=== PATIENT | female | born 1940 | race Caucasian/White ===

== ENCOUNTER 2023-09-29 12:10 | Observation (INO) | payer MEDICARE, SELFPAY ==
--- NOTE | ~2023-09-29 | MR_ITS ---
EXAMINATION: MR BRAIN WITHOUT CONTRAST MR CERVICAL SPINE WITHOUT CONTRAST CLINICAL INFORMATION: Ataxia. Question of cervical cord compression on recent CT imaging. COMPARISON: CT from 09/29/2023. TECHNIQUE: Multiplanar, multisequence imaging of the brain and cervical spine was performed without contrast. FINDINGS: BRAIN: No diffusion abnormalities are identified to suggest an acute infarct. The ventricles are normal in size. No mass effect or midline shift is seen. Moderate chronic small vessel ischemic changes are present throughout the cerebral white matter of both hemispheres and to a lesser degree in the brainstem. No extra-axial fluid collections are seen. The cerebellum is normal. The gradient refocused acquisition demonstrates no pathologic magnetic susceptibility artifact to indicate underlying acute or chronic blood products. The craniovertebral junction, marrow signal, and midline structures are normal. The major intracranial flow voids at the level of the [place] are preserved. The dural venous sinus flow voids are maintained. The mastoid air cells and paranasal sinuses are well aerated. CERVICAL SPINE: Vertebral Bodies And Paraspinal Soft Tissues: The marrow signal is within normal limits. There is multilevel reduced intradiscal signal and rtgrwsup-iz-uofvcz disc space narrowing at the C5-C6 and C6-C7 levels. Mild rightward cervical spinal curvature noted. No compression fractures identified. No marrow or soft tissue edema is seen. The paraspinal soft tissues appear normal. The lung apices are grossly clear. Cervicomedullary Junction And Visualized Posterior Fossa: The craniovertebral junction appears normal. No cord signal abnormality or syrinx is seen. Spinal Levels: C2-C3: Minimal annular bulge without central canal stenosis. Mild left foraminal narrowing. C3-C4: Minimal posterior subluxation and disc bulge with uncovertebral joint spurring resulting in vslslfpo-jt-zoxshj right foraminal encroachment. No central canal stenosis. C4-C5: Retrosubluxation and disc-osteophyte complex with thickening of the ligamentum flavum and bulky right-sided uncovertebral joint spurring. Findings result in cvxv-cq-xfskejrb central canal stenosis with severe right foraminal encroachment. C5-C6: Broad-based disc-osteophyte complex and thickening of the ligamentum flavum resulting in severe central canal stenosis and cord compression without intramedullary signal change evident. Severe bilateral foraminal narrowing. C6-C7: Small central disc protrusion superimposed upon a disc-osteophyte complex resulting in severe central canal stenosis and cord distortion. No intramedullary signal change identified. Significant bilateral foraminal narrowing as well. C7-T1: Mild anterolisthesis and hypertrophic facet arthrosis. No central canal stenosis. Fltl-lj-qluzodby foraminal narrowing. MR/MR head/brain wo con IMPRESSION: BRAIN: No acute intracranial process. Moderate chronic white matter microangiopathy and generalized brain parenchymal volume loss. CERVICAL SPINE: 1. Multilevel cervical spondylosis, most significant at the C5-C6 and C6-C7 levels with severe central canal stenosis and cord compression. No intramedullary signal change. Severe bilateral foraminal narrowing as well at both levels. 2. Wuar-sn-zgdcczco central canal stenosis and severe right foraminal narrowing at the C4-C5 level. Mipuxyal-cx-gbxefs right foraminal narrowing at the C3-C4 level.
--- NOTE | ~2023-09-29 | MR_ITS ---
EXAMINATION: MR BRAIN WITHOUT CONTRAST MR CERVICAL SPINE WITHOUT CONTRAST CLINICAL INFORMATION: Ataxia. Question of cervical cord compression on recent CT imaging. COMPARISON: CT from 09/29/2023. TECHNIQUE: Multiplanar, multisequence imaging of the brain and cervical spine was performed without contrast. FINDINGS: BRAIN: No diffusion abnormalities are identified to suggest an acute infarct. The ventricles are normal in size. No mass effect or midline shift is seen. Moderate chronic small vessel ischemic changes are present throughout the cerebral white matter of both hemispheres and to a lesser degree in the brainstem. No extra-axial fluid collections are seen. The cerebellum is normal. The gradient refocused acquisition demonstrates no pathologic magnetic susceptibility artifact to indicate underlying acute or chronic blood products. The craniovertebral junction, marrow signal, and midline structures are normal. The major intracranial flow voids at the level of the [place] are preserved. The dural venous sinus flow voids are maintained. The mastoid air cells and paranasal sinuses are well aerated. CERVICAL SPINE: Vertebral Bodies And Paraspinal Soft Tissues: The marrow signal is within normal limits. There is multilevel reduced intradiscal signal and dfsgncty-wa-wllxnf disc space narrowing at the C5-C6 and C6-C7 levels. Mild rightward cervical spinal curvature noted. No compression fractures identified. No marrow or soft tissue edema is seen. The paraspinal soft tissues appear normal. The lung apices are grossly clear. Cervicomedullary Junction And Visualized Posterior Fossa: The craniovertebral junction appears normal. No cord signal abnormality or syrinx is seen. Spinal Levels: C2-C3: Minimal annular bulge without central canal stenosis. Mild left foraminal narrowing. C3-C4: Minimal posterior subluxation and disc bulge with uncovertebral joint spurring resulting in pbaivrzo-gk-wsjsav right foraminal encroachment. No central canal stenosis. C4-C5: Retrosubluxation and disc-osteophyte complex with thickening of the ligamentum flavum and bulky right-sided uncovertebral joint spurring. Findings result in poqz-jx-ptvxjvrt central canal stenosis with severe right foraminal encroachment. C5-C6: Broad-based disc-osteophyte complex and thickening of the ligamentum flavum resulting in severe central canal stenosis and cord compression without intramedullary signal change evident. Severe bilateral foraminal narrowing. C6-C7: Small central disc protrusion superimposed upon a disc-osteophyte complex resulting in severe central canal stenosis and cord distortion. No intramedullary signal change identified. Significant bilateral foraminal narrowing as well. C7-T1: Mild anterolisthesis and hypertrophic facet arthrosis. No central canal stenosis. Rtog-ik-rzoxfcpi foraminal narrowing. MR/MR cervical spine wo con IMPRESSION: BRAIN: No acute intracranial process. Moderate chronic white matter microangiopathy and generalized brain parenchymal volume loss. CERVICAL SPINE: 1. Multilevel cervical spondylosis, most significant at the C5-C6 and C6-C7 levels with severe central canal stenosis and cord compression. No intramedullary signal change. Severe bilateral foraminal narrowing as well at both levels. 2. Gefp-sp-zfgjhsvf central canal stenosis and severe right foraminal narrowing at the C4-C5 level. Dqexipbp-wm-tyrvqn right foraminal narrowing at the C3-C4 level.
--- NOTE | ~2023-09-29 | CT_ITS ---
CT ANGIOGRAM NECK WITH CONTRAST CT ANGIOGRAM BRAIN WITH CONTRAST CLINICAL INFORMATION: Acute difficulty walking/ataxia at 7:30 AM. COMPARISON: None available. TECHNIQUE: Test bolus sequences followed by intravenous administration 80 mL of Omnipaque 350. Helical imaging was performed in the axial plane from the thoracic inlet to the skull vertex. Delayed postcontrast imaging of the head was also performed. The data was processed at the manufacturing technologist workstation for generation of MIP sequences. Angled MIPs and volume rendered reformatted images were also generated at an offline 3D workstation under concurrent supervision. Stenoses are assessed in accordance with NASCET criteria unless otherwise indicated. This CT examination was performed using dose optimization techniques as appropriate, variously including the following: *Automated exposure control *Adjustment of mA and/or kV according to patient size (this includes techniques or standardized protocols for targeted exams where dose is matched to indication/reason for exam; i.e. extremities or head) *Use of iterative reconstruction technique FINDINGS: BRAIN: [Scattered hypoattenuation throughout the supratentorial white matter, possibly moderate chronic microangiopathy though nonspecific. There is no intracranial hemorrhage, hydrocephalus, extra-axial surface collection, midline shift, or other herniation pattern. Joseph to white matter differentiation is diffusely maintained without evidence of an evolved acute territorial infarct. The basilar cisterns are preserved. No significant soft tissue abnormality. No acute osseous abnormality. The paranasal sinuses and the mastoid air cells are well aerated.] CERVICAL SOFT TISSUES AND LUNG APICES: There is multilevel cervical spondylosis which is advanced at the C6-C7 level where a suspected large central disc herniation resulting in severe central canal stenosis and possible compression of the cervical spinal cord. There is also probable severe central canal stenosis and cord compression at C5-C6. These findings can can be more definitively assessed with a cervical spine MRI, particularly if there is cervical myelopathy clinically. NECK CTA: [There is a classic 3 vessel configuration of the aortic arch. Proximal arch vessels are non-stenotic. The right vertebral artery is dominant. No significant ostial stenosis is visualized on either side. Both vertebral arteries are widely patent throughout their extracranial cervical course. Extensive atherosclerotic calcification involving the carotid bifurcations bilaterally resulting in 65% stenoses of the proximal internal carotid arteries bilaterally and moderate to severe stenoses of the distal common carotid arteries bilaterally. BRAIN CTA: [There is normal opacification of major intracranial arteries. No focal flow-limiting stenosis nor discrete proximal large artery occlusion. No aneurysm. Timing of the contrast bolus allows assessment of the major dural venous sinuses, which all opacify normally] CT/CT angio head neck IMPRESSION: - There is multilevel cervical spondylosis which is advanced at the C6-C7 level where a suspected large central disc herniation resulting in severe central canal stenosis and possible compression of the cervical spinal cord. There is also probable severe central canal stenosis and cord compression at C5-C6. These findings can can be more definitively assessed with a cervical spine MRI, particularly if there is cervical myelopathy clinically. - No definite acute intracranial findings. Scattered hypoattenuation throughout the supratentorial white matter, possibly moderate chronic microangiopathy though nonspecific. If focal neurologic deficit persists, MRI would be more sensitive in evaluation. - Extensive atherosclerotic calcification involving the carotid bifurcations bilaterally resulting in 65% stenoses of the proximal internal carotid arteries bilaterally and moderate to severe stenoses of the distal common carotid arteries bilaterally. - There are no acute arterial occlusions intracranially. Findings discussed with Wil Wilhelm MD at 4:17 PM on 09/29/2023.
[2023-09-29 12:17] VITALS: BP 208/100; BP 221/103; PULSE 86; PULSE 95; RESP 16; TEMP 36.5; O2SAT 97; O2SAT 98; BMI 26.7
--- NOTE | 2023-09-29 13:32 | ED_ITS ---
HPI - General Adult General Chief complaint: General Medical Stated complaint: HIGH BP 208/100 PER EMS Time Seen by Provider: 09/29/23 13:32 History of Present Illness HPI narrative: The patient is an 83-year-old female who comes to the emergency room by ambulance because of difficulty walking that started at around 07:30 this morning. She had woken at 05:45. She had gotten up early to make a turkey. She was busy in her kitchen and got the turkey in the oven when she rather abruptly felt lightheaded and seemed to have difficulty walking. She sat down for a while hoping she would get better. She did get better. She called a friend who came over. Ultimately the patient stated home until her turkey was fully cooked before coming to the hospital by ambulance. She has never had an episode like this before. She had no associated headache, no associated chest pain. There has been no speech difficulty. No facial asymmetry. No unilateral weakness. She has been noted here to be quite hypertensive. She has no symptoms except when she stands up and tries to walk. Patient said she had alcohol last night. She said that she had 3 drinks. She says that usually she has 2 drinks per night but she had an extra drink last night. Related Data Home Medications Medication Instructions Recorded Confirmed levothyroxine 75 mcg tablet 75 mcg PO DAILY 04/21/21 09/29/23 lisinopril 20 mg tablet 20 mg PO DAILY 04/21/21 09/29/23 Allergies Allergy/AdvReac Type Severity Reaction Status Date / Time No Known Allergies Allergy Verified 04/21/21 09:10 Review of Systems 2 Review of Systems: Yes all other systems are reviewed and are negative [facility] Social History Advance Directives: No Advance Directives Information Provided: Yes Physical Exam ED Vital Signs: Vital Signs - 24 hr 09/29/23 12:17 09/29/23 13:35 09/29/23 17:50 Temperature 97.7 F 98.3 F 97.6 F Pulse Rate 86 86 86 Respiratory Rate 16 21 H 86 H Blood Pressure 221/103 H 216/99 H 197/99 H Pulse Oximetry 98 96 95 Oxygen Delivery Method Room Air Room Air Room Air 09/29/23 19:54 Temperature 98.3 F Pulse Rate 88 Respiratory Rate 18 Blood Pressure 187/91 H Pulse Oximetry 94 Oxygen Delivery Method Room Air BMI result Body Mass Index 26.7 Const Other: The patient is awake, alert, pleasant, cooperative. She does not appear in any obvious distress. HENMT Other: The face is symmetrical. Tongue is midline. Mucous membranes moist. Eyes Other: Pupils are round equal, conjunctivae are clear, extraocular movements intact. Visual [place] are intact to confrontation. Lateral gaze intact. Neck Other: No JVD, no neck swelling, no neck tenderness, moving her neck is sleeping Resp Other: Breath sounds are clear bilaterally Cardio Other: The patient has a regular rate and rhythm no murmur GI Other: Abdomen is soft nontender Skin Other: Skin is dry and unremarkable. Neuro Other: The patient is awake, alert, oriented, appropriate. Eye movements are intact. Visual [place] are intact. No facial asymmetry. Speech is normal without aphasia or dysarthria. She has 5/5 strength in all 4 extremities. She has no pronator drift. Finger-nose and heel-cotton are unremarkable. Sensation is intact throughout. When she is sitting up she does not seem to have obvious truncal ataxia but when she stands she has difficulty walking with an obviously broad-based gait. Extrem Other: No peripheral edema. NIH Stroke Scale Level of Consciousness: Alert Level of Consciousness Questions: Answers both questions correctly Level of Consciousness Commands: Performs both tasks correctly Best Gaze: Normal Visual: No visual loss Facial Palsy: Normal Motor Arm (Right): No drift Motor Arm (Left): No drift Motor Leg (Right): No drift Motor Leg (Left): No drift Limb Ataxia: Absent Sensory: Normal Best Language: No aphasia Dysarthia: Normal Extinction and Inattention: No abnormality Score: 0 Medications Administered Discontinued Medications Generic Name Dose Route Start Last Admin Trade Name Tramaineq PRN Reason Stop Dose Admin Iohexol 70 ml 09/29/23 15:33 09/29/23 15:34 Iohexol 350 Mg/Ml 100 Ml Infus..Btl IV 09/29/23 15:34 70 ml ONCE ONE Administration Medical Decision Making Medical Decision Making [facility] Narrative: Patient is an 83-year-old woman who developed abrupt onset of difficulty walking at around 07:30 this morning. She had been up for about an hour and 45 minutes preparing a Thanksgiving turkey before the onset of symptoms. She did not have any other symptoms aside from what she describes as ?lightheadedness? and a sense that she could not walk normally. She called a friend at around 09:00 but did not come to the emergency room until around noon because she wanted to finished cooking her turkey. She has never had an episode like this before. On exam she looks well when examined on the bed and has no obvious focal neurological deficit while lying down. Her NIH stroke scale is 0. However when she stands she has a broad-based abnormal gait. Her EKG shows normal sinus rhythm at 84 beats per minute. No definite acute ischemic changes. Labs are unremarkable. My initial concern was that she might have a small posterior circulation stroke affecting her gait. We obtained a CT angiogram of the head and neck which showed significant vascular disease but no definite stroke or large vessel occlusion. The radiologist was concerned that there was spinal cord compression at C5-C6 and recommended an MRI of the cervical spine. We were then able to obtain an MRI of the cervical spine and also an MRI of the brain. MRI of the brain showed no evidence of stroke. MRI of the cervical spine showed multilevel cervical spondylosis, most significant at C5-C6 and C6-C7 levels with severe central canal stenosis and cord compression but without intramedullary signal change. Clinically the patient was not showing signs of myelopathy. She has quite good function of the extremities. Initial bladder scan showed a bladder volume of 400. A 2nd bladder scan which was more of a postvoid residual showed a bladder volume of 250 mL per I was able to discuss the case with the neurosurgical physician occupational therapist's assistant at [facility] who was able to review the images. The neurosurgical PA felt that given the absence of intramedullary signal change in the absence of any significant myelopathic symptoms that there was no indication for acute neurosurgical intervention of any kind and be recommended physical therapy and follow-up with the Neurosurgery office as an outpatient. The patient was therefore in the emergency room for many hours. During this time she remained clinically stable. Her blood pressures were initially fairly high but these came down spontaneously. Her gait remained mildly unsteady but she otherwise seemed neurologically intact. Her urinalysis suggests the possibility of UTI but she has no urinary symptoms so I am not inclined to use antibiotics. The patient seems very comfortable with the idea being kept in the emergency room for evaluation by Physical therapy and Case Management. The patient seemed relieved that the idea of not having to prepare and host a Thanksgiving dinner for 14 people tomorrow. My impression is that patient is appropriate for being held in the emergency room overnight for physical therapy evaluation and case management. If she can follow-up as an outpatient regarding findings on her MRI and also regarding the vascular findings on her CT angiogram. In my opinion she is medically clear to go for rehab and then follow-up as an outpatient. Lab Data 09/29/23 14:28 09/29/23 14:28 Labs: Lab Results 09/29/23 09/29/23 09/29/23 Range/Units 14:28 14:29 17:52 WBC 8.2 (4.8-10.8) X10*3/uL RBC 3.97 L (4.20-5.50) X10*6/uL Hgb 12.9 (12.0-16.0) g/dl Hct 37.7 (37.0-47.0) % MCV 95.0 (80.0-98.0) fL MCH 32.5 (27.0-33.0) pg MCHC 34.2 (31.0-35.0) g/dl RDW 13.2 (11.0-16.0) % Plt Count 204 (160-400) X10*3/uL MPV 10.5 (9.4-12.3) fL Immature Gran % (Auto) 0.2 (0.0-0.4) % Neut % (Auto) 83.5 H (45-73) % Lymph % (Auto) 7.8 L (20-40) % [place] % (Auto) 8.4 (2-11) % Eos % (Auto) 0.0 (0-4) % Baso % (Auto) 0.1 (0-2) % Lymph # (Auto) 0.6 L (1.2-4.9) X10*3/uL [place] # (Auto) 0.7 (0.1-1.2) X10*3/uL Eos # (Auto) 0.0 (0.0-0.4) X10*3/uL Baso # (Auto) 0.0 (0.0-0.2) X10*3/uL Abs Immat Gran (auto) 0.02 (0.00-0.03) X10*3/uL Absolute Neuts (auto) 6.8 (2.0-8.3) x10*3/uL Absolute Nucleated RBC 0.000 (0.0-0.012) X10*3/uL Nucleated RBC % (auto) 0.0 (0.0-0.2) /100WBC PT 11.4 (11.1-13.3) SEC INR 0.9 (0.9-1.1) Sodium 130 L (135-145) mmol/L Potassium 4.6 (3.3-5.1) mmol/L Chloride 96 (96-108) mmol/L Carbon Dioxide 26 (22-29) mmol/L Anion Gap 13 (12-20) BUN 23 H (9-16) mg/dL Creatinine 0.87 (0.5-1.4) mg/dL Estim Creat Clear Calc 45.5 Estimated GFR > 60 Random Glucose 100 (60-115) mg/dL Calcium 9.1 (8.4-10.2) mg/dL Magnesium 1.7 (1.6-2.6) mg/dL Total Bilirubin 0.8 (0.0-1.0) mg/dL Direct Bilirubin 0.3 (0.0-0.5) mg/dL AST 28 (5-31) U/L ALT 20 (0-31) U/L Alkaline Phosphatase 53 (39-117) U/L Troponin I High Sens 23.8 H (<3.5-17.0) ng/L B-Natriuretic Peptide 55 (<100) pg/mL Total Protein 7.5 (6.5-8.0) g/dL Albumin 4.2 (3.5-5.0) g/dL Urine Color Yellow Urine Appearance Clear Urine pH 6.5 (5.0-9.0) Ur Specific [place] 1.020 (1.005-1.025) Urine Protein Negative (Neg-Trace) mg/dL Urine Glucose (UA) Negative (Negative) mg/dL Urine Ketones Trace (Negative) mg/dL Urine Blood Trace H (Negative) Urine Nitrite Positive H (Negative) Ur Leukocyte Esterase Small (1+) H (Negative) Urine RBC 0-2 (0-2) /HPF Urine WBC 6-10 H (0-5) /HPF Ur Squamous Epith Cells 0-2 (0-2) /HPF Urine Bacteria 4+ (None Seen) Hyaline Casts 0-2 (0-2) /LPF Ethyl Alcohol < 10 mg/dL Discharge Plan Discharge Clinical Impression: Difficulty walking Prescriptions: No Action levothyroxine 75 mcg tablet 75 mcg PO DAILY lisinopril 20 mg tablet 20 mg PO DAILY
[2023-09-29 13:35] VITALS: BP 216/99; PULSE 86; RESP 21; TEMP 36.8; O2SAT 96
--- NOTE | 2023-09-29 13:48 | ECG_ITS ---
Test Reason : DIZZINESS Blood Pressure : / mmHG Vent. Rate : 084 BPM Atrial Rate : 084 BPM P-R Int : 154 ms QRS Dur : 082 ms QT Int : 378 ms P-R-T Axes : 083 065 044 degrees QTc Int : 446 ms Normal sinus rhythm Possible Left atrial enlargement Borderline ECG When compared with ECG of 17-MAR-2013 08:57, T wave amplitude has increased in Anterior leads Referred By: Wil Wilhelm Electronically Signed By:CHUCKY AMARO MD
[2023-09-29 14:35] LABS: MANUAL DIFF FLAG NO
[2023-09-29 14:37] LABS: Basophils Percent Auto 0.1 % (0-2); Hematocrit 37.7 % (37.0-47.0); Hemoglobin 12.9 g/dl (12.0-16.0); Imm Gran Abs Auto 0.02 X10*3/uL (0.00-0.03); Imm Gran Pct Auto 0.2 % (0.0-0.4); Lymphocytes Absolute Auto 0.6 X10*3/uL (1.2-4.9); Lymphocytes Percent Auto 7.8 % (20-40); Mean Corpuscular HGB Conc 34.2 g/dl (31.0-35.0); Mean Corpuscular Hemoglobin 32.5 pg (27.0-33.0); Mean Platelet Volume 10.5 fL (9.4-12.3); Monocytes Absolute Auto 0.7 X10*3/uL (0.1-1.2); Monocytes Percent Auto 8.4 % (2-11); Neutrophils Absolute Auto 6.8 x10*3/uL (2.0-8.3); Neutrophils Percent Auto 83.5 % (45-73); Platelet Count 204 X10*3/uL (160-400); Red Blood Count 3.97 X10*6/uL (4.20-5.50); Red Cell Distribution Width 13.2 % (11.0-16.0); White Blood Count 8.2 X10*3/uL (4.8-10.8)
[2023-09-29 14:43] LABS: INTERNATIONAL NORM RATIO 0.9 (0.9-1.1); Prothrombin Time 11.4 SEC (11.1-13.3)
[2023-09-29 14:52] LABS: Ethanol < 10 mg/dL
[2023-09-29 14:53] LABS: Alanine Aminotransferase 20 U/L (0-31); Albumin Level 4.2 g/dL (3.5-5.0); Alkaline Phosphatase 53 U/L (39-117); Anion Gap 13 (12-20); Aspartate Amino Transferase 28 U/L (5-31); Bilirubin Direct 0.3 mg/dL (0.0-0.5); Bilirubin Total 0.8 mg/dL (0.0-1.0); Blood Urea Nitrogen 23 mg/dL (9-16); Calcium 9.1 mg/dL (8.4-10.2); Carbon Dioxide 26 mmol/L (22-29); Chloride 96 mmol/L (96-108); Creatinine Clr Calc Pharmacy 45.5; Estimated Glomerular Filt Rate > 60; Glucose Random 100 mg/dL (60-115); Magnesium 1.7 mg/dL (1.6-2.6); Potassium 4.6 mmol/L (3.3-5.1); Sodium 130 mmol/L (135-145); Total Protein 7.5 g/dL (6.5-8.0)
[2023-09-29 15:00] LABS: B Type Natriuretic Peptide 55 pg/mL (<100)
[2023-09-29 15:01] LABS: Troponin-I High Sensitivity 23.8 ng/L (<3.5-17.0)
[2023-09-29] MEDS: iohexoL 350 MG/ML 100 ML INFUS..BTL 70 ML IV (15:34)
--- NOTE | 2023-09-29 17:11 | PC.NURSE ---
Pt currently at MRI
[2023-09-29 17:50] VITALS: BP 197/99; PULSE 86; RESP 86; TEMP 36.4; O2SAT 95
[2023-09-29 17:59] LABS: Appearance Urine Clear; Color Urine Yellow; Glucose Urine UA Negative (Negative); Leukocyte Esterase Urine Small (1+) (Negative); Nitrite Urine Positive (Negative); PH 6.5 (5.0-9.0); UMIC TRIGGER UACC YES; Urine Blood Trace (Negative); Urine Ketones Trace mg/dL (Negative); Urine Protein Negative (Neg-Trace)
[2023-09-29 18:11] LABS: Bacteria Urine 4+ (None Seen); Hyaline Casts Urine 0-2 /LPF (0-2); RBC Urine 0-2 /HPF (0-2); Squamous Epithelial Cell Urine 0-2 /HPF (0-2); UACC Culture Trigger YES
--- NOTE | 2023-09-29 19:39 | PC.NURSE ---
Pt ca&ox4, no signs of distress. Pt assisted to the bedside commode and then back into bed. Plan of care ongoing.
[2023-09-29 19:54] VITALS: BP 187/91; PULSE 88; RESP 18; TEMP 36.8; O2SAT 94
--- NOTE | 2023-09-29 21:55 | PC.NURSE ---
Pt assisted to bedside commode. Purewick placed. Plan of care ongoing.
--- NOTE | 2023-09-29 22:32 | ED_ITS ---
HPI - General Adult General Chief complaint: General Medical Stated complaint: HIGH BP 208/100 PER EMS Time Seen by Provider: 09/29/23 13:32 Related Data Home Medications Medication Instructions Recorded Confirmed levothyroxine 75 mcg tablet 75 mcg PO DAILY 04/21/21 09/29/23 lisinopril 20 mg tablet 20 mg PO DAILY 04/21/21 09/29/23 Allergies Allergy/AdvReac Type Severity Reaction Status Date / Time No Known Allergies Allergy Verified 04/21/21 09:10 [facility] Social History Advance Directives: No Advance Directives Information Provided: Yes Physical Exam ED Vital Signs: Vital Signs - 24 hr 09/29/23 12:17 09/29/23 13:35 09/29/23 17:50 Temperature 97.7 F 98.3 F 97.6 F Pulse Rate 86 86 86 Respiratory Rate 16 21 H 86 H Blood Pressure 221/103 H 216/99 H 197/99 H Pulse Oximetry 98 96 95 Oxygen Delivery Method Room Air Room Air Room Air 09/29/23 19:54 Temperature 98.3 F Pulse Rate 88 Respiratory Rate 18 Blood Pressure 187/91 H Pulse Oximetry 94 Oxygen Delivery Method Room Air BMI result Body Mass Index 26.7 Medications Administered Discontinued Medications Generic Name Dose Route Start Last Admin Trade Name Freq PRN Reason Stop Dose Admin Iohexol 70 ml 09/29/23 15:33 09/29/23 15:34 Iohexol 350 Mg/Ml 100 Ml Infus..Btl IV 09/29/23 15:34 70 ml ONCE ONE Administration Medical Decision Making Lab Data 09/29/23 14:28 09/29/23 14:28 Labs: Lab Results 09/29/23 09/29/23 09/29/23 Range/Units 14:28 14:29 17:52 WBC 8.2 (4.8-10.8) X10*3/uL RBC 3.97 L (4.20-5.50) X10*6/uL Hgb 12.9 (12.0-16.0) g/dl Hct 37.7 (37.0-47.0) % MCV 95.0 (80.0-98.0) fL MCH 32.5 (27.0-33.0) pg MCHC 34.2 (31.0-35.0) g/dl RDW 13.2 (11.0-16.0) % Plt Count 204 (160-400) X10*3/uL MPV 10.5 (9.4-12.3) fL Immature Gran % (Auto) 0.2 (0.0-0.4) % Neut % (Auto) 83.5 H (45-73) % Lymph % (Auto) 7.8 L (20-40) % [place] % (Auto) 8.4 (2-11) % Eos % (Auto) 0.0 (0-4) % Baso % (Auto) 0.1 (0-2) % Lymph # (Auto) 0.6 L (1.2-4.9) X10*3/uL [place] # (Auto) 0.7 (0.1-1.2) X10*3/uL Eos # (Auto) 0.0 (0.0-0.4) X10*3/uL Baso # (Auto) 0.0 (0.0-0.2) X10*3/uL Abs Immat Gran (auto) 0.02 (0.00-0.03) X10*3/uL Absolute Neuts (auto) 6.8 (2.0-8.3) x10*3/uL Absolute Nucleated RBC 0.000 (0.0-0.012) X10*3/uL Nucleated RBC % (auto) 0.0 (0.0-0.2) /100WBC PT 11.4 (11.1-13.3) SEC INR 0.9 (0.9-1.1) Sodium 130 L (135-145) mmol/L Potassium 4.6 (3.3-5.1) mmol/L Chloride 96 (96-108) mmol/L Carbon Dioxide 26 (22-29) mmol/L Anion Gap 13 (12-20) BUN 23 H (9-16) mg/dL Creatinine 0.87 (0.5-1.4) mg/dL Estim Creat Clear Calc 45.5 Estimated GFR > 60 Random Glucose 100 (60-115) mg/dL Calcium 9.1 (8.4-10.2) mg/dL Magnesium 1.7 (1.6-2.6) mg/dL Total Bilirubin 0.8 (0.0-1.0) mg/dL Direct Bilirubin 0.3 (0.0-0.5) mg/dL AST 28 (5-31) U/L ALT 20 (0-31) U/L Alkaline Phosphatase 53 (39-117) U/L Troponin I High Sens 23.8 H (<3.5-17.0) ng/L B-Natriuretic Peptide 55 (<100) pg/mL Total Protein 7.5 (6.5-8.0) g/dL Albumin 4.2 (3.5-5.0) g/dL Urine Color Yellow Urine Appearance Clear Urine pH 6.5 (5.0-9.0) Ur Specific [place] 1.020 (1.005-1.025) Urine Protein Negative (Neg-Trace) mg/dL Urine Glucose (UA) Negative (Negative) mg/dL Urine Ketones Trace (Negative) mg/dL Urine Blood Trace H (Negative) Urine Nitrite Positive H (Negative) Ur Leukocyte Esterase Small (1+) H (Negative) Urine RBC 0-2 (0-2) /HPF Urine WBC 6-10 H (0-5) /HPF Ur Squamous Epith Cells 0-2 (0-2) /HPF Urine Bacteria 4+ (None Seen) Hyaline Casts 0-2 (0-2) /LPF Ethyl Alcohol < 10 mg/dL Discharge Plan Discharge Clinical Impression: Difficulty walking Patient Disposition: Still a Patient Prescriptions: No Action levothyroxine 75 mcg tablet 75 mcg PO DAILY lisinopril 20 mg tablet 20 mg PO DAILY
[2023-09-30] VITALS (8 sets, daily range): BP systolic 116–212; BP diastolic 53–98; PULSE 73–86; RESP 15–19; TEMP 36.7–36.8; O2SAT 93–98; BMI 25.4
--- NOTE | 2023-09-30 | ECG_ITS ---
Test Reason : ABNORMAL LABS Blood Pressure : / mmHG Vent. Rate : 088 BPM Atrial Rate : 088 BPM P-R Int : 138 ms QRS Dur : 076 ms QT Int : 390 ms P-R-T Axes : 074 059 049 degrees QTc Int : 471 ms Normal sinus rhythm with sinus arrhythmia Normal ECG When compared with ECG of 29-SEP-2023 14:21, T wave amplitude has increased in Anterior leads Referred By: Wil Wilhelm Electronically Signed By:CHUCKY AMARO MD
--- NOTE | 2023-09-30 00:33 | PC.NURSE ---
Report given to overflow SHAYNE Nieves.
[2023-09-30] MEDS: cefuroxime axetiL 250 MG TABLET PO (01:47)
[2023-09-30] MEDS: lisinopriL 10 MG TABLET PO (01:47)
--- NOTE | 2023-09-30 01:54 | PC.NURSE ---
I assumed care of patient at 01:45 am. Patient brought to ED overflow in a stretcher bed, patient transferred into a hospital bed, purewick in place. Patient is alert and oriented x5. Patient denies any pain. Vital signs checked. BP 212/93, P 82. Patient denies headache/chest pain/SOB. ED Provider notified.Patient medicated with Lisinopril 10 mg PO and Ceftin 250 mg per MD order. Patient oriented to overflow room, call irwin placed within patient's reach.
[2023-09-30 03:03] LABS: Troponin-I High Sensitivity 73.9 ng/L (<3.5-17.0)
--- NOTE | 2023-09-30 03:07 | PC.NURSE ---
Telephone call received from lab, spoke to Messi who reported critical trop level 73.9. Dr. Kaur informed. Patient to denies chest pain/headache/nausea/SOB. Plan for patient to be transferred to ED 22 for monitoring.
[2023-09-30] MEDS: Aspirin Enteric Coated 81 MG TABLET.DR PO (03:45)
[2023-09-30] MEDS: Nitroglycerin 2 % Oint 1 GM Packet 0.5 INCH TRANSDERMA (03:45)
[2023-09-30] MEDS: cefTRIAXone sodium 1 GM in 0.9 % Sodium Chloride 50 ML IV (03:45)
--- NOTE | 2023-09-30 04:02 | PC.NURSE ---
Pt medicated per jan. Plan of care ongoing.
[2023-09-30 04:18] LABS: Lactic Acid 0.7 mmol/L (0.5-2.0)
[2023-09-30 05:05] LABS: Troponin-I High Sensitivity 84.6 ng/L (<3.5-17.0)
--- NOTE | 2023-09-30 05:06 | PC.NURSE ---
This RN took critical lab update from Messi pts trop is 84.6. Dr Kaur notified regarding pts trop of 84.6 Dr Kaur called hospitalized Dr. Zaldivar and updated her on pts trop, pt to be admitted. This RN spoke with pt and pt agrees to be admitted. Plan of care ongoing.
--- NOTE | 2023-09-30 05:28 | P.HPHOSP_ITS ---
History of Present Illness Date of Service: 09/30/23 Chief Complaint: weakness 83-year-old female past medical history of hypothyroidism and hypertension comes into the hospital with complaints of generalized weakness. 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 This feeling result after sitting down. She did not have any loss of consciousness, no palpitations, no headache or change in vision. She had a friend convinced her to come to the hospital for further evaluation. Denies any similar previous episode. Denies any chest pain, no shortness of breath, no palpitations, no abdominal pain nausea or vomiting. patient has been feeling urinary urgency and mild retention for the past 2 days. But otherwise did not have any dysuria. No fever or chills. On arrival to the ED patient slightly hypertensive with blood pressure of 221/103, currently 193/98 denies any chest pain, no headache or change in vision. labs are significant for normal WBC of 8.2, sodium of 130, troponin of initially 23.8 increased to 73.9, and now 84.6, BNP of 55, UA positive for nitrites leukocyte Estrace and WBC Patient started on IV antibiotics and will be admitted for further management Review of Systems 2 Review of Systems: Yes all other systems are reviewed and are negative [facility] Medical History Hypothyroidism Spinal stenosis Hypertension Surgical History History of right hip replacement (Updated 09/30/23 @ 05:44 by Renée Zaldivar MD) Household Members: None Household Members Other:: lives alone Alcohol intake: current Patient Tobacco Use Status: Never used Tobacco Meds Allergies Allergy/AdvReac Type Severity Reaction Status Date / Time No Known Allergies Allergy Verified 04/21/21 09:10 Active Medications: Current Medications Levothyroxine Sodium (Levothyroxine Sodium 75 Mcg Tablet) 75 mcg PO DAILY@0600 [facility] Lisinopril (Lisinopril 20 Mg Tablet) 20 mg PO DAILY [facility]; Protocol Home Medications Medication Instructions Recorded Confirmed Last Taken Type levothyroxine 75 mcg tablet 75 mcg PO DAILY 04/21/21 09/29/23 Unknown History lisinopril 20 mg tablet 20 mg PO DAILY 04/21/21 09/29/23 Unknown History Physical Exam 2 Vital Signs and Narrative: Vital Signs: Last Vital Signs Temp 98.0 F 09/30/23 01:27 Pulse 81 09/30/23 02:40 Resp 19 09/30/23 02:40 BP 195/98 H 09/30/23 02:40 Pulse Ox 98 09/30/23 02:40 O2 Del Method Room Air 09/30/23 02:40 BMI result Body Mass Index 26.7 Const: General: cooperative and no acute distress O rientation/consciousness: patient oriented x3 Eyes: General: appearance normal, both eyes and all related structures P upils: Equal, round and reactive pupils present Resp: Effort & Inspection: normal respiratory effort Auscultation: clear to auscultation bilaterally Cardio: Rate: regular rate Rhythm: regular rhythm GI: Palpation (GI): Soft to palpation Auscultation: normal bowel sounds Skin: General skin exam: no rashes or lesions noted Neuro: General: patient oriented x3 Cranial nerves: Yes Equal, round and reactive pupils present Cognition (Neuro): normal cognition Extrem: General: Yes normal to inspection and Yes no pedal edema Results Labs 09/29/23 14:28 09/29/23 14:28 Labs: Laboratory Results - last 24 hr 09/29/23 09/29/23 09/29/23 14:28 14:29 17:52 MCV 95.0 MCH 32.5 MCHC 34.2 RDW 13.2 Plt Count 204 MPV 10.5 Immature Gran % (Auto) 0.2 Neut % (Auto) 83.5 H Lymph % (Auto) 7.8 L [place] % (Auto) 8.4 Eos % (Auto) 0.0 Baso % (Auto) 0.1 Lymph # (Auto) 0.6 L [place] # (Auto) 0.7 Eos # (Auto) 0.0 Baso # (Auto) 0.0 Abs Immat Gran (auto) 0.02 Absolute Neuts (auto) 6.8 Absolute Nucleated RBC 0.000 Nucleated RBC % (auto) 0.0 PT 11.4 INR 0.9 Anion Gap 13 Estim Creat Clear Calc 45.5 Estimated GFR > 60 Random Glucose 100 Lactic Acid Calcium 9.1 Magnesium 1.7 Total Bilirubin 0.8 Direct Bilirubin 0.3 AST 28 ALT 20 Alkaline Phosphatase 53 B-Natriuretic Peptide 55 Total Protein 7.5 Albumin 4.2 Urine Color Yellow Urine Appearance Clear Urine pH 6.5 Ur Specific [place] 1.020 Urine Protein Negative Urine Glucose (UA) Negative Urine Ketones Trace Urine Blood Trace H Urine Nitrite Positive H Ur Leukocyte Esterase Small (1+) H Urine RBC 0-2 Urine WBC 6-10 H Ur Squamous Epith Cells 0-2 Urine Bacteria 4+ Hyaline Casts 0-2 Ethyl Alcohol < 10 09/30/23 03:53 MCV MCH MCHC RDW Plt Count MPV Immature Gran % (Auto) Neut % (Auto) Lymph % (Auto) [place] % (Auto) Eos % (Auto) Baso % (Auto) Lymph # (Auto) [place] # (Auto) Eos # (Auto) Baso # (Auto) Abs Immat Gran (auto) Absolute Neuts (auto) Absolute Nucleated RBC Nucleated RBC % (auto) PT INR Anion Gap Estim Creat Clear Calc Estimated GFR Random Glucose Lactic Acid 0.7 Calcium Magnesium Total Bilirubin Direct Bilirubin AST ALT Alkaline Phosphatase B-Natriuretic Peptide Total Protein Albumin Urine Color Urine Appearance Urine pH Ur Specific [place] Urine Protein Urine Glucose (UA) Urine Ketones Urine Blood Urine Nitrite Ur Leukocyte Esterase Urine RBC Urine WBC Ur Squamous Epith Cells Urine Bacteria Hyaline Casts Ethyl Alcohol Imaging Radiologist's Impressions: Impressions Head/Neck CTA 09/29/23 15:34 IMPRESSION: - There is multilevel cervical spondylosis which is advanced at the C6-C7 level where a suspected large central disc herniation resulting in severe central canal stenosis and possible compression of the cervical spinal cord. There is also probable severe central canal stenosis and cord compression at C5-C6. These findings can can be more definitively assessed with a cervical spine MRI, particularly if there is cervical myelopathy clinically. - No definite acute intracranial findings. Scattered hypoattenuation throughout the supratentorial white matter, possibly moderate chronic microangiopathy though nonspecific. If focal neurologic deficit persists, MRI would be more sensitive in evaluation. - Extensive atherosclerotic calcification involving the carotid bifurcations bilaterally resulting in 65% stenoses of the proximal internal carotid arteries bilaterally and moderate to severe stenoses of the distal common carotid arteries bilaterally. - There are no acute arterial occlusions intracranially. Findings discussed with Wil Wilhelm MD at 4:17 PM on 09/29/2023. Brain MRI 09/29/23 17:15 IMPRESSION: BRAIN: No acute intracranial process. Moderate chronic white matter microangiopathy and generalized brain parenchymal volume loss. CERVICAL SPINE: 1. Multilevel cervical spondylosis, most significant at the C5-C6 and C6-C7 levels with severe central canal stenosis and cord compression. No intramedullary signal change. Severe bilateral foraminal narrowing as well at both levels. 2. [id number]-[id number] central canal stenosis and severe right foraminal narrowing at the C4-C5 level. [id number] right foraminal narrowing at the C3-C4 level. Cervical Spine MRI 09/29/23 17:38 IMPRESSION: BRAIN: No acute intracranial process. Moderate chronic white matter microangiopathy and generalized brain parenchymal volume loss. CERVICAL SPINE: 1. Multilevel cervical spondylosis, most significant at the C5-C6 and C6-C7 levels with severe central canal stenosis and cord compression. No intramedullary signal change. Severe bilateral foraminal narrowing as well at both levels. 2. Dxhp-rx-sjesmaly central canal stenosis and severe right foraminal narrowing at the C4-C5 level. Ksdtydvr-[id number] right foraminal narrowing at the C3-C4 level. Assessment and Plan (1) Acute UTI: Status: Acute (2) Weakness: Status: Acute (3) Acute non-ST elevation myocardial infarction (NSTEMI): Status: Acute (4) Hypertensive urgency: Status: Acute Plan 83-year-old female past medical history of hypertension and hypothyroidism as well as spinal stenosis comes into the hospital with complaints of weakness, urinary retention and urgency found to have UTI as well as elevated troponin # elevated troponin - likely type 2 in the setting of hypertension as well as UTI - denies any chest pain, no EKG changes suggestive of ACS - will consult Cardiology - hold off on echo at this time until Cardiology recommendation # hypertensive urgency - significantly elevated blood pressure on arrival secondary to urinary retention - improved - will resume her home medications and give her 1 dose of amlodipine - monitor BP # acute UTI - positive UA, no leukocytosis, no evidence of systemic infection - will treat with IV antibiotics - follow cultures # generalized weakness - secondary to acute infection - PT OT prior to discharge # hypothyroidism - continue levothyroxine DVT prophylaxis: Lovenox Quality Stroke Does the patient have a stroke diagnosis?: No VTE Prior VTE?: No VTE Risk Level:: Medical - moderate - high VTE Device Contraindication: Treatment Not Indicated VTE Drug Contraindication: N/A - Med Ordered
[2023-09-30 06:00] LABS: MANUAL DIFF FLAG NO
[2023-09-30 06:03] LABS: Basophils Percent Auto 0.5 % (0-2); Eosinophils Absolute Auto 0.1 X10*3/uL (0.0-0.4); Eosinophils Percent Auto 0.8 % (0-4); Hematocrit 36.4 % (37.0-47.0); Hemoglobin 12.6 g/dl (12.0-16.0); Imm Gran Abs Auto 0.03 X10*3/uL (0.00-0.03); Imm Gran Pct Auto 0.4 % (0.0-0.4); Lymphocytes Absolute Auto 0.9 X10*3/uL (1.2-4.9); Lymphocytes Percent Auto 11.4 % (20-40); Mean Corpuscular HGB Conc 34.6 g/dl (31.0-35.0); Mean Corpuscular Hemoglobin 32.4 pg (27.0-33.0); Mean Corpuscular Volume 93.6 fL (80.0-98.0); Mean Platelet Volume 10.4 fL (9.4-12.3); Monocytes Absolute Auto 0.9 X10*3/uL (0.1-1.2); Monocytes Percent Auto 11.3 % (2-11); Neutrophils Absolute Auto 5.8 x10*3/uL (2.0-8.3); Neutrophils Percent Auto 75.6 % (45-73); Platelet Count 213 X10*3/uL (160-400); Red Blood Count 3.89 X10*6/uL (4.20-5.50); Red Cell Distribution Width 13.2 % (11.0-16.0); White Blood Count 7.6 X10*3/uL (4.8-10.8)
[2023-09-30] MEDS: amLODIPine Besylate 5 MG TABLET PO (06:03)
[2023-09-30] MEDS: Levothyroxine Sodium 75 MCG TABLET PO (06:03)
[2023-09-30] MEDS: Enoxaparin Sodium 40 MG/0.4 ML SYRINGE SUBCUT (06:04)
--- NOTE | 2023-09-30 06:11 | PC.NURSE ---
Pt medicated per jan. Plan of care ongoing.
[2023-09-30 06:14] LABS: Anion Gap 14 (12-20); Blood Urea Nitrogen 15 mg/dL (9-16); Carbon Dioxide 27 mmol/L (22-29); Chloride 98 mmol/L (96-108); Creatinine Clr Calc Pharmacy 44.5; Estimated Glomerular Filt Rate > 60; Glucose Random 99 mg/dL (60-115); Potassium 5.1 mmol/L (3.3-5.1); Sodium 134 mmol/L (135-145)
--- NOTE | 2023-09-30 07:08 | PC.NURSE ---
assumed care of pt at 0645, pt resting quietly, remains slightly hypertensive - other vss. pt denies any pain at this time. pending bed assignment.
--- NOTE | 2023-09-30 07:34 | PC.NURSE ---
pt given comb and mouth care supplies.
[2023-09-30] MEDS: lisinopriL 20 MG TABLET PO (08:04)
[2023-09-30] MEDS: 0.9 % Sodium Chloride Flush 3 ML SYRINGE IVFLUSH ×2 (08:07→15:24)
--- NOTE | 2023-09-30 08:07 | PC.NURSE ---
pt medicated per MAR.
--- NOTE | 2023-09-30 08:11 | PHA.MEDREC ---
Pharmacy Consult ? Medication Reconciliation Pharmacy has completed the medication reconciliation. Spoke to patient at bedside, said she takes two tablets of her levothyroxine on Wednesday and Wednesday
--- NOTE | 2023-09-30 10:03 | MHC.EDTECH ---
Patient repositioned and bed pad and young changed
--- NOTE | 2023-09-30 11:13 | PM.EVENT ---
Event Note Date of Service: 09/30/23 Event Note: Pt seen and examined, med rec completed. Admitted this morning with weakness, elevated tropon and extremely high BP. No evidence of acute stroke. Overall is feeling better, BP is within normal, troponin I elevated but flat and doubt acute WA.. Cardiology to advise further, treating UTI. Will need PT prior to dc. Otherwise A/P per H and P from today, med rec completed. Time Spent With Patient Time: Total time managing care of this patient today ____ minutes.
--- NOTE | 2023-09-30 11:45 | MHC.CM.PN ---
CM met with Patient at bedside and addressed ENCARNACION with her, Providing Patient with the original and a copy has been placed on the chart. Patient lives in a 2 story house that has a stair lift, once used by Patient's late . Home/self care is the goal and CM has initiated and will follow for dc planning. PCP is Dr. Rey Hope.
--- NOTE | 2023-09-30 13:19 | PM.CNCAR ---
History of Present Illness History of Present Illness Date of Service: 09/30/23 Requesting physician: Chadwick Danielson Chief complaint: UTI, elevated trop Narrative: 83-year-old female who I have been asked to assess for elevated troponin. She presented yesterday after feeling weak and was noted to have significantly elevated blood pressure. She was also noticed to have urinary retention and a UTI. She has been started on antibiotics and since then has been doing better. Her blood pressures improved significantly. She is denying any abdominal pain with urinary retention which could have explain the elevated blood pressure. In any case her blood pressure is down and she is feeling fine. She never had any chest discomfort shortness of breath. She is saying her blood pressure usually is controlled. She follows with Dr. Hope regularly. [facility] Past Medical History Medical History Hypothyroidism Spinal stenosis Hypertension Surgical History Surgical History History of right hip replacement Social History (Updated 09/30/23 @ 05:44 by Renée Zaldivar MD) Household Members: None Household Members Other:: lives alone Alcohol intake: current Patient Tobacco Use Status: Never used Tobacco service: No Meds Allergies Allergy/AdvReac Type Severity Reaction Status Date / Time No Known Allergies Allergy Verified 04/21/21 09:10 Active Medications: Current Medications Acetaminophen (Acetaminophen 325 Mg Tablet) 650 mg PO Q6H PRN PRN Reason: Pain, Mild (Pain Scale 1-3) Calcium Carbonate (Calcium Carbonate 500 Mg Tablet) 500 mg PO DAILY [facility] Last Admin: 09/30/23 09:03 Dose: 500 mg Enoxaparin Sodium (Enoxaparin Sodium 40 Mg/0.4 Ml Syringe) 40 mg SUBCUT Q24H [facility] Last Admin: 09/30/23 06:04 Dose: 40 mg Ceftriaxone Sodium 1 gm/ (Sodium Chloride) 50 mls @ 100 mls/hr IV Q24H [facility] Levothyroxine Sodium (Levothyroxine Sodium 75 Mcg Tablet) 75 mcg PO DAILY@0600 [facility] Last Admin: 09/30/23 06:03 Dose: 75 mcg Levothyroxine Sodium (Levothyroxine Sodium 150 Mcg Tablet) 150 mcg PO SuWe@0600 [facility] Lisinopril (Lisinopril 20 Mg Tablet) 20 mg PO DAILY [facility]; Protocol Last Admin: 09/30/23 08:04 Dose: 20 mg Ondansetron HCl (Ondansetron Hcl 4 Mg/2 Ml Vial) 4 mg IVPUSH Q8H PRN PRN Reason: Nausea and Vomiting Sodium Chloride (0.9 % Sodium Chloride Flush 3 Ml Syringe) 3 ml IVFLUSH QSHIFT [facility] Last Admin: 09/30/23 08:07 Dose: 3 ml Home Medications Medication Instructions Recorded Confirmed Last Taken Type levothyroxine 75 mcg tablet 75 mcg PO MOTUTHFRSA 04/21/21 09/30/23 Unknown History lisinopril 20 mg tablet 20 mg PO DAILY 04/21/21 09/29/23 Unknown History alendronate 70 mg tablet 70 mg PO LLANOS 09/30/23 09/30/23 Unknown History calcium carbonate 500 mg calcium 500 mg PO DAILY 09/30/23 09/30/23 09/29/23 History (1,250 mg) chewable tablet celecoxib 100 mg capsule 100 mg PO DAILY 09/30/23 09/30/23 09/29/23 History levothyroxine 75 mcg tablet 150 mcg PO SUWE 09/30/23 09/30/23 09/29/23 History Physical Exam Vital Signs: Vital Signs: Last Vital Signs Temp 98.2 F 09/30/23 11:44 Pulse 86 09/30/23 11:44 Resp 18 09/30/23 11:44 BP 136/68 09/30/23 11:44 Pulse Ox 93 09/30/23 11:44 O2 Del Method Room Air 09/30/23 11:44 BMI result Body Mass Index 25.4 GENERAL APPEARANCE: in no acute distress, pleasant. NECK: no carotid bruit, no jugular venous distention. SKIN: no suspicious lesions, warm and dry. HEART: no murmurs, regular rate and rhythm. LUNGS: clear to auscultation bilaterally. ABDOMEN: soft, nontender. EXTREMITIES: no edema. PERIPHERAL PULSES: equal. NEUROLOGIC: No gross deficits, AAO X 3 Objective Labs and Meds 09/30/23 05:56 09/30/23 05:56 Lab results: Laboratory Results - last 24 hr 09/29/23 09/29/23 09/29/23 14:28 14:29 17:52 WBC 8.2 RBC 3.97 L Hgb 12.9 Hct 37.7 MCV 95.0 MCH 32.5 MCHC 34.2 RDW 13.2 Plt Count 204 MPV 10.5 Immature Gran % (Auto) 0.2 Neut % (Auto) 83.5 H Lymph % (Auto) 7.8 L Rock % (Auto) 8.4 Eos % (Auto) 0.0 Baso % (Auto) 0.1 Lymph # (Auto) 0.6 L Rock # (Auto) 0.7 Eos # (Auto) 0.0 Baso # (Auto) 0.0 Abs Immat Gran (auto) 0.02 Absolute Neuts (auto) 6.8 Absolute Nucleated RBC 0.000 Nucleated RBC % (auto) 0.0 PT 11.4 INR 0.9 Sodium 130 L Potassium 4.6 Chloride 96 Carbon Dioxide 26 Anion Gap 13 BUN 23 H Creatinine 0.87 Estim Creat Clear Calc 45.5 Estimated GFR > 60 Random Glucose 100 Lactic Acid Calcium 9.1 Magnesium 1.7 Total Bilirubin 0.8 Direct Bilirubin 0.3 AST 28 ALT 20 Alkaline Phosphatase 53 Troponin I High Sens 23.8 H B-Natriuretic Peptide 55 Total Protein 7.5 Albumin 4.2 Urine Color Yellow Urine Appearance Clear Urine pH 6.5 Ur Specific [place] 1.020 Urine Protein Negative Urine Glucose (UA) Negative Urine Ketones Trace Urine Blood Trace H Urine Nitrite Positive H Ur Leukocyte Esterase Small (1+) H Urine RBC 0-2 Urine WBC 6-10 H Ur Squamous Epith Cells 0-2 Urine Bacteria 4+ Hyaline Casts 0-2 Ethyl Alcohol < 10 09/30/23 09/30/23 09/30/23 02:34 03:53 04:36 WBC RBC Hgb Hct MCV MCH MCHC RDW Plt Count MPV Immature Gran % (Auto) Neut % (Auto) Lymph % (Auto) Rock % (Auto) Eos % (Auto) Baso % (Auto) Lymph # (Auto) Rock # (Auto) Eos # (Auto) Baso # (Auto) Abs Immat Gran (auto) Absolute Neuts (auto) Absolute Nucleated RBC Nucleated RBC % (auto) PT INR Sodium Potassium Chloride Carbon Dioxide Anion Gap BUN Creatinine Estim Creat Clear Calc Estimated GFR Random Glucose Lactic Acid 0.7 Calcium Magnesium Total Bilirubin Direct Bilirubin AST ALT Alkaline Phosphatase Troponin I High Sens 73.9 H* D 84.6 H* B-Natriuretic Peptide Total Protein Albumin Urine Color Urine Appearance Urine pH Ur Specific [place] Urine Protein Urine Glucose (UA) Urine Ketones Urine Blood Urine Nitrite Ur Leukocyte Esterase Urine RBC Urine WBC Ur Squamous Epith Cells Urine Bacteria Hyaline Casts Ethyl Alcohol 09/30/23 09/30/23 05:56 08:53 WBC 7.6 RBC 3.89 L Hgb 12.6 Hct 36.4 L MCV 93.6 MCH 32.4 MCHC 34.6 RDW 13.2 Plt Count 213 MPV 10.4 Immature Gran % (Auto) 0.4 Neut % (Auto) 75.6 H Lymph % (Auto) 11.4 L Rock % (Auto) 11.3 H Eos % (Auto) 0.8 Baso % (Auto) 0.5 Lymph # (Auto) 0.9 L Rock # (Auto) 0.9 Eos # (Auto) 0.1 Baso # (Auto) 0.0 Abs Immat Gran (auto) 0.03 Absolute Neuts (auto) 5.8 Absolute Nucleated RBC 0.000 Nucleated RBC % (auto) 0.0 PT INR Sodium 134 L Potassium 5.1 Chloride 98 Carbon Dioxide 27 Anion Gap 14 BUN 15 Creatinine 0.89 Estim Creat Clear Calc 44.5 Estimated GFR > 60 Random Glucose 99 Lactic Acid Calcium 9.0 Magnesium Total Bilirubin Direct Bilirubin AST ALT Alkaline Phosphatase Troponin I High Sens 73.0 H* B-Natriuretic Peptide Total Protein Albumin Urine Color Urine Appearance Urine pH Ur Specific [place] Urine Protein Urine Glucose (UA) Urine Ketones Urine Blood Urine Nitrite Ur Leukocyte Esterase Urine RBC Urine WBC Ur Squamous Epith Cells Urine Bacteria Hyaline Casts Ethyl Alcohol Imaging Radiologist's impression: Impressions Head/Neck CTA 09/29/23 15:34 IMPRESSION: - There is multilevel cervical spondylosis which is advanced at the C6-C7 level where a suspected large central disc herniation resulting in severe central canal stenosis and possible compression of the cervical spinal cord. There is also probable severe central canal stenosis and cord compression at C5-C6. These findings can can be more definitively assessed with a cervical spine MRI, particularly if there is cervical myelopathy clinically. - No definite acute intracranial findings. Scattered hypoattenuation throughout the supratentorial white matter, possibly moderate chronic microangiopathy though nonspecific. If focal neurologic deficit persists, MRI would be more sensitive in evaluation. - Extensive atherosclerotic calcification involving the carotid bifurcations bilaterally resulting in 65% stenoses of the proximal internal carotid arteries bilaterally and moderate to severe stenoses of the distal common carotid arteries bilaterally. - There are no acute arterial occlusions intracranially. Findings discussed with Wil Wilhelm MD at 4:17 PM on 09/29/2023. Brain MRI 09/29/23 17:15 IMPRESSION: BRAIN: No acute intracranial process. Moderate chronic white matter microangiopathy and generalized brain parenchymal volume loss. CERVICAL SPINE: 1. Multilevel cervical spondylosis, most significant at the C5-C6 and C6-C7 levels with severe central canal stenosis and cord compression. No intramedullary signal change. Severe bilateral foraminal narrowing as well at both levels. 2. [id number] central canal stenosis and severe right foraminal narrowing at the C4-C5 level. [id number] right foraminal narrowing at the C3-C4 level. Cervical Spine MRI 09/29/23 17:38 IMPRESSION: BRAIN: No acute intracranial process. Moderate chronic white matter microangiopathy and generalized brain parenchymal volume loss. CERVICAL SPINE: 1. Multilevel cervical spondylosis, most significant at the C5-C6 and C6-C7 levels with severe central canal stenosis and cord compression. No intramedullary signal change. Severe bilateral foraminal narrowing as well at both levels. 2. Tuid-ws-godhdhoe central canal stenosis and severe right foraminal narrowing at the C4-C5 level. Pzjdijbx-[id number] right foraminal narrowing at the C3-C4 level. Assessment and Plan (1) Hypertensive urgency: Status: Acute (2) Acute non-ST elevation myocardial infarction (NSTEMI): Status: Acute Plan 83-year-old female presenting for urinary retention and elevated blood pressure. Blood pressure is well controlled at this point. The urinary retention was due to urine tract infection and is being treated with antibiotics and she is improving. Mildly elevated troponin level due to significant hypertension. This is a type 2 event and does not need further testing currently. Blood pressure is better controlled currently. Overall she is improving and if continues to stay stable can be discharged home in the next 24 hours. She can see us as outpatient if she has any other symptoms. Thank you for allowing me to participate in the care of your patient. Please feel free to contact me if you have any questions. Procedures Date of Service Date of Service: 09/30/23
[2023-10-01] VITALS: BP 146/67; PULSE 75; RESP 18; TEMP 36.2; O2SAT 94
[2023-10-01 03:55] VITALS: BP 144/67; PULSE 65; RESP 18; TEMP 36.3; O2SAT 96
[2023-10-01] MEDS: cefTRIAXone sodium 1 GM in 0.9 % Sodium Chloride 50 ML IV (05:44)
[2023-10-01] MEDS: Enoxaparin Sodium 40 MG/0.4 ML SYRINGE SUBCUT (05:44)
[2023-10-01] MEDS: Levothyroxine Sodium 75 MCG TABLET PO (05:44)
[2023-10-01 06:00] VITALS: BMI 25.3
[2023-10-01 07:46] VITALS: BP 153/70; PULSE 74; RESP 20; TEMP 36.2; O2SAT 97
[2023-10-01] MEDS: lisinopriL 20 MG TABLET PO (08:16)
[2023-10-01] MEDS: levoFLOXacin 250 MG TABLET PO (08:16)
[2023-10-01] MEDS: 0.9 % Sodium Chloride Flush 3 ML SYRINGE IVFLUSH (08:17)
[2023-10-01 10:44] VITALS: BP 166/76; PULSE 89; O2SAT 92
[2023-10-01 11:20] VITALS: BP 109/60; PULSE 71; RESP 16; TEMP 36.6; O2SAT 97
--- NOTE | 2023-10-01 11:55 | PM.DS ---
DS: Providers Provider Date of Service: 10/01/23 Date of admission: 09/30/23 05:27 Primary care physician: Rey Hope MD Consults: 09/30/23 05:27 Consult to Cardiology Routine Consulting Provider: [facility] Cardiovascular Services Reason for consultation: elevated trop Has provider been notified: No DS: Diagnosis Discharge Diagnosis (1) Hypertensive urgency: Status: Acute (2) Acute non-ST elevation myocardial infarction (NSTEMI): Status: Acute DS: Summary Hospital Course Hospital Course: admission HPI: Chief Complaint: weakness 83-year-old female past medical history of hypothyroidism and hypertension comes into the hospital with complaints of generalized weakness. 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 This feeling result after sitting down. She did not have any loss of consciousness, no palpitations, no headache or change in vision. She had a friend convinced her to come to the hospital for further evaluation. Denies any similar previous episode. Denies any chest pain, no shortness of breath, no palpitations, no abdominal pain nausea or vomiting. patient has been feeling urinary urgency and mild retention for the past 2 days. But otherwise did not have any dysuria. No fever or chills. On arrival to the ED patient slightly hypertensive with blood pressure of 221/103, currently 193/98 denies any chest pain, no headache or change in vision. labs are significant for normal WBC of 8.2, sodium of 130, troponin of initially 23.8 increased to 73.9, and now 84.6, BNP of 55, UA positive for nitrites leukocyte Estrace and WBC Patient started on IV antibiotics and will be admitted for further management Hospital course:The patient presented with weakness, and the stroke workup was negative; her blood pressure was extremely high at that time, she had a mild increase in troponin, and UA showed UTI and urinary retention. Upon admission and treatment of UTI, her symptoms resolved,?and her blood pressure returned to normal on her usual medication. She was evaluated by cardiology for elevated troponin, which was deemed to be related to acute elevation in blood pressure. She needs no further testing at this time.?She's overall feeling better Urinary retention resolved. . She is up and ambulating without an assisted device, is steady on her feet, and desires to go home.??She will be discharged with Levaquin to complete treatment for UTI due to Enterobacter cloacae complex with the following sensitivity profile Enterobacter cloacae complex Q > 100,000 cfu/mL Ent joaquin cp M.I.C. RX --------- --- Ertapenem <=0.12 S Gentamicin <=1 S Levofloxacin <=0.12 S Nitrofurantoin 32 S Trimethoprim/Sulfamethoxazole <=20 S Patient feels comfortable going home today Final diagnoses: HTN urgency elvated troponin UTI weakness Time Attestation Discharge coordination time: Greater than 30 minutes Quality: Safe Use of Opioids Does Pt have an Active Cancer Diagnosis on the Problem List?: No Quality: Stroke Does the patient have a stroke diagnosis?: No Physical Exam Vital Signs: Vital Signs: Last Vital Signs Temp 97.8 F 10/01/23 11:20 Pulse 71 10/01/23 11:20 Resp 16 10/01/23 11:20 BP 109/60 10/01/23 11:20 Pulse Ox 97 10/01/23 11:20 O2 Del Method Room Air 10/01/23 11:20 BMI result Body Mass Index 25.3 DS: Data Data Completed and Pending Labs on day of discharge: Preliminary micro results at discharge 09/30/23 04:44 Blood Culture - Preliminary Blood - Venous No growth after 24 hours. 09/30/23 04:35 Blood Culture - Preliminary Blood - Venous No growth after 24 hours. Discharge Plan Discharge Anticipated Discharge Date/Time: 10/01/23 12:05 Patient Disposition: Home Health Service Discharge Diagnosis: UTI, elevated troponin, HTN urgency, urinary retention Referrals: Rey Hope MD [Primary Care Provider] - 1 Week Discharge Medications: New levofloxacin 250 mg Tablet 250 mg PO Q24H Qty: 4 0RF Continued levothyroxine 75 mcg tablet 150 mcg PO SUWE calcium carbonate 500 mg calcium (1,250 mg) Tablet,Chewable 500 mg PO DAILY celecoxib 100 mg capsule 100 mg PO DAILY alendronate 70 mg tablet 70 mg PO LLANOS levothyroxine 75 mcg tablet 75 mcg PO MOTUTHFRSA lisinopril 20 mg tablet 20 mg PO DAILY Discharge Orders: Discharge Order (Routine); Ordered 10/01/23 Ordered By: Chadwick Danielson Diet: Advance to usual diet Activity on Discharge: As tolerated Stand Alone Forms: Patient Portal Discharge page Care Plan Goals: full recovery from UTI, weakness Health Concerns: uti, weakness, Hypertension urgency Plan of Treatment: take Levaquin as recommended to treat UTI continue taking your medication as before follow up with your Doctor in a week, call for appointment Assessment: as above
--- NOTE | 2023-10-01 12:15 | W.MHC.F2F ---
Service Date Service Date: 10/01/23 Encounter Date of encounter: 10/01/23 Reasons for Services Signs and symptoms assessed: weakness, Reason for fpc: CV/CP assess and/or care, medication treatment and teach disease management Reason for physical therapy: home safety and mobility, therapeutic exercises and gait/transfer training Homebound: Leaving the home is medically contraindicated at this time without the asist of a device and/or another person due th the listed conditions above and below. Reason homebound: unsteady gait / fall risk and fall risk related to blood pressure changes Homebound supporting statement: Homebound due to weakness, variable blood pressure, post hospitalization weakness and therefore needs the assistance of another person Certification: Based on the above findings, I certify that this patient is confined to the home and needs intermittent fpc care, physical therapy and/or speech therapy, or continues to need occupational therapy. The patient is under my care, and I have initiated the establishment of the plan of care. The patient will be followed by a physician who will periodically review the plan of care. Time Spent With Patient Time: Total time managing care of this patient today ____ minutes.
--- NOTE | 2023-10-01 14:01 | MHC.CM.PN ---
Pt is medically cleared for D/C home with new [facility]. Pts [id number] will trasnport her home.
--- NOTE | 2023-10-01 14:02 | MHC.CM.PN ---
Pt is medically cleared for D/C home with new [facility]. Pts [id number] will transport her home.
--- NOTE | 2023-10-04 13:49 | ED.GENADULT ---
HPI - General Adult General Chief complaint: General Medical Stated complaint: HIGH BP 208/100 PER EMS Time Seen by Provider: 09/29/23 13:32 Related Data Home Medications Medication Instructions Recorded Confirmed levothyroxine 75 mcg tablet 75 mcg PO MOTUTHFRSA 04/21/21 09/30/23 lisinopril 20 mg tablet 20 mg PO DAILY 04/21/21 09/29/23 alendronate 70 mg tablet 70 mg PO LLANOS 09/30/23 09/30/23 calcium carbonate 500 mg calcium 500 mg PO DAILY 09/30/23 09/30/23 (1,250 mg) chewable tablet celecoxib 100 mg capsule 100 mg PO DAILY 09/30/23 09/30/23 levothyroxine 75 mcg tablet 150 mcg PO SUWE 09/30/23 09/30/23 Previous Rx's Medication Instructions Recorded levofloxacin 250 mg tablet 250 mg PO Q24H #4 tabs 10/01/23 Allergies Allergy/AdvReac Type Severity Reaction Status Date / Time No Known Allergies Allergy Verified 04/21/21 09:10 [facility] Past Medical History Medical History Hypothyroidism Spinal stenosis Hypertension Surgical History History of right hip replacement Social History (Updated 09/30/23 @ 05:44 by Renée Zaldivar MD) Household Members: None Household Members Other:: lives alone Alcohol intake: current Patient Tobacco Use Status: Never used Tobacco service: No Physical Exam ED Vital Signs: BMI result Body Mass Index 26.7 Medications Administered Discontinued Medications Generic Name Dose Route Start Last Admin Trade Name Luis Miguel PRN Reason Stop Dose Admin Amlodipine Besylate 5 mg 09/30/23 05:42 09/30/23 06:03 Amlodipine Besylate 5 Mg Tablet PO 09/30/23 05:43 5 mg ONCE ONE Administration Protocol Aspirin 81 mg 09/30/23 03:40 09/30/23 03:45 Aspirin Enteric Coated 81 Mg Tablet.Dr PO 09/30/23 03:41 81 mg ONCE ONE Administration Calcium Carbonate 500 mg 09/30/23 09:00 10/01/23 08:16 Calcium Carbonate 500 Mg Tablet PO 500 mg DAILY DARLINE Administration Cefuroxime Axetil 250 mg 09/30/23 01:38 09/30/23 01:47 Cefuroxime Axetil 250 Mg Tablet PO 09/30/23 01:39 250 mg ONCE ONE Administration Enoxaparin Sodium 40 mg 09/30/23 06:00 10/01/23 05:44 Enoxaparin Sodium 40 Mg/0.4 Ml Syringe SUBCUT 40 mg Q24H DARLINE Administration Ceftriaxone Sodium 1 gm/ 50 mls @ 100 mls/hr 09/30/23 03:39 09/30/23 04:25 Sodium Chloride IV 09/30/23 04:08 Infused ONCE ONE Infusion Ceftriaxone Sodium 1 gm/ 50 mls @ 100 mls/hr 10/01/23 06:00 10/01/23 06:32 Sodium Chloride IV Infused Q24H DARLINE Infusion Iohexol 70 ml 09/29/23 15:33 09/29/23 15:34 Iohexol 350 Mg/Ml 100 Ml Infus..Btl IV 09/29/23 15:34 70 ml ONCE ONE Administration Levofloxacin 250 mg 10/01/23 07:45 10/01/23 08:16 Levofloxacin 250 Mg Tablet PO 250 mg Q24H [facility] Administration Levothyroxine Sodium 75 mcg 09/30/23 06:00 10/01/23 05:44 Levothyroxine Sodium 75 Mcg Tablet PO 75 mcg DAILY@0600 [facility] Administration Lisinopril 20 mg 09/30/23 09:00 10/01/23 08:16 Lisinopril 20 Mg Tablet PO 20 mg DAILY [facility] Administration Protocol Lisinopril 10 mg 09/30/23 01:38 09/30/23 01:47 Lisinopril 10 Mg Tablet PO 09/30/23 01:39 10 mg ONCE ONE Administration Protocol Nitroglycerin 0.5 inch 09/30/23 03:39 09/30/23 03:45 Nitroglycerin 2 % Oint 1 Gm Packet TRANSDERMA 09/30/23 03:40 0.5 inch ONCE ONE Administration Sodium Chloride 3 ml 09/30/23 08:00 10/01/23 08:17 0.9 % Sodium Chloride Flush 3 Ml Syringe IVFLUSH 3 ml QSHIFT [facility] Administration Medical Decision Making Lab Data 09/30/23 05:56 09/30/23 05:56 Labs: Lab Results 09/29/23 09/29/23 09/29/23 Range/Units 14:28 14:29 17:52 WBC 8.2 (4.8-10.8) X10*3/uL RBC 3.97 L (4.20-5.50) X10*6/uL Hgb 12.9 (12.0-16.0) g/dl Hct 37.7 (37.0-47.0) % MCV 95.0 (80.0-98.0) fL MCH 32.5 (27.0-33.0) pg MCHC 34.2 (31.0-35.0) g/dl RDW 13.2 (11.0-16.0) % Plt Count 204 (160-400) X10*3/uL MPV 10.5 (9.4-12.3) fL Immature Gran % (Auto) 0.2 (0.0-0.4) % Neut % (Auto) 83.5 H (45-73) % Lymph % (Auto) 7.8 L (20-40) % [place] % (Auto) 8.4 (2-11) % Eos % (Auto) 0.0 (0-4) % Baso % (Auto) 0.1 (0-2) % Lymph # (Auto) 0.6 L (1.2-4.9) X10*3/uL [place] # (Auto) 0.7 (0.1-1.2) X10*3/uL Eos # (Auto) 0.0 (0.0-0.4) X10*3/uL Baso # (Auto) 0.0 (0.0-0.2) X10*3/uL Abs Immat Gran (auto) 0.02 (0.00-0.03) X10*3/uL Absolute Neuts (auto) 6.8 (2.0-8.3) x10*3/uL Absolute Nucleated RBC 0.000 (0.0-0.012) X10*3/uL Nucleated RBC % (auto) 0.0 (0.0-0.2) /100WBC PT 11.4 (11.1-13.3) SEC INR 0.9 (0.9-1.1) Sodium 130 L (135-145) mmol/L Potassium 4.6 (3.3-5.1) mmol/L Chloride 96 (96-108) mmol/L Carbon Dioxide 26 (22-29) mmol/L Anion Gap 13 (12-20) BUN 23 H (9-16) mg/dL Creatinine 0.87 (0.5-1.4) mg/dL Estim Creat Clear Calc 45.5 Estimated GFR > 60 Random Glucose 100 (60-115) mg/dL Lactic Acid (0.5-2.0) mmol/L Calcium 9.1 (8.4-10.2) mg/dL Magnesium 1.7 (1.6-2.6) mg/dL Total Bilirubin 0.8 (0.0-1.0) mg/dL Direct Bilirubin 0.3 (0.0-0.5) mg/dL AST 28 (5-31) U/L ALT 20 (0-31) U/L Alkaline Phosphatase 53 (39-117) U/L Troponin I High Sens 23.8 H (<3.5-17.0) ng/L B-Natriuretic Peptide 55 (<100) pg/mL Total Protein 7.5 (6.5-8.0) g/dL Albumin 4.2 (3.5-5.0) g/dL Urine Color Yellow Urine Appearance Clear Urine pH 6.5 (5.0-9.0) Ur Specific [place] 1.020 (1.005-1.025) Urine Protein Negative (Neg-Trace) mg/dL Urine Glucose (UA) Negative (Negative) mg/dL Urine Ketones Trace (Negative) mg/dL Urine Blood Trace H (Negative) Urine Nitrite Positive H (Negative) Ur Leukocyte Esterase Small (1+) H (Negative) Urine RBC 0-2 (0-2) /HPF Urine WBC 6-10 H (0-5) /HPF Ur Squamous Epith Cells 0-2 (0-2) /HPF Urine Bacteria 4+ (None Seen) Hyaline Casts 0-2 (0-2) /LPF Ethyl Alcohol < 10 mg/dL 09/30/23 09/30/23 09/30/23 Range/Units 02:34 03:53 04:36 WBC (4.8-10.8) X10*3/uL RBC (4.20-5.50) X10*6/uL Hgb (12.0-16.0) g/dl Hct (37.0-47.0) % MCV (80.0-98.0) fL MCH (27.0-33.0) pg MCHC (31.0-35.0) g/dl RDW (11.0-16.0) % Plt Count (160-400) X10*3/uL MPV (9.4-12.3) fL Immature Gran % (Auto) (0.0-0.4) % Neut % (Auto) (45-73) % Lymph % (Auto) (20-40) % [place] % (Auto) (2-11) % Eos % (Auto) (0-4) % Baso % (Auto) (0-2) % Lymph # (Auto) (1.2-4.9) X10*3/uL [place] # (Auto) (0.1-1.2) X10*3/uL Eos # (Auto) (0.0-0.4) X10*3/uL Baso # (Auto) (0.0-0.2) X10*3/uL Abs Immat Gran (auto) (0.00-0.03) X10*3/uL Absolute Neuts (auto) (2.0-8.3) x10*3/uL Absolute Nucleated RBC (0.0-0.012) X10*3/uL Nucleated RBC % (auto) (0.0-0.2) /100WBC PT (11.1-13.3) SEC INR (0.9-1.1) Sodium (135-145) mmol/L Potassium (3.3-5.1) mmol/L Chloride (96-108) mmol/L Carbon Dioxide (22-29) mmol/L Anion Gap (12-20) BUN (9-16) mg/dL Creatinine (0.5-1.4) mg/dL Estim Creat Clear Calc Estimated GFR Random Glucose (60-115) mg/dL Lactic Acid 0.7 (0.5-2.0) mmol/L Calcium (8.4-10.2) mg/dL Magnesium (1.6-2.6) mg/dL Total Bilirubin (0.0-1.0) mg/dL Direct Bilirubin (0.0-0.5) mg/dL AST (5-31) U/L ALT (0-31) U/L Alkaline Phosphatase (39-117) U/L Troponin I High Sens 73.9 H* D 84.6 H* (<3.5-17.0) ng/L B-Natriuretic Peptide (<100) pg/mL Total Protein (6.5-8.0) g/dL Albumin (3.5-5.0) g/dL Urine Color Urine Appearance Urine pH (5.0-9.0) Ur Specific [place] (1.005-1.025) Urine Protein (Neg-Trace) mg/dL Urine Glucose (UA) (Negative) mg/dL Urine Ketones (Negative) mg/dL Urine Blood (Negative) Urine Nitrite (Negative) Ur Leukocyte Esterase (Negative) Urine RBC (0-2) /HPF Urine WBC (0-5) /HPF Ur Squamous Epith Cells (0-2) /HPF Urine Bacteria (None Seen) Hyaline Casts (0-2) /LPF Ethyl Alcohol mg/dL Discharge Plan Discharge Clinical Impression: Acute UTI, Weakness, Acute non-ST elevation myocardial infarction (NSTEMI) Patient Disposition: Admitted As Inpatient Interventions: Admission Worksheet (ED) Last Done: 09/30/23 11:30 Discharge Date/Time: 09/30/23 11:31
== END 2023-10-01 13:40 | disposition home health service (06) ==
LOC: HO.ED 09-30 03:42 → HO.EDOVER 09-30 05:32 → HO.IMC 09-30 11:03
PROVIDERS: Internal Medicine; Admitting Provider Internal Medicine; Emergency Provider Emergency Medicine; PCP Internal Medicine; Visit Provider Internal Medicine
DX: N39.0 Urinary tract infection, site not specified (principal); I21.4 Non-ST elevation (NSTEMI) myocardial infarction; I16.0 Hypertensive urgency; R33.9 Retention of urine, unspecified; R26.2 Difficulty in walking, not elsewhere classified; R53.1 Weakness; R42 Dizziness and giddiness; M47.812 Spondylosis without myelopathy or radiculopathy, cervical region; E03.9 Hypothyroidism, unspecified; I10 Essential (primary) hypertension; R79.89 Other specified abnormal findings of blood chemistry; Z79.899 Other long term (current) drug therapy
CPT/HCPCS: 36415; 70496; 70498; 70551; 72141; 80048; 80076; 80307; 81001; 83605; 83735; 83880; 84484; 85025; 85610; 87040; 87086; 87088; 87186; 93005; 96365; 96366; 96372; 97162; 99222; 99285; J0696; J1650; Q9967

== ENCOUNTER → 2023-09-30 05:27 | Outpatient (BNV) | payer MEDICARE, SELFPAY | PROVIDERS: Admitting Provider Internal Medicine; Emergency Provider Emergency Medicine; PCP Internal Medicine; Visit Provider Internal Medicine | DX: I21.4 Non-ST elevation (NSTEMI) myocardial infarction (principal); N39.0 Urinary tract infection, site not specified; R53.1 Weakness; I16.0 Hypertensive urgency | CPT/HCPCS: 99223; 99239; 99499; G0180 ==

== ENCOUNTER → 2023-09-30 05:27 | Outpatient (BNV) | payer MEDICARE, SELFPAY | PROVIDERS: Admitting Provider Internal Medicine; Emergency Provider Emergency Medicine; PCP Internal Medicine; Visit Provider Internal Medicine Cardiovascular Disease | DX: I16.0 Hypertensive urgency (principal); I21.4 Non-ST elevation (NSTEMI) myocardial infarction | CPT/HCPCS: 99222 ==

== ENCOUNTER 2024-03-24 09:25 | Outpatient (AMB) | payer MEDICARE, SELFPAY ==
--- NOTE | 2024-03-24 09:38 | HO.SPINEOV ---
Intake Visit Reasons: spinal stenosis Intake Note: is here today c/o back pain Manager Fine Required: No Allergies No Known Allergies Allergy (Verified 03/24/24 09:43) Assessment & Plan Assessment & Plan (1) Cervical spondylosis with myelopathy: Code(s): M47.12 - Other spondylosis with myelopathy, cervical region Category: Medical Plan Dear colleague On 03/24/2024, I saw Giana Carlos, self-referred patient with a chief complaint of progressive balance problems. HPI: This patient states that over the course of 10 years she gradually declined, especially in the last few years. She was able to walk stairs without difficulties and gardening but this is no longer possible. She had put in a lift chair together up the stairs and gardening is no longer possible due to balance problems. She has numbness in her fingertips and feet and urge incontinence. She does not go out much due to balance problems. In the house she has all kinds of tricks to guide her through the house without falling. She was seen at [facility] who told him that she had severe spinal cord compression but they did offer surgery due to her age and told her to come back if the symptoms were much worse. PMH: Hypertension, hypothyroidism, hip replacement Medications: Voltaren, lisinopril, levothyroxine, Ciloxan sip, alendronate, latanoprost Allergies: NKDA Social history: Nonsmoker Physical Exam: Pleasant female. She walks with a cane. Romberg is positive. She has mild dexterity loss of her hands. No pathological reflexes. No weakness. There is numbness of the fingertips and feet. Radiological Studies: [place] [facility] [place] shows severe cervical spinal stenosis with spinal cord compression at C4-5, C5-6 and C6-7 without myelomalacia. In addition there is right C5 foraminal stenosis and bilateral C6-C7 foraminal stenosis. A cervical x-ray today showed no signs of instability but shows degenerative changes from C4-C7 Impression/Plan: This 83-year-old female suffering from progressive cervical myelopathy due to severe multilevel spinal cord compression. Review of imaging shows severe spinal cord compression C4-5 C5-6 and C6-7. The x-rays arthritic and therefore I think a cervical laminectomy C4-C6 would be beneficial to this patient. No instrumentation is required. I described the procedure, possible complications and she wants to proceed. She is scheduled for 05/24/2024. She lives alone and therefore will stay in hospital for 23 hours. She will get preoperative clearance from her primary care physician. Thank you for allowing me to participate in your patients care. total time spent was 50 minutes in counseling ,coordination of plan, personal review of imaging, surgical decision making and subsequent plan Carmine Oakes MD, PhD Spine Fellowship Trained Neurosurgeon Director, [facility] Orders: Orders XR cervical spine 4V Today M47.12 - Other spondylosis with myelopathy, cervical region Coding Level of Care Code New Pt Level 4 (46004) Diagnoses Cervical spondylosis with myelopathy M47.12
== END 2024-03-24 10:29 | disposition home or self-care (01) ==
PROVIDERS: PCP Internal Medicine; Visit Provider Neurological Surgery
DX: M47.12 Other spondylosis with myelopathy, cervical region (principal)
CPT/HCPCS: 99204

== ENCOUNTER 2024-03-24 09:25 | Outpatient (REF) | payer MEDICARE, SELFPAY ==
--- NOTE | ~2024-03-24 | XR_ITS ---
EXAMINATION: XR CERVICAL SPINE CLINICAL INFORMATION: Spondylosis with myelopathy. COMPARISON: 09/29/2023 MR cervical spine. TECHNIQUE: 4 views of the cervical spine. FINDINGS: Marker overlies C1-C2 on lateral neutral view and therefore image is technically inadequate. Repeat view at no charge to patient is recommended. If additional images are provided, an addendum will be dictated. Please note that C1-C2 region is adequately visualized on lateral flexion and extension views. The bones are diffusely demineralized. Degenerative changes on very limited images of the upper thoracic spine. Degenerative changes between the anterior arch of C1 and the odontoid. Multilevel cervical spondylosis with loss of disc space height at C4-C5, C5-C6, and C6-C7. Mild retrolisthesis of C5 on C6; extension reduces with flexion. XR/XR cervical spine 4V IMPRESSION: 1. Multilevel cervical spondylosis most subtle and C4-C7 levels. 2. Marker overlies C1-C2 on lateral neutral view and therefore image is technically inadequate. Repeat view at no charge to patient is recommended. If additional images are provided, an addendum will be dictated. Please note that C1-C2 region is adequately visualized on lateral flexion and extension views.
== END 2024-03-24 09:26 | disposition home or self-care (01) ==
LOC: HO.HOSX 09:25
PROVIDERS: PCP Internal Medicine; Visit Provider Neurological Surgery
DX: M47.12 Other spondylosis with myelopathy, cervical region (principal)
CPT/HCPCS: 72050; 99202

== ENCOUNTER 2024-05-17 12:32 | Inpatient (IN) | payer MEDICARE, SELFPAY ==
[2024-05-04 09:21] VITALS: BMI 25.3
--- NOTE | 2024-05-16 09:07 | P.CONAN_ITS ---
Documented by User: Jessica Christensen NP 05/16/24 09:21 HPI - Anesthesia Eval Consult details Narrative: 83yo F for C4-5,C5-6 Laminectomy Medically optimized (referral to Vascular for incidental finding of carotid stenosis, but ok to proceed with surgery per PCP and vascular) [facility] Active Problems Active Problems: All Active Problems Cervical spondylosis with myelopathy (Acute) Acute UTI (Acute) Cyst (Acute) Past Medical History Medical History (Updated 05/16/24 @ 09:08 by Jessica Christensen NP) Carotid stenosis COPD (chronic obstructive pulmonary disease) Hypothyroidism Spinal stenosis Hypertension Surgical History Surgical History (Updated 05/04/24 @ 09:20 by Terra Barrett RN) History of excision of pilonidal cyst Hx of bilateral cataract extraction H/O colonoscopy History of right hip replacement Social History Social History (Updated 09/30/23 @ 05:44 by Renée Zaldivar MD) Household Members: None Household Members Other:: lives alone Are you a primary healthcare consulting manager to a significant other at home: No Do you presently have visiting nurse or other home services: No Alcohol intake: current Comment: 2 to 3 times a week Patient Tobacco Use Status: Former Tobacco user Tobacco use type: Cigarette Cigarettes Per Day: 10 Years Smoked: 30 Use of substances other than those prescribed or required for medical reasons: No Have you been hit, kicked, punched, or otherwise hurt by someone within the past year? If so, by whom?: No Are you DNR?: No Advance Directives Information Provided: Yes (as above noted) Advance Directives on File: No Recently lost weight without trying: No Eating poorly because of decreased appetite: No Nutrition Risks: Surgical patient >75years Poor oral hygiene: No (upper & lower full denture) service: No Meds Allergies Allergy/AdvReac Type Severity Reaction Status Date / Time No Known Allergies Allergy Verified 05/17/24 07:20 Home Medications ?Medication ?Instructions ?Recorded ?Confirmed ?Last Taken ?Type levothyroxine 75 mcg tablet 75 mcg PO MOTUTHFRSA 04/21/21 05/17/24 05/17/24 History lisinopril 20 mg tablet 20 mg PO QAM 04/21/21 05/04/24 05/16/24 History alendronate 70 mg tablet 70 mg PO 09/30/23 09/30/23 05/15/24 History calcium carbonate 500 mg PO QAM 09/30/23 05/04/24 05/16/24 History levothyroxine 75 mcg tablet 150 mcg PO SUWE 09/30/23 05/04/24 09/29/23 History dorzolamide 2 % eye drops 1 drp ophthalmic (eye) QPM 05/04/24 05/04/24 05/17/24 History latanoprost 0.005 % eye drops 1 drp ophthalmic (eye) QAM 05/04/24 05/04/24 05/17/24 History Exam Height,Weight and Vital Signs: Height 5 ft 2 in Weight 62.8 kg Pertinent Lab Results Pertinent Lab Results: CBC and BMP 04/2024 from outside facility [place] Narrative Narrative: EKG 04/2024 NSR @ 68 CT/CT angio head neck 09/2023 IMPRESSION: - There is multilevel cervical spondylosis which is advanced at the C6-C7 level where a suspected large central disc herniation resulting in severe central canal stenosis and possible compression of the cervical spinal cord. There is also probable severe central canal stenosis and cord compression at C5-C6. These findings can can be more definitively assessed with a cervical spine MRI, particularly if there is cervical myelopathy clinically. - No definite acute intracranial findings. Scattered hypoattenuation throughout the supratentorial white matter, possibly moderate chronic microangiopathy though nonspecific. If focal neurologic deficit persists, MRI would be more sensitive in evaluation. - Extensive atherosclerotic calcification involving the carotid bifurcations bilaterally resulting in 65% stenoses of the proximal internal carotid arteries bilaterally and moderate to severe stenoses of the distal common carotid arteries bilaterally. - There are no acute arterial occlusions intracranially. Assessment and Plan Assessment Anesthesia Assessment: Chart Reviewed Documented by User: Nyasia Willis MD 05/17/24 10:50 [facility] Past Medical History Medical History (Updated 05/16/24 @ 09:08 by Jessica Christensen NP) Carotid stenosis COPD (chronic obstructive pulmonary disease) Hypothyroidism Spinal stenosis Hypertension Family History Family history of problems with anesthesia: No Surgical History Surgical History (Updated 05/04/24 @ 09:20 by Terra Barrett RN) History of excision of pilonidal cyst Hx of bilateral cataract extraction H/O colonoscopy History of right hip replacement History of Problems with Anesthesia: No Social History Social History (Updated 09/30/23 @ 05:44 by Renée Zaldivar MD) Household Members: None Household Members Other:: lives alone Are you a primary healthcare consulting manager to a significant other at home: No Do you presently have visiting nurse or other home services: No Alcohol intake: current Comment: 2 to 3 times a week Patient Tobacco Use Status: Former Tobacco user Tobacco use type: Cigarette Cigarettes Per Day: 10 Years Smoked: 30 Use of substances other than those prescribed or required for medical reasons: No Have you been hit, kicked, punched, or otherwise hurt by someone within the past year? If so, by whom?: No Are you DNR?: No Advance Directives Information Provided: Yes (as above noted) Advance Directives on File: No Recently lost weight without trying: No Eating poorly because of decreased appetite: No Nutrition Risks: Surgical patient >75years Poor oral hygiene: No (upper & lower full denture) service: No Meds Allergies Allergy/AdvReac Type Severity Reaction Status Date / Time No Known Allergies Allergy Verified 05/17/24 07:20 Home Medications ?Medication ?Instructions ?Recorded ?Confirmed ?Last Taken ?Type levothyroxine 75 mcg tablet 75 mcg PO MOTUTHFRSA 04/21/21 05/17/24 05/17/24 History lisinopril 20 mg tablet 20 mg PO QAM 04/21/21 05/04/24 05/16/24 History alendronate 70 mg tablet 70 mg PO 09/30/23 09/30/23 05/15/24 History calcium carbonate 500 mg PO QAM 09/30/23 05/04/24 05/16/24 History levothyroxine 75 mcg tablet 150 mcg PO SUWE 09/30/23 05/04/24 09/29/23 History dorzolamide 2 % eye drops 1 drp ophthalmic (eye) QPM 05/04/24 05/04/24 05/17/24 History latanoprost 0.005 % eye drops 1 drp ophthalmic (eye) QAM 05/04/24 05/04/24 05/17/24 History Exam Airway Mallampati Class: II TM Dist: >3cm Neck ROM: Full Denture: Upper and Lower Heart: rrr Lungs: cta Assessment and Plan Assessment Anesthesia Assessment: Anesthesia Plan Discussed Final Anesthetic Review Family History of Problems with Anesthesia: No History of Problems with Anesthesia: No NPO: Yes ASA Class: III Final Preanesthetic Review: No Changes in Pt Med Stat, Meds/Allgs Chart Reviewed and Consent Obtained/Reviewed Patient Risk: Intermediate Procedure Risk: Intermediate Anesthetic Plan Anesthetic Plan: GA Disposition: Standard PACU
[2024-05-17] VITALS (12 sets, daily range): BP systolic 105–184; BP diastolic 55–83; PULSE 75–85; RESP 14–18; TEMP 36.1–36.6; O2SAT 93–100; BMI 23.6
--- NOTE | ~2024-05-17 | FL_ITS ---
EXAMINATION: XR FLUOROSCOPY WITH IMAGES CLINICAL INFORMATION: C4-C5, C5-C6 laminectomy. COMPARISON: None available. TECHNIQUE: Fluoroscopy Supervised By: Dr. Carmine Oakes. Fluoroscopy Time: 2 seconds. Cumulative Dose: 0.2568 mGy. DAP: 0.1117 Gycm2. Images: 1. FINDINGS: Intraoperative fluoroscopy and spot films were performed during a procedure in the OR. Single image demonstrates surgical clamps posterior to the C5 vertebral body. Please correlate with Dr. Alvarado's report for complete details. FL/FL guidance in OR IMPRESSION: Intraoperative fluoroscopy and spot films were obtained. Please see Dr. Alvarado's report for complete details.
[2024-05-17] MEDS: methocarbamoL 750 MG TABLET PO (07:50)
[2024-05-17] MEDS: Gabapentin 300 MG CAPSULE PO ×3 (07:51→21:28)
[2024-05-17] MEDS: Lactated Ringers 1,000 ML 100 ML IVCONT (07:51)
--- NOTE | 2024-05-17 10:25 | MHC.SHP ---
Pre-Procedural Eval Section A - 24 Hr Update-Section A only Date of Service: 05/17/24 The patient is an INPATIENT: No Section B - Complete if H&P > 30 days Chief Complaint: Other spondylosis with myelopathy, cervical region Relevant Family History (Specify if Yes): No Relevant Social History: None Present Medications: see Short Stay Collaborative assessment Allergies: Allergies Allergy/AdvReac Type Severity Reaction Status Date / Time No Known Allergies Allergy Verified 05/17/24 07:20 Review of Systems Sugical H&P ROS: Negative: Constitution, Cardiovascular, Respiratory, Psychiatric, Hem-Onc, Allergic/Immunologic, Gastrointestinal, Genitourinary, Musculoskeletal, Integumentary, Endocrine and Eyes/Ears/Nose/Throat and Yes, Specify: Neurological (Dexterity loss) Exam Surgical H&P Exam: Normal: HEENT, Normal: Skin and Normal: Neurological (Dexterity loss) and Not Evaluated: Heart, Not Evaluated: Lungs, Not Evaluated: Extremities and Not Evaluated: Abdomen Plan Diagnosis/Plan: Unchanged I have reviewed the history and physical and performed a pertinent physical examination on my patient. No changes have occurred unless specified. C4-C6 cervical laminectomy Time Spent With Patient Time: Total time managing care of this patient today ___10_ minutes.
--- NOTE | 2024-05-17 12:36 | W.PM.OPN ---
Operative Note Operative Note Date of Service: 05/17/24 Narrative: Preoperative Diagnosis: cervical myelopathy Operation: C4-C6 laminectomy Consent Informed Consent was obtained for this operation. I have explained the nature, purpose and benefits of the operation. I have discussed the risks and benefit of the operation including possible complications or adverse events with patient/family. Alternative(s) were discussed with the patient with their relative benefits and risks as well as the consequences of not accepting the operation were included in obtaining consent. Surgeon: KARTHIK GARCIA MD, PHD Procedure Assisted By: ROSANGELA Granados Description of Procedure This patient is suffering from progressive cervical myelopathy due to severe spinal cord compression from C4-C6.. She was offered a C4-C6 cervical laminectomy to make sure that the spinal cord has the most space for recover. The procedure complications were explained. The patient was consented. The patient was brought to the operating room and endotracheally intubated. The patient was turned in prone position on the gel rolls with the head fixated in [place]. Prep and drape was done followed by timeout. a midcervical incision was made. Dissection was carried down the midline to avoid blood loss. The paravertebral muscles were released to expose the C4-C6 laminae in preparation for the laminectomy. a [place] was used to perform a partial of C4-C6 laminectomy. An x-ray confirmed the correct levels. A # 2. and 3 [place] were used to complete the C4-C6 laminectomy. The laminectomy was extended laterally near flush with the pedicles. This resulted in good decompression of the spinal cord. Extensive hemostasis was done after which the physician general office assistant closed the fascia and subcutaneous layer with 2-0 Vicryl. [place] were used to approximate the incision. All sponge and needle counts were correct. The [place] was removed. Patient was extubated and transported in a stable base to the recover room Anesthesia: General Estimated Blood Loss (ml): 10 mL Duration of Surgery: Under 60 Minutes Postoperative Plan: Admit for observation
[2024-05-17] MEDS: 0.9 % Sodium Chloride 1,000 ML 75 ML IVCONT (14:24)
[2024-05-17] MEDS: Ketorolac Tromethamine 15 MG/ML VIAL IVPUSH ×2 (14:25→21:28)
--- NOTE | 2024-05-17 14:25 | P.DS_ITS ---
DS: Providers Provider Date of Service: 05/18/24 Date of admission: 05/17/24 12:32 Primary care physician: Rey Hope MD DS: Summary Time Attestation Discharge Coordination Time (in mins): 30 Quality: Safe Use of Opioids Does Pt have an Active Cancer Diagnosis on the Problem List?: No Quality: Stroke Does the patient have a stroke diagnosis?: No Physical Exam Vital Signs: Vital Signs: Last Vital Signs Temp 97 F 05/17/24 13:37 Pulse 77 05/17/24 13:37 Resp 17 05/17/24 13:37 BP 166/72 H 05/17/24 13:37 Pulse Ox 100 05/17/24 13:37 O2 Del Method Nasal Cannula 05/17/24 13:37 O2 Flow Rate 2 05/17/24 13:37 BMI result Body Mass Index 23.6 Discharge Plan Discharge Anticipated Discharge Date/Time: 05/18/24 08:00 Patient Disposition: Home, Self-Care Discharge Diagnosis: s/p C4-6 cervical laminectomy Referrals: Rey Hope MD [Primary Care Provider] - 1 Week Discharge Medications: Continued levothyroxine 75 mcg tablet 150 mcg PO SUWE calcium carbonate 500 mg calcium (1,250 mg) Tablet,Chewable 500 mg PO QAM alendronate 70 mg tablet 70 mg PO MO latanoprost 0.005 % drops 1 drp ophthalmic (eye) DAILY dorzolamide 2 % Drops 1 drp OPHTHALMIC (EYE) BEDTIME amlodipine 2.5 mg tablet 2.5 mg PO DAILY lisinopril 30 mg tablet 30 mg PO DAILY diphenhydramine-acetaminophen [Tylenol PM Extra Strength] 25-500 mg Tablet 2 tab PO BEDTIME PRN (Reason: Pain) levothyroxine 75 mcg tablet 75 mcg PO MOTUTHFRSA Discharge Orders: Discharge Order (Routine); Ordered 05/18/24 Ordered By: Shawn Perdue Diet: Advance to usual diet Activity on Discharge: As tolerated Stand Alone Forms: Patient Portal Discharge page Print Language: Dj[place]ian Activity Restrictions/Additional Instructions: After your spinal surgery we ask you to observe the following restrictions/guidelines: Activity: It is normal to feel some discomfort as you increase your activity, but that will improve with time. We ask you avoid heavy lifting or acitivities that cause pain. As a general rule, 8lbs is a safe limit for lifting right after surgery. Walk as much as you feel comfortable but not to exhaustion. You will feel extra tired the first few days after surgery. Stay well hydrated. It is OK to walk up and down stairs You may return to driving when you are off narcotics (such as vicodin, oxycod one, dilaudid, etc), and you are back to normal functional capacity. If you have any concerns please check with office before driving. Return to work is specific to each patient and each surgery, so please speak with your doctor/PA at first follow up. Please bring paperwork such as FMLA at that time if you need it filled out. Medications: We will be sending in a short 2 day course of Bactrim DS for infection prophylaxis. Please pick this up today and begin taking it. We will give you a short supply of narcotics after surgery (usually one weeks worth). If you need more please call the office but do not use more than prescribed. You will need to give our office 48 hours notice if you need narcotics refilled and we do not fill narcotics on weekends or evenings. If you are on a narcotic, it is a good idea to take a stool softener such as colace or senna to avoid constipation If you take blood thinner such as aspirin, Plavix, Coumadin, Effient, Eliquis etc for conditions such as Afib, DVT, Pulmonary embolus, coronary disease, stents etc please speak with your surgeon about specific details as to when you can resume these medications. You can resume NSAIDs on post op day 1 (eg: Motrin, Naproxen, etc). Follow up: Please call the office, , after surgery to arrange a 3 week follow up for wound check. Wound Care: You may remove your dressing on the first day after surgery. ?You may ?leave open to air. Please do not remove the steri strips underneath. they will fall off on their own in one week. IT IS NORMAL FOR THE WOUND TO OOZE OR BE BLOODY FOR A FEW DAYS AFTER SURGERY. ?IF THIS HAPPENS JUST PLACE NEW DRESSING OVER IT TO AVOID STAINING CLOTHES. You may shower on post op day # 1 We ask that you do not let the water soak the wound. If it does get wet, just towel dry lightly. Please do not scrub your incision or place any type of chemical/ointment on the wound. No tub baths, pools or jacuzzis for one month. If you have any leaking or redness from your wound, or fevers, please call the office. Care Plan Goals: Returned to normal activity as tolerated Health Concerns: None Plan of Treatment: Follow-up in clinic in 2-3 weeks. Assessment: POD: 1 Procedure: C4-6 ACDF Giana was seen this morning sitting upright in her chair eating breakfast on . She reports she is up walking around is otherwise doing well. She feels her symptoms are much better than pre-operatively. She feels more stable when she is walking and feels her balance issues have been resolved. She reports zero pain at this point and denies want or need for pain medication. Afebrile, vital signs stable. No new neurological deficits. Posterior neck dressing is C/D/I. No active sanguineous drainage. Area is dry. Plan: Patient meets criteria to be medically discharged home. She specifically requested that we do not send in any narcotic pain medication for her as she feels she does not need it and will be fine with tylenol / ibuprofen. This was discussed with the attending neurosurgeon Dr. Oakes. Shawn Oakes MD,PhD [facility]
--- NOTE | 2024-05-17 15:40 | PHA.MEDREC ---
Pharmacy Consult ? Medication Reconciliation Pharmacy has completed the medication reconciliation. Confirmed medications with patient. She confirmed she takes a Lexothyroxine 75mg tab on and 150mg on LLANOS and WE.
[2024-05-17] MEDS: Acetaminophen 325 MG TABLET 975 MG PO ×2 (16:57→23:53)
[2024-05-17] MEDS: ceFAZolin Sodium/Dextrose,Iso 2 GM/50 ML PIGGYBACK IV (16:58)
[2024-05-17] MEDS: Docusate Sodium 100 MG CAPSULE PO (21:28)
[2024-05-17] MEDS: Dorzolamide HCl 2 % Ophth Sol 10 ML DRPBTL 1 DROP EYE-BOTH (21:30)
[2024-05-18 03:39] VITALS: BP 108/53; PULSE 81; RESP 18; TEMP 36.9; O2SAT 94
[2024-05-18] MEDS: Ketorolac Tromethamine 15 MG/ML VIAL IVPUSH (06:10)
[2024-05-18] MEDS: Acetaminophen 325 MG TABLET 975 MG PO (06:11)
[2024-05-18] MEDS: Levothyroxine Sodium 75 MCG TABLET PO (06:11)
[2024-05-18 07:44] VITALS: BP 108/53; PULSE 81; O2SAT 94
[2024-05-18 08:00] VITALS: BP 127/60; PULSE 71; RESP 15; TEMP 37.2; O2SAT 96
--- NOTE | 2024-05-18 09:04 | HO.POSTANES ---
Post Anesthesia Evaluation Post Anesthesia Evaluation Date of Service: 05/18/24 Vital Signs: Vital Signs Temp Pulse Resp BP Pulse Ox O2 Del Method 05/18/24 08:00 98.9 F 71 15 127/60 96 Room Air 05/18/24 07:44 81 108/53 L 94 05/18/24 03:39 98.4 F 81 18 108/53 L 94 Room Air Anesthesia: General Endotracheal-GETA Mental Status: Awake Pain Control: Satisfactory Nausea/Vomiting: None Hydration: Adequate Anesthesia-Related Issues: No Anes. Related Issues
[2024-05-18] MEDS: Calcium Oyster Shell Elemental 500 MG TABLET PO (09:07)
[2024-05-18] MEDS: Gabapentin 300 MG CAPSULE PO (09:07)
[2024-05-18] MEDS: Docusate Sodium 100 MG CAPSULE PO (09:07)
[2024-05-18] MEDS: lisinopriL 20 MG TABLET PO (09:07)
--- NOTE | 2024-05-18 09:24 | MHC.CM.PN ---
IMM DELIVERED. PATIENT LIVES IN A 2 STORY HOME, ALONE. HAS A CHAIR LIFT TO SECOND FLOOR. AMBULATES W/ A WALKER. NO SERVICES. PCP PRADEEP MARCH MD HCP ON FILE AND VERIFIED. DP: PATIENT MEDICALLY CLEARED FOR DC HOME SELF CARE. FAMILY TO TRANSPORT ~10AM. RN AWARE.
== END 2024-05-18 10:09 | disposition home or self-care (01) | DRG 520 ==
LOC: HO.SSSA 12:36 → HO.S3 12:49
PROVIDERS: Neurological Surgery; Admitting Provider Physician Assistant; PCP Internal Medicine; Visit Provider Physician Assistant
PROC: 00NW0ZZ Release Cervical Spinal Cord, Open Approach (ICD-10-PCS; principal; 2024-05-17 09:40)
DX: M47.12 Other spondylosis with myelopathy, cervical region (principal); J44.9 Chronic obstructive pulmonary disease, unspecified; E03.9 Hypothyroidism, unspecified; Z87.891 Personal history of nicotine dependence; Z79.890 Hormone replacement therapy; Z79.899 Other long term (current) drug therapy
CPT/HCPCS: 96361; 96365; 96375; 96376; 97116; 97161; J0131; J0690; J1100; J1885; J2250; J2371; J2405; J2704; J3010

== ENCOUNTER → 2024-05-17 12:32 | Outpatient (BNV) | payer MEDICARE, SELFPAY | PROVIDERS: Admitting Provider Physician Assistant; PCP Internal Medicine; Visit Provider Neurological Surgery | DX: Z48.89 Encounter for other specified surgical aftercare (principal) | CPT/HCPCS: 63045; 63048; 99024 ==

== ENCOUNTER 2024-05-25 05:04 | Emergency (ER) | payer MEDICARE, SELFPAY ==
--- NOTE | 2024-05-25 | ECG_ITS ---
Test Reason : HIGH BP Blood Pressure : / mmHG Vent. Rate : 079 BPM Atrial Rate : 079 BPM P-R Int : 140 ms QRS Dur : 080 ms QT Int : 358 ms P-R-T Axes : 078 061 064 degrees QTc Int : 410 ms Normal sinus rhythm with sinus arrhythmia Normal ECG When compared with ECG of 30-SEP-2023 03:19, Non-specific change in ST segment in Inferior leads QT has shortened Referred By: Generic ED Physician Electronically Signed By:KERLINE RODRIGUEZ MD
--- NOTE | ~2024-05-25 | XR_ITS ---
EXAMINATION: XR ABDOMEN KUB CLINICAL INDICATION: Constipation COMPARISON: None available. TECHNIQUE: AP view of the abdomen. FINDINGS: Lung bases are clear. No dilated bowel loops. No evidence of pneumoperitoneum. Xnqyvcgl-xx-ntjke amount of fecal material is present in the colon. No radiographic evidence of renal calculi. There is extensive atherosclerotic calcification of the abdominal aorta and common iliac arteries. 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 The visualized components of the right total hip arthroplasty are in normal position. XR/XR KUB IMPRESSION: Qfotajad-vi-whzzz amount fecal material is present in the colon in this patient with history of constipation. No evidence of bowel obstruction.
[2024-05-25 05:11] VITALS: BP 140/83; PULSE 88; O2SAT 94
[2024-05-25 05:13] VITALS: BP 175/68; PULSE 86; RESP 16; O2SAT 94; BMI 24.1
[2024-05-25 05:31] LABS: MANUAL DIFF FLAG NO
[2024-05-25 05:33] LABS: Basophils Absolute Auto 0.1 X10*3/uL (0.0-0.2); Basophils Percent Auto 0.5 % (0-2); Eosinophils Absolute Auto 0.5 X10*3/uL (0.0-0.4); Eosinophils Percent Auto 4.4 % (0-4); Hematocrit 37.4 % (37.0-47.0); Hemoglobin 12.6 g/dl (12.0-16.0); Imm Gran Abs Auto 0.05 X10*3/uL (0.00-0.03); Imm Gran Pct Auto 0.4 % (0.0-0.4); Lymphocytes Absolute Auto 1.2 X10*3/uL (1.2-4.9); Mean Corpuscular HGB Conc 33.7 g/dl (31.0-35.0); Mean Corpuscular Hemoglobin 32.1 pg (27.0-33.0); Mean Corpuscular Volume 95.2 fL (80.0-98.0); Mean Platelet Volume 9.8 fL (9.4-12.3); Monocytes Absolute Auto 1.1 X10*3/uL (0.1-1.2); Monocytes Percent Auto 8.8 % (2-11); Neutrophils Absolute Auto 9.3 x10*3/uL (2.0-8.3); Neutrophils Percent Auto 75.9 % (45-73); Platelet Count 329 X10*3/uL (160-400); Red Blood Count 3.93 X10*6/uL (4.20-5.50); Red Cell Distribution Width 13.4 % (11.0-16.0); White Blood Count 12.2 X10*3/uL (4.8-10.8)
[2024-05-25 05:49] LABS: Alanine Aminotransferase 16 U/L (0-31); Albumin Level 4.4 g/dL (3.5-5.0); Alkaline Phosphatase 51 U/L (39-117); Anion Gap 17 (12-20); Aspartate Amino Transferase 21 U/L (5-31); Bilirubin Direct 0.2 mg/dL (0.0-0.5); Bilirubin Total 0.6 mg/dL (0.0-1.0); Blood Urea Nitrogen 33 mg/dL (9-16); Calcium 9.9 mg/dL (8.4-10.2); Carbon Dioxide 22 mmol/L (22-29); Chloride 99 mmol/L (96-108); Creatinine Clr Calc Pharmacy 37.5; Estimated Glomerular Filt Rate 57; Glucose Random 101 mg/dL (60-115); Lipase 39 U/L (8-78); Potassium 4.6 mmol/L (3.3-5.1); Sodium 133 mmol/L (135-145); Total Protein 7.6 g/dL (6.5-8.0)
[2024-05-25 05:51] LABS: Troponin-I High Sensitivity 3.3 ng/L (<3.5-17.0)
--- NOTE | 2024-05-25 06:44 | PC.NURSE ---
pt bladder scanned and found to have >1020 ml urine in bladder. MD Pabon made aware - verbal order for dee catheter to be placed. 16fr dee catheter placed, 1200cc urine immediately put out. pt reports relief of abdominal distention. tolerated well.
[2024-05-25 06:45] VITALS: BP 109/54; PULSE 69; RESP 16; TEMP 36.5; O2SAT 99
--- NOTE | 2024-05-25 06:48 | ED_ITS ---
HPI - General Adult General Chief complaint: General Medical Stated complaint: CONSTIPATION D/T MEDS,RECENT SPINAL SURG PER EMS Time Seen by Provider: 05/25/24 06:45 Source: patient and EMS Mode of arrival: EMS Limitations: no limitations History of Present Illness ED Provider: Alina Song PA-C HPI narrative: Patient is an 83 year old assigned female at with a history of recent spinal surgery presenting to the emergency department today with abdominal pain, difficulty urinating, and difficulty stooling. Patient states that she has been home for 6 days on oxycodone 3 times a day for pain post surgery however, she has not had a bowel movement during that time and has not urinated in the last 12 hours. Patient denies any dizziness, lightheadedness, nausea, vomiting, fever, chills, blurry vision, double vision, loss of vision, chest pain, difficulty breathing, shortness of breath, back pain, night sweats, pain with urination, increased urinary frequency, increased urinary urgency, blood in her urine or stool, syncope or a near syncopal episode, recent trauma or falls, bowel incontinence, bladder incontinence, or any other complaints at this time. Relieving factors: none Exacerbating factors: none Associated symptoms: denies other symptoms Treatments prior to arrival: none Related Data Home Medications ?Medication ?Instructions ?Recorded ?Confirmed levothyroxine 75 mcg tablet 75 mcg PO MOTUTHFRSA 04/21/21 05/17/24 alendronate 70 mg tablet 70 mg PO MO 09/30/23 05/17/24 calcium carbonate 500 mg PO QAM 09/30/23 05/17/24 levothyroxine 75 mcg tablet 150 mcg PO SUWE 09/30/23 05/17/24 dorzolamide 2 % eye drops 1 drp ophthalmic (eye) BEDTIME 05/04/24 05/17/24 latanoprost 0.005 % eye drops 1 drp ophthalmic (eye) DAILY 05/04/24 05/17/24 amlodipine 2.5 mg tablet 2.5 mg PO DAILY 05/17/24 05/17/24 diphenhydramine 25 2 tab PO BEDTIME PRN Pain 05/17/24 05/17/24 mg-acetaminophen 500 mg tablet (Tylenol PM Extra Strength) lisinopril 30 mg tablet 30 mg PO DAILY 05/17/24 05/17/24 Previous Rx's ?Medication ?Instructions ?Recorded sulfamethoxazole 800 1 tab PO BID surgical prophylaxis 05/18/24 mg-trimethoprim 160 mg tablet 2 days #4 tabs (Bactrim DS) oxycodone 5 mg tablet 5 mg PO TID PRN pain (scale score 05/22/24 7-10) #30 tabs sennosides 8.6 mg capsule (senna) 8.6 mg PO DAILY PRN constipation 05/25/24 #7 caps Allergies Allergy/AdvReac Type Severity Reaction Status Date / Time No Known Allergies Allergy Verified 05/25/24 05:16 Review of Systems 2 Constitutional: Constitutional: Reports no additional constitutional complaints, Denies chills, Denies fever(s) and Denies night sweats Eyes: Eyes: Reports no additional eye complaints, Denies blurry vision, Denies change in vision, Denies diplopia, Denies eye discharge, Denies loss of vision and Denies eye pain ENT: Denies dizziness Cardiovascular: Cardiovascular: Reports no additional cardiovascular complaints, Denies chest pain, Denies lightheadedness, Denies Loss of Consciousness and Denies dyspnea Respiratory: Respiratory: Reports no additional respiratory complaints and Denies dyspnea Gastrointestinal: Gastrointestinal: Reports no additional gastrointestinal complaints, Reports abdominal pain, Denies melena, Denies hematochezia, Denies change in bowel habits, Reports change in stool character and Reports constipation Genitourinary: Genitourinary: Denies hematuria, Reports difficulty voiding, Denies dysuria, Denies urinary incontinence, Denies urinary hesitancy and Denies urinary urgency Musculoskeletal: Musculoskeletal: Reports no additional musculoskeletal complaints, Denies numbness and Denies tingling Neurologic: Denies dizziness, Denies loss of vision, Denies numbness and Denies tingling Psychiatric: Psychiatric: Reports no additional psychiatric complaints Endocrine: Endocrine: Reports no additional endocrine complaints Hematologic/Lymphatic: Hematologic/Lymphatic: Reports no additional hematologic/lymphatic complaints Allergic/Immunologic: Allergic/Immunologic: Reports no additional allergic/immunologic complaints PMFSH Past Medical History Attestation statement: The following information was validated with the patient. Source: old records reviewed and nursing notes reviewed Medical History Carotid stenosis COPD (chronic obstructive pulmonary disease) Hypothyroidism Spinal stenosis Hypertension Surgical History History of excision of pilonidal cyst Hx of bilateral cataract extraction H/O colonoscopy History of right hip replacement Social History Social History Household Members: None Household Members Other:: lives alone Housing: House Are you a primary rn medicare to a significant other at home: No Do you presently have visiting nurse or other home services: No Alcohol intake: current Comment: 2 to 3 times a week Patient Tobacco Use Status: Former Tobacco user Tobacco use type: Cigarette Cigarettes Per Day: 10 Years Smoked: 30 Smoked in Last 30 Days: No Use of substances other than those prescribed or required for medical reasons: No Advance Directives: Yes Advance Directives on File: Yes Advance Directives Date on File: 05/19/24 Do you have a plan to hurt others: No Plan service: No Physical Exam ED Vital Signs: Vital Signs - 24 hr 05/25/24 05:13 05/25/24 06:45 05/25/24 08:25 Temperature 97.7 F 97.5 F Pulse Rate 86 69 87 Respiratory Rate 16 16 20 Blood Pressure 175/68 H 109/54 L 143/75 H Pulse Oximetry 94 99 96 Oxygen Delivery Method Room Air Room Air Room Air 05/25/24 09:24 Temperature 97.5 F Pulse Rate 87 Respiratory Rate 18 Blood Pressure 143/75 H Pulse Oximetry 96 Oxygen Delivery Method Room Air BMI result Body Mass Index 24.1 Const General: cooperative, no acute distress, alert and awake Nutritional Appearance: well nourished Orientation/consciousness: patient oriented x3 Limitations: no limitations [facility] Head: Yes normal to inspection and Yes atraumatic Ears: hearing grossly normal bilaterally and external ears normal General nose exam: Normal external nose present, no nasal discharge noted and no epistaxis Face and sinus: Yes normal facial exam, No abrasion and No laceration Mouth: Normal oral and palatal mucosa present, no drooling and no muffled voice Eyes General: appearance normal, both eyes and all related structures Periorbital: periorbital findings normal Eyelids: Yes eyelids normal Conjunctivae: conjunctivae normal Pupils: Equal, round and reactive pupils present EOM: EOMs intact bilaterally Neck Neck: Yes normal visual inspection, Yes full ROM and Yes no lymphadenopathy Chest Chest palpation & inspection: normal inspection of the chest Resp Effort & Inspection: normal respiratory effort and able to speak in complete sentences GI Inspection: Yes distended Palpation (GI): not firm, nontender, no guarding and not rigid Neuro General: patient oriented x3 and moves all extremities Cranial nerves: Yes Equal, round and reactive pupils present Cognition (Neuro): normal cognition Extrem General: Yes normal to inspection, Yes full ROM and Yes capillary refill normal Psych Appearance: grossly normal Mental Status: mental status grossly normal Affect: normal affect Attitude: cooperative Thought process: Normal thought process present Thought content: Normal thought content present Insight: Good insight present (Psych) Medical Decision Making Medical Decision Making MDM Narrative: Patient is an 83 year old assigned female at with a history of a recent spinal surgery presenting to the emergency department today with abdominal pain, constipation, and urinary retention. Patient's physical exam was as noted in the physical exam portion of this note. Patient's blood work showed a mildly elevated WBC count of 12.2 but was otherwise unremarkable. Patient's KUB x-ray showed padwszuw-ar-rabij amount of fecal material in the colon. Patient's initial bladder scan showed >1L of urine in the bladder. Patient had a dee catheter placed which drained her bladder appropriately. Patient was given an enema which allowed her to have multiple bowel movements which helped her pain significantly. Patient's urinary retention is likely secondary to her constipation. Patient's dee catheter removed. I explained my physical exam findings as well as all test results to the patient. I answered all questions asked by the patient. I stressed the importance of the patient taking her medication as directed (either prescribed or as the over the counter packaging recommends). I stressed the importance of the patient following up with her primary care provider. I stressed the importance of the patient returning to the emergency department immediately if her symptoms were to worsen or if she were to develop any dizziness, shortness of breath, difficulty breathing, chest pain, blurry vision, loss of vision, nausea, vomiting, abdominal pain, fever, chills, back pain, or any other complaints. Patient verbalized agreement and understanding with this treatment plan and discharge. Differential Diagnosis Differential Diagnoses: The differential diagnosis associated with the presentation includes Constipation Urinary retention Admission/Observation Consideration of admission/observation: Escalation of care including admission/observation considered Patient would have been admitted to the hospital had her work up had any findings where hospital admission was appropriate and her clinical presentation warranted hospital admission. Lab Data MDM Lab Attestation statement: I reviewed the patient's lab results. My interpretation of these results are in the [facility] Rationale portion of this note. 05/25/24 05:26 05/25/24 05:26 Labs: Lab Results 05/25/24 Range/Units 05:26 WBC 12.2 H (4.8-10.8) X10*3/uL RBC 3.93 L (4.20-5.50) X10*6/uL Hgb 12.6 (12.0-16.0) g/dl Hct 37.4 (37.0-47.0) % MCV 95.2 (80.0-98.0) fL MCH 32.1 (27.0-33.0) pg MCHC 33.7 (31.0-35.0) g/dl RDW 13.4 (11.0-16.0) % Plt Count 329 D (160-400) X10*3/uL MPV 9.8 (9.4-12.3) fL Immature Gran % (Auto) 0.4 (0.0-0.4) % Neut % (Auto) 75.9 H (45-73) % Lymph % (Auto) 10.0 L (20-40) % Gentry % (Auto) 8.8 (2-11) % Eos % (Auto) 4.4 H (0-4) % Baso % (Auto) 0.5 (0-2) % Lymph # (Auto) 1.2 (1.2-4.9) X10*3/uL Gentry # (Auto) 1.1 (0.1-1.2) X10*3/uL Eos # (Auto) 0.5 H (0.0-0.4) X10*3/uL Baso # (Auto) 0.1 (0.0-0.2) X10*3/uL Abs Immat Gran (auto) 0.05 H (0.00-0.03) X10*3/uL Absolute Neuts (auto) 9.3 H (2.0-8.3) x10*3/uL Absolute Nucleated RBC 0.000 (0.0-0.012) X10*3/uL Nucleated RBC % (auto) 0.0 (0.0-0.2) /100WBC Sodium 133 L (135-145) mmol/L Potassium 4.6 (3.3-5.1) mmol/L Chloride 99 (96-108) mmol/L Carbon Dioxide 22 (22-29) mmol/L Anion Gap 17 (12-20) BUN 33 H (9-16) mg/dL Creatinine 0.94 (0.5-1.4) mg/dL Estim Creat Clear Calc 37.5 Estimated GFR 57 Random Glucose 101 (60-115) mg/dL Calcium 9.9 D (8.4-10.2) mg/dL Total Bilirubin 0.6 (0.0-1.0) mg/dL Direct Bilirubin 0.2 (0.0-0.5) mg/dL AST 21 (5-31) U/L ALT 16 (0-31) U/L Alkaline Phosphatase 51 (39-117) U/L Troponin I High Sens 3.3 D (<3.5-17.0) ng/L Total Protein 7.6 (6.5-8.0) g/dL Albumin 4.4 (3.5-5.0) g/dL Lipase 39 (8-78) U/L Independent Interpretation I performed an independent interpretation of an: Plain X-Ray Interpretation: My interpretation is in agreement with the radiologist's impression of this imaging study. - EXAMINATION: XR ABDOMEN KUB CLINICAL INDICATION: Constipation COMPARISON: None available. TECHNIQUE: AP view of the abdomen. FINDINGS: Lung bases are clear. No dilated bowel loops. No evidence of pneumoperitoneum. Fdlinttl-of-hchgo amount of fecal material is present in the colon. No radiographic evidence of renal calculi. There is extensive atherosclerotic calcification of the abdominal aorta and common iliac arteries. 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 The visualized components of the right total hip arthroplasty are in normal position. XR/XR KUB IMPRESSION: Sbvvqxty-dc-vbgfx amount fecal material is present in the colon in this patient with history of constipation. No evidence of bowel obstruction. Dictated By: Silas Monteiro MD Signed By: Electronically signed by Silas Monteiro MD 05/25/24 0813 Radiology Impression Discussion of test interpretation with radiology: I have reviewed the radiologist's reading. Independent Historian Clinical information obtained from an independent historian. History obtained from or confirmed by: EMS (EMS provided additional history and confirmed the history provided by the patient.) Discharge Plan Discharge Clinical Impression: Constipation, Acute urinary retention Patient Disposition: Home, Self-Care Instructions: Constipation (DC), Acute Urinary Retention in Women (ED) Additional Instructions: Follow up with your primary care provider. Return to the emergency department immediately if your symptoms worsen or if you develop any dizziness, shortness of breath, difficulty breathing, chest pain, blurry vision, loss of vision, nausea, vomiting, abdominal pain, fever, chills, back pain, or any other complaints. Prescriptions: New senna 8.6 mg capsule 8.6 mg PO DAILY PRN (Reason: constipation) Qty: 7 0RF No Action sulfamethoxazole-trimethoprim [Bactrim DS] 800-160 mg tablet 1 tab PO BID 2 Days Qty: 4 0RF oxycodone 5 mg tablet 5 mg PO TID PRN (Reason: pain (scale score 7-10)) Qty: 30 0RF Rx Instructions: Take alongside Tylenol as discussed. Partial Fill upon patient request. levothyroxine 75 mcg tablet 150 mcg PO SUWE calcium carbonate 500 mg calcium (1,250 mg) Tablet,Chewable 500 mg PO QAM alendronate 70 mg tablet 70 mg PO MO latanoprost 0.005 % drops 1 drp ophthalmic (eye) DAILY dorzolamide 2 % Drops 1 drp OPHTHALMIC (EYE) BEDTIME amlodipine 2.5 mg tablet 2.5 mg PO DAILY lisinopril 30 mg tablet 30 mg PO DAILY diphenhydramine-acetaminophen [Tylenol PM Extra Strength] 25-500 mg Tablet 2 tab PO BEDTIME PRN (Reason: Pain) levothyroxine 75 mcg tablet 75 mcg PO SANDRAUTHFRSA Referrals[place] [facility] [facility] [place]] (Call to establish and follow up with a primary care provider. If you already have a primary care provider, please follow up with them.) [facility] [place] Group] [facility] [place] Group] Interventions: ED Discharge Assessment Last Done: 05/25/24 09:24 Discharge Date/Time: 05/25/24 10:05 Print Language: [place] Citizen
[2024-05-25 08:25] VITALS: BP 143/75; PULSE 87; RESP 20; TEMP 36.4; O2SAT 96
--- NOTE | 2024-05-25 09:21 | PC.NURSE ---
After enema patient oob to commode x 2, with 2 medium sized BMs, reports feeling better. Abd no longer distended, soft and non-tender to touch. Nuñez cath removed prior to discharge.
[2024-05-25 09:24] VITALS: BP 143/75; PULSE 87; RESP 18; TEMP 36.4; O2SAT 96
== END 2024-05-25 10:05 | disposition home or self-care (01) ==
PROVIDERS: Emergency Provider Emergency Medicine Emergency Medical Services
DX: K59.00 Constipation, unspecified (principal); R39.198 Other difficulties with micturition; R10.9 Unspecified abdominal pain; Z79.899 Other long term (current) drug therapy
CPT/HCPCS: 36415; 51702; 74018; 80048; 80076; 83690; 84484; 85025; 93005; 99284

== ENCOUNTER → 2024-05-25 05:28 | Outpatient (BNV) | payer MEDICARE, SELFPAY | PROVIDERS: Emergency Provider Emergency Medicine Emergency Medical Services; Visit Provider Internal Medicine Cardiovascular Disease | DX: I10 Essential (primary) hypertension (principal) | CPT/HCPCS: 93010 ==

== ENCOUNTER 2024-05-29 13:35 | Outpatient (AMB) | payer MEDICARE, SELFPAY ==
--- NOTE | 2024-05-29 13:39 | A.SPINEOV_ITS ---
Intake Visit Reasons: [place] removal Intake Note: Ms. Carlos is here today to have nedra removed. Handyperson Required: No Allergies No Known Allergies Allergy (Verified 05/29/24 13:41) Assessment & Plan Assessment & Plan (1) S/P spinal surgery: Code(s): Z98.890 - Other specified postprocedural states Category: Surgical Plan Procedure: C4-6 laminectomy Giana comes in today for staple removal. She reports she has been feeling much better since her surgery. To recap she was doing very well directly after surgery, that began having some very serious posterior neck pain. She called our on-call service over the weekend requesting medications to help mitigate this pain. We were able to prescribe her some medication help her get through the pain. Unfortunately she developed significant constipation was seen in the emergency department shortly thereafter. This has since subsided and she is now feeling much better. The patient is currently walking with the assistance of a cane. She denies any new neurological deficits. Her posterior incision site appeared well approximated. Her nedra were removed. I would like to follow up with Giana again in 6 weeks to evaluate for postoperative symptom progress. Shawn Oakes MD,PhD [facility] Coding Level of Care Code Global (25189) Diagnoses S/P spinal surgery Z98.890
== END 2024-05-29 13:53 | disposition home or self-care (01) ==
PROVIDERS: PCP Internal Medicine; Visit Provider Physician Assistant
DX: Z98.890 Other specified postprocedural states (principal)
CPT/HCPCS: 99024

== ENCOUNTER → 2024-05-29 13:35 | Outpatient (BNVA) | payer MEDICARE, SELFPAY | PROVIDERS: PCP Internal Medicine; Visit Provider Physician Assistant | DX: Z48.02 Encounter for removal of sutures (principal); Z98.890 Other specified postprocedural states | CPT/HCPCS: 99212 ==

== ENCOUNTER 2024-07-14 11:38 | Outpatient (AMB) | payer MEDICARE, SELFPAY ==
--- NOTE | 2024-07-14 12:23 | HO.SPINEOV ---
Intake Visit Reasons: 2nd post op Intake Note: Ms. Carlos is here today for her 2nd post-op appointment. Pasteurizer Helper Required: No Allergies No Known Allergies Allergy (Verified 07/14/24 12:26) Assessment & Plan Assessment & Plan (1) Cervical spondylosis with myelopathy: Code(s): M47.12 - Other spondylosis with myelopathy, cervical region Category: Medical Plan Mrs Carlos is 2 months out from her cervical laminectomy for myelopathy and balance issues. She reports that she has not seen any significant improvement in her balance since the surgery. Fortunately, it has not gotten worse. Her wound is healed up nicely she has been having no issues with neck pain. She is still using her cane to get around. I reassured her that it can take up to a year to see improvements. She also does have overlapping diagnosis of peripheral neuropathy so that may slow things down. I gave her a referral to PT and will see her back in a few months. Mayo Oakes MD, PhD [facility] Orders: Orders PT Evaluation and Treatment Today M47.12 - Other spondylosis with myelopathy, cervical region Coding Level of Care Code Global (96674) Diagnoses Cervical spondylosis with myelopathy M47.12
== END 2024-07-14 14:08 | disposition home or self-care (01) ==
PROVIDERS: PCP Internal Medicine; Visit Provider Physician Assistant
DX: M47.12 Other spondylosis with myelopathy, cervical region (principal)
CPT/HCPCS: 99024

== ENCOUNTER → 2024-07-14 11:38 | Outpatient (BNVA) | payer MEDICARE, SELFPAY | PROVIDERS: PCP Internal Medicine; Visit Provider Physician Assistant | DX: M47.12 Other spondylosis with myelopathy, cervical region (principal) | CPT/HCPCS: 99212 ==

== ENCOUNTER 2024-09-01 09:00 | Outpatient (RCR) | payer MEDICARE, SELFPAY ==
--- NOTE | 2024-08-04 12:34 | MHC.PT.EP ---
[facility] [place] Office [place] Office [place] Office [address] Alex Stark [address] [phone] F: [phone] F: [phone] F: [phone] F: [phone] Physical Therapy Plan of Care Date of Evaluation: 08/04/24 Date of Surgery: 05/17/2024 Diagnosis: cervical myelopathy, s/p cervical laminectomy 05/17 Assessment: Patient is a 83 year old female presenting to PT s/p C4-6 laminectomy in May 2024 with balance and walking issues. She presents today with impairments in LE strength, balance, endurance, gait mechanics. Pt's current occupation is retired, with baseline physical activities including ADLs, stair negotiation, ambulating. 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 Clinical presentation today is most consistent with signs and sx associated with balance issues however it is unclear whether these were present before or only after her cervical surgery and pt will benefit from skilled PT 2 week x 4 weeks to address the following problems and impairments noted upon evaluation: LE strength, balance, endurance, gait mechanics. These problems limit the patient with the following functional activities: ADLs, stair negotiation, ambulating. The prescribed treatment plan of care is medically necessary. Co-morbidities of hx R HERMES were identified and taken into considerations of plan of care. Pt was educated on HEP, role of PT, prognosis, POC. Frequency and Duration: The patient will be seen 2 x week x 4 weeks Short Term Goals: Pt will demonstrate improved knee MMT strength by 1/3 grade in 2 weeks. Pt will demonstrate improved hip MMT strength by 1/3 grade in 2 weeks. Pt will demonstrate ability to stand NBOS without UE or external assist in 2 weeks. Long-Term Goals: Pt will demonstrate improved TUG score by 3 seconds in 4 weeks for reduced risk of fall. Pt will demonstrate improved 30 sec chair stand test by 2 STS in 4 weeks for improved endurance and risk of fall. P Treatment Plan: Modalities to reduce pain, spasms and effusion. Manual therapy to restore motion and function. Therapeutic exercise to improve strength and flexibility. Neuromuscular re-education for posture and balance. Therapeutic activities to return to functional activities of daily living. Electronically signed by: Ingrid Tee, PT, DPT, ATC Please sign and return to therapist. Thank you for your referral.
--- NOTE | 2024-09-01 09:58 | MHC.PT.DC ---
[facility] [place] Office [place] Office [place] Office [address] Alex Stark 140 [facility] [phone] F: [phone] F: [phone] F: [phone] F: [phone] Physical Therapy Discharge Report Diagnosis: cervical myelopathy, s/p cervical laminectomy 05/17 Date of Surgery: 05/17/2024 Date of Evaluation: 08/04/24 Date of Discharge: 09/01/24 Treatments to Date: 9 Cancellations to Date: 0 No Shows to Date: 0 Discharge Status: Improved Function Independent with HEP Discharge Summary: 09/01/2025: Pt has made good progress in terms of strength and scores on the TUG and 30 second chair stand test. Unfortunately her gait is still a little unstable and she continues to tend to reach for objects around the room/clinic. She has not had any falls and overall she feels better since start of care. Advised her to continue using her cane for safety. She feels ready to continue with her exercises on her own and I feel this is reasonable as she has been compliant with her program. Encouraged following up with her surgeon if any new issues arise. Electronically signed by: Ingrid Tee, PT, DPT, ATC Please sign and return to therapist. Thank you for your referral.
== END 2024-09-01 09:58 | disposition home or self-care (01) ==
LOC: HO.PTCHIC 09:00
PROVIDERS: PCP Internal Medicine; Visit Provider Physician Assistant
DX: M47.12 Other spondylosis with myelopathy, cervical region (principal)
CPT/HCPCS: 97110; 97112; 97162

== ENCOUNTER 2024-09-14 11:43 | Emergency (ER) | payer MEDICARE, SELFPAY ==
[2024-09-14] VITALS (7 sets, daily range): BP systolic 120–193; BP diastolic 70–93; PULSE 66–79; RESP 14–18; TEMP 36.4–36.8; O2SAT 95–100; BMI 23.1
--- NOTE | 2024-09-14 12:03 | ED.GIBLEED ---
HPI - GI Bleed General Chief complaint: General Medical Stated complaint: BLOOD IN STOOL PER EMS Time Seen by Provider: 09/14/24 11:55 Source: patient, EMS and old records reviewed Mode of arrival: EMS Limitations: no limitations History of Present Illness ED Provider: DELFINA PINO Narrative: 84 yo female with PMH of HTN, osteoporosis, hypothyroidism not on blood thinners with c/o being constipated x 1 a couple of weeks. She notes she tried metamucil but was straining to have BM today and noted brb in toilet no clots. This happened x1. No prior episodes, she does not have abdominal pain. She notes no blood in underwear that she is aware of. MD complaint: blood on toilet paper and blood streaked stool Onset (ago): hour(s) (1) Severity: mild Relieving factors: none Exacerbating factors: bowel movement Context: other (recent constipation) Associated symptoms: denies other symptoms Treatments Prior to Arrival: none Related Data Home Medications ?Medication ?Instructions ?Recorded ?Confirmed levothyroxine 75 mcg tablet 75 mcg PO MOTUTHFRSA 04/21/21 05/17/24 alendronate 70 mg tablet 70 mg PO MO 09/30/23 05/17/24 calcium carbonate 500 mg PO QAM 09/30/23 05/17/24 levothyroxine 75 mcg tablet 150 mcg PO SUWE 09/30/23 05/17/24 dorzolamide 2 % eye drops 1 drp ophthalmic (eye) BEDTIME 05/04/24 05/17/24 latanoprost 0.005 % eye drops 1 drp ophthalmic (eye) DAILY 05/04/24 05/17/24 amlodipine 2.5 mg tablet 2.5 mg PO DAILY 05/17/24 05/17/24 diphenhydramine 25 2 tab PO BEDTIME PRN Pain 05/17/24 05/17/24 mg-acetaminophen 500 mg tablet (Tylenol PM Extra Strength) lisinopril 30 mg tablet 30 mg PO DAILY 05/17/24 05/17/24 Previous Rx's ?Medication ?Instructions ?Recorded sulfamethoxazole 800 1 tab PO BID surgical prophylaxis 05/18/24 mg-trimethoprim 160 mg tablet 2 days #4 tabs (Bactrim DS) oxycodone 5 mg tablet 5 mg PO TID PRN pain (scale score 05/22/24 7-10) #30 tabs sennosides 8.6 mg capsule (senna) 8.6 mg PO DAILY PRN constipation 05/25/24 #7 caps docusate sodium 100 mg capsule 100 mg PO BID PRN constipation #30 09/14/24 (Colace) caps sennosides 8.6 mg tablet (senna) 8.6 mg PO BEDTIME PRN constipation 09/14/24 #30 tabs Allergies Allergy/AdvReac Type Severity Reaction Status Date / Time No Known Allergies Allergy Verified 09/14/24 12:00 Review of Systems Review of Systems: Constitutional : No Fever, No Chills, No Fatigue ENT/Mouth : No sore throat, No Rhinorrhea Eyes: No Eye Pain, No Swelling, No Redness Cardiovascular : No Chest Pain, No SOB, No Dyspnea on Exertion Respiratory : No Cough, No Sputum Gastrointestinal : No Nausea, No Vomiting, No Diarrhea, No abdominal Pain, pos constipation, pos rectal bleeding Genitourinary : No Dysuria, No Urinary Frequency, No Hematuria, Musculoskeletal : No joint pain, No Myalgias, No Joint Swelling Skin : No Skin Lesions, No rash Neuro : No Weakness, No Numbness, No Dizziness, no Headache All other systems reviewed and are negative [facility] Past Medical History Attestation statement: The following information was validated with the patient. Source: old records reviewed Medical History Carotid stenosis COPD (chronic obstructive pulmonary disease) Hypothyroidism Spinal stenosis Hypertension Surgical History History of excision of pilonidal cyst Hx of bilateral cataract extraction H/O colonoscopy History of right hip replacement Social History Social History Household Members: None Household Members Other:: lives alone Housing: House Are you a primary tire care manager to a significant other at home: No Do you presently have visiting nurse or other home services: No Alcohol intake: current Comment: 2 to 3 times a week Patient Tobacco Use Status: Former Tobacco user Tobacco use type: Cigarette Cigarettes Per Day: 10 Years Smoked: 30 Smoked in Last 30 Days: No Use of substances other than those prescribed or required for medical reasons: No Advance Directives: Yes Advance Directives on File: Yes Advance Directives Date on File: 05/19/24 service: No Physical Exam Vital Signs: Vital Signs: Last Vital Signs Temp 97.7 F 09/14/24 16:26 Pulse 78 09/14/24 16:26 Resp 14 09/14/24 16:26 BP 148/82 H 09/14/24 16:26 Pulse Ox 98 09/14/24 16:26 O2 Del Method Room Air 09/14/24 16:26 BMI result Body Mass Index 23.1 Appearance: Alert. Oriented X3. No acute distress. Eyes: Pupils equal, round and reactive to light. ENT: Pharynx normal. Neck: Normal inspection. Neck supple. CVS: Normal heart rate and rhythm. Pulses normal. Respiratory: No respiratory distress. Breath sounds normal. Abdomen: Soft and nontender. Rectal: internal hemorrhoids noted, scant blood on underwear, blood on finger noted Skin: Skin warm and dry. Normal skin color. Normal skin turgor. Extremities: No lower extremity edema. No calf ttp Neuro: Oriented X 3. No motor deficit. No sensory deficit. Medical Decision Making Medical Decision Making [facility] Narrative: 84 yo female with PMH of HTN, osteoporosis, hypothyroidism not on blood thinners with c/o constipation straining and then brb in toilet no abdominal pain felt dizzy after seeing the blood had normal colonoscopy her whole life at this time labs, rectal exam and suspect hemorrhoids. Differential Diagnosis Differential Diagnoses: The differential diagnosis associated with the presentation includes hemorrhoids, rectal bleeding Admission/Observation Consideration of admission/observation: Escalation of care including admission/observation considered no further bleeding. happened with hard straining CBC normal on repeat, VS stable at this time observed in ED for 4 hours without recurrence and not on thinners Lab Data [facility] Lab Attestation statement: I reviewed the patient's lab results. 09/14/24 16:01 09/14/24 12:08 Labs: Lab Results 09/14/24 09/14/24 09/14/24 Range/Units 12:08 12:48 13:55 WBC 9.6 (4.8-10.8) X10*3/uL RBC 4.08 L (4.20-5.50) X10*6/uL Hgb 13.3 (12.0-16.0) g/dl Hct 39.3 (37.0-47.0) % MCV 96.3 (80.0-98.0) fL MCH 32.6 (27.0-33.0) pg MCHC 33.8 (31.0-35.0) g/dl RDW 13.4 (11.0-16.0) % Plt Count 261 (160-400) X10*3/uL MPV 10.6 (9.4-12.3) fL Immature Gran % (Auto) 0.2 (0.0-0.4) % Neut % (Auto) 69.5 (45-73) % Lymph % (Auto) 14.1 L (20-40) % Cata[place]oula % (Auto) 11.5 H (2-11) % Eos % (Auto) 4.2 H (0-4) % Baso % (Auto) 0.5 (0-2) % Lymph # (Auto) 1.4 (1.2-4.9) X10*3/uL [place]oul[place] # (Auto) 1.1 (0.1-1.2) X10*3/uL Eos # (Auto) 0.4 (0.0-0.4) X10*3/uL Baso # (Auto) 0.1 (0.0-0.2) X10*3/uL Abs Immat Gran (auto) 0.02 (0.00-0.03) X10*3/uL Absolute Neuts (auto) 6.7 (2.0-8.3) x10*3/uL Absolute Nucleated RBC 0.000 (0.0-0.012) X10*3/uL Nucleated RBC % (auto) 0.0 (0.0-0.2) /100WBC Hold Purple Top PT 11.5 (10.9-12.4) SEC INR 1.0 (0.9-1.1) Sodium 136 (135-145) mmol/L Potassium 4.9 (3.3-5.1) mmol/L Chloride 101 (96-108) mmol/L Carbon Dioxide 28 (22-29) mmol/L Anion Gap 12 (12-20) BUN 37 H (9-16) mg/dL Creatinine 0.90 (0.5-1.4) mg/dL Estim Creat Clear Calc 36.7 Estimated GFR 60 Random Glucose 90 (60-115) mg/dL Calcium 9.6 (8.4-10.2) mg/dL Magnesium 2.2 (1.6-2.6) mg/dL Total Bilirubin 0.7 (0.0-1.0) mg/dL Direct Bilirubin 0.2 (0.0-0.5) mg/dL AST 23 (5-31) U/L ALT 20 (0-31) U/L Alkaline Phosphatase 65 (39-117) U/L Total Protein 8.0 (6.5-8.0) g/dL Albumin 4.4 (3.5-5.0) g/dL Lipase 66 (8-78) U/L Urine Color Yellow Urine Appearance Clear Urine pH 5.5 (5.0-9.0) Ur Specific Morgan 1.015 (1.005-1.025) Urine Protein Negative (Neg-Trace) mg/dL Urine Glucose (UA) Negative (Negative) mg/dL Urine Ketones Negative (Negative) mg/dL Urine Blood Small (1+) H (Negative) Urine Nitrite Negative (Negative) Ur Leukocyte Esterase Negative (Negative) Urine RBC 6-10 H (0-2) /HPF Urine WBC 0-5 (0-5) /HPF Ur Squamous Epith Cells 0-2 (0-2) /HPF Urine Bacteria 4+ (None Seen) Hyaline Casts 0-2 (0-2) /LPF Stool Occult Blood POSITIVE (NEGATIVE) Blood Type A Positive Antibody Screen POSITIVE Antibody Identification Anti-M Antigen Identification A1 Antigen - POSITIVE Blood Bank Comment Technical 09/14/24 Range/Units 16:01 WBC 9.4 (4.8-10.8) X10*3/uL RBC 4.09 L (4.20-5.50) X10*6/uL Hgb 13.3 (12.0-16.0) g/dl Hct 38.8 (37.0-47.0) % MCV 94.9 (80.0-98.0) fL MCH 32.5 (27.0-33.0) pg MCHC 34.3 (31.0-35.0) g/dl RDW 13.5 (11.0-16.0) % Plt Count 265 (160-400) X10*3/uL MPV 10.5 (9.4-12.3) fL Immature Gran % (Auto) (0.0-0.4) % Neut % (Auto) (45-73) % Lymph % (Auto) (20-40) % [place]oula % (Auto) (2-11) % Eos % (Auto) (0-4) % Baso % (Auto) (0-2) % Lymph # (Auto) (1.2-4.9) X10*3/uL [place]oul[place] # (Auto) (0.1-1.2) X10*3/uL Eos # (Auto) (0.0-0.4) X10*3/uL Baso # (Auto) (0.0-0.2) X10*3/uL Abs Immat Gran (auto) (0.00-0.03) X10*3/uL Absolute Neuts (auto) (2.0-8.3) x10*3/uL Absolute Nucleated RBC 0.000 (0.0-0.012) X10*3/uL Nucleated RBC % (auto) 0.0 (0.0-0.2) /100WBC Hold Purple Top SEE NOTE PT (10.9-12.4) SEC INR (0.9-1.1) Sodium (135-145) mmol/L Potassium (3.3-5.1) mmol/L Chloride (96-108) mmol/L Carbon Dioxide (22-29) mmol/L Anion Gap (12-20) BUN (9-16) mg/dL Creatinine (0.5-1.4) mg/dL Estim Creat Clear Calc Estimated GFR Random Glucose (60-115) mg/dL Calcium (8.4-10.2) mg/dL Magnesium (1.6-2.6) mg/dL Total Bilirubin (0.0-1.0) mg/dL Direct Bilirubin (0.0-0.5) mg/dL AST (5-31) U/L ALT (0-31) U/L Alkaline Phosphatase (39-117) U/L Total Protein (6.5-8.0) g/dL Albumin (3.5-5.0) g/dL Lipase (8-78) U/L Urine Color Urine Appearance Urine pH (5.0-9.0) Ur Specific Morgan (1.005-1.025) Urine Protein (Neg-Trace) mg/dL Urine Glucose (UA) (Negative) mg/dL Urine Ketones (Negative) mg/dL Urine Blood (Negative) Urine Nitrite (Negative) Ur Leukocyte Esterase (Negative) Urine RBC (0-2) /HPF Urine WBC (0-5) /HPF Ur Squamous Epith Cells (0-2) /HPF Urine Bacteria (None Seen) Hyaline Casts (0-2) /LPF Stool Occult Blood (NEGATIVE) Blood Type Antibody Screen Antibody Identification Antigen Identification Blood Bank Comment Independent Historian Clinical information obtained from an independent historian. History obtained from or confirmed by: EMS External Record Review External record reviewed: Office record Discharge Plan Discharge Clinical Impression: Bright red rectal bleeding, Bleeding internal hemorrhoids Patient Disposition: Home, Self-Care Instructions: Hemorrhoids (ED), Rectal Bleeding (ED) Additional Instructions: repeat blood tests normal please stop straining to have a bowel movement if you have any more bleeding or clots have pain feel weak or dizzy please return you might see a small amount of blood on the stool but you should not be having gushing blood or clots blood should not just come out unless there is a bowel movement follow up with your primary care doctor Prescriptions: New sennosides [senna] 8.6 mg tablet 8.6 mg PO BEDTIME PRN (Reason: constipation) Qty: 30 0RF docusate sodium [Colace] 100 mg capsule 100 mg PO BID PRN (Reason: constipation) Qty: 30 0RF No Action sulfamethoxazole-trimethoprim [Bactrim DS] 800-160 mg tablet 1 tab PO BID 2 Days Qty: 4 0RF oxycodone 5 mg tablet 5 mg PO TID PRN (Reason: pain (scale score 7-10)) Qty: 30 0RF Rx Instructions: Take alongside Tylenol as discussed. Partial Fill upon patient request. levothyroxine 75 mcg tablet 150 mcg PO SUWE calcium carbonate 500 mg calcium (1,250 mg) Tablet,Chewable 500 mg PO QAM alendronate 70 mg tablet 70 mg PO MO senna 8.6 mg capsule 8.6 mg PO DAILY PRN (Reason: constipation) Qty: 7 0RF latanoprost 0.005 % drops 1 drp ophthalmic (eye) DAILY dorzolamide 2 % Drops 1 drp OPHTHALMIC (EYE) BEDTIME amlodipine 2.5 mg tablet 2.5 mg PO DAILY lisinopril 30 mg tablet 30 mg PO DAILY diphenhydramine-acetaminophen [Tylenol PM Extra Strength] 25-500 mg Tablet 2 tab PO BEDTIME PRN (Reason: Pain) levothyroxine 75 mcg tablet 75 mcg PO AYANA Print Language: Sierra Leonean
[2024-09-14 12:12] LABS: MANUAL DIFF FLAG NO
[2024-09-14 12:15] LABS: Basophils Absolute Auto 0.1 X10*3/uL (0.0-0.2); Basophils Percent Auto 0.5 % (0-2); Eosinophils Absolute Auto 0.4 X10*3/uL (0.0-0.4); Eosinophils Percent Auto 4.2 % (0-4); Hematocrit 39.3 % (37.0-47.0); Hemoglobin 13.3 g/dl (12.0-16.0); Imm Gran Abs Auto 0.02 X10*3/uL (0.00-0.03); Imm Gran Pct Auto 0.2 % (0.0-0.4); Lymphocytes Absolute Auto 1.4 X10*3/uL (1.2-4.9); Lymphocytes Percent Auto 14.1 % (20-40); Mean Corpuscular HGB Conc 33.8 g/dl (31.0-35.0); Mean Corpuscular Hemoglobin 32.6 pg (27.0-33.0); Mean Corpuscular Volume 96.3 fL (80.0-98.0); Mean Platelet Volume 10.6 fL (9.4-12.3); Monocytes Absolute Auto 1.1 X10*3/uL (0.1-1.2); Monocytes Percent Auto 11.5 % (2-11); Neutrophils Absolute Auto 6.7 x10*3/uL (2.0-8.3); Neutrophils Percent Auto 69.5 % (45-73); Platelet Count 261 X10*3/uL (160-400); Red Blood Count 4.08 X10*6/uL (4.20-5.50); Red Cell Distribution Width 13.4 % (11.0-16.0); White Blood Count 9.6 X10*3/uL (4.8-10.8)
[2024-09-14 12:20] LABS: Prothrombin Time 11.5 SEC (10.9-12.4)
[2024-09-14 12:30] LABS: Alanine Aminotransferase 20 U/L (0-31); Albumin Level 4.4 g/dL (3.5-5.0); Alkaline Phosphatase 65 U/L (39-117); Anion Gap 12 (12-20); Aspartate Amino Transferase 23 U/L (5-31); Bilirubin Direct 0.2 mg/dL (0.0-0.5); Bilirubin Total 0.7 mg/dL (0.0-1.0); Blood Urea Nitrogen 37 mg/dL (9-16); Calcium 9.6 mg/dL (8.4-10.2); Carbon Dioxide 28 mmol/L (22-29); Chloride 101 mmol/L (96-108); Creatinine Clr Calc Pharmacy 36.7; Estimated Glomerular Filt Rate 60; Glucose Random 90 mg/dL (60-115); Lipase 66 U/L (8-78); Magnesium 2.2 mg/dL (1.6-2.6); Potassium 4.9 mmol/L (3.3-5.1); Sodium 136 mmol/L (135-145)
[2024-09-14 12:57] LABS: OBS Int Ctl Valid YES; OBS1 POSITIVE (NEGATIVE)
[2024-09-14 14:14] LABS: Appearance Urine Clear; Color Urine Yellow; Glucose Urine UA Negative (Negative); Leukocyte Esterase Urine Negative (Negative); Nitrite Urine Negative (Negative); PH 5.5 (5.0-9.0); Specific Gravity - Urine 1.015 (1.005-1.025); UMIC TRIGGER UACC YES; Urine Blood Small (1+) (Negative); Urine Ketones Negative (Negative); Urine Protein Negative (Neg-Trace)
[2024-09-14 14:20] LABS: Bacteria Urine 4+ (None Seen); Hyaline Casts Urine 0-2 /LPF (0-2); Squamous Epithelial Cell Urine 0-2 /HPF (0-2); WBC Urine 0-5 /HPF (0-5)
[2024-09-14 16:12] LABS: Hematocrit 38.8 % (37.0-47.0); Hemoglobin 13.3 g/dl (12.0-16.0); Mean Corpuscular HGB Conc 34.3 g/dl (31.0-35.0); Mean Corpuscular Hemoglobin 32.5 pg (27.0-33.0); Mean Corpuscular Volume 94.9 fL (80.0-98.0); Mean Platelet Volume 10.5 fL (9.4-12.3); Platelet Count 265 X10*3/uL (160-400); Red Blood Count 4.09 X10*6/uL (4.20-5.50); Red Cell Distribution Width 13.5 % (11.0-16.0); White Blood Count 9.4 X10*3/uL (4.8-10.8)
== END 2024-09-14 17:30 | disposition home or self-care (01) ==
PROVIDERS: Emergency Provider Emergency Medicine
DX: K64.8 Other hemorrhoids (principal); K92.1 Melena; Z79.899 Other long term (current) drug therapy
CPT/HCPCS: 36415; 80048; 80076; 81001; 81003; 82272; 83690; 83735; 85025; 85027; 85610; 86850; 86870; 86885; 86900; 86901; 86905; 99283; 99284

== ENCOUNTER 2024-10-18 13:33 | Outpatient (AMB) | payer MEDICARE, SELFPAY ==
--- NOTE | 2024-10-18 13:37 | HO.SPINEOV ---
Intake Visit Reasons: 3 month f/u Intake Note: Ms. Carlos is here today for her 3 month F/u. Account General Manager Required: No Allergies No Known Allergies Allergy (Verified 10/18/24 13:40) Assessment & Plan Assessment & Plan (1) Cervical spondylosis with myelopathy: Code(s): M47.12 - Other spondylosis with myelopathy, cervical region Category: Medical (2) S/P spinal surgery: Code(s): Z98.890 - Other specified postprocedural states Category: Surgical Plan Dear colleague, On 10/18/2024 I saw for final postoperative visit Giana Carlos. She status post cervical laminectomy for cervical myelopathy approximately 3 months ago. She recovered well. The good news is that her walking is finally starting to improve. She is able to ambulate without a cane in most instances. She denies pain. She is happy with the outcome of her surgery. I discharged her from further follow-up. Thank you for the referral. Carmine Oakes MD, PhD Spine Fellowship Trained Neurosurgeon Director, [facility] Coding Level of Care Code Global (04571) Diagnoses Cervical spondylosis with myelopathy M47.12 S/P spinal surgery Z98.890
--- OUTSIDE RECORDS SUMMARY | 2024-10-19 02:30 | XMS_ITS ---
Author Organization [facility] Address [address] [place] [address] Care Team Providers Care High School Mathematics Teacher Name Role Phone Jayy BROWN, Rey Primary Care Provider Ameena Colon Unavailable [phone] Jose Saucedo Unavailable [phone] REASON FOR VISIT too soon Encounters Encounter Location Date Provider Diagnosis [address] [address] 10/03/2024 oJse Saucedo Plan Of Treatment Next Appt Details Provider Name:Ameena khoury, 02/22/2025 10:00:00 AM, [address] [place], [address], Progress Notes * Giana KAPLAN ADOB:[birth year] (84 yo F)Acc No.[id number]:10/03/2024 Progress Note Patient:?EUSEBIO Giana Chinedu Provider:?Jose Saucedo DPM :1940???Age:84 Y???Sex:Female D ate:10/03/2024 Address:[address] [place] [address], [facility] [id number] Pcp:Rey Hope MD Subjective: * Chief Complaints: * ???1. Too soon. * Medical History:? Objective: * Vitals:? Assessment: Plan: * Treatment: * Images: * The named appointment provid er may or may not be the originator of this progress note, and it is not deemed complete until electronically signed by the appointment provider. Sign off status: Pending * Provider:Viky Saucedo DPM Date:?2023 Generated for Vern avila/Nuzhat/Lee on:?10/19/2024 02:30 AM EST
--- OUTSIDE RECORDS SUMMARY | 2024-10-19 02:30 | XMS_ITS ---
Author Organization [facility] Address [address] [place] [address] Care Team Providers Care Electrotype Servicer Name Role Phone Rey Hope MD Primary Care Provider Ameena Colon Unavailable [phone] Allergies No Known Allergies REASON FOR VISIT At Risk Footcare, Painful Nail(s) aggravated by shoes and causing difficulty standing/walking. Medications Medication SIG (Take, Route, Frequency, Duration) Notes Start Date End Date Status Lisinopril 20 MG 1 tablet Orally Once a day for 30 day(s) Active Levothroid .75mg 1tab a day 2tabs wed,wed Active Lisinopril 20 MG 1 tablet Orally Once a day for 30 day(s) Not-Taking Ammonium Lactate 12 % 1 application to affected area Externally Twice a day to dry areas of skin on feet for 30 days Active Celecoxib 100 MG 1 capsule with food Orally Once a day for 30 day(s) Not-Taking amLODIPine Besylate 1.5mg Active Fosamax 70 MG 1 tablet 30 minutes before the first food, beverage or medicine of the day with plain water Orally Active Voltaren 1 % as directed Externally Active Levothyroxine Sodium 75 MCG 1 tablet in the morning on an empty stomach Orally Once a day for 30 day(s) Active Social History Tobacco Use: Social History Observation Description Date Details (start date - stop date) Former Smoker NA - NA Tobacco Use/Smoking Question Answer Notes Are you a: former smoker Additional Findings: Tobacco Non-User Ex-cigaret te smoker Alcohol Screen Question Answer Notes Did you have a drink containing alcohol in the p ast year? Yes Points 0 Interpretation Negative Tobacco use other than smoking: Question Answer Notes Are you an other tobacco user? 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, with unspecified presence of clinical manifestation (I70.203) Active confirmed Q7(A), Q8(2B), Q9(1B,2C) Vital Signs Height 5ft 1in in 10/16/2024 Weight 133 lbs 10/16/2024 BMI 25.13 kg/m2 10/16/2024 Blood pressure systolic 126 mm Hg 10/16/20 24 Blood pressure diastolic 80 mm Hg 024 Procedures Procedure Date Ordered Date Performed Result Body Sit e 46735-EPCBWMY NAIL, 6 OR MORE 10/16/2024 N/A 29861-FHRS SKIN LESIONS, 2 TO 4 10/16/2024 N/A Encounters Encounter Location Date Provider Diagnosis [facility] [place] [address] [place] [address] 10/16/2024 Ameena Beard Atherosclerosis of squaxin artery of both lower extremities, with unspecified presence of clinical manifestation I70.203 ; Tinea unguium B35.1 ; Pain in right toe(s) M79.674 and Pain in left toe(s) M79.675 Assessments Encounter Date Diagnosis (ICD Code) Assessment Notes Treatment Notes Treatment Clinical Notes Section Notes 10/16/2024 Atherosclerosis of squaxin artery of both lower extremities, with unspecified presence of clinical manifestation (ICD-10 - I70.203) Q7(A), Q8(2B), Q9(1B,2C) 10/16/2024 Tinea unguium (ICD-10 - B35.1) 10/16/2024 Pain in right toe(s) (ICD-10 - M79.674) 10/16/2024 Pain in left toe(s) (ICD-10 - M79.675) Plan Of Treatment Pending Test Test Name Order Date 71267-EQEINHN NAIL, 6 OR MORE 10/16/2024 11704-NSAS SKIN LESIONS, 2 TO 4 10/16/20 24 Next Appt Details Follow Up: prn, Reason: Provider Name:Ameena khoury, 02/22/2025 10:00:00 AM, [address] [place], [address], Procedure Notes * Category Sub-Category Detail Notes Debride Nail 6-10 Nail debridement Due to the cl inical pathology outlined in the exam findings, performance of this nail treatment is medically necessary as its management by an unskilled/untrained nonprofessional would put this patients foot and overall health at risk. Therefore, debridement to affected nail(s), as described in exam, was performed extensively to reduce/remove overall nail length, girth, thickness, subungual debris, and necrotic tissue, by manual and/or electrical means through the use of a nail nipper and/or dremel-type crystal flat grinder, to a more viable healthy nail plate or bed tissue 6-10 nails in total. Silver nitrate was used for any petechial bleeding as necessary. Definitive antifungal treatment options, both pharmaceutical and surgical, have been reviewed and discussed with the patient. The patient solely prefers the use of intermittent/as needed professional debridement services for their nail condition and understands the need for additional periodic treatments to maintain effectiveness in symptomatic relief - 67616 Keratoma Treatment Parring or Cutting o f Benign Hyperkeratotic Lesion(s) (-56) 2-4 Lesions - Due to the at risk nature of the patients medical condition as documented in the exam findings, performance of this keratoderma treatment is medically necessary as its management by an unskilled/untrained nonprofessional would put this patients foot and overall health at risk. Therefore, the benign hyperkeratotic lesions, ( 4 ) in total, locations as stated and described in the exam, were pared, and/or cut utilizing a sterile 15 blade, tissue nippers, and/or power dremel instrumentation - 03613, Q8 Progress Notes * Giana KAPLAN ADOB:[birth year] (84 yo F)Acc No.[id number]:10/16/2024 Progress Note Patient:?EUSEBIOGiana Chinedu Provider:?Ameena Beard DPM :1940???Age:84 Y???Sex:Female D ate:10/16/2024 Address:[address] [place] [address] [place] Pcp:Rey Hope MD Subjective: * Chief Complaints: * ???At Risk FootcarePainful N ail(s) aggravated by shoes and causing difficulty standing/walking. * HPI: ???At Risk footcare:?Pt States Last PCP Visit:?Date?08/30/2024 * ROS:?General/Constitutional:?Nausea?denies.?Vomiting?denies.?Hunger Thirst?denies.?Loss appetite?denies.?Chills?denies.?Fatigue?denies.?Fever?denies.?Night Sweats?denies.?Unexplained weight loss?denies.?Unexplained weight gain?denies.?HEENTM:?Dentures?denies.?Dizziness?denies.?Glasses/contacts?admits.?Retinopathy?de nies.?Blurred/double vision?denies.?TMJ?denies.?Discharge/drainage?denies.?Implants?denies.?Sore throat?denies.?Dental implants?denies.?Hard of hearing ?denies.?Difficulty chewing/swallowing/speaking?denies.?Nose bleeds?denies.?Sore mouth?denies.?Respiratory:?On Oxygen?denies.?Pneumonia/pleurisy?denies.?Bronchitis?denies.?Emphysema?denies.?C oughing?denies.?Cough blood?denies.?Shortness of breath?denies.?Wheezing?denies.?Cardiovascular:?Pacemaker?denies.?MVP?denies.?WPW?denies.?CHF?denies.?Heart attack?denies.?Septal defect?denies.?Rapid beat?denies.?Chest pain ?denies.?Atrial Fib.?denies.?Murmur/Palpitations?denies.?Gastrointestinal:?Hemorrhoids?denies.?Stomach/Abdominal pain?denies.?Dark blood stool?denies.?Irritable bowel ?denies.?Constipation?denies.?Diarrhea?denies.?Hematology:?Swelling?denies.?Clots?denies.?Varicose Veins?denies.?Bruising?denies.?Bleeding problem?denies.?Genitourinary:?Blood urine?denies.?Frequent/Painfu/urination/bladder control?denies.?Kidney stones?denies.?Infection (UTI)?denies.?Nephropathy?admits.?sex trans dis (STD)?denies.?Prostate?denies.?Musculoskeletal:?Hammertoes?admits.?Bunions?denies.?Back Pain?denies.?Muscle Cramps/ Resting?denies.?Muscle cramps / walking?denies.?Generalized aches and pains?denies.?Weakness?denies.?Integ.:?[place]o?denies.?Scars?denies.?Corns/calluses?denies.?Ingrown nails?denies.?Painful nails?denies.?Open Sores?denies.?Rashes?denies.?Neurologic:?Difficulty sleeping?denies.?Brain disorder?denies.?Numbness?denies.?Balance trouble?denies.?Confusion?denies.?Fainting/blackouts?denies.?Tingling?denies.?Tr emors?denies.? * Medical History:? * Surgical History:?hip surger y 2Spinal Surgery 05/17/24 * Hospitalization/Major Diagno stic Procedure:?Denies Past Hospitalization * Family History:?Mother: unkn own, foot problems, poor circulation, diagnosed with Unspecified essential hypertension, Unspecified cerebral artery occlusion with cerebral infarction, Family history of arthritis. Father: unknown, diagnosed with Unspecified essential hypertension, Unspecified cerebral artery occlusion with cerebral infarction.? * Social History:?Tobacco Use:?Tobacco Use/Smoking?Are you a:?former smoker ?Additional Findings: Tobacco Non-User?Ex-cigarette smoker ?Tobacco use other than smoking?Are you an other tobacco user??No ???Drugs/Alcohol:?Drugs?Have you used drugs other than those for medical reasons in the past 12 months??No ?Alcohol Screen?Did you have a drink containing alcohol in the past year??Yes ?Points?0 ?Interpretation?Negative ???Miscellaneous:?Caffeine: yes, 2 cups per day. ?Exercise: no. ?Marital status: . ?Occupation: Retired. * Medications:?TakingVoltaren 1 % Gel as directed Externally amLODIPine Besylate , Notes to Pharmacist: 1.5mgFosamax 70 MG Tablet 1 tablet 30 minutes before the first food, beverage or medicine of the day with plain water Orally Levothyroxine Sodium 75 MCG Tablet 1 tablet in the morning on an empty stomach Orally Once a day Levothroid , Notes to Pharmacist: .75mg 1tab a day 2tawed,sunLisinopril 20 MG Tablet 1 tablet Orally Once a day Ammonium Lactate 12 % Cream 1 application to affected area Externally Twice a day to dry areas of skin on feet Taking Voltaren 1 % Gel as directed Externally Taking amLODIPine Besylate , Notes to Pharmacist: 1.5mgTaking Fosamax 70 MG Tablet 1 tablet 30 minutes before the first food, beverage or medicine of the day with plain water Orally Taking Levothyroxine Sodium 75 MCG Tablet 1 tablet in the morning on an empty stomach Orally Once a day Taking Levothroid , Notes to Pharmacist: .75mg 1tab a day 2tawed,sunTaking Lisinopril 20 MG Tablet 1 tablet Orally Once a day Taking Ammonium Lactate 12 % Cream 1 application to affected area Externally Twice a day to dry areas of skin on feet Not-Taking/PRNCelecoxib 100 MG Capsule 1 capsule with food Orally Once a day Lisinopril 20 MG Tablet 1 tablet Orally Once a day Medication List reviewed and reconciled with the patientNot- Taking/PRN Celecoxib 100 MG Capsule 1 capsule with food Orally Once a day Not-Taking/PRN Lisinopril 20 MG Tablet 1 tablet Orally Once a day Medication List reviewed and reconciled with the patient * Allergies:?N.K.D.A.yes[Aller gies Verified] Objective: * Vitals:?Ht: 5ft 1in, Wt:133, BMI: 25.13, Shoe size:6.5, BP:126/80mm Hg, Wt-k.33 kg. * Examination: ???Vascular: ?DP PULSES(B):? 0/4, B/L.?PT PULSES(B):? 0/4, B/L.?CAPILLARY FILL TIME:? delayed, all digits, B/L.?TROPHIC CONDITION-TEXTURE/ELASTICITY/TURGOR/HAIR GROWTH(B):? decreased, fragile, thin, shiny skin, with sparse to absent hair growth, B/L.?TEMPERTURE GRADIENT(C):? decreased, cool to cool, proximal to distal, B/L.?PIGMENTATION:?mottled, B/L.?EDEMA(C):?absent, B/L.?CLAUDICATION(C):?denies, B/L.?REST PAIN:?denies, B/L.?PARESTHESIA(C):?absent, B/L.?BURNING(C):?absent, B/L.?Nails: ?NAILS are:? Elongated, overgrown, dystrophic, lytic, greater than 3mm thick, discolored and friable with crumbly malodorous subungual debris, with pain on palpation.?Dermatologic: ?SKIN FINDINGS:?Skin exam reveals Keratotic lesion(s) located at plantar heels bilateral, sub 1st metatarsal head bilateral.?Orthopedic: ?MUSCLE STRENGTH:?5/5 all groups in a symmetrical fashion, B/L.?Neurological: ?SENSORY:?Neurological exam reveals intact sensorium, pain sensation normal, vibration sensation intact, pinprick sensation is normal in the lower extremities, Pt denies, anesthesia, burning, paresthesia, tingling, B/L.?General Examination: ?GENERAL APPEARANCE:?Reveals a pleasant, alert, well nourished, well- developed, well hydrated individual, who demonstrates proper attention to hygiene/body habitus, and is in no acute distress, Pt serves as own historian for office visit today.?ORIENTED:?person, place, and time.? Assessment: * Assessment: 1.?Atherosclerosis of squaxin artery of both lower extremities, with unspecified presence of clinical manifestation - I70.203 (Primary)???Notes :Q7(A), Q8(2B), Q9(1B,2C)???2.?Tinea unguium - B35.1???3.?Pain in right toe(s) - M79.674???4.?Pain in left toe(s) - M79.675??? Plan: * Treatment: 2.?Tinea unguium?Procedure: 27627-NVXEMEU NAIL, 6 OR MORE * Procedures:?Debride Nail 6-10:?Nail debridement?Due to the clinical pathology outlined in the exam findings, performance of this nail treatment is medically necessary as its management by an unskilled/untrained nonprofessional would put this patients foot and overall health at risk. Therefore, debridement to affected nail(s), as described in exam, was performed extensively to reduce/remove overall nail length, girth, thickness, subungual debris, and necrotic tissue, by manual and/or electrical means through the use of a nail nipper and/or dremel-type crystal flat grinder, to a more viable healthy nail plate or bed tissue 6-10 nails in total. Silver nitrate was used for any petechial bleeding as necessary. Definitive antifungal treatment options, both pharmaceutical and surgical, have been reviewed and discussed with the patient. The patient solely prefers the use of intermittent/as needed professional debridement services for their nail condition and understands the need for additional periodic treatments to maintain effectiveness in symptomatic relief - 59882.?Keratoma Treatment:?Parring or Cutting of Benign Hyperkeratotic Lesion(s)?(-56) 2-4 Lesions - Due to the at risk nature of the patients medical condition as documented in the exam findings, performance of this keratoderma treatment is medically necessary as its management by an unskilled/untrained nonprofessional would put this patients foot and overall health at risk. Therefore, the benign hyperkeratotic lesions, ( 4 ) in total, locations as stated and described in the exam, were pared, and/or cut utilizing a sterile 15 blade, tissue nippers, and/or power dremel instrumentation - 31170, Q8.? * Procedure Codes:?80383 DEBRI DE NAIL, 6 OR MORE, Modifiers: XS 85124 TRIM SKIN LESIONS, 2 TO 4, Modifiers: XS , Q8 * Follow Up:?prn * Images: * Sign off status: Completed true * Provider:?Ameena Beard DPM Date:?12/17/2023 Generated for Vern avila/Nuzhat/Lee on:?10/19/2024 02:30 AM EST History and Physical Notes * HPI (History of Present Illness) Category Sub-Category Detail Notes Category Not es At Risk footcare Pt States Last PCP Visit: Date: Examination Category Sub-Category Detail Notes Category Not es Neurological SENSORY: Neurological exa m reveals intact sensorium, pain sensation normal, vibration sensation intact, pinprick sensation is normal in the lower extremities, Pt denies, anesthesia, burning, paresthesia, tingling, B/L Dermatologic SKIN FINDINGS: Skin exam reveal s Keratotic lesion(s) located at plantar heels bilateral, sub 1st metatarsal head bilateral Orthopedic MUSCLE STRENGTH: 5/5 all groups in a symmetrical fashion, B/L General Examination GENERAL APPEARANCE: Reveals a pleasant, alert, well nourished, well-developed, well hydrated individual, who demonstrates proper attention to hygiene/body habitus, and is in no acute distress, Pt serves as own historian for office visit today ORIENTED: person, place, and t avtar Vascular DP PULSES(B): 0/4, B/L PT PULSES(B): 0/4, B/L CAPILLARY FILL TIME: delayed, all digits , B/L TEMPERTURE GRADIENT(C): decreased, cool to cool, proximal to distal, B/L TROPHIC CONDITION-TEXTURE/ELASTICITY/TURGOR/HAIR GROWTH(B): decreased, fragile, thin, shiny skin, wi th sparse to absent hair growth, B/L EDEMA(C): absent, B/L CLAUDICATION(C): denies, B/L REST PAIN: denies, B/L PIGMENTATION: mottled, B/L PARESTHESIA(C): absent, B/L BURNING(C): absent, B/L Nails NAILS are: Elongated, overg rown, dystrophic, lytic, greater than 3mm thick, discolored and friable with crumbly malodorous subungual debris, with pain on palpation
--- OUTSIDE RECORDS SUMMARY | 2024-10-19 02:31 | XMS_ITS | Patient Health Record ---
Author Organization [facility] Kristineosiris Garza Address [address] [place] [address] Care Team Providers Care Emissions Testing Technician Name Role Phone Rey Hope MD Primary Care Provider Ameena Colon Unavailable [phone] Lan Cheney Unavailable [phone] Jose Saucedo Unavailable [phone] Allergies No Known Allergies Reason For Referral No Information Medications Medication SIG (Take, Route, Frequency, Duration) Notes Start Date End Date Status amLODIPine Besylate 1.5mg Active Fosamax 70 MG 1 tablet 30 minutes before the first food, beverage or medicine of the day with plain water Orally Active Voltaren 1 % as directed Externally Active Lisinopril 20 MG 1 tablet Orally Once a day for 30 day(s) Active Levothyroxine Sodium 75 MCG 1 tablet [...] Once a day for 30 day(s) Not-Taking Immunizations Vaccine Route Administration Date Status Comme nts COVID-19 Pfizer BioNTech Vaccine Unknown 09/08/2022 Administered 2020 unsure dates Social History Tobacco Use: Social History Observation [...] Problem Status W/U Status Risk Notes Problem Acquired hallux valgus (80098852) Hallux valgus (acquired), left foot (M20.12) Active confirmed Problem 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, bilateral legs (I70.203) Active confirmed Problem Acquired hallux valgus (48878025) Hallux valgus (acquired), right foot (M20.11) Active confirmed Problem Non-pressure chronic ulcer of other part of left 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 (L97.521) Active confirmed Problem Non-pressure chronic ulcer of other part of right 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 (L97.511) Active confirmed Problem Acquired hammer toe of right foot ([id number]) Other hammer toe(s) (acquired), right foot (M20.41) Active confirmed Problem Acquired hammer toe of left foot ([id number]) Other hammer toe(s) (acquired), left foot (M20.42) Active confirmed Problem Atherosclerosis of hughes artery of both lower extremities, with unspecified presence of clinical manifestation (I70.203) Active confirmed Q7(A), Q8(2B), Q9(1B,2C ) Vital Signs Blood pressure diastolic 80 mm Hg 10/16/2024 Height 5ft 1in in 10/16/2024 Blood pressure systolic 126 mm Hg 10/16/2024 Weight 133 lbs 10/16/2024 BMI 25.13 kg/m2 10/16/2024 Procedures Procedure Date Ordered Date Performed Result Body Sit e 74549-XGWNUGM NAIL, 6 OR MORE 10/16/2024 N/A 04960-JIXI SKIN LESIONS, 2 TO 4 10/16/2024 N/A Encounters Encounter Location Date Provider Diagnosis [facility] [address] [place] [address] 12/20/2023 Lan Cheney Skin disease L98.9 ; 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, bilateral legs I70.203 ; Tinea unguium B35.1 ; Xerosis cutis L85.3 ; Hallux valgus (acquired), left foot M20.12 ; Hallux valgus (acquired), right foot M20.11 ; Other hammer toe(s) (acquired), left foot M20.42 ; Other hammer toe(s) (acquired), right foot M20.41 ; Neuralgia and neuritis, unspecified M79.2 and Non-pressure chronic ulcer of other part of right 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 L97.[address] [address] 01/19/2024 Lan Cheney Skin disease L98.9 ; 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, bilateral legs I70.203 ; Tinea unguium B35.1 ; Xerosis cutis L85.3 ; Hallux valgus (acquired), left foot M20.12 ; Hallux valgus (acquired), right foot M20.11 ; Other hammer toe(s) (acquired), left foot M20.42 ; Other hammer toe(s) (acquired), right foot M20.41 ; Neuralgia and neuritis, unspecified M79.2 and Non-pressure chronic ulcer of other part of right 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 L97.[address] [address] 03/23/2024 Lan Cheney Skin disease L98.9 ; 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, bilateral legs I70.203 ; Tinea unguium B35.1 ; Xerosis cutis L85.3 ; Hallux valgus (acquired), left foot M20.12 ; Hallux valgus (acquired), right foot M20.11 ; Other hammer toe(s) (acquired), left foot M20.42 ; Other hammer toe(s) (acquired), right foot M20.41 ; Neuralgia and neuritis, unspecified M79.2 and Non-pressure chronic ulcer of other part of right 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 L97.[address] [address] 06/05/2024 Lan Cheney 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, bilateral legs I70.203 ; Skin disease L98.9 ; Tinea unguium B35.1 ; Xerosis cutis L85.3 ; Hallux valgus (acquired), left foot M20.12 ; Hallux valgus (acquired), right foot M20.11 ; Other hammer toe(s) (acquired), left foot M20.42 ; Other hammer toe(s) (acquired), right foot M20.41 and Neuralgia and neuritis, unspecified M79.[address] [address] 2024 Lan Cheney 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, bilateral legs I70.203 ; Skin disease L98.9 ; Tinea unguium B35.1 ; Xerosis cutis L85.3 ; Hallux valgus (acquired), left foot M20.12 ; Hallux valgus (acquired), right foot M20.11 ; Other hammer toe(s) (acquired), left foot M20.42 ; Other hammer toe(s) (acquired), right foot M20.41 and Neuralgia and neuritis, unspecified M79.[address] [address] 10/16/2024 Ameena Beard Atherosclerosis of hughes artery of both lower extremities, with unspecified presence of clinical manifestation I70.203 ; Tinea unguium B35.1 ; Pain in right toe(s) M79.674 and Pain in left toe(s) M79.[address] [address] 12/20/2023 Jose Saucedo Assessments Encounter Date Diagnosis (ICD Code) Assessment Notes Treatment Notes Treatment Clinical Notes Section Notes 12/20/2023 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, bilateral legs (ICD-10 - I70.203) 01/19/2024 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, bilateral legs (ICD-10 - I70.203) 12/20/2023 Skin disease (ICD-10 - L98.9) 01/19/2024 Skin disease (ICD-10 - L98.9) 03/23/2024 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, bilateral legs (ICD-10 - I70.203) 03/23/2024 Skin disease (ICD-10 - L98.9) 06/05/2024 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, bilateral legs (ICD-10 - I70.203) 06/05/2024 Skin disease (ICD-10 - L98.9) 2024 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, bilateral legs (ICD-10 - I70.203) 10/16/2024 Atherosclerosis of hughes artery of both lower extremities, with unspecified presence of clinical manifestation (ICD-10 - I70.203) Q7(A), Q8(2B), Q9(1B,2C) 2024 Skin disease (ICD-10 - L98.9) 10/16/2024 Tinea unguium (ICD-10 - B35.1) 06/05/2024 Tinea unguium (ICD-10 - B35.1) 03/23/2024 Tinea unguium (ICD-10 - B35.1) 01/19/2024 Tinea unguium (ICD-10 - B35.1) 12/20/2023 Tinea unguium (ICD-10 - B35.1) 01/19/2024 Xerosis cutis (ICD-10 - L85.3) 03/23/2024 Xerosis cutis (ICD-10 - L85.3) 12/20/2023 Xerosis cutis (ICD-10 - L85.3) 2024 Tinea unguium (ICD-10 - B35.1) 06/05/2024 Xerosis cutis (ICD-10 - L85.3) 10/16/2024 Pain in right toe(s) (ICD-10 - M79.674) 10/16/2024 Pain in left toe(s) (ICD-10 - M79.675) 2024 Xerosis cutis (ICD-10 - L85.3) 06/05/2024 Hallux valgus (acquired), left foot (ICD-10 - M20.12) 03/23/2024 Hallux valgus (acquired), left foot (ICD-10 - M20.12) 01/19/2024 Hallux valgus (acquired), left foot (ICD-10 - M20.12) 12/20/2023 Hallux valgus (acquired), left foot (ICD-10 - M20.12) 12/20/2023 Hallux valgus (acquired), right foot (ICD-10 - M20.11) 01/19/2024 Hallux valgus (acquired), right foot (ICD-10 - M20.11) 03/23/2024 Hallux valgus (acquired), right foot (ICD-10 - M20.11) 2024 Hallux valgus (acquired), left foot (ICD-10 - M20.12) 06/05/2024 Hallux valgus (acquired), right foot (ICD-10 - M20.11) 06/05/2024 Other hammer toe(s) (acquired), left foot (ICD-10 - M20.42) 03/23/2024 Other hammer toe(s) (acquired), left foot (ICD-10 - M20.42) 12/20/2023 Other hammer toe(s) (acquired), left foot (ICD-10 - M20.42) 01/19/2024 Other hammer toe(s) (acquired), left foot (ICD-10 - M20.42) 2024 Hallux valgus (acquired), right foot (ICD-10 - M20.11) 2024 Other hammer toe(s) (acquired), left foot (ICD-10 - M20.42) 01/19/2024 Other hammer toe(s) (acquired), right foot (ICD-10 - M20.41) 12/20/2023 Other hammer toe(s) (acquired), right foot (ICD-10 - M20.41) 03/23/2024 Other hammer toe(s) (acquired), right foot (ICD-10 - M20.41) 06/05/2024 Other hammer toe(s) (acquired), right foot (ICD-10 - M20.41) 06/05/2024 Neuralgia and neuritis, unspecified (ICD-10 - M79.2) 03/23/2024 Neuralgia and neuritis, unspecified (ICD-10 - M79.2) 01/19/2024 Neuralgia and neuritis, unspecified (ICD-10 - M79.2) 12/20/2023 Neuralgia and neuritis, unspecified (ICD-10 - M79.2) 2024 Other hammer toe(s) (acquired), right foot (ICD-10 - M20.41) 2024 Neuralgia and neuritis, unspecified (ICD-10 - M79.2) 12/20/2023 Non-pressure chronic ulcer of other part of right 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 (ICD-10 - L97.511) 01/19/2024 Non-pressure chronic ulcer of other part of right 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 (ICD-10 - L97.511) 03/23/2024 Non-pressure chronic ulcer of other part of right 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 (ICD-10 - L97.511) Plan Of Treatment Pending Test Test Name Order Date 20063-VPBODHA NAIL, 6 OR MORE 10/16/2024 11553-DPJA SKIN LESIONS, OVER 4 12/07/19 23 06129-QVZF SKIN LESIONS, OVER 4 03/08/20 23 03461-HUMY SKIN LESIONS, 2 TO 4 10/16/20 24 Y5012-LXFHUSPH DYSTROPHIC NAILS ANY # L4551-BBOSATOQ DYSTROPHIC NAILS ANY # Next Appt Details Provider Name:Ameena khoury, 02/22/2025 10:00:00 AM, [address] [place], [address], Insurance Providers Payer Name Payer Address Payer Phone Subscriber Number Group Number Insured Name Patient Relationship to Insured Coverage Start Date Coverage End Date Medicare [employer] [facility] [address] [place] [address] [id number] Giana Carlos Self - patient is the insured Med [facility] [address] [place] [address] [phone] [id number] TerranceGiana marley Self - patient is the insured Medical (General) History Medical History History ICD Code Back,Hip,and Knee pain Surgical History Surgery Date(Month/Year) hip surgery 10/06/2022 Spinal Surgery 05/17/24
--- OUTSIDE RECORDS SUMMARY | 2024-10-19 02:31 | XMS_ITS ---
Author Organization [facility] Chilo michael Garza Address [address] [place] [address] Care Team Providers Care Donation Worker Name Role Phone Rey Hope MD Primary Care Provider Ameena Colon Unavailable [phone] Lan Cheney Unavailable [phone] Allergies No Known Allergies REASON FOR VISIT Last PCP Visit: 05/2024, PCP - 08/2023 Medications Medication SIG (Take, Route, Frequency, Duration) [...] skin on feet for 30 days Active Levothyroxine Sodium 75 MCG 1 tablet in the morning on an empty stomach Orally Once a day for 30 day(s) Active Voltaren 1 % as directed Externally Active amLODIPine Besylate 1.5mg Active Celecoxib 100 MG 1 capsule with food Orally Once a day for 30 day(s) Not-Taking Fosamax 70 MG 1 tablet 30 minutes before the first food, beverage or medicine of the day with plain water Orally Active Social History Tobacco Use: Social History [...] Are you an other tobacco user? No Vital Signs Height 5ft 1in in 2024 Weight 133 lbs 2024 BMI 25.13 kg/m2 2024 Blood pressure systolic 126 mm Hg 08/14/20 24 Blood pressure diastolic 80 mm Hg 024 Encounters Encounter Location Date Provider Diagnosis [facility] [address] [place] [address] 2024 Lan Cheney Unspecified atherosclerosis of [place] arteries of extremities, bilateral legs I70.203 ; Skin disease L98.9 ; Tinea unguium B35.1 ; Xerosis cutis L85.3 ; Hallux valgus (acquired), left foot M20.12 ; Hallux valgus (acquired), right foot M20.11 ; Other hammer toe(s) (acquired), left foot M20.42 ; Other hammer toe(s) (acquired), right foot M20.41 and Neuralgia and neuritis, unspecified M79.2 Assessments Encounter Date Diagnosis (ICD Code) Assessment Notes Treatment Notes Treatment Clinical Notes Section Notes 2024 Unspecified atherosclerosis of [place] arteries of extremities, bilateral legs (ICD-10 - I70.203) 2024 Skin disease (ICD-10 - L98.9) 2024 Tinea unguium (ICD-10 - B35.1) 2024 Xerosis cutis (ICD-10 - L85.3) 2024 Hallux valgus (acquired), left foot (ICD-10 - M20.12) 2024 Hallux valgus (acquired), right foot (ICD-10 - M20.11) 2024 Other hammer toe(s) (acquired), left foot (ICD-10 - M20.42) 2024 Other hammer toe(s) (acquired), right foot (ICD-10 - M20.41) 2024 Neuralgia and neuritis, unspecified (ICD-10 - M79.2) Plan Of Treatment Medication Medication Name Sig Start Date Stop Date Notes Voltareshabana 1 % as directed Externally Next Appt Details Follow Up: 2 Months, 4 Month s, Reason: Provider Name:Ameena Mike peng, 02/22/2025 10:00:00 AM, [address] [facility], [place], [address], Procedure Notes * Category Sub-Category Detail Notes Keratoma Treatment Parring or Cutting o f Benign Hyperkeratotic Lesion(s) 38939 ( >4 Lesions) - The Benign hyperkeratotic lesions, as described above were pared, and/or cut utilizing a sterile #15 blade, tissue nippers, and/or dremel, Q8 Nail Reduction Nail Reduction Trimming of dyst rophic nails performed to reduce/remove overall nail length and girth, by manual and electrical means with use of a nail nipper and/or dremel, to more viable healthy nail plate or bed tissue 6-10 (G0127) Progress Notes * Giana KAPLAN ADOB:[birth year] (84 yo F)Acc No.[id number] Progress Note Patient:?Giana Kaplan A Provider:?Lan Cheney DPM :1940???Age:84 Y???Sex:Female D ate:2024 Address:[address] [place] [address] [id number] Pcp:Rey Hope MD Subjective: * Chief Complaints: * ???Last PCP Visit: CP - 08/2023 * HPI: ???Skin problems:?Nature:?tender.?Location:?B/L , 4th, Toe(s).?Onset/Cause:?ill fitting winter boot.?Course:?improved.?Foot Pain:?Nature:?tingling, cramping--spasms.?Location:?B/L, Rearfoot and ankles.?Duration:?several months.?Course:?improved.?Aggravated:?especially toward the end of the day.?Treatments:?voltaren helps.? * ROS:?General/Constitutional:?Nausea?denies.?Vomiting?denies.?Hunger Thirst?denies.?Loss appetite?denies.?Chills?denies.?Fatigue?denies.?Fever?denies.?Night Sweats?denies.?Unexplained weight loss?denies.?Unexplained [...] Medical History:? * Surgical History:?hip surger y 10/06/2022 Spinal Surgery 05/17/24 * Hospitalization/Major Diagno stic Procedure:?Denies Past Hospitalization * Family History:?Mother: unkn own, foot problems, poor circulation, diagnosed with Family history of arthritis, Unspecified essential hypertension, Unspecified cerebral artery occlusion with cerebral infarction. Father: unknown, diagnosed with Unspecified essential hypertension, [...] ?Interpretation?Negative ???Miscellaneous:?Caffeine: yes, 2 cups per day. ?no Exercise. ?Marital status: . ?Occupation: Retired. * Medications:?TakingamLODIPin e Besylate , Notes: 1.5mgVoltaren 1 % Gel as directed Externally Fosamax 70 MG Tablet 1 tablet 30 minutes before the first food, beverage or medicine of the day with plain water Orally Levothyroxine Sodium 75 MCG Tablet 1 tablet in the morning on an empty stomach Orally Once a dayLevothroid , Notes: .75mg 1tab a day 2tawed,sunLisinopril 20 MG Tablet 1 tablet Orally Once a dayAmmonium Lactate 12 % Cream 1 application to affected area Externally Twice a day to dry areas of skin on feetTaking amLODIPine Besylate , Notes: 1.5mgTaking Voltaren 1 % Gel as directed Externally Taking Fosamax 70 MG Tablet 1 tablet 30 minutes before the first food, beverage or medicine of the day with plain water Orally Taking Levothyroxine Sodium 75 MCG Tablet 1 tablet in the morning on an empty stomach Orally Once a dayTaking Levothroid , Notes: .75mg 1tab a day 2tawed,sunTaking Lisinopril 20 MG Tablet 1 tablet Orally Once a dayTaking Ammonium Lactate 12 % Cream 1 application to affected area Externally Twice a day to dry areas of skin on feetNot-Taking/PRNCelecoxib 100 MG Capsule 1 capsule with food Orally Once a dayLisinopril 20 MG Tablet 1 tablet Orally Once a dayMedication List reviewed and reconciled with the patientNot-Taking/PRN Celecoxib 100 MG Capsule 1 capsule with food Orally Once a dayNot-Taking/PRN Lisinopril 20 MG Tablet 1 tablet Orally Once a dayMedication List reviewed and reconciled with the patient * Allergies:?N.K.D.A.yes[Aller gies Verified] Objective: * Vitals:?Ht: 5ft 1in, Wt:133, BMI:25.13, Shoe size:6.5, BP:126/80 mm Hg. * Examination: ???General Examination: ?GENERAL APPEARANCE:?pleasant, alert, well nourished, well developed, well hydrated, with good attention to hygene/body habitus, and in no acute distress.?ORIENTED:?person,place, and time.?Neurological: ?SENSORY:?neurological exam reveals intact sensorium, pain sensation normal, vibration sensation intact, pinprick sensation is normal in the lower extremities, anesthesia, burning, tingling, B/L.?Vascular: ?DP PULSES(B):? 0/4, B/L.?PT PULSES(B):? 0/4, B/L.?CAPILLARY FILL TIME:? delayed, all digits, B/L.?TROPHIC CONDITION-TEXTURE/ELASTICITY/TURGOR/HAIR GROWTH(B):? decreased, B/L.?TEMPERTURE GRADIENT(C):? decreased, cool to cold, proximal to distal, B/L.?PIGMENTATION:? cyanotic, B/L.?EDEMA(C):? 1/4, B/L, Ankle(s), Leg(s).?TELANGECTASIA:? moderate.?VARICOSITIES:? present, moderate, nonpainful, B/L.?Dermatologic: ?SKIN FINDINGS:? Skin exam reveals Keratotic lesion(s) located at, Medial plantar, IPJ, TA, T5, SUB MTH (s), 1, B/L , Heel(s), B/L , Skin shows sign(s) of, dryness, scaling, in a stocking fashion, no fissure(s) present, B/L.?Orthopedic: ?MUSCLE STRENGTH:?5/5 all groups in a symmetrical fashion , B/L.?BUNION:? Medially prominent 1st MPJ, B/L, Lateral tracking 1st MPJ incompletely reducable.?DIGITAL DEFORMITIES:? Digital contracture, PIPJ, 2-5 B/L, incompl- reducable with WB, or to push-up test, no over, nor underlapping.?Nails: ?NAILS are:? Elongated, overgrown, dystrophic, T4, T9, remaining nails are elongated, overgrown, and non-dystrophic.? Assessment: * Assessment: 1.?Unspecified atheroscleros is of [place] arteries of extremities, bilateral legs - I70.203?2.?Skin disease - L98.9 (Primary)?3.?Tinea unguium - B35.1?4.?Xerosis cutis - L85.3?5.?Hallux valgus (acquired), left foot - M20.12?6.?Hallux valgus (acquired), right foot - M20.11?7.?Other hammer toe(s) (acquired), left foot - M20.42?8.?Other hammer toe(s) (acquired), right foot - M20.41?9.?Neuralgia and neuritis, unspecified - M79.2? Plan: * Treatment: * Procedures:?Keratoma Treatment:?Parring or Cutting of Benign Hyperkeratotic Lesion(s)?87491 ( >4 Lesions) - The Benign hyperkeratotic lesions, as described above were pared, and/or cut utilizing a sterile #15 blade, tissue nippers, and/or dremel, Q8.?Nail Reduction:?Nail Reduction?Trimming of dystrophic nails performed to reduce/remove overall nail length and girth, by manual and electrical means with use of a nail nipper and/or dremel, to more viable healthy nail plate or bed tissue 6-10 (G0127).? * Procedure Codes:?89562 TRIM SKIN LESIONS, OVER 4, Modifiers: Q8 G0127 TRIMMING DYSTROPHIC NAILS ANY #, Modifiers: Q8 * Follow Up:?2 Months, 4 Month s * Images: * Sign off status: Completed true * Provider:Onesimo Cheney DPM Date:? 024 Generated for Printi ng/Fajessyg/eTransmitting on:?10/19/2024 02:30 AM EST History and Physical Notes * HPI (History of Present Illness) Category Sub-Category Detail Notes Category Not es Skin problems Nature: tender Location: B/L , 4th, Toe(s) Onset/Cause: ill fitting winter Course: improved Foot Pain Nature: tingling, cramping--spasms Location: B/L, Rearfoot and an kles Duration: several months Course: improved Aggravated: especially toward th e end of the day Treatments: voltaren helps Examination Category Sub-Category Detail Notes Category Not es Neurological SENSORY: neurological exa m reveals intact sensorium, pain sensation normal, vibration sensation intact, pinprick sensation is normal in the lower extremities, anesthesia, burning, tingling, B/L Dermatologic SKIN FINDINGS: Skin exam reveal s Keratotic lesion(s) located at, Medial plantar, IPJ, TA, T5, SUB MTH (s), 1, B/L , Heel(s), B/L , Skin shows sign(s) of, dryness, scaling, in a stocking fashion, no fissure(s) present, B/L Orthopedic BUNION: Medially promine nt 1st MPJ, B/L, Lateral tracking 1st MPJ incompletely reducable DIGITAL DEFORMITIES: Digital contracture , PIPJ, 2-5 B/L, incompl-reducable with WB, or to push-up test, no over, nor underlapping MUSCLE STRENGTH: 5/5 all groups in a symmetrical fashion , B/L General Examination GENERAL APPEARANCE: pleasant , alert, well nourished, well developed, well hydrated, with good attention to hygene/body habitus, and in no acute distress ORIENTED: person,place, and ti me Vascular DP PULSES(B): 0/4, B/L PT PULSES(B): 0/4, B/L CAPILLARY FILL TIME: delayed, all digits , B/L TEMPERTURE GRADIENT(C): decreased, cool to cold, proximal to distal, B/L TROPHIC CONDITION-TEXTURE/ELASTICITY/TURGOR/HAIR GROWTH(B): decreased, B/L EDEMA(C): 1/4, B/L, Ankle(s), Leg(s) TELANGECTASIA: moderate VARICOSITIES: present, moderate, n onpainful, B/L PIGMENTATION: cyanotic, B/L Nails NAILS are: Elongated, overg rown, dystrophic, T4, T9, remaining nails are elongated, overgrown, and non-dystrophic
--- OUTSIDE RECORDS SUMMARY | 2024-10-19 02:31 | XMS_ITS | Clinical Summary ---
Author Organization Unknown Care Team Providers Care Comb Capper Name Role Phone PREETHI BROWN, STAN Unavailable Unavailable RAVEN PT, GUSTAVO Unavailable Unavailable ANA OT, GERHARD Unavailable Unavailable Payers Payer Name Policy Type Policy Number Effective Date Expira tion Date MEDICARE.NGS.PDGM [id number] Problems Condition Name Condition Details Condition Category Status Onset Date Resolution Date Last Treatment Date Treating Clinician Comments DISLOCATION OF INTERNAL RIGHT HIP PROSTHESIS, SUBS ENCNTR Active 11-11 00:00: 00 ESSENTIAL (PRIMARY) HYPERTENSION Active 11-08 00:00: 00 HYPOTHYROIDI SM, UNSPECIFIED Active 11-08 00:00: 00 PERSONAL HISTORY OF NICOTINE DEPENDENCE Active 11-08 00:00: 00 CATARACT EXTRACTION STATUS, UNSPECIFIED EYE Active 11-08 00:00: 00 Allergies, Adverse Reactions, Alerts Allergy Name Allergy Type Status Severity Reaction(s) Onset Date Inactive Date Treating Clinician Comments NO KNOWN ALLERGIES Propensity to adverse reactions Active 11-11 12:39: 44 Medications Ordered Medication Name Filled Medication Name Start Date Stop Date Current Medication? Ordering Clinician Indication Dosage Frequency Signature (SIG) Comments Components pantoprazol e 40 mg tablet,joan yed release 2021-11 00:00: 00 11-11 00:00 :00 No [id number] Per instruc tions EVERY DAY Per instructio ns EVERY DAY (route: oral) Med Classific ation: Gastroint estinal Therapy Agents tramadol 50 mg tablet 2021-11 00:00: 00 11-11 00:00 :00 No [id number] Per instruc tions EVERY 6 HOURS NEEDED (400MG) PER DAY Per instructio ns EVERY 6 HOURS NEEDED (400MG) PER DAY (route: oral) Med Classific ation: Analgesic , Anti-infl ammatory or Antipyret ic levothyroxi ne 75 mcg tablet 11-08 00:00: 00 Yes [id number] HYPOTHYROID ISM Per instruc tions DAILY Per instructio ns DAILY (route: oral) Med Classific ation: Endocrine lisinopril 20 mg tablet 11-08 00:00: 00 Yes [id number] HTN Per instruc tions DAILY Per instructio ns DAILY (route: oral) Med Classific ation: Cardiovas cular Therapy Agents Vital Signs Vital Name Observation Time Observation Value Commen ts Temperature 2022-12-08 10:31:00.000 97.5 [degF] Temperature 2022-12-01 09:09:00.000 98.3 [degF] Temperature 2022-11-26 09:05:00.000 97.7 [degF] Temperature 2022-11-19 09:14:00.000 97.3 [degF] Temperature 2022-11-17 09:25:00.000 98.3 [degF] Temperature 2022-11-11 12:38:00.000 97 [degF] BMI (%) 2022-11-11 12:38:00.000 25 kg/m2 Height 2022-11-11 12:38:00.000 61 [in_us] Pulse 2022-12-08 10:31:00.000 65 /min Pulse 2022-12-01 09:09:00.000 70 /min Pulse 2022-11-26 09:05:00.000 78 /min Pulse 2022-11-19 09:14:00.000 70 /min Pulse 2022-11-17 09:25:00.000 78 /min Pulse 2022-11-11 12:38:00.000 81 /min O2 Saturation (%) 2022-12-08 10:31:00.000 98 % Respirations 2022-12-08 10:31:00.000 18 /min Respirations 2022-12-01 09:09:00.000 18 /min Respirations 2022-11-26 09:05:00.000 18 /min Respirations 2022-11-19 09:14:00.000 18 /min Respirations 2022-11-17 09:25:00.000 18 /min Respirations 2022-11-11 12:38:00.000 18 /min Weight (lbs) 2022-11-11 12:38:00.000 133 [lb_av] Systolic Blood Pressure 2022-12-08 10:31:00.000 130 mm [Hg] Systolic Blood Pressure 2022-12-01 09:09:00.000 130 mm [Hg] Systolic Blood Pressure 2022-11-26 09:05:00.000 120 mm [Hg] Systolic Blood Pressure 2022-11-19 09:14:00.000 122 mm [Hg] Systolic Blood Pressure 2022-11-17 09:25:00.000 122 mm [Hg] Systolic Blood Pressure 2022-11-11 12:38:00.000 110 mm [Hg] Diastolic Blood Pressure 2022-12-08 10:31:00.000 72 mm [Hg] Diastolic Blood Pressure 2022-12-01 09:09:00.000 70 mm [Hg] Diastolic Blood Pressure 2022-11-26 09:05:00.000 60 mm [Hg] Diastolic Blood Pressure 2022-11-19 09:14:00.000 70 mm [Hg] Diastolic Blood Pressure 2022-11-17 09:25:00.000 68 mm [Hg] Diastolic Blood Pressure 2022-11-11 12:38:00.000 72 mm [Hg] Plan of Treatment Planned Activity Planned Date Details Comments Future Scheduled Test AGENCY MAY PERFORM A RESUMPTION OF CARE VISIT FOLLOWING ANY HOSPITAL ADMISSION. PHYSICAL THERAPY TO EVALUATE, ASSESS AND MONITOR, PROVIDE SKILLED THERAPEUTIC INTERVENTION, ACTIVITY, EDUCATION, AND TRAINING TO ADDRESS: [code = AGENCY MAY PERFORM A RESUMPTION OF CARE VISIT FOLLOWING ANY HOSPITAL ADMISSION. PHYSICAL THERAPY TO EVALUATE, ASSESS AND MONITOR, PROVIDE SKILLED THERAPEUTIC INTERVENTION, ACTIVITY, EDUCATION, AND TRAINING TO ADDRESS:] Future Scheduled Test TRANSFER T RAINING (PT) [code = TRANSFER TRAINING (PT)] Future Scheduled Test GAIT TRAIN ING (PT) [code = GAIT TRAINING (PT)] Future Scheduled Test STAIR MEDINA GAURAV (PT) [code = STAIR TRAINING (PT)] Future Scheduled Test THERAPEUTI C EXERCISES (PT) [code = THERAPEUTIC EXERCISES (PT)] Future Scheduled Test ORTHOPEDIC SURGICAL AFTERCARE (PT) MAY TEACH PATIENT APPLICATION OF CRYOTHERAPY FOR PAIN AND/OR SWELLING UP TO 20 MIN AT A TIME OVER INCISION/JOINT [code = ORTHOPEDIC SURGICAL AFTERCARE (PT) MAY TEACH PATIENT APPLICATION OF CRYOTHERAPY FOR PAIN AND/OR SWELLING UP TO 20 MIN AT A TIME OVER INCISION/JOINT] Future Scheduled Test HIP REPLAC EMENT SELF-MANAGEMENT (PT) [code = HIP REPLACEMENT SELF-MANAGEMENT (PT)] Future Scheduled Test IDENTIFY F ALL RISK FACTORS AND ESTABLISH HOME EXERCISE PROGRAM TO MINIMIZE FALL RISK. MAY TEACH THE PATIENT FLOOR RECOVERY WHEN CLINICALLY APPROPRIATE (PT) [code = IDENTIFY FALL RISK FACTORS AND ESTABLISH HOME EXERCISE PROGRAM TO MINIMIZE FALL RISK. MAY TEACH THE PATIENT FLOOR RECOVERY WHEN CLINICALLY APPROPRIATE (PT)] Future Scheduled Test OXYGEN SAT URATION (PT). NOTIFY MD IF 02SATS BELOW 90% AFTER 10 MIN OF REST. [code = OXYGEN SATURATION (PT). NOTIFY MD IF 02SATS BELOW 90% AFTER 10 MIN OF REST.] Future Scheduled Test OCCUPATION AL THERAPIST TO EVALUATE FOR UE STRENGTH AND SAFETY WITH ADLS [code = OCCUPATIONAL THERAPIST TO EVALUATE FOR UE STRENGTH AND SAFETY WITH ADLS ] Goal 2022-12-08 Patient Goal - PUT MY BOOTS ON Goal Provider Goal - PT STG: PATIENT WILL DEMONSTRATE IMPROVED TRANSFERS FROM SBA TO INDEPENDENT WITH UE ASSIST WITHIN 2 WEEKS Goal Provider Goal - PT STG: PATIENT WILL DEMONSTRATE PROPER PACING AND SEQUENCING WITH CANE USE WITHIN 3 WEEKS PT LTG: PATIENT WILL DEMONSTRATE IMPROVED AMBULATION FROM CGA TO INDEPENDENT WITH CANE WITHIN 4 WEEKS Goal Provider Goal - PT STG: PATIENT WILL DEMONSTRATE PROPER PACING AND SEQUENCING WITH STAIR MOBILITY WITHIN WEEKS 3 WEEKS PT LTG: PATIENT WILL DEMONSTRATE IMPROVED ABILITY TO SAFELY NEGOTIATE STAIRS FROM CGA TO INDEPENDENT WITH RAIL WITHIN 4 WEEKS Goal Provider Goal - PT STG: PATIENT WILL DEMONSTRATE INDEPENDENCE WITH LOWER EXTREMITY HOME EXERCISE PROGRAM WITHIN 3 WEEKS PT LTG: PATIENT WILL DEMONSTRATE IMPROVED FUNCTIONAL STRENGTH EVIDENCED BY FIVE TIMES SIT TO STAND TEST (CUT SCORE >12 SECONDS INDICATES AN INCREASED FALL RISK) IMPROVING FROM 21 SECONDS TO 14 SECONDS WITHIN 4 WEEKS PT LTG: PATIENT WILL DEMONSTRATE INCREASED STRENGTH OF RIGHT HIP FROM 3+/5 TO 4+/5 WITHIN 4 WEEKS IN ORDER TO IMPROVE SAFETY AND STABILITY WITH GAIT AND STAIRS Goal Provider Goal - PATIENT WILL DEMONSTRATE NORMAL HEALING FOLLOWING SURGERY WITH NO COMPLICATIONS BY DISCHARGE. Goal Provider Goal - PT GOAL: PATIENT WILL DEMONSTRATE OPTIMAL OUTCOMES INCLUDING INCREASED ROM AND STRENGTH WITH NO COMPLICATIONS FOLLOWING HERMES BY DISCHARGE. Goal Provider Goal - PATIENT/CAREGIVER WILL DEMONSTRATE ADHERENCE TO FALL REDUCTION SELF MANAGEMENT TO MINIMIZE FALL RISK BY DISCHARGE. Goal Provider Goal - PATIENT WILL MAINTAIN OXYGEN SATURATION WITHIN PHYSICIAN ORDERED PARAMETERS THROUGHOUT EPISODE OF CARE Reason for Visit INDEPENDENT IN THE COMMUNITY Encounters Start Date/Time End Date/Time Encounter Type Admission Type Attending Clinicians Care Facility Care Department Encounter ID Discharge Date Discharge Status Discharge Condition Discharge Reason Percent Goals Met 2022-11-11 00:00:00 2022-12-08 00:00:00 Outpatient NEW ADMISSION KARLO CARBAJALJA [facility] [id number] 2022-12-08 00:00:00 DISCHARGE TO HOME OR SELF CARE INDEPENDEN T IN THE COMMUNITY HH OR PAL- GOALS MET 91.67
== END 2024-10-18 13:51 | disposition home or self-care (01) ==
PROVIDERS: PCP Internal Medicine; Visit Provider Neurological Surgery
DX: M47.12 Other spondylosis with myelopathy, cervical region (principal); Z98.890 Other specified postprocedural states
CPT/HCPCS: 99212

== ENCOUNTER → 2024-10-18 13:33 | Outpatient (BNVA) | payer MEDICARE, SELFPAY | PROVIDERS: PCP Internal Medicine; Visit Provider Neurological Surgery | DX: M47.12 Other spondylosis with myelopathy, cervical region (principal); Z98.890 Other specified postprocedural states | CPT/HCPCS: 99212 ==

== ENCOUNTER 2025-01-06 04:35 | Emergency (ER) | payer MEDICARE, SELFPAY ==
[2025-01-06] VITALS (9 sets, daily range): BP systolic 165–218; BP diastolic 67–109; PULSE 72–82; RESP 14–19; TEMP 36.6; O2SAT 81–98; BMI 25.3
--- NOTE | ~2025-01-06 | XR_ITS ---
CLINICAL HISTORY: cough 1 view chest x-ray Comparison: None Findings: The lungs are clear. Heart size is normal. No acute fracture. IMPRESSION: 1. No acute findings. This document has been electronically signed by: Yohannes Zarco MD on 01/06/2025 05:25:08
--- OUTSIDE RECORDS SUMMARY | 2025-01-06 04:55 | XMS_ITS ---
Author Organization [facility] Chilo michael Garza Address [address] [place] [address] Care Team Providers Care Puffer Tender Name Role Phone Rey Hope MD Primary Care Provider Ameena Colon Unavailable [phone] Lan Cheney Unavailable [phone] Allergies No Known Allergies REASON FOR VISIT [...] 024 Encounters Encounter Location Date Provider Diagnosis [facility] [address] [place] [address] 2024 Lan Cheney Unspecified atherosclerosis of sw[place] arteries of extremities, bilateral legs I70.203 ; [...] Notes Section Notes 2024 Unspecified atherosclerosis of sw[place] arteries of extremities, bilateral legs (ICD-10 - [...] Name:Ameena Mike peng, 02/22/2025 10:00:00 AM, [address] [facility], [place], [address], Procedure Notes * Category Sub-Category Detail Notes Keratoma Treatment Parring or Cutting o f Benign Hyperkeratotic Lesion(s) 26863 ( >4 Lesions) - The Benign hyperkeratotic [...] Giana KAPLAN ADOB:[birth year] (84 yo F)Acc No.[id number]:2024 Progress Note Patient:?Giana Kaplan A Provider:?Lan Cheney DPM :1940???Age:84 Y???Sex:Female D ate:2024 Address:[address] [place] [address] [id number] Pcp:Rey Hope MD Subjective: * Chief Complaints: [...] Assessment: * Assessment: 1.?Unspecified atheroscleros is of sw[place] arteries of extremities, bilateral legs - I70.203?2.?Skin disease - L98.9 (Primary)?3.?Tinea unguium - B35.1?4.?Xerosis cutis - L85.3?5.?Hallux valgus (acquired), left foot - M20.12?6.?Hallux valgus (acquired), right foot - M20.11?7.?Other hammer toe(s) (acquired), left foot - M20.42?8.?Other hammer toe(s) (acquired), right foot - M20.41?9.?Neuralgia and neuritis, unspecified - M79.2? Plan: * Treatment: * Procedures:?Keratoma Treatment:?Parring or Cutting of Benign Hyperkeratotic Lesion(s)?10186 ( >4 Lesions) - The Benign hyperkeratotic [...] or bed tissue 6-10 (G0127).? * Procedure Codes:?25122 TRIM SKIN LESIONS, OVER 4, Modifiers: Q8 G0127 TRIMMING DYSTROPHIC NAILS ANY #, Modifiers: Q8 * Follow Up:?2 Months, 4 Month s * Images: * Sign off status: Completed true * Provider:Onesimo Cheney DPM Date:? 024 Generated for Printi ng/Fajessyg/eTransmitting on:?01/06/2025 04:55 AM EST History and Physical Notes * [...] ORIENTED: person,place, and ti me Vascular DP PULSES (B): 0/4, B/L PT PULSES (B): 0/4, B/L CAPILLARY FILL TIME: delayed, all digits , B/L TEMPERTURE GRADIENT (C): decreased, cool to cold, proximal to distal, B/L TROPHIC CONDITION-TEXTURE/ELASTICITY/TURGOR/HAIR GROWTH (B): decreased, B/L EDEMA (C): 1/4, B/L, Ankle(s), Leg(s) TELANGECTASIA: moderate VARICOSITIES: present, moderate, n onpainful, B/L PIGMENTATION: cyanotic, B/L Nails NAILS are: Elongated, overg rown, dystrophic, T4, T9, remaining nails are elongated, overgrown, and non-dystrophic
--- OUTSIDE RECORDS SUMMARY | 2025-01-06 04:55 | XMS_ITS | Patient Health Record ---
Author Organization [facility] Address [address] [address] Care Team Providers Care Wool Hanker Name Role Phone Rey Hope MD Primary Care Provider Ramya Carlin Unavailable [phone] Reason For Referral No Information Medications Medication SIG (Take, Route, Frequency, Duration) Notes Start Date End Date Status Calcium 1 tab Oral Active Vitamin D3 1000 IU ORAL daily for -3 [facility] 10/19/2012 Active Lisinopril 20MG 1 ORAL daily for -3 [facility] 10/19/2011 Active Levothyroxine Sodium 75MCG 1 ORAL daily for -3 [facility] Active Fish Oil 1200MG 1 ORAL daily for -3 [facility] 10/19/2012 Active Fish Oil 1200MG 1 ORAL daily for -3 [facility] 10/19/2012 Active Aspirin EC 81MG 1 ORAL daily for -3 [facility] 10/19/2012 Active Aspirin EC 81MG 1 ORAL daily for -3 [facility] 10/19/2012 Active Vitamin D3 1000 IU ORAL daily for -3 [facility] 10/19/2012 Active Lisinopril 20MG 1 ORAL daily for -3 [facility] 10/19/2011 Active Levothyroxine Sodium 75MCG 1 ORAL daily for -3 [facility] Active Social History Tobacco Use: Social History Observation Description Date Details (start date - stop date) Former Smoker NA - NA Tobacco Use/Smoking Question Answer Notes Are you a former smoker Alcohol Screen (Audit-C) Question Answer Notes Did you have a drink contain ing alcohol in the past year? Yes How often did you have a dri nk containing alcohol in the past year? 4 or more times a week (4 points) How many drinks did you have on a typical day when you were drinking in the past year? 1 or 2 drinks (0 point) Points 4 Interpretation Positive Sexual History Question Answer Notes Had sex in the past 12 months (vaginal, oral, or anal)? No Section Notes: Problems Problem Type SNOMED Code ICD Code Onset Dates Problem Status W/U Status Risk Notes Problem Essential hypertension (64336448) Unspecified essential hypertension (401.9) Active confirmed Major Problem Menopausal symptom (71377492) Symptomatic menopausal or female climacteric states (627.2) Active confirmed Major Problem Osteoporosis (97027306) Unspecified osteoporosis (733.00) Active confirmed Major Problem Disorder of bone and articular cartilage (disorder) (591986743) Disorder of bone and cartilage, unspecified (733.90) Active confirmed Diag Problem Gynecological examination normal (126222207122389) Routine gynecological examination (V72.31) Active confirmed Major Problem Screening for malignant neoplasm of colon (476503881) Special screening for malignant neoplasms, colon (V76.51) Active confirmed Major Plan Of Treatment No Information Insurance Providers Payer Name Payer Address Payer Phone Subscriber Number Group Number Insured Name Patient Relationship to Insured Coverage Start Date Coverage End Date MEDICARE [address] [place] , [place] [id number] [phone] [id number] DIRK KAPLAN Self - patient is the insured [employer] [facility] [address] [place] [address] [id number] DIRK KAPLAN Self - patient is the insured Medical (General) History Medical History History ICD Code Disorder of bone density and structure, unspecified M85.9 Essential (primary) hypertension I10 Age-related osteoporosis without current pathological fracture M81.0 Menopausal and female climacteric states N95.1 Surgical History Surgery Date(Month/Year) Colonoscopy
--- OUTSIDE RECORDS SUMMARY | 2025-01-06 04:55 | XMS_ITS | Patient Health Record ---
Author Organization [facility] Kristineosiris Garza Address [address] [place] [address] Care Team Providers Care Banquet Coordinator Name Role Phone Rey Hope MD Primary Care Provider Ameena Colon Unavailable [phone] Lan Cheney Unavailable [phone] Jose Saucedo Unavailable [phone] Allergies No Known Allergies Reason For Referral [...] Status Risk Notes Problem Acquired hallux valgus (25525360) Hallux valgus (acquired), left foot (M20.12) Active confirmed Problem Unspecified atherosclerosis of [place] arteries of extremities, bilateral legs (I70.203) Active confirmed Problem Acquired hallux valgus (56834580) Hallux valgus (acquired), right foot (M20.11) Active confirmed Problem Non-pressure chronic ulcer of other part of left 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 (L97.521) Active confirmed Problem Non-pressure chronic ulcer of other part of right 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 (L97.511) Active confirmed Problem Acquired hammer toe of right foot (28816300880 38826) Other hammer toe(s) (acquired), right foot (M20.41) Active confirmed Problem Acquired hammer toe of left foot (14978690324 40197) Other hammer toe(s) (acquired), left foot (M20.42) Active confirmed Problem Atherosclerosis of [place] artery of both lower extremities, with unspecified presence of clinical manifestation (I70.203) Active confirmed Q7(A), Q8(2B), Q9(1B,2C ) Vital Signs Blood pressure diastolic 80 mm Hg 10/16/2024 Height 5ft 1in in 10/16/2024 Blood pressure systolic 126 mm Hg 10/16/2024 Weight 133 lbs 10/16/2024 BMI 25.13 kg/m2 10/16/2024 Procedures Procedure Date Ordered Date Performed Result Body Sit e 29704-CMGUSQL NAIL, 6 OR MORE 10/16/2024 N/A 72929-WVUJ SKIN LESIONS, 2 TO 4 10/16/2024 N/A Encounters Encounter Location Date Provider Diagnosis [facility] [address] [place] [address] 01/19/2024 Lan Cheney Skin disease L98.9 ; Unspecified atherosclerosis of [place] arteries of extremities, bilateral legs I70.203 ; [...] 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 L97.[address] [address] 03/23/2024 Lan Cheney Skin disease L98.9 ; Unspecified atherosclerosis of [place] arteries of extremities, bilateral legs I70.203 ; [...] 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 L97.[address] [address] 06/05/2024 Lan Cheney Unspecified atherosclerosis of [place] arteries of extremities, bilateral legs I70.203 ; Skin disease L98.9 ; Tinea unguium B35.1 ; Xerosis cutis L85.3 ; Hallux valgus (acquired), left foot M20.12 ; Hallux valgus (acquired), right foot M20.11 ; Other hammer toe(s) (acquired), left foot M20.42 ; Other hammer toe(s) (acquired), right foot M20.41 and Neuralgia and neuritis, unspecified M79.[address] [address] 2024 Lan Cheney Unspecified atherosclerosis of [place] arteries of extremities, bilateral legs I70.203 ; Skin disease L98.9 ; Tinea unguium B35.1 ; Xerosis cutis L85.3 ; Hallux valgus (acquired), left foot M20.12 ; Hallux valgus (acquired), right foot M20.11 ; Other hammer toe(s) (acquired), left foot M20.42 ; Other hammer toe(s) (acquired), right foot M20.41 and Neuralgia and neuritis, unspecified M79.2 [facility] [address] [place] [address] 10/16/2024 Ameena Beard Atherosclerosis of t[place] artery of both lower extremities, with unspecified presence of clinical manifestation I70.203 ; Tinea unguium B35.1 ; Pain in right toe(s) M79.674 and Pain in left toe(s) M79.675 Assessments Encounter Date Diagnosis (ICD Code) Assessment Notes Treatment Notes Treatment Clinical Notes Section Notes 01/19/2024 Unspecified atherosclerosis of [place] arteries of extremities, bilateral legs (ICD-10 - I70.203) 01/19/2024 Skin disease (ICD-10 - L98.9) 03/23/2024 Unspecified atherosclerosis of [place] arteries of extremities, bilateral legs (ICD-10 - I70.203) 03/23/2024 Skin disease (ICD-10 - L98.9) 06/05/2024 Unspecified atherosclerosis of [place] arteries of extremities, bilateral legs (ICD-10 - I70.203) 06/05/2024 Skin disease (ICD-10 - L98.9) 2024 Unspecified atherosclerosis of [place] arteries of extremities, bilateral legs (ICD-10 - I70.203) 10/16/2024 Atherosclerosis of t[place] artery of both lower extremities, with unspecified presence of clinical manifestation (ICD-10 - I70.203) Q7(A), Q8(2B), Q9(1B,2C) 2024 Skin disease (ICD-10 - L98.9) 10/16/2024 Tinea unguium (ICD-10 - B35.1) 06/05/2024 Tinea unguium (ICD-10 - B35.1) 03/23/2024 Tinea unguium (ICD-10 - B35.1) 01/19/2024 Tinea unguium (ICD-10 - B35.1) 01/19/2024 Xerosis cutis (ICD-10 - L85.3) 03/23/2024 Xerosis cutis (ICD-10 - L85.3) 2024 Tinea [...] (ICD-10 - M20.12) 01/19/2024 Hallux valgus (acquired), right foot (ICD-10 [...] and neuritis, unspecified (ICD-10 - M79.2) 01/19/2024 Non-pressure chronic ulcer of other part of right 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 (ICD-10 - L97.511) 03/23/2024 Non-pressure chronic ulcer of other part of right 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 (ICD-10 - L97.511) Plan Of Treatment Pending Test Test Name Order Date 17202-CFPULGQ NAIL, 6 OR MORE 10/16/2024 83548-EWNJ SKIN LESIONS, OVER 4 12/07/19 23 02867-GHWO SKIN LESIONS, OVER 4 03/08/20 23 73551-VFLG SKIN LESIONS, 2 TO 4 10/16/20 24 W0902-RBIBBKMB DYSTROPHIC NAILS ANY # K4059-WMSIEPUV DYSTROPHIC NAILS ANY # Next Appt Details Provider Name:Ameena Cee khoury, 02/22/2025 10:00:00 AM, [address] [place], [address], Insurance Providers Payer Name Payer Address Payer Phone Subscriber Number Group Number Insured Name Patient Relationship to Insured Coverage Start Date Coverage End Date Medicare National [employer] [address] [place] [address] [id number] Giana Carlos Self - patient is the insured [facility] [address] [place] [address] [id number] Giana Carlos Self - patient is the insured Medical (General) History Medical History History ICD Code Back,Hip,and Knee pain Surgical History Surgery Date(Month/Year) hip surgery 10/06/2022 Spinal Surgery 05/17/24
--- OUTSIDE RECORDS SUMMARY | 2025-01-06 04:55 | XMS_ITS ---
Author Organization [facility] Address [address] [place] [address] Care Team Providers Care Senior Care Assistant Name Role Phone Jayy BROWN, Rey Primary Care Provider Ameena Colon Unavailable [phone] Jose Saucedo Unavailable [phone] REASON FOR VISIT too soon Encounters Encounter Location Date Provider Diagnosis [address] [address] 10/03/2024 Jsoe Saucedo Plan Of Treatment Next Appt Details Provider Name:Ameena khoury, 02/22/2025 10:00:00 AM, [address] [place], [address], Progress Notes * Giana KAPLAN ADOB:[birth year] (84 yo F)Acc No.[id number]:10/03/2024 Progress Note Patient:?EUSEBIO Giana Chinedu Provider:?Jose Saucedo DPM :1940???Age:84 Y???Sex:Female D ate:10/03/2024 Address:[address] [place] [address], [facility] [place] Pcp:Rey Hope MD Subjective: * Chief Complaints: [...] Saucedo DPM Date:?2023 Generated for Vern avila/Nuzhat/Lee on:?01/06/2025 04:55 AM EST
--- OUTSIDE RECORDS SUMMARY | 2025-01-06 04:56 | XMS_ITS ---
Author Organization [facility] 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 Name Role Phone Rey Hope MD Primary Care Provider Ameena Colon Unavailable [phone] Allergies No Known Allergies REASON FOR VISIT [...] W/U Status Risk Notes Problem Atherosclerosis of [place] artery of both lower extremities, with unspecified presence of clinical manifestation (I70.203) Active confirmed Q7(A), Q8(2B), Q9(1B,2C) Vital Signs Height 5ft 1in in 10/16/2024 Weight 133 lbs 10/16/2024 BMI 25.13 kg/m2 10/16/2024 Blood pressure systolic 126 mm Hg 10/16/20 24 Blood pressure diastolic 80 mm Hg 024 Procedures Procedure Date Ordered Date Performed Result Body Sit e 76848-IHSEWJK NAIL, 6 OR MORE 10/16/2024 N/A 35976-QRPW SKIN LESIONS, 2 TO 4 10/16/2024 N/A Encounters Encounter Location Date Provider Diagnosis [facility] [address] [place] [address] 10/16/2024 Ameena Beard Atherosclerosis of [place] artery of both lower extremities, with unspecified presence of clinical manifestation I70.203 ; Tinea unguium B35.1 ; Pain in right toe(s) M79.674 and Pain in left toe(s) M79.675 Assessments Encounter Date Diagnosis (ICD Code) Assessment Notes Treatment Notes Treatment Clinical Notes Section Notes 10/16/2024 Atherosclerosis of [place] artery of both lower extremities, with unspecified presence of clinical manifestation (ICD-10 - I70.203) Q7(A), Q8(2B), Q9(1B,2C) 10/16/2024 Tinea unguium (ICD-10 - B35.1) 10/16/2024 Pain in right toe(s) (ICD-10 - M79.674) 10/16/2024 Pain in left toe(s) (ICD-10 - M79.675) Plan Of Treatment Pending Test Test Name Order Date [id number] NAIL, 6 OR MORE 10/16/2024 [id number]-ZMRI SKIN LESIONS, 2 TO 4 10/16/20 24 Next Appt Details Follow Up: prn, Reason: Provider Name:Ameena khoury, 02/22/2025 10:00:00 AM, [address] [place], [address], Procedure Notes * Category Sub-Category Detail Notes [...] use of a nail nipper and/or dremel-type grinder set up operator centerless, to a more viable healthy nail plate [...] to maintain effectiveness in symptomatic relief - 50978 Keratoma Treatment Parring or Cutting o f [...] tissue nippers, and/or power dremel instrumentation - 36690, Q8 Progress Notes * Giana KAPLAN ADOB:[birth year] (84 yo F)Acc No.[id number]:10/16/2024 Progress Note Patient:?EUSEBIOGiana Chinedu Provider:?Ameena Beard DPM :1940???Age:84 Y???Sex:Female D ate:10/16/2024 Address:[address] [place] [address] KANCHAN Garza-[id number] Pcp:Rey Hope MD Subjective: * Chief Complaints: [...] and time.? Assessment: * Assessment: 1.?Atherosclerosis of [place] artery of both lower extremities, with unspecified presence of clinical manifestation - I70.203 (Primary)???Notes :Q7(A), Q8(2B), Q9(1B,2C)???2.?Tinea unguium - B35.1???3.?Pain in right toe(s) - M79.674???4.?Pain in left toe(s) - M79.675??? Plan: * Treatment: 2.?Tinea unguium?Procedure: 87467-KGYMROT NAIL, 6 OR MORE * Procedures:?Debride Nail [...] use of a nail nipper and/or dremel-type grinder set up operator centerless, to a more viable healthy nail plate [...] to maintain effectiveness in symptomatic relief - 93608.?Keratoma Treatment:?Parring or Cutting of Benign Hyperkeratotic Lesion(s)?(-56) [...] tissue nippers, and/or power dremel instrumentation - 95228, Q8.? * Procedure Codes:?60912 DEBRI DE NAIL, 6 OR MORE, Modifiers: XS 96601 TRIM SKIN LESIONS, 2 TO 4, Modifiers: XS , Q8 * Follow Up:?prn * Images: * Sign off status: Completed true * Provider:?Ameena Beard DPM Date:?12/17/2023 Generated for Vern avila/Nuzhat/Lee on:?01/06/2025 04:55 AM EST History and Physical Notes * HPI (History of Present Illness) Category Sub-Category Detail Notes Category Not es At Risk footcare Pt States Last PCP Visit: Date: 4 Examination Category Sub-Category Detail Notes Category Not [...] person, place, and t avtar Vascular DP PULSES (B): 0/4, B/L PT PULSES (B): 0/4, B/L CAPILLARY FILL TIME: delayed, all digits , B/L TEMPERTURE GRADIENT (C): decreased, cool to cool, proximal to distal, B/L TROPHIC CONDITION-TEXTURE/ELASTICITY/TURGOR/HAIR GROWTH (B): decreased, fragile, thin, shiny skin, wi th sparse to absent hair growth, B/L EDEMA (C): absent, B/L CLAUDICATION (C): denies, B/L REST PAIN: denies, B/L PIGMENTATION: mottled, B/L PARESTHESIA (C): absent, B/L BURNING (C): absent, B/L Nails NAILS are: Elongated, overg rown, dystrophic, lytic, greater than 3mm thick, discolored and friable with crumbly malodorous subungual debris, with pain on palpation
[2025-01-06 06:06] LABS: Influenza A PCR POSITIVE (Negative); Influenza B PCR NEGATIVE (Negative); Resp Syncy Virus RNA Qual PCR NEGATIVE (Negative); SARS COV2 PCR INHOUSE NEGATIVE (Negative)
[2025-01-06] MEDS: amLODIPine Besylate 2.5 MG TABLET PO (07:29)
[2025-01-06] MEDS: lisinopriL 10 MG TABLET 30 MG PO (07:30)
--- NOTE | 2025-01-06 08:21 | PC.NURSE ---
ambulated to the bathroom with walker, states usually uses cane to ambulate at home. oxygen between 90-91%. reports shortness of breath and feeling weak with ambulation
--- NOTE | 2025-01-06 08:25 | ED.URI ---
HPI - URI/Sore Throat General Chief Complaint: Upper Respiratory Symptoms Stated Complaint: SOB Time Seen by Provider: 01/06/25 05:32 Source: patient and EMS Mode of arrival: EMS Limitations: no limitations History of Present Illness ED Provider: Nory Archer NP HPI Narrative: Patient is an 84-year-old female who presents emergency department for evaluation, reports over the past week she was feeling generally fatigued and lethargic over the past 4 days has been experiencing a primarily nonproductive cough. Has tried OTC cold medications without relief. She admits to a history of mild COPD for which he is not on any inhalers. Denies fevers, chills, headache, dizziness, neck pain, neck stiffness, chest pain, shortness of breath, difficulty breathing, sore throat, nausea, vomiting, abdominal pain, numbness or tingling of the extremities, genitourinary symptoms. Related Data Home Medications ?Medication ?Instructions ?Recorded ?Confirmed levothyroxine 75 mcg tablet 75 mcg PO MOTUTHFRSA 04/21/21 05/17/24 alendronate 70 mg tablet 70 mg PO MO 09/30/23 05/17/24 calcium carbonate 500 mg PO QAM 09/30/23 05/17/24 levothyroxine 75 mcg tablet 150 mcg PO SUWE 09/30/23 05/17/24 dorzolamide 2 % eye drops 1 drp ophthalmic (eye) BEDTIME 05/04/24 05/17/24 latanoprost 0.005 % eye drops 1 drp ophthalmic (eye) DAILY 05/04/24 05/17/24 amlodipine 2.5 mg tablet 2.5 mg PO DAILY 05/17/24 05/17/24 diphenhydramine 25 2 tab PO BEDTIME PRN Pain 05/17/24 05/17/24 mg-acetaminophen 500 mg tablet (Tylenol PM Extra Strength) lisinopril 30 mg tablet 30 mg PO DAILY 05/17/24 05/17/24 Previous Rx's ?Medication ?Instructions ?Recorded sulfamethoxazole 800 1 tab PO BID surgical prophylaxis 05/18/24 mg-trimethoprim 160 mg tablet 2 days #4 tabs (Bactrim DS) oxycodone 5 mg tablet 5 mg PO TID PRN pain (scale score 05/22/24 7-10) #30 tabs sennosides 8.6 mg capsule (senna) 8.6 mg PO DAILY PRN constipation 05/25/24 #7 caps docusate sodium 100 mg capsule 100 mg PO BID PRN constipation #30 09/14/24 (Colace) caps sennosides 8.6 mg tablet (senna) 8.6 mg PO BEDTIME PRN constipation 09/14/24 #30 tabs Allergies Allergy/AdvReac Type Severity Reaction Status Date / Time No Known Allergies Allergy Verified 01/06/25 04:48 Review of Systems Review of Systems: Yes all other systems are reviewed and are negative [facility] Past Medical History Attestation statement: The following information was validated with the patient. Source: old records reviewed Medical History Carotid stenosis COPD (chronic obstructive pulmonary disease) Hypothyroidism Spinal stenosis Hypertension Surgical History History of excision of pilonidal cyst Hx of bilateral cataract extraction H/O colonoscopy History of right hip replacement Social History Social History Household Members: None Household Members Other:: lives alone Housing: House Are you a primary customer care representative to a significant other at home: No Do you presently have visiting nurse or other home services: No Alcohol intake: current Comment: 2 to 3 times a week Patient Tobacco Use Status: Former Tobacco user Tobacco use type: Cigarette Cigarettes Per Day: 10 Years Smoked: 30 Advance Directives: Yes Advance Directives on File: Yes Advance Directives Date on File: 05/19/24 Do you have a plan to hurt others: No Plan service: No Physical Exam Vital Signs: Vital Signs: Last Vital Signs Temp 97.8 F 01/06/25 11:26 Pulse 77 01/06/25 11:26 Resp 18 01/06/25 11:26 BP 175/77 H 01/06/25 11:26 Pulse Ox 97 01/06/25 11:26 O2 Del Method Nasal Cannula 01/06/25 11:26 O2 Flow Rate 2 01/06/25 11:26 BMI result Body Mass Index 25.3 Appearance: Alert.?Oriented to person, place and time. No acute distress.?Normal affect. Eyes: Pupils equal, round and reactive to light.? ENT: TM normal bilaterally. Pharynx normal.?? Neck: Normal inspection.? Neck supple.??No cervical adenopathy CVS: Heart sounds normal. Normal heart rate and rhythm.? Pulses normal.?? Respiratory: No respiratory distress.? Lung sounds diminished to auscultation bilaterally?? Abdomen: Soft and non-tender. Normoactive bowel sounds. Skin: Skin warm and dry.? Normal skin color.? ? Extremities: No lower extremity edema.? Neuro: Moves all extremities spontaneously. Sensation intact bilaterally. No motor deficits. Ambulates with normal steady gait. Course Reevaluation(s) Reevaluation #1: Patient ambulated to bathroom with nursing staff, she felt slightly unsteady but O2 saturation 91% and greater. Denied shortness of breath. At the time my initial evaluation blood pressure was noted to be 166/75, she had not yet taken her home medications requesting her amlodipine and lisinopril for which she was given. During administration her repeat blood pressure was noted to be 210/99, again currently without chest pain or shortness of breath. Time: 07:45 Reevaluation #2: Patient ambulated to the restroom again with nursing staff, when back to the room and placed on the monitor she was noted to be hypoxic at 81% with a normal [place], she did endorse shortness of breath at this time. Placed on 2 L via nasal cannula Time: 08:26 Reevaluation #3: CBC is without leukocytosis anemia or thrombocytopenia. No significant electrolyte derangement, no EDILBERTO. LFTs overall unremarkable. High sensitive troponin within normal range. BNP not consistent with AHF and clinically does not signs of volume overload no history of CHF. Given ambulatory hypoxia recommended admission to medicine service. patient however declines hospital admission, she states that she has been checking her level at home for many years and it has never been low. We did discuss that during acute illness such as with influenza, this can change her typical oxygen saturation, and I again discussed with her my concern that the oxygen saturation was low when she was getting up and walking around, she reports that she at only a brief episode of shortness of breath that did not persist continuously. She would like to go home and monitor her oxygen level at home. She states that if it is consistently low she would come back to the emergency department, and states if it recovers quickly than I am less worried . She is not currently in respiratory distress, she is speaking clear full sentences. She has no wheezing. I did express to her my concern about if she gets up to do errands around the house or walk to the bathroom for oxygen continues to drop and does not recover, this could result in potential dizziness, syncope, fall and injury, review of life-threatening potentials of acute hypoxia. At the time she will leave against medical advice and plans to follow-up closely outpatient with her primary care doctor. Medications Administered Discontinued Medications Generic Name Dose Route Start Last Admin Trade Name Luis Miguel PRN Reason Stop Dose Admin Amlodipine Besylate 2.5 mg 01/06/25 06:54 01/06/25 07:29 Amlodipine Besylate 2.5 Mg Tablet PO 01/06/25 06:55 2.5 mg ONCE ONE Administration Protocol Lisinopril 30 mg 01/06/25 06:54 01/06/25 07:30 Lisinopril 10 Mg Tablet PO 01/06/25 06:55 30 mg ONCE ONE Administration Protocol Medical Decision Making Medical Decision Making MDM Narrative: Patient is an 84-year-old female with past medical history of carotid stenosis, COPD, hypothyroidism, hypertension, spinal stenosis who presents emergency department for evaluation of fatigue and cough over the past week as per HPI. Unrelieved with OTC antitussives. At the time of my evaluation she has already tested positive for influenza a and had a chest x-ray obtained which is without evidence of consolidation or infiltrate. She is requesting discharge home, discussed with her will attempting ambulatory O2 trial as her O2 saturation on room air at rest was noted to be 93-94% she is unclear what her baseline is. She is additionally mildly hypertensive 166 systolically, states that she has not yet taken her daily antihypertensives, she will receive dosing here; amlodipine 2.5 mg and lisinopril 30 mg. She is speaking clear full sentences, she is nontoxic in appearance afebrile without tachycardia, no tachypnea. She is able to speak clear full sentences. Differential Diagnosis Differential Diagnoses: The differential diagnosis associated with the presentation includes ( See narrative above) Admission/Observation Consideration of admission/observation: Escalation of care including admission/observation considered ( see narrative above) Lab Data [facility] Lab Attestation statement: I reviewed the patient's lab results. ( see narrative above) 01/06/25 08:39 01/06/25 08:39 Labs: Lab Results 01/06/25 01/06/25 Range/Units 05:10 08:39 WBC 6.4 (4.8-10.8) X10*3/uL RBC 4.57 (4.20-5.50) X10*6/uL Hgb 14.6 (12.0-16.0) g/dl Hct 41.9 (37.0-47.0) % MCV 91.7 (80.0-98.0) fL MCH 31.9 (27.0-33.0) pg MCHC 34.8 (31.0-35.0) g/dl RDW 13.9 (11.0-16.0) % Plt Count 222 (160-400) X10*3/uL MPV 10.3 (9.4-12.3) fL Immature Gran % (Auto) 0.2 (0.0-0.4) % Neut % (Auto) 74.2 H (45-73) % Lymph % (Auto) 16.5 L (20-40) % Tyler % (Auto) 7.8 (2-11) % Eos % (Auto) 0.8 (0-4) % Baso % (Auto) 0.5 (0-2) % Lymph # (Auto) 1.1 L (1.2-4.9) X10*3/uL Tyler # (Auto) 0.5 (0.1-1.2) X10*3/uL Eos # (Auto) 0.1 (0.0-0.4) X10*3/uL Baso # (Auto) 0.0 (0.0-0.2) X10*3/uL Abs Immat Gran (auto) 0.01 (0.00-0.03) X10*3/uL Absolute Neuts (auto) 4.7 (2.0-8.3) x10*3/uL Absolute Nucleated RBC 0.000 (0.0-0.012) X10*3/uL Nucleated RBC % (auto) 0.0 (0.0-0.2) /100WBC PT 10.6 L (10.9-12.4) SEC INR 0.9 (0.9-1.1) Sodium 134 L (135-145) mmol/L Potassium 4.9 (3.3-5.1) mmol/L Chloride 98 (96-108) mmol/L Carbon Dioxide 26 (22-29) mmol/L Anion Gap 15 (12-20) BUN 26 H (9-16) mg/dL Creatinine 0.80 (0.5-1.4) mg/dL Estim Creat Clear Calc 47.3 Estimated GFR > 60 Random Glucose 111 (60-115) mg/dL Calcium 9.4 (8.4-10.2) mg/dL Total Bilirubin 0.7 (0.0-1.0) mg/dL AST 45 H (5-31) U/L ALT 19 (0-31) U/L Alkaline Phosphatase 69 (39-117) U/L Troponin I High Sens 5.0 D (<3.5-17.0) ng/L B-Natriuretic Peptide 27 (<100) pg/mL Total Protein 8.7 H (6.5-8.0) g/dL Albumin 4.4 (3.5-5.0) g/dL Influenza Type A (PCR) POSITIVE A (Negative) Influenza Type B (PCR) NEGATIVE (Negative) RSV RNA Qual (PCR) NEGATIVE (Negative) SARS-CoV-2 RNA (RT-PCR) NEGATIVE (Negative) Independent Interpretation I performed an independent interpretation of an: Plain X-Ray (See narrative above) Radiology Impression Discussion of test interpretation with radiology: I have reviewed the radiologist's reading. Radiologist Impression: 1 view chest x-ray Comparison: None Findings: The lungs are clear. Heart size is normal. No acute fracture. IMPRESSION: 1. No acute findings External Record Review External record reviewed: Outpatient record Prescription Management I considered prescription management with: Pain Medication ( acetaminophen/ibuprofen) Discharge Plan Discharge Clinical Impression: Influenza, Hypoxia Patient Disposition: Left Against Medical Advice Additional Instructions: Due to your oxygen dropping low and you were ambulating it is recommended that you remain in the hospital for treatment, at this time you were deciding to leave against medical advice. As mentioned, low oxygen levels especially when consistent can be potentially life-threatening. You may continue to monitor your oxygen levels at home particularly I advised to monitor this while you are up and walking around, to determine if it is dropping low and staying at a low reading. Follow-up closely with your primary care doctor. You may return with any new or worsening symptoms or concerns. Prescriptions: No Action sulfamethoxazole-trimethoprim [Bactrim DS] 800-160 mg tablet 1 tab PO BID 2 Days Qty: 4 0RF oxycodone 5 mg tablet 5 mg PO TID PRN (Reason: pain (scale score 7-10)) Qty: 30 0RF Rx Instructions: Take alongside Tylenol as discussed. Partial Fill upon patient request. levothyroxine 75 mcg tablet 150 mcg PO SUWE calcium carbonate 500 mg calcium (1,250 mg) Tablet,Chewable 500 mg PO QAM alendronate 70 mg tablet 70 mg PO MO senna 8.6 mg capsule 8.6 mg PO DAILY PRN (Reason: constipation) Qty: 7 0RF sennosides [senna] 8.6 mg tablet 8.6 mg PO BEDTIME PRN (Reason: constipation) Qty: 30 0RF docusate sodium [Colace] 100 mg capsule 100 mg PO BID PRN (Reason: constipation) Qty: 30 0RF latanoprost 0.005 % drops 1 drp ophthalmic (eye) DAILY dorzolamide 2 % Drops 1 drp OPHTHALMIC (EYE) BEDTIME amlodipine 2.5 mg tablet 2.5 mg PO DAILY lisinopril 30 mg tablet 30 mg PO DAILY diphenhydramine-acetaminophen [Tylenol PM Extra Strength] 25-500 mg Tablet 2 tab PO BEDTIME PRN (Reason: Pain) levothyroxine 75 mcg tablet 75 mcg PO AYANA Referrals: Rey Hope MD [Primary Care Provider] - Print Language: Luxembourgish
--- NOTE | 2025-01-06 08:27 | ECG_ITS ---
Test Reason : SOB Blood Pressure : */* mmHG Vent. Rate : 79 BPM Atrial Rate : 79 BPM P-R Int : 144 ms QRS Dur : 72 ms QT Int : 388 ms P-R-T Axes : 74 63 56 degrees QTcB Int : 444 ms Normal sinus rhythm with sinus arrhythmia Possible Left atrial enlargement Nonspecific ST abnormality Abnormal ECG When compared with ECG of 25-May-2024 05:28, No significant change was found Referred By: Nory Archer Electronically Signed By: Joey Luna
--- NOTE | 2025-01-06 08:27 | PC.NURSE ---
upon walking back from bathroom, patient was noted to be low 80's on room air. patient with no signs/symptoms of distress. endorsing mild SOB. placed 2L NC, 95%.
[2025-01-06 08:44] LABS: MANUAL DIFF FLAG NO
[2025-01-06 08:45] LABS: Basophils Percent Auto 0.5 % (0-2); Eosinophils Absolute Auto 0.1 X10*3/uL (0.0-0.4); Eosinophils Percent Auto 0.8 % (0-4); Hematocrit 41.9 % (37.0-47.0); Hemoglobin 14.6 g/dl (12.0-16.0); Imm Gran Abs Auto 0.01 X10*3/uL (0.00-0.03); Imm Gran Pct Auto 0.2 % (0.0-0.4); Lymphocytes Absolute Auto 1.1 X10*3/uL (1.2-4.9); Lymphocytes Percent Auto 16.5 % (20-40); Mean Corpuscular HGB Conc 34.8 g/dl (31.0-35.0); Mean Corpuscular Hemoglobin 31.9 pg (27.0-33.0); Mean Corpuscular Volume 91.7 fL (80.0-98.0); Mean Platelet Volume 10.3 fL (9.4-12.3); Monocytes Absolute Auto 0.5 X10*3/uL (0.1-1.2); Monocytes Percent Auto 7.8 % (2-11); Neutrophils Absolute Auto 4.7 x10*3/uL (2.0-8.3); Neutrophils Percent Auto 74.2 % (45-73); Platelet Count 222 X10*3/uL (160-400); Red Blood Count 4.57 X10*6/uL (4.20-5.50); Red Cell Distribution Width 13.9 % (11.0-16.0); White Blood Count 6.4 X10*3/uL (4.8-10.8)
[2025-01-06 08:51] LABS: INTERNATIONAL NORM RATIO 0.9 (0.9-1.1); Prothrombin Time 10.6 SEC (10.9-12.4)
[2025-01-06 09:08] LABS: Alanine Aminotransferase 19 U/L (0-31); Albumin Level 4.4 g/dL (3.5-5.0); Alkaline Phosphatase 69 U/L (39-117); Anion Gap 15 (12-20); Aspartate Amino Transferase 45 U/L (5-31); Bilirubin Total 0.7 mg/dL (0.0-1.0); Blood Urea Nitrogen 26 mg/dL (9-16); Calcium 9.4 mg/dL (8.4-10.2); Carbon Dioxide 26 mmol/L (22-29); Chloride 98 mmol/L (96-108); Creatinine Clr Calc Pharmacy 47.3; Estimated Glomerular Filt Rate > 60; Glucose Random 111 mg/dL (60-115); Potassium 4.9 mmol/L (3.3-5.1); Sodium 134 mmol/L (135-145); Total Protein 8.7 g/dL (6.5-8.0)
[2025-01-06 09:12] LABS: B Type Natriuretic Peptide 27 pg/mL (<100)
--- NOTE | 2025-01-06 11:40 | PM.IMHP ---
History of Present Illness Date of Service: 01/06/25 Attending physician on admission: [facility] Chief Complaint: Cough, SOB Pt is an 84-year-old female with a PMH significant for?HTN, HLD, hypothyroidism, spinal stenosis, and osteoporosiswho presents to the ED with? In the ED pt was the hypertensive up to 218/109, and desatting to 81% on RA with ambulation. Labs were significant for testing positive for influenza type a, sodium 134, and AST 45. No leukocytosis. Stable H&H. No significant electrolyte abnormalities. Renal function WNL. Troponin and BNP WNL. CXR without acute findings. EKG demonstrated Normal sinus rhythm without evidence of significant ST elevations or depressions, similar to prior. Pt was treated with amlodipine and lisinopril. Pt will be admitted to the hospital for treatment and further evaluation of acute hypoxic respiratory failure in the setting of influenza type a infection. [facility] Medical History Carotid stenosis COPD (chronic obstructive pulmonary disease) Hypothyroidism Spinal stenosis Hypertension Surgical History History of excision of pilonidal cyst Hx of bilateral cataract extraction H/O colonoscopy History of right hip replacement Social History Household Members: None Household Members Other:: lives alone Housing: House Are you a primary healthcare administrative assistant to a significant other at home: No Do you presently have visiting nurse or other home services: No Alcohol intake: current Comment: 2 to 3 times a week Patient Tobacco Use Status: Former Tobacco user Tobacco use type: Cigarette Cigarettes Per Day: 10 Years Smoked: 30 Advance Directives: Yes Advance Directives on File: Yes Advance Directives Date on File: 05/19/24 Do you have a plan to hurt others: No Plan service: No Meds Allergies Allergy/AdvReac Type Severity Reaction Status Date / Time No Known Allergies Allergy Verified 01/06/25 04:48 Home Medications ?Medication ?Instructions ?Recorded ?Confirmed ?Last Taken ?Type levothyroxine 75 mcg tablet 75 mcg PO MOTUTHFRSA 04/21/21 05/17/24 05/16/24 History alendronate 70 mg tablet 70 mg PO MO 09/30/23 05/17/24 05/15/24 History calcium carbonate 500 mg PO QAM 09/30/23 05/17/24 05/16/24 History levothyroxine 75 mcg tablet 150 mcg PO SUWE 09/30/23 05/17/24 05/16/24 History dorzolamide 2 % eye drops 1 drp ophthalmic (eye) BEDTIME 05/04/24 05/17/24 05/16/24 History latanoprost 0.005 % eye drops 1 drp ophthalmic (eye) DAILY 05/04/24 05/17/24 05/16/24 History amlodipine 2.5 mg tablet 2.5 mg PO DAILY 05/17/24 05/17/24 05/16/24 History diphenhydramine 25 2 tab PO BEDTIME PRN Pain 05/17/24 05/17/24 Unknown History mg-acetaminophen 500 mg tablet (Tylenol PM Extra Strength) lisinopril 30 mg tablet 30 mg PO DAILY 05/17/24 05/17/24 05/16/24 History Physical Exam Vital Signs and Narrative: Vital Signs: Last Vital Signs Temp 97.8 F 01/06/25 11:26 Pulse 77 01/06/25 11:26 Resp 18 01/06/25 11:26 BP 175/77 H 01/06/25 11:26 Pulse Ox 97 01/06/25 11:26 O2 Del Method Nasal Cannula 01/06/25 11:26 O2 Flow Rate 2 01/06/25 11:26 BMI result Body Mass Index 25.3 Results Labs 01/06/25 08:39 01/06/25 08:39 Labs: Laboratory Results - last 24 hr 01/06/25 01/06/25 05:10 08:39 MCV 91.7 MCH 31.9 MCHC 34.8 RDW 13.9 Plt Count 222 MPV 10.3 Immature Gran % (Auto) 0.2 Neut % (Auto) 74.2 H Lymph % (Auto) 16.5 L Hand % (Auto) 7.8 Eos % (Auto) 0.8 Baso % (Auto) 0.5 Lymph # (Auto) 1.1 L Hand # (Auto) 0.5 Eos # (Auto) 0.1 Baso # (Auto) 0.0 Abs Immat Gran (auto) 0.01 Absolute Neuts (auto) 4.7 Absolute Nucleated RBC 0.000 Nucleated RBC % (auto) 0.0 PT 10.6 L INR 0.9 Anion Gap 15 Estim Creat Clear Calc 47.3 Estimated GFR > 60 Random Glucose 111 Calcium 9.4 Total Bilirubin 0.7 AST 45 H ALT 19 Alkaline Phosphatase 69 B-Natriuretic Peptide 27 Total Protein 8.7 H Albumin 4.4 Influenza Type A (PCR) POSITIVE A Influenza Type B (PCR) NEGATIVE RSV RNA Qual (PCR) NEGATIVE SARS-CoV-2 RNA (RT-PCR) NEGATIVE
== END 2025-01-06 13:18 | disposition left against medical advice (07) ==
PROVIDERS: Internal Medicine; Nurse Practitioner Family; Emergency Provider Emergency Medicine; PCP Internal Medicine
DX: J10.1 Influenza due to other identified influenza virus with other respiratory manifestations (principal); R09.02 Hypoxemia; R06.02 Shortness of breath; R05.9 Cough, unspecified; Z03.818 Encounter for observation for suspected exposure to other biological agents ruled out; I10 Essential (primary) hypertension; Z79.899 Other long term (current) drug therapy; Z53.29 Procedure and treatment not carried out because of patient's decision for other reasons
CPT/HCPCS: 0241U; 36415; 71045; 80053; 83880; 84484; 85025; 85610; 93005; 99283; 99284

== ENCOUNTER → 2025-01-06 04:50 | Outpatient (BNV) | payer MEDICARE, SELFPAY | PROVIDERS: Emergency Provider Internal Medicine; PCP Internal Medicine; Visit Provider Specialist | DX: R05.9 Cough, unspecified (principal) | CPT/HCPCS: 71045 ==

== ENCOUNTER → 2025-01-06 08:27 | Outpatient (BNV) | payer MEDICARE, SELFPAY | PROVIDERS: Emergency Provider Emergency Medicine; PCP Internal Medicine; Visit Provider Internal Medicine Cardiovascular Disease | DX: R06.02 Shortness of breath (principal); R94.31 Abnormal electrocardiogram [ECG] [EKG] | CPT/HCPCS: 93010 ==

== ENCOUNTER 2025-06-02 14:06 | Inpatient (IN) | payer MEDICARE, SELFPAY ==
--- OUTSIDE RECORDS SUMMARY | 2025-06-01 10:00 | XMS_ITS ---
Author Organization [facility] Address [address] [place] [id number] Care Team Providers Care Optometry Professor Name Role Phone Rey Hope MD Primary Care Provider Rigo VillafanaRubio Unavailable [phone] Allergies No Known Allergies REASON FOR VISIT Patient presents today for constipatiom Medications Medication SIG (Take, Route, Frequency, Duration) Notes Start Date End Date Status Dorzolamide HCl 2 % 1 drop into affected eye Ophthalmic Three times a day 06/01/2025 Active Levothyroxine Sodium 75 MCG 1 tablet in the morning on an empty stomach Orally Once a day for 30 day(s) 06/01/2025 Active Calcium 500 MG 1 tablet with meals Orally Twice a day for 30 day(s) 06/01/2025 Active Vitamin D-3 25 MCG (1000 UT) 1 capsule O rally Once a day for 30 day(s) 06/01/2025 Active Lisinopril 30 MG 1 tablet Orally Once a day for 30 day(s) 06/01/2025 Active MiraLax 17 GM/SCOOP take for bowel prep Orally Once a day 06/01/2025 Active Voltaren 1 % as directed Externally 06/01/2025 Active amLODIPine Besylate 2.5 MG 1 tablet Oral ly Once a day for 30 day(s) 06/01/2025 Active Social History Tobacco Use: Social History Observation Description Date Details (start date - stop date) Never Smoker NA - NA Tobacco Control (Standard) Question Answer Notes Tobacco use: Nonsmoker AUDIT-C (Standard) Question Answer Notes Did you have a drink contain ing alcohol in the past year? Yes How often did you have a dri nk containing alcohol in the past year? Daily or almost daily (4 points) How many drinks did you have on a typical day when you were drinking in the past year? 1 or 2 drinks (0 point) How often did you have six o r more drinks on one occasion in the past year? Never (0 point) Points 4 Interpretation Positive Section Notes: Nonsmoker; 2 glasses of wine 5 times a week Problems Problem Type SNOMED Code ICD Code Onset Dates Problem Status W/U Status Risk Notes Problem Constipation (K59.00) Active confirmed Problem Anorexia (80292133) Anorexia (R63.0) Active confirmed Vital Signs Temperature 98.6 degrees Fahrenheit 06/01/20 Blood pressure systolic 001 mm Hg 06/01/20 Blood pressure diastolic 01 mm Hg 025 Height 63 in 06/01/2025 Weight 125.4 lbs 06/01/2025 BMI 22.21 kg/m2 06/01/2025 Encounters Encounter Location Date Provider Diagnosis [facility] [address] [place] [address] 06/01/2025 Rubio Villafana Constipation K59.00 and Anorexia R63.0 Assessments Encounter Date Diagnosis (ICD Code) Assessment Notes Treatment Notes Treatment Clinical Notes Section Notes 06/01/2025 Constipation (ICD-10 - K59.00) Continue the daily Miralax. Stay on a high fiber diet with a lot of fluids. Call me if the bowel movements worsen or you develop increased bleeding Overall, Giana appears quite well. She is not having any worrisome GI complaints. We did review that her somewhat diminished appetite is not unusual given her age and recent surgeries. It appears that her appetite is currently stable as is her weight. She is not having any other worrisome upper GI complaints to suggest the need for an upper endoscopy. We also reviewed that her current bowel pattern is quite acceptable and does not seem worrisome. I did advise her to certainly continue the small amount of MiraLAX every day. I advised her that she could continue that long-term if need be. The single episode of bleeding and heme positive stool last September does not seem worrisome given the association with constipation and no further episodes of bleeding. I did advise her to continue on a healthy and high-fiber diet with plenty of fluids as well. I do not think she requires a colonoscopy at this time. I did advise her that if anything changes with worsening appetite, abdominal pain, further weight loss, and/or worsening bowel pattern with increased bleeding, he should then call me for follow-up and reevaluation however, if things remain well I have advised her to simply see me again as needed. Giana was very comfortable with this plan. Thank you again for allowing me to participate in Giana's care. I shall continue to keep you advised of her progress. 06/01/2025 Anorexia (ICD-10 - R63.0) Overall, Giana appears quite well. She is not having any worrisome GI complaints. We did review that her somewhat diminished appetite is not unusual given her age and recent surgeries. It appears that her appetite is currently stable as is her weight. She is not having any other worrisome upper GI complaints to suggest the need for an upper endoscopy. We also reviewed that her current bowel pattern is quite acceptable and does not seem worrisome. I did advise her to certainly continue the small amount of MiraLAX every day. I advised her that she could continue that long-term if need be. The single episode of bleeding and heme positive stool last September does not seem worrisome given the association with constipation and no further episodes of bleeding. I did advise her to continue on a healthy and high-fiber diet with plenty of fluids as well. I do not think she requires a colonoscopy at this time. I did advise her that if anything changes with worsening appetite, abdominal pain, further weight loss, and/or worsening bowel pattern with increased bleeding, he should then call me for follow-up and reevaluation however, if things remain well I have advised her to simply see me again as needed. Giana was very comfortable with this plan. Thank you again for allowing me to participate in Giana's care. I shall continue to keep you advised of her progress. Plan Of Treatment Treatment Notes Assessment Notes Constipation Continue the daily M iralax. Stay on a high fiber diet with a lot of fluids. Call me if the bowel movements worsen or you develop increased bleeding Next Appt Details Follow Up: prn, Reason: Progress Notes * GIANA KAPLANDOB:1940 (84 yo F)Acc No.[id number]:06/01/2025 Progress Notes Patient: GIANA ORDONEZ Provider: Danielle Villafana MD :1940 A ge:84 Y S ex:Female Date:06/01/2025 Address[address] [id number] Pcp:Rey Hope MD Subjective: * Chief Complaints: * 1 . Patient presents today for constipatiom. * HPI: i ncontinence: I saw Giana in consultation today in regard to further evaluation of some decreased appetite with weight loss and some associated mild constipation. As you know, Giana is a generally healthy 84-year-old female who describes at least 8 months of some diminished appetite. She describes having undergone a right hip replacement in 2022 and then back surgery for spinal stenosis in 2023. During those recuperations she did lose some weight although presently reports that she has gained several pounds and her weight seems to have stabilized. He does report that her appetite has decreased from what it used to be but nonetheless she is eating fairly well. She denies any significant heartburn, dysphagia, early satiety, nausea, nor vomiting. She denies any abdominal pain other than some intermittent cramping. She denies any jaundice. She does describe that her bowel movements had always been regular but during this time she has noticed some constipation that has required 1 dose of MiraLAX daily to keep things regular for her. She is currently having comfortable bowel movements. She did have 1 episode of straining and some rectal bleeding last September but that has not recurred. When that did occur last September she did have some rectal pain with it. She was seen in the ER for that but had a hemoglobin of 13.3 and did not require admission. She has had [address] Yohannes Allen in [place]. The most recent one in 2014 revealed a small polyp that was removed and small internal hemorrhoids. At that time he advised her that she would not need any further colonoscopies due to her age. The colonoscopy in 2004 had been negative. She denies any known family history of colorectal cancer. Her most recent labs from January revealed a hemoglobin of 14.6 with a normal MCV, normal chemistries and renal function, and normal LFTs. She did have a stool that was Hemoccult positive in September 2024 but that was during her ER visit for some rectal bleeding from her straining and presumed hemorrhoids. * Medical History: H [place], Denies MS,DM,CVA,Lung disease,renal disease, Neuropathy, Hypothyroidism, Previous colonoscopies with Dr. Yohannes Allen in [place]. The colonoscopy in 2004 was negative and the colonoscopy in 2014 revealed a small polyp that was removed and small internal hemorrhoids.. * Surgical History: T otal right hip replacement 2022, Spinal stenosis 2023, Cataracts . * Family History: F ather: , diagnosed with Heart disease. M other: , diagnosed with Heart disease. No family history of colon cancer. * Social History: T obacco Use: T obacco Control (Standard) T obacco use: N onsmoker. M iscellaneous: M arital status: Single, . Occupation: retired. D rug/Alcohol: A BENEDICT-C (Standard) D id you have a drink containing alcohol in the past year? Y es,?How often did you have a drink containing alcohol in the past year? D aily or almost daily (4 points), H ow many drinks did you have on a typical day when you were drinking in the past year? 1 or 2 drinks (0 point), H ow often did you have six or more drinks on one occasion in the past year? N ever (0 point), P oints 4 , I nterpretation P ositive. N onsmoker; 2 glasses of wine 5 times a week. * Medications: T aking amLODIPine Besylate 2.5 MG Tablet 1 tablet Orally Once a day , Taking Dorzolamide HCl 2 % Solution 1 drop into affected eye Ophthalmic Three times a day , Taking Levothyroxine Sodium 75 MCG Tablet 1 tablet in the morning on an empty stomach Orally Once a day , Taking Calcium 500 MG Tablet 1 tablet with meals Orally Twice a day , Taking Vitamin D-3 25 MCG (1000 UT) Capsule 1 capsule Orally Once a day , Taking Lisinopril 30 MG Tablet 1 tablet Orally Once a day , Taking MiraLax 17 GM/SCOOP Powder take for bowel prep Orally Once a day , Taking Voltaren 1 % Gel as directed Externally * Allergies: N .K.D.A. Objective: * Vitals: W t: 125.4 lbs, Ht: 63 in, BMI: 22.21 Index, BP: 001/01 mm Hg, Temp: 98.6, Ht-cm: 160.02, Wt-k.88. Assessment: * Assessment: 1. C onstipation - K59.00 (Primary) 2 . A norexia - R63.0 Overall, Giana appears quite well. She is not having any worrisome GI complaints. We did review that her somewhat diminished appetite is not unusual given her age and recent surgeries. It appears that her appetite is currently stable as is her weight. She is not having any other worrisome upper GI complaints to suggest the need for an upper endoscopy. We also reviewed that her current bowel pattern is quite acceptable and does not seem worrisome. I did advise her to certainly continue the small amount of MiraLAX every day. I advised her that she could continue that long-term if need be. The single episode of bleeding and heme positive stool last September does not seem worrisome given the association with constipation and no further episodes of bleeding. I did advise her to continue on a healthy and high-fiber diet with plenty of fluids as well. I do not think she requires a colonoscopy at this time. I did advise her that if anything changes with worsening appetite, abdominal pain, further weight loss, and/or worsening bowel pattern with increased bleeding, he should then call me for follow-up and reevaluation however, if things remain well I have advised her to simply see me again as needed. Giana was very comfortable with this plan. Thank you again for allowing me to participate in Giana's care. I shall continue to keep you advised of her progress. Plan: * Treatment: * Preventive Medicine: Urinary Incontinence: U rinary Incontinence A ssessment: A bsent, P bruce of care documented: N o, reason not specified. Screenings: F all Risk Screening F all Risk Assessment: N o falls in the past year, S creening: N o falls in the past year, A ssessment: N ot performed, no reason specified, P bruce of Care: N ot documented, no reason specified. * Follow Up: p rn * * The named appointment provid er may or may not be the originator of this progress note, and it is not deemed complete until electronically signed by the appointment provider. Sign off status: Pending * Provider: Danielle Villafana MD Date: 06/01/2025 Generated for Vern avila/Nuzhat/Earnestineitting on: 0 06/02/2025 03:19 PM EDT
[2025-06-02] VITALS (9 sets, daily range): BP systolic 124–198; BP diastolic 50–110; PULSE 76–90; RESP 13–19; TEMP 36.4–36.9; O2SAT 84–98; BMI 22.5
--- NOTE | ~2025-06-02 | CT_ITS ---
CLINICAL HISTORY: hypoxia, near syncope CT angiography chest with contrast. 3D Postprocessing. Comparison: None provided Findings: The heart size is normal. RV/LV ratio is normal. The thoracic aorta is normal caliber. No acute pulmonary embolus. The visualized thyroid and mediastinum are unremarkable. No consolidation or pleural effusion. Minimal scarring at the right lung apex. There is mild hydronephrosis of the right kidney. No acute fractures. IMPRESSION: 1. No evidence of pulmonary artery embolism. 2. Mild hydronephrosis of the right kidney. This document has been electronically signed by: Jo Diaz MD on 06/02/2025 17:38:19
--- NOTE | ~2025-06-02 | XR_ITS ---
CLINICAL HISTORY: SOB 1 view chest x-ray Comparison: CR - XR CHEST 1V - 01/06/25 04:53 EST Findings: The lungs are clear. Normal size heart. No acute fracture. IMPRESSION: 1. No acute findings. This document has been electronically signed by: Jo Diaz MD on 06/02/2025 15:21:22
--- NOTE | 2025-06-02 14:15 | ECG_ITS ---
Test Reason : WEAKNESS Blood Pressure : */* mmHG Vent. Rate : 81 BPM Atrial Rate : 81 BPM P-R Int : 156 ms QRS Dur : 84 ms QT Int : 368 ms P-R-T Axes : 74 67 57 degrees QTcB Int : 427 ms Sinus rhythm with PACs Otherwise normal ECG When compared with ECG of 06-Jan-2025 11:13, No significant change was found Referred By: Kareen Temple Electronically Signed By: Joey Luna
--- NOTE | 2025-06-02 14:16 | ED.WEAKNESS ---
HPI - Weakness General Chief complaint: General Medical Stated complaint: INCR WEAKNESS,BP 160/110 PER EMS Time Seen by Provider: 06/02/25 16:31 Source: patient and EMS Mode of arrival: EMS Limitations: no limitations History of Present Illness ED Provider: DELFINA PINO Narrative: 84 yo female with PMH of UTI currently on macrobid for 2 days by PCP, HTN, osteoporosis, hypothyroidism, here with c/o feeling very weak and tired today. She felt like she was going to pass out. She states she has been on macrobid for 2 days via positive urine sample at PCP. She reports no CP/SOB, no recent URI, no travel or procedures. No n/v/d, no GIB symptoms. She states it just hit her all of a sudden. She lives alone no sick contacts. EMS put her on 4L O2 and states her sats were mid 80s the patient notes she has not used inhalers before and not a smoker. She states when she walks or moves she feels really weak like she will pass out. MD Complaint: generalized weakness Onset (ago): day(s) (1) Duration: constant Location: generalized Migration: none Severity: moderate Relieving factors: rest Exacerbating factors: movement Context: new medication and recent illness Associated symptoms: loss of appetite Related Data Home Medications ?Medication ?Instructions ?Recorded ?Confirmed levothyroxine 75 mcg tablet 75 mcg PO MOTUTHFRSA 04/21/21 05/17/24 alendronate 70 mg tablet 70 mg PO MO 09/30/23 05/17/24 calcium carbonate 500 mg PO QAM 09/30/23 05/17/24 levothyroxine 75 mcg tablet 150 mcg PO SUWE 09/30/23 05/17/24 dorzolamide 2 % eye drops 1 drp ophthalmic (eye) BEDTIME 05/04/24 05/17/24 latanoprost 0.005 % eye drops 1 drp ophthalmic (eye) DAILY 05/04/24 05/17/24 amlodipine 2.5 mg tablet 2.5 mg PO DAILY 05/17/24 05/17/24 diphenhydramine 25 2 tab PO BEDTIME PRN Pain 05/17/24 05/17/24 mg-acetaminophen 500 mg tablet (Tylenol PM Extra Strength) lisinopril 30 mg tablet 30 mg PO DAILY 05/17/24 05/17/24 Previous Rx's ?Medication ?Instructions ?Recorded sulfamethoxazole 800 1 tab PO BID surgical prophylaxis 05/18/24 mg-trimethoprim 160 mg tablet 2 days #4 tabs (Bactrim DS) oxycodone 5 mg tablet 5 mg PO TID PRN pain (scale score 05/22/24 7-10) #30 tabs sennosides 8.6 mg capsule (senna) 8.6 mg PO DAILY PRN constipation 05/25/24 #7 caps docusate sodium 100 mg capsule 100 mg PO BID PRN constipation #30 09/14/24 (Colace) caps sennosides 8.6 mg tablet (senna) 8.6 mg PO BEDTIME PRN constipation 09/14/24 #30 tabs Allergies Allergy/AdvReac Type Severity Reaction Status Date / Time No Known Allergies Allergy Verified 06/02/25 14:33 Review of Systems Review of Systems: Constitutional : No Fever, No Chills, No Fatigue ENT/Mouth : No sore throat, No Rhinorrhea Eyes: No Eye Pain, No Swelling, No Redness Cardiovascular : No Chest Pain, No SOB, No Dyspnea on Exertion Respiratory : No Cough, No Sputum Gastrointestinal : No Nausea, No Vomiting, No Diarrhea, No abdominal Pain Genitourinary : No Dysuria, No Urinary Frequency, No Hematuria, Musculoskeletal : No joint pain, No Myalgias, No Joint Swelling Skin : No Skin Lesions, No rash Neuro : pos Weakness, No Numbness, pos Dizziness, no Headache Psych : No Anxiety/Panic, No Depression Heme/Lymph: No Bruising, No Bleeding,No Lymphadenopathy Endocrine : No Polyuria, No Polydipsia All other systems reviewed and are negative [facility] Past Medical History Attestation statement: The following information was validated with the patient. Source: old records reviewed Medical History Carotid stenosis COPD (chronic obstructive pulmonary disease) Hypothyroidism Spinal stenosis Hypertension Surgical History History of excision of pilonidal cyst Hx of bilateral cataract extraction H/O colonoscopy History of right hip replacement Social History Social History Household Members: None Household Members Other:: lives alone Housing: House Are you a primary long term care social worker to a significant other at home: No Do you presently have visiting nurse or other home services: No Alcohol intake: current Comment: 2 to 3 times a week Patient Tobacco Use Status: Former Tobacco user Tobacco use type: Cigarette Cigarettes Per Day: 10 Years Smoked: 30 Advance Directives: Yes Advance Directives on File: Yes Advance Directives Date on File: 05/19/24 Do you have a plan to hurt others: No Plan service: No Physical Exam Vital Signs: Vital Signs: Last Vital Signs Temp 98.0 F 06/02/25 15:52 Pulse 76 06/02/25 15:52 Resp 19 06/02/25 15:52 BP 138/61 06/02/25 15:52 Pulse Ox 93 06/02/25 15:54 O2 Del Method Nasal Cannula 06/02/25 15:54 O2 Flow Rate 2 06/02/25 15:54 BMI result Body Mass Index 22.5 Appearance: Alert. Oriented X3. No acute distress. Eyes: Pupils equal, round and reactive to light. ENT: Pharynx normal. Neck: Normal inspection. Neck supple. CVS: Normal heart rate and rhythm. Pulses normal. Respiratory: No respiratory distress. Breath sounds coarse with wheezes heard R lower lobe Abdomen: Soft and nontender. Skin: Skin warm and dry. Normal skin color. Normal skin turgor. Extremities: No lower extremity edema. No calf ttp Neuro: Oriented X 3. No motor deficit. No sensory deficit. CN2-12 intact Course Course Course Narrative: hypoxia here 84% on RA - responded to 2L NC Reevaluation(s) Reevaluation #1: 92% on RA now responded well to bronchodilator - will add on steroids states she feels better but dropped again 90% she has no cyanosis or purpleish hue to the fingers to suggest methemoglobinemia from macrobid Reevaluation #2: signed out to Dr. Pabon pending CTA Medications Administered Discontinued Medications Generic Name Dose Route Start Last Admin Trade Name Freq PRN Reason Stop Dose Admin Albuterol Sulfate 2.5 mg 06/02/25 14:45 06/02/25 14:49 Albuterol Sulfate (0.083%) 2.5 Mg/3 Ml Vial.Neb INHALE 06/02/25 14:46 2.5 mg ONCE ONE Administration Ceftriaxone Sodium 1 gm 06/02/25 14:38 06/02/25 14:58 Ceftriaxone Sodium 1 Gm Vial IVPUSH 06/02/25 14:39 1 gm ONCE ONE Administration Iohexol 100 ml 06/02/25 16:59 06/02/25 16:59 Iohexol 350 Mg/Ml 100 Ml Infus..Btl IV 06/02/25 17:00 65 ml ONCE ONE Administration Methylprednisolone Sodium Succinate 60 mg 06/02/25 15:50 06/02/25 16:16 Methylprednisolone Sod Succ 125 Mg/2 Ml Vial IVPUSH 06/02/25 15:51 60 mg ONCE ONE Administration Medical Decision Making Medical Decision Making MDM Narrative: 84 yo female with PMH of UTI currently on macrobid for 2 days by PCP, HTN, osteoporosis, hypothyroidism, here with c/o having low O2 sats as well as weakness and fatigue. She denies CP/SOB. At this time based off symptoms will obtain basic labs, cultures, empiric ceftriaxone - she does have wheezing on exam but denies hx of COPD/asthma - bronch ordered. I will obtain CTA:PE for mass, pneumonia, PE I received sign-out from my colleague Dr. Temple -patient's CTA is negative for pulmonary embolism, no signs of pneumonia -as I was speaking to the patient, we attempted weaning her down to room air. However, just by sitting in bed and talking, her oxygen saturation decreases to 86%. Patient is back on 2 L of oxygen. Patient states that she has a little COPD , but states that she does not have any home medications. Here in the emergency room, she received a dose of ceftriaxone IV, Solu-Medrol. Patient is not actively wheezing at this time. Sepsis is not suspected. I discussed the mentioned with ROSANGELA Dennison from the Medicine team, patient being admitted Differential Diagnosis Differential Diagnoses: The differential diagnosis associated with the presentation includes mass, pneumonia, PE Admission/Observation Consideration of admission/observation: Escalation of care including admission/observation considered Lab Data [facility] Lab Attestation statement: I reviewed the patient's lab results. 06/02/25 14:49 06/02/25 14:49 Labs: Lab Results 06/02/25 06/02/25 Range/Units 14:39 14:49 WBC 16.4 H (4.8-10.8) X10*3/uL RBC 3.92 L (4.20-5.50) X10*6/uL Hgb 13.0 (12.0-16.0) g/dl Hct 37.0 (37.0-47.0) % MCV 94.4 (80.0-98.0) fL MCH 33.2 H (27.0-33.0) pg MCHC 35.1 H (31.0-35.0) g/dl RDW 13.6 (11.0-16.0) % Plt Count 214 (160-400) X10*3/uL MPV 10.5 (9.4-12.3) fL Immature Gran % (Auto) 0.4 (0.0-0.4) % Neut % (Auto) 93.7 H (45-73) % Lymph % (Auto) 1.0 L (20-40) % Wilson % (Auto) 4.3 (2-11) % Eos % (Auto) 0.3 (0-4) % Baso % (Auto) 0.3 (0-2) % Lymph # (Auto) 0.2 L (1.2-4.9) X10*3/uL Wilson # (Auto) 0.7 (0.1-1.2) X10*3/uL Eos # (Auto) 0.1 (0.0-0.4) X10*3/uL Baso # (Auto) 0.1 (0.0-0.2) X10*3/uL Abs Immat Gran (auto) 0.07 H (0.00-0.03) X10*3/uL Absolute Neuts (auto) 15.4 H (2.0-8.3) x10*3/uL Absolute Nucleated RBC 0.000 (0.0-0.012) X10*3/uL Nucleated RBC % (auto) 0.0 (0.0-0.2) /100WBC Smear Tech's Comments VERIFIED Sodium 132 L (135-145) mmol/L Potassium 4.6 (3.3-5.1) mmol/L Chloride 97 (96-108) mmol/L Carbon Dioxide 25 (22-29) mmol/L Anion Gap 15 (12-20) BUN 31 H (9-16) mg/dL Creatinine 1.02 (0.5-1.4) mg/dL Estim Creat Clear Calc 33.9 Estimated GFR 52 Random Glucose 147 H (60-115) mg/dL Lactic Acid 1.0 (0.5-2.0) mmol/L Calcium 9.6 (8.4-10.2) mg/dL Magnesium 1.9 (1.6-2.6) mg/dL Total Bilirubin 1.0 (0.0-1.0) mg/dL Direct Bilirubin 0.3 (0.0-0.5) mg/dL AST 25 (5-31) U/L ALT 19 (0-31) U/L Alkaline Phosphatase 57 (39-117) U/L Troponin I High Sens 9.7 D (<3.5-17.0) ng/L C-Reactive Protein 3.30 H (< or = 0.50) mg/dL B-Natriuretic Peptide 112 H (<100) pg/mL Total Protein 7.9 (6.5-8.0) g/dL Albumin 4.8 (3.5-5.0) g/dL Lipase 29 (8-78) U/L Influenza Type A (PCR) NEGATIVE (Negative) Influenza Type B (PCR) NEGATIVE (Negative) RSV RNA Qual (PCR) NEGATIVE (Negative) SARS-CoV-2 RNA (RT-PCR) NEGATIVE (Negative) Independent Interpretation I performed an independent interpretation of an: EKG and Plain X-Ray (no pneumonia) Interpretation: Rate: 81 Rhythm: NSR with sinus arrhythmia Juda: Normal P waves. Normal LIANNE. Normal QRS complex. ST T wave : no AIDAN, nonspecific ST T wave change aVL qTC: 427 prior studies: no acute ischemia The study has been interpreted contemporaneously by me. . Radiology Impression Discussion of test interpretation with radiology: I have reviewed the radiologist's reading. Independent Historian Clinical information obtained from an independent historian. History obtained from or confirmed by: EMS External Record Review External record reviewed: Outpatient record Critical Care Time Critical Care Time Critical Care Time: Yes Total Critical Care Time: 60 Attestation: I have personally provided critical care time. Time includes review of lab data, radiology results, discussion with consultants, and monitoring for potential decompensation. Intervention performed as documented. Discharge Plan Discharge Clinical Impression: Elevated WBC count, Weakness, Hypoxia Patient Disposition: Admitted As Inpatient Print Language: Hebrew
--- NOTE | 2025-06-02 14:37 | PC.NURSE ---
Pt biba from home for increased weakness/feeling faint starting approx 0600am this morning. Pt states she went out to eat last night with friends- denies any sick contacts recently/sick at home. Pt states she felt a sudden increased weakness when she woke up this morning- felt as though she was going to have a syncope episode. States she had a decrease in PO intake recently, feels as though she is dehydrated. EMS found pt to be 84% on RA when they arrived- placed on 4L O2 NC with good effect. Pt does not wear O2 at baseline. A/ox3, neuros intact- speaking in full sentences, speech clear and appropriate, equal strength bilaterally. Respirations even and unlabored, mild SOB noted, wheezing heard R lower lung. Pt trialed on RA with MD Temple at bedside- pt O2 desat to low 80s on RA. Placed back on 2L with good effect- O2 high 90s. Denies CP/Abd pain. Call irwin within reach, all needs met at this time.
[2025-06-02] MEDS: Albuterol Sulfate (0.083%) 2.5 MG/3 ML VIAL.NEB INHALE (14:49)
[2025-06-02 15:00] LABS: Hematocrit 37.0 % (37.0-47.0); Hemoglobin 13.0 g/dl (12.0-16.0); Imm Gran Abs Auto 0.07 X10*3/uL (0.00-0.03); Imm Gran Pct Auto 0.4 % (0.0-0.4); Lymphocytes Absolute Auto 0.2 X10*3/uL (1.2-4.9); MANUAL DIFF FLAG SCAN; Mean Corpuscular HGB Conc 35.1 g/dl (31.0-35.0); Mean Corpuscular Hemoglobin 33.2 pg (27.0-33.0); Mean Corpuscular Volume 94.4 fL (80.0-98.0); NRBC Abs Auto 0.000 X10*3/uL (0.0-0.012); NRBC Pct Auto 0.0 /100WBC (0.0-0.2); Platelet Count 214 X10*3/uL (160-400); Red Blood Count 3.92 X10*6/uL (4.20-5.50); SCAN SMEAR FLAG 1; White Blood Count 16.4 X10*3/uL (4.8-10.8)
--- OUTSIDE RECORDS SUMMARY | 2025-06-02 15:19 | XMS_ITS | Patient Health Record ---
Author Organization [facility] Chilo michael Garza Address [address] [facility] [place] [address] Care Team Providers Care Job Coach/Job Developer Name Role Phone Rey Hope MD Primary Care Provider Ameena Colon Unavailable [phone] Lan Cheney Unavailable [phone] Jose Saucedo Unavailable [phone] Allergies No Known Allergies Reason For Referral No Information Medications Medication SIG (Take, Route, Frequency, Duration) Notes Start Date End Date Status Ammonium Lactate 12 % 1 application to affected area Externally Twice a day to dry areas of skin on feet; Duration: 30 days Not-Taking Lisinopril 20 MG 1 tablet Orally Once a day; Duration: 30 day(s) Active Levothroid .75mg 1tab a day 2tabs wed,wed Active Celecoxib 100 MG 1 capsule with food Orally Once a day; Duration: 30 day(s) Not-Taking Fosamax 70 MG 1 tablet 30 minutes before the first food, beverage or medicine of the day with plain water Orally Not-Taking Voltaren 1 % as directed Externally Not-Taking Ammonium Lactate 12 % 1 application Externally to affected areas of dry skin to feet except for between the toes Twice a day; Duration: 30 days Active Levothyroxine Sodium 75 MCG 1 tablet in the morning on an empty stomach Orally Once a day; Duration: 30 day(s) Active amLODIPine Besylate 1.5mg Active Lisinopril 20 MG 1 tablet Orally Once a day; Duration: 30 day(s) Not-Taking Immunizations Vaccine Route Administration Date Status Comme nts Influenza Unknown 08/08/2024 Administered COVID-19 Pfizer BioNTech Vaccine Unknown 09/08/2022 Administered 2021,2020 2020 unsure dates Social History Tobacco Use: Social History Observation Description Date Details (start date - stop date) Never Smoker NA - NA Tobacco use other than smoking: Question Answer Notes Are you an other tobacco user? No Tobacco Control (Standard) Question Answer Notes Tobacco use: Nonsmoker Additional Findings: Tobacco non-user Current no nsmoker AUDIT-C (Standard) Question Answer Notes Did you have a drink containing alcohol in the p ast year? 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, with unspecified presence of clinical manifestation (I70.203) Active confirmed Q7(A), Q8(2B), Q9(1B,2C) Vital Signs Blood pressure diastolic 65 mm Hg 05/28/2025 Height 5ft 1in in 05/28/2025 Blood pressure systolic 115 mm Hg 05/28/2025 Weight 133 lbs 05/28/2025 BMI 25.13 kg/m2 05/28/2025 Procedures Procedure Date Ordered Date Performed Result Body Sit e 64542-AWRIQRG NAIL, 6 OR MORE 10/16/2024 N/A 87245-OXZQ SKIN LESIONS, 2 TO 4 10/16/2024 N/A 62847-JOHDRES NAIL, 6 OR MORE 02/22/2025 N/A 73515-IPKG SKIN LESIONS, 2 TO 4 02/22/2025 N/A 34702-YRJDVDJ NAIL, 6 OR MORE 05/28/2025 N/A 14392-PAEV SKIN LESIONS, 2 TO 4 05/28/2025 N/A Encounters Encounter Location Date Provider Diagnosis [facility] [address] [place] [address] 06/05/2024 Lan Cheney Unspecified atherosclerosis of ak chin arteries of extremities, bilateral legs I70.203 ; Skin disease L98.9 ; Tinea unguium B35.1 ; Xerosis cutis L85.3 ; Hallux valgus (acquired), left foot M20.12 ; Hallux valgus (acquired), right foot M20.11 ; Other hammer toe(s) (acquired), left foot M20.42 ; Other hammer toe(s) (acquired), right foot M20.41 and Neuralgia and neuritis, unspecified M79.[address] [address] 2024 Lan Cheney Unspecified atherosclerosis of ak chin arteries of extremities, bilateral legs I70.203 ; Skin disease L98.9 ; Tinea unguium B35.1 ; Xerosis cutis L85.3 ; Hallux valgus (acquired), left foot M20.12 ; Hallux valgus (acquired), right foot M20.11 ; Other hammer toe(s) (acquired), left foot M20.42 ; Other hammer toe(s) (acquired), right foot M20.41 and Neuralgia and neuritis, unspecified M79.[address] [address] 10/16/2024 Ameena Beard 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, with unspecified presence of clinical manifestation I70.203 ; Tinea unguium B35.1 ; Pain in right toe(s) M79.674 and Pain in left toe(s) M79.[address] [address] 02/22/2025 Ameena Beard 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, with unspecified presence of clinical manifestation I70.203 ; Tinea unguium B35.1 ; Pain in right toe(s) M79.674 ; Pain in left toe(s) M79.675 and Xerosis of skin L85.[address] [address] 05/28/2025 Ameena Beard 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, with unspecified presence of clinical manifestation I70.203 ; Tinea unguium B35.1 ; Pain in right toe(s) M79.674 ; Pain in left toe(s) M79.675 and Xerosis of skin L85.3 Assessments Encounter Date Diagnosis (ICD Code) Assessment Notes Treatment Notes Treatment Clinical Notes Section Notes 06/05/2024 Unspecified atherosclerosis of ak chin arteries of extremities, bilateral legs (ICD-10 - I70.203) 06/05/2024 Skin disease (ICD-10 - L98.9) 2024 Unspecified atherosclerosis of ak chin arteries of extremities, bilateral legs (ICD-10 - I70.203) 10/16/2024 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, with unspecified presence of clinical manifestation (ICD-10 - I70.203) Q7(A), Q8(2B), Q9(1B,2C) 02/22/2025 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, with unspecified presence of clinical manifestation (ICD-10 - I70.203) Q7(A), Q8(2B), Q9(1B,2C) 05/28/2025 Tinea unguium (ICD-10 - B35.1) 05/28/2025 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, with unspecified presence of clinical manifestation (ICD-10 - I70.203) Q7(A), Q8(2B), Q9(1B,2C) 05/28/2025 Pain in right toe(s) (ICD-10 - M79.674) 02/22/2025 Tinea unguium (ICD-10 - B35.1) 2024 Skin disease (ICD-10 - L98.9) 10/16/2024 Tinea unguium (ICD-10 - B35.1) 06/05/2024 Tinea unguium (ICD-10 - B35.1) 2024 Tinea unguium (ICD-10 - B35.1) 06/05/2024 Xerosis cutis (ICD-10 - L85.3) 10/16/2024 Pain in right toe(s) (ICD-10 - M79.674) 05/28/2025 Pain in left toe(s) (ICD-10 - M79.675) 02/22/2025 Pain in right toe(s) (ICD-10 - M79.674) 05/28/2025 Xerosis of skin (ICD-10 - L85.3) 10/16/2024 Pain in left toe(s) (ICD-10 - M79.675) 02/22/2025 Pain in left toe(s) (ICD-10 - M79.675) 2024 Xerosis cutis (ICD-10 - L85.3) 06/05/2024 Hallux valgus (acquired), left foot (ICD-10 - M20.12) 2024 Hallux valgus (acquired), left foot (ICD-10 - M20.12) 06/05/2024 Hallux valgus (acquired), right foot (ICD-10 - M20.11) 02/22/2025 Xerosis of skin (ICD-10 - L85.3) 2024 Hallux valgus (acquired), right foot (ICD-10 - M20.11) 06/05/2024 Other hammer toe(s) (acquired), left foot (ICD-10 - M20.42) 06/05/2024 Other hammer toe(s) (acquired), right foot (ICD-10 - M20.41) 2024 Other hammer toe(s) (acquired), left foot (ICD-10 - M20.42) 2024 Other hammer toe(s) (acquired), right foot (ICD-10 - M20.41) 06/05/2024 Neuralgia and neuritis, unspecified (ICD-10 - M79.2) 2024 Neuralgia and neuritis, unspecified (ICD-10 - M79.2) Plan Of Treatment Pending Test Test Name Order Date 91245-QBVMOAJ NAIL, 6 OR MORE 10/16/2024 82211-JBGDVVO NAIL, 6 OR MORE 02/22/2025 39009-AZAKYWE NAIL, 6 OR MORE 05/28/2025 21540-VZJY SKIN LESIONS, OVER 4 12/07/19 23 16045-RVOE SKIN LESIONS, OVER 4 03/08/20 23 84095-IFCX SKIN LESIONS, 2 TO 4 02/23/20 25 56926-SAUO SKIN LESIONS, 2 TO 4 10/16/20 24 24294-HBBV SKIN LESIONS, 2 TO 4 05/28/20 25 M2461-LLMLEZTM DYSTROPHIC NAILS ANY # R7950-HQATEEQN DYSTROPHIC NAILS ANY # Next Appt Details Provider Name:Ameena Cee khoury, 08/27/2025 11:15:00 AM, [address] [place], [address], Insurance Providers Payer Name Payer Address Payer Phone Subscriber Number Group Number Insured Name Patient Relationship to Insured Coverage Start Date Coverage End Date Medicare National [employer]t S[employer] [address] [place] [address] [id number] Giana Carlos Self - patient is the insured [employer] [address] [place] [address] [phone] [id number] Giana Carlos Self - patient is the insured Medical (General) History Medical History History ICD Code Back,Hip,and Knee pain Surgical History Surgery Date(Month/Year) hip surgery 10/06/2022 Spinal Surgery 05/17/24
--- OUTSIDE RECORDS SUMMARY | 2025-06-02 15:19 | XMS_ITS | Patient Health Record ---
Author Organization [facility] Address [address] [place] [address] Care Team Providers Care Gas Main Fitter Name Role Phone Rey Hope MD Primary Care Provider Ramya Carlin Unavailable [phone] Reason For Referral No Information Medications Medication SIG (Take, Route, Frequency, Duration) Notes Start Date End Date Status Calcium 1 tab Oral Active Vitamin D3 1000 IU ORAL daily; Duration: -3 [facility] 2011 Active Lisinopril 20MG 1 ORAL daily; Durati on: - [facility] 10/19/2011 Active Levothyroxine Sodium 75MCG 1 ORAL daily; Duration: -3 [facility] 10/29/2014 Active Fish Oil 1200MG 1 ORAL daily; Durati on: -3 [facility]- 10/19/2012 Active Fish Oil 1200MG 1 ORAL daily; Durati on: -3 [facility] 10/19/2012 Active Aspirin EC 81MG 1 ORAL daily; Durati on: -3 [facility]- 10/19/2012 Active Aspirin EC 81MG 1 ORAL daily; Durati on: -3 [facility] 10/19/2012 Active Vitamin D3 1000 IU ORAL daily; Duration: -3 [facility]- 2011 Active Lisinopril 20MG 1 ORAL daily; Durati on: -3 [facility] 10/19/2011 Active Levothyroxine Sodium 75MCG 1 ORAL daily; Duration: -3 [facility]- 10/29/2014 Active Social History Tobacco Use: Social History [...] W/U Status Risk Notes Problem Essential hypertension (29319511) Unspecified essential hypertension (401.9) Active confirmed Major Problem Menopausal symptom (76801619) Symptomatic menopausal or female climacteric states (627.2) Active confirmed Major Problem Osteoporosis (38923185) Unspecified osteoporosis (733.00) Active confirmed Major Problem Disorder of bone and articular cartilage (disorder) (678557145) Disorder of bone and cartilage, unspecified (733.90) Active confirmed Diag Problem Gynecological examination normal (062726003930176) Routine gynecological examination (V72.31) Active confirmed Major Problem Screening for malignant neoplasm of colon (446155407) Special screening for malignant neoplasms, colon (V76.51) Active confirmed Major Plan Of Treatment No Information Insurance Providers Payer Name Payer Address Payer Phone Subscriber Number Group Number Insured Name Patient Relationship to Insured Coverage Start Date Coverage End Date MEDICARE [address] BETHANY ZHANG [id number] [phone] [id number] DIRK KAPLAN Self - patient is the insured BCBS OF [facility] [address] [place] [address] [id number] DIRK KAPLAN Self - patient is the insured Medical (General) History Medical History History ICD Code Disorder of bone density and structure, unspecified M85.9 Essential (primary) hypertension I10 Age-related osteoporosis without current pathological fracture M81.0 Menopausal and female climacteric states N95.1 Surgical History Surgery Date(Month/Year) Colonoscopy
[2025-06-02 15:25] LABS: B Type Natriuretic Peptide 112 pg/mL (<100)
[2025-06-02 15:27] LABS: Troponin-I High Sensitivity 9.7 ng/L (<3.5-17.0)
[2025-06-02 15:28] LABS: Alanine Aminotransferase 19 U/L (0-31); Albumin Level 4.8 g/dL (3.5-5.0); Alkaline Phosphatase 57 U/L (39-117); Anion Gap 15 (12-20); Aspartate Amino Transferase 25 U/L (5-31); Blood Urea Nitrogen 31 mg/dL (9-16); Calcium 9.6 mg/dL (8.4-10.2); Carbon Dioxide 25 mmol/L (22-29); Chloride 97 mmol/L (96-108); Creatinine Clr Calc Pharmacy 33.9; Estimated Glomerular Filt Rate 52; Lipase 29 U/L (8-78); Magnesium 1.9 mg/dL (1.6-2.6); Potassium 4.6 mmol/L (3.3-5.1); Sodium 132 mmol/L (135-145); Total Protein 7.9 g/dL (6.5-8.0)
[2025-06-02 15:37] LABS: Resp Syncy Virus RNA Qual PCR NEGATIVE (Negative); SARS COV2 PCR INHOUSE NEGATIVE (Negative)
[2025-06-02] MEDS: iohexoL 350 MG/ML 100 ML INFUS..BTL IV (16:59)
--- NOTE | 2025-06-02 19:04 | PM.IMHP ---
History of Present Illness Date of Service: 06/02/25 Attending physician on admission: Michael Vargas Chief Complaint: weakness Patient is an 84-year-old female currently independent and living alone with past medical history carotid stenosis, glaucoma, osteoporosis, peripheral neuropathy, cervical stenosis with surgical intervention, COPD not on any inhalers or O2 at home, recent UTI/ nocturnal frequency started on Macrodantin, right hip replacement, hypothyroidism, HTN, chronic constipation was brought in by ambulance earlier this morning after awakening experiencing sudden onset profound weakness and feeling faint but no syncopal episodes or loss of consciousness. Patient denies any falls. Patient states she was recently started on Macrodantin by her PCP for UTI. Patient did go out last evening for dinner with her friends, had her usual 2 glasses of wine and was able to drive home. Patient denies taking any [id number] medications or homeopathic medications for sleep prior to going to bed at night. Patient denies history of diabetes. Patient was evaluated in the emergency department and noted to have no changes in her neurological evaluation. Patient denied any headache, visual changes or chest pain. Patient was noted to be wheezing and was started on methylprednisolone 125 mg IV x1. CTA was done and was negative for PE, pleural effusion or pneumonia. Patient does have a leukocytosis of 16.4, no bandemia. CRP is elevated at 3.30, lactic acid normal. BNP 153. Patient is reporting continued urinary frequency at night. This prompted patient to seek intervention with her primary care physician. Patient does not usually hydrate well with water. Patient does have a mild hyponatremia of 132. Patient was noted to be able to ambulate with walker on room air. Pulse ox currently 91% on room air. Incidentally mild hydronephrosis of the right kidney was found. Creatinine clearance and GFR are baseline for this patient. Patient does not normally follow with a tight rope walker. Patient does take lisinopril daily. Patient reports that she drinks at least 2 glasses of wine mostly 5 nights per week. Patient uses wine socially and denies any issues with withdrawal. Patient no longer smokes and quit smoking approximately 33 years prior. Patient's last CTA of the head and neck was September 2023 and indicated 65% stenoses of the proximal internal carotid arteries bilaterally and moderate to severe stenoses of the distal common carotid arteries bilaterally. Patient does follow with her PCP for this issue and receives referrals as needed. Review of Systems Review of Systems: Patient currently denies any chest pain, shortness of breath at rest, abdominal pain, nausea or vomiting. Patient is not having any issues with diarrhea. Since taking MiraLax patient's constipation has improved but she still has occasional constipation with straining. Patient denies any recent falls. Patient states she uses Voltaren on the bottom of her feet for her neuropathy. Yes all other systems are reviewed and are negative [facility] Medical History (Updated 06/02/25 @ 20:02 by LILI Sepulveda) Peripheral neuropathy Urinary frequency Carotid stenosis COPD (chronic obstructive pulmonary disease) Hypothyroidism Spinal stenosis Hypertension Cognitive capacity: Alert and orientated x3 Functional capacity: uses cane/walker (Normally independent with ambulation and drives) Patient : No Pertinent family history: Mother age 84 heart disease Father age 70 heart disease Surgical History History of excision of pilonidal cyst Hx of bilateral cataract extraction H/O colonoscopy History of right hip replacement Social History Household Members: None Household Members Other:: lives alone Housing: House Are you a primary wound care nurse to a significant other at home: No Do you presently have visiting nurse or other home services: No Alcohol intake: current Comment: 2 to 3 times a week Patient Tobacco Use Status: Former Tobacco user Tobacco use type: Cigarette Cigarettes Per Day: 10 Years Smoked: 30 Smoked in Last 30 Days: No Use of substances other than those prescribed or required for medical reasons: No Advance Directives: Yes Advance Directives on File: Yes Advance Directives Date on File: 05/19/24 Do you have a plan to hurt others: No Plan Patient : No service: No Ebola Risk: Travel/Contact With Anyone From Affected Area/s: No Has Patient Experienced Ebola Symptoms: No Meds Allergies Allergy/AdvReac Type Severity Reaction Status Date / Time No Known Allergies Allergy Verified 06/02/25 14:33 Active Medications: Current Medications Acetaminophen (Acetaminophen 325 Mg Tablet) 650 mg PO Q6H PRN PRN Reason: Pain, Mild 1-3,fever,headache Albuterol/Ipratropium (Albuterol/Iprat 2.5/0.5mg 3 Ml Ampul.Neb) 3 ml INHALE Q4H PRN PRN Reason: Shortness of Breath/Wheezing Calcium Carbonate (Calcium Carbonate 750 Mg Tab.Chew) 750 mg PO Q4H PRN PRN Reason: Heartburn Enoxaparin Sodium (Enoxaparin Sodium 40 Mg/0.4 Ml Syringe) 40 mg SUBCUT Q24H DARLINE Magnesium Hydroxide (Milk Of Magnesia 30 Ml Oral.Susp) 30 ml PO DAILY PRN PRN Reason: Constipation Melatonin (Melatonin 3 Mg Tablet) 6 mg PO BEDTIME PRN PRN Reason: Insomnia Ondansetron HCl (Ondansetron Hcl 4 Mg/2 Ml Vial) 4 mg IVPUSH Q8H PRN PRN Reason: Nausea and Vomiting Polyethylene Glycol (Polyethylene Glycol 3350 17 Gm Powd.Pack) 17 gm PO DAILY PRN PRN Reason: Constipation Senna (Sennosides 8.6 Mg Tablet) 17.2 mg PO BEDTIME DARLINE Sodium Chloride (0.9 % Sodium Chloride Flush 3 Ml Syringe) [address] [facility] Home Medications ?Medication ?Instructions ?Recorded ?Confirmed ?Last Taken ?Type levothyroxine 75 mcg tablet 75 mcg PO MOTUTHFRSA 04/21/21 05/17/24 05/16/24 History alendronate 70 mg tablet 70 mg PO MO 09/30/23 05/17/24 05/15/24 History calcium carbonate 500 mg PO QAM 09/30/23 05/17/24 05/16/24 History levothyroxine 75 mcg tablet 150 mcg PO SUWE 09/30/23 05/17/24 05/16/24 History dorzolamide 2 % eye drops 1 drp ophthalmic (eye) BEDTIME 05/04/24 05/17/24 05/16/24 History latanoprost 0.005 % eye drops 1 drp ophthalmic (eye) DAILY 05/04/24 05/17/24 05/16/24 History amlodipine 2.5 mg tablet 2.5 mg PO DAILY 05/17/24 05/17/24 05/16/24 History diphenhydramine 25 2 tab PO BEDTIME PRN Pain 05/17/24 05/17/24 Unknown History mg-acetaminophen 500 mg tablet (Tylenol PM Extra Strength) lisinopril 30 mg tablet 30 mg PO DAILY 05/17/24 05/17/24 05/16/24 History Physical Exam Vital Signs and Narrative: Vital Signs: Last Vital Signs Temp 98.0 F 06/02/25 15:52 Pulse 76 06/02/25 15:52 Resp 19 06/02/25 15:52 BP 138/61 06/02/25 15:52 Pulse Ox 93 06/02/25 15:54 O2 Del Method Nasal Cannula 06/02/25 15:54 O2 Flow Rate 2 06/02/25 15:54 BMI result Body Mass Index 22.5 Alert and orientated X3, able to give good history. Patient very animated and interactive with no memory issues. Neuro: CN II-X11 intact, no deficits, visual acuity intact EYES: PERRLA, EOM intact, sclerae nonicteric, conjunctiva pink ENT: hearing intact, no issues with swallowing, uvula midline, lips moist, nares patent no epistaxis Cardiac: S1 S2 RRR, no murmur, no JVD, no edema in Lower ext Pulmonary: lungs bilateral expiratory wheeze, diminished at the base, no productive cough, CTA negative for PE, pneumonia or pleural effusion Abdominal: BS active in all 4 quadrants, no guarding, tenderness, rebounding MSK: strength 4/5 upper and lower extremities : no CVA tenderness no bladder distension Extremities: no edema in lower extremities, PT and DP pulses palpable +2 Psych: mood stable, judgement and insight good Skin: mild bruising to BLEs no new open wounds Results Labs 06/02/25 14:49 06/02/25 14:49 Labs: Laboratory Results - last 24 hr 06/02/25 06/02/25 14:39 14:49 MCV 94.4 MCH 33.2 H MCHC 35.1 H RDW 13.6 Plt Count 214 MPV 10.5 Immature Gran % (Auto) 0.4 Neut % (Auto) 93.7 H Lymph % (Auto) 1.0 L Whites[place] % (Auto) 4.3 Eos % (Auto) 0.3 Baso % (Auto) 0.3 Lymph # (Auto) 0.2 L [place] # (Auto) 0.7 Eos # (Auto) 0.1 Baso # (Auto) 0.1 Abs Immat Gran (auto) 0.07 H Absolute Neuts (auto) 15.4 H Absolute Nucleated RBC 0.000 Nucleated RBC % (auto) 0.0 Smear Tech's Comments VERIFIED Anion Gap 15 Estim Creat Clear Calc 33.9 Estimated GFR 52 Random Glucose 147 H Lactic Acid 1.0 Calcium 9.6 Magnesium 1.9 Total Bilirubin 1.0 Direct Bilirubin 0.3 AST 25 ALT 19 Alkaline Phosphatase 57 C-Reactive Protein 3.30 H B-Natriuretic Peptide 112 H Total Protein 7.9 Albumin 4.8 Lipase 29 Influenza Type A (PCR) NEGATIVE Influenza Type B (PCR) NEGATIVE RSV RNA Qual (PCR) NEGATIVE SARS-CoV-2 RNA (RT-PCR) NEGATIVE ECG Attestation: I personally reviewed and interpreted this ECG as follows: (Sinus rhythm with marked sinus arrhythmia Qtc 427 ) Prior ECG tracings: available for review Imaging Radiologist's Impressions: CTA CHest Findings: The heart size is normal. RV/LV ratio is normal. The thoracic aorta is normal caliber. No acute pulmonary embolus. The visualized thyroid and mediastinum are unremarkable. No consolidation or pleural effusion. Minimal scarring at the right lung apex. There is mild hydronephrosis of the right kidney. No acute fractures. IMPRESSION: 1. No evidence of pulmonary artery embolism. 2. Mild hydronephrosis of the right kidney. Assessment and Plan (1) Acute hypoxic respiratory failure: Status: Acute Plan Patient is an 84-year-old female currently independent and living alone with past medical history carotid stenosis, glaucoma, osteoporosis, peripheral neuropathy, cervical stenosis with surgical intervention, COPD not on any inhalers or O2 at home, recent UTI/ nocturnal frequency started on Macrodantin, right hip replacement, hypothyroidism, HTN, chronic constipation was brought in by ambulance earlier this morning after awakening experiencing sudden onset profound weakness and feeling faint but no syncopal episodes or loss of consciousness. Acute Hypoxic Respiratory Failure with underlying COPD (former smoker) CTA negative for PE, consolidation, effusion Started on Methylprednisolone, will continue 60 mg IV BID Duo nebs p.r.n. Budesonide b.i.d. Patient could benefit from rescue inhaler and possible daily inhaler for discharge and/or follow with Pulmonary referral as an outpatient Incentive spirometer O2 via nasal cannula, wean as tolerated - patient does not use oxygen at home Leukocytosis/ UTI/ possible URI LA WNL, CRP elevated Pt does not meet criteria for sepsis Hydration provided Likely secondary to viral URI versus UTI Viral studies for COVID, RSV and flu negative UA highly suspicious for ongoing UTI, patient will continue IV ceftriaxone Most likely explains patient profound weakness and nocturnal frequency Follow urine culture Weakness Secondary to UTI and acute hypoxic respiratory failure PT eval in the a.m. Hyponatremia (132) 0.9 NACL 75 mls per hour Baseline Na 134 based on lab hx BMP in AM HTN Continue lisinopril Noted mild R kidney hydronephrosis on CTA Recommend follow up with PCP/ referral to nephrology as needed (reviewed with attending Dr. Vargas) Monitor renal fx, currently stable History of carotid stenosis Acute presentation does not appear to be related to her known carotid stenosis Recommend patient continue to follow as an outpatient was specialist and PCP Constipation (chronic) Continue MiraLax Adding senna at HS Regular alcohol use Patient admits to drinking 2 glasses of wine minimum up to 5 days per week Adding thiamine, folic acid and multivitamin Counseling provided patient receptive and may begin to reduce her use to 1 drink per outing as patient continues to drive No indication for CIWA at this time, patient denies history of withdrawal DVT prophylaxis: Lovenox Med rec pending Full code status Quality Stroke Does the patient have a stroke diagnosis?: No Reason for No Anti-thrombotic by Day Two: N/A - Med Ordered VTE Prior VTE?: No VTE Risk Level:: Medical - moderate - high VTE Device Contraindication: N/A - Device Ordered VTE Drug Contraindication: N/A - Med Ordered
--- NOTE | 2025-06-02 19:24 | PC.NURSE ---
This procedure writer assumed care of this Pt at 1900. Admitting PA at bedside.
[2025-06-02 19:33] LABS: Appearance Urine Clear; Glucose Urine UA Negative (Negative); PH 7.0 (5.0-9.0); Specific Gravity - Urine 1.025 (1.005-1.025); UMIC TRIGGER UACC YES
[2025-06-02 20:01] LABS: UACC Culture Trigger YES
--- NOTE | 2025-06-02 22:38 | PC.NURSE ---
Pt A&Ox3, denies any pain. Pt ambulated with 1 assist to BR with walker.
[2025-06-02] MEDS: 0.9 % Sodium Chloride Flush 3 ML SYRINGE IVFLUSH (23:52)
[2025-06-03] VITALS (10 sets, daily range): BP systolic 141–183; BP diastolic 63–81; PULSE 86–99; RESP 14–20; TEMP 36.4–37; O2SAT 92–95; BMI 23.4
[2025-06-03 06:15] LABS: Hematocrit 32.7 % (37.0-47.0); Hemoglobin 11.3 g/dl (12.0-16.0); Imm Gran Abs Auto 0.10 X10*3/uL (0.00-0.03); Imm Gran Pct Auto 0.6 % (0.0-0.4); Lymphocytes Absolute Auto 0.5 X10*3/uL (1.2-4.9); MANUAL DIFF FLAG SCAN; Mean Corpuscular HGB Conc 34.6 g/dl (31.0-35.0); Mean Corpuscular Hemoglobin 32.5 pg (27.0-33.0); Mean Corpuscular Volume 94.0 fL (80.0-98.0); NRBC Abs Auto 0.000 X10*3/uL (0.0-0.012); NRBC Pct Auto 0.0 /100WBC (0.0-0.2); Platelet Count 224 X10*3/uL (160-400); Red Blood Count 3.48 X10*6/uL (4.20-5.50); SCAN SMEAR FLAG 1; White Blood Count 15.6 X10*3/uL (4.8-10.8)
[2025-06-03 06:18] LABS: VBG HCO3 24 mmol/L (22-26); VBG O2 % Saturation 95.0 %
[2025-06-03 06:19] LABS: Venous Blood Gas Refer to POC result
[2025-06-03 06:33] LABS: Anion Gap 14 (12-20); Blood Urea Nitrogen 27 mg/dL (9-16); Calcium 8.7 mg/dL (8.4-10.2); Carbon Dioxide 23 mmol/L (22-29); Chloride 102 mmol/L (96-108); Creatinine Clr Calc Pharmacy 40.2; Estimated Glomerular Filt Rate > 60; Potassium 4.3 mmol/L (3.3-5.1); Sodium 135 mmol/L (135-145)
--- NOTE | 2025-06-03 07:48 | PC.NURSE ---
patient a&ox3, vss, cardiac cath lab technologist nsr, rr equal/non labored, lungs diminished, ivf running per order NS@ 75ml/hr. pt denies pain/discomfort at this time, ate 100% of breakfast, call irwin within reach, plan of care ongoing.
--- NOTE | 2025-06-03 10:50 | PHA.MEDREC ---
Pharmacy Consult ? Medication Reconciliation Pharmacy has completed the medication reconciliation. Spoke to patient, she has her own written med list and was able to confirm medications. Verified multiple times with patient that she takes dorzolamide eye drops 1 drop ou qam and dorzolamide/timolol 1 drop ou qhs. She takes levothyroxine 150 mcg on wednesday and wednesday and 75 mcg daily for the rest of the week. Patient confirmed she has 2 more days left of macrobid and she takes miralax 17 gram daily. Last dose of medications was wednesday06/01/25 night, except she took a dose of macrobid 06/02/25 AM.
--- NOTE | 2025-06-03 15:09 | MHC.CM.PN ---
CM ATTEMPTED TO MEET WITH PT WHO WAS SLEEPING CM TO REVISIT
[2025-06-03] MEDS: Dorzolamide HCl 2 % Ophth Sol 10 ML DRPBTL 1 DROP EYE-BOTH ×2 (15:11→20:42)
[2025-06-03] MEDS: 0.9 % Sodium Chloride Flush 3 ML SYRINGE IVFLUSH ×2 (15:16→22:27)
--- NOTE | 2025-06-03 16:30 | MHC.CM.PN ---
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
--- NOTE | 2025-06-03 18:00 | HO.PM.IMPN ---
Subjective Subjective Date of Service: 06/03/25 Interval History: COPD exacerbation, UTI Review of Systems Shortness of breaths seems to be improving Denies any chest pain Physical Exam Exam: Exam: Appearance: Alert.? Oriented X3.? cvs: rrr, [id number] . res: Air entry slightly diminished, has mild wheezing bilateral. abd: no rebound or guarding ,nt, bs present. ext pulses present , no cyanosis neuro: axo3 , nonfocal. Vital Signs: Vital Signs: Last Vital Signs Temp 98.3 F 06/03/25 15:52 Pulse 99 06/03/25 15:52 Resp 14 06/03/25 15:52 BP 179/81 H 06/03/25 15:52 Pulse Ox 93 06/03/25 15:52 O2 Del Method Room Air 06/03/25 15:52 O2 Flow Rate 2 06/02/25 15:54 BMI result Body Mass Index 23.4 Objective Data Active Medications Acetaminophen (Acetaminophen 325 Mg Tablet) 650 mg PO Q6H PRN PRN Reason: Pain, Mild 1-3,fever,headache Albuterol/Ipratropium (Albuterol/Iprat 2.5/0.5mg 3 Ml Ampul.Neb) 3 ml INHALE Q4H PRN PRN Reason: Shortness of Breath/Wheezing Amlodipine Besylate (Amlodipine Besylate 2.5 Mg Tablet) 2.5 mg PO DAILY@1700 DARLINE; Protocol Last Admin: 06/03/25 16:28 Dose: 2.5 mg Documented By: MOE Budesonide (Budesonide 0.5 Mg/2 Ml Ampul.Neb) 0.5 mg INHALE RBID [facility] Last Admin: 06/03/25 07:36 Dose: 0.5 mg Documented By: SCOVISRIDEVI Calcium Carbonate (Calcium Carbonate 750 Mg Tab.Chew) 750 mg PO Q4H PRN PRN Reason: Heartburn Ceftriaxone Sodium (Ceftriaxone Sodium 1 Gm Vial) 1 gm IVPUSH Q24H [facility] Last Admin: 06/03/25 15:10 Dose: 1 gm Documented By: MOE Dorzolamide HCl (Dorzolamide Hcl 2 % Ophth Kaci 10 Ml Drpbtl) 1 drop EYE-BOTH DAILY [facility] Last Admin: 06/03/25 15:11 Dose: 1 drop Documented By: MOE Dorzolamide/Timolol (Dorzolamide/Timolo 2.23%/0.68% 10 Ml Drbtl) 1 drop EYE-BOTH BEDTIME [facility] Enoxaparin Sodium (Enoxaparin Sodium 40 Mg/0.4 Ml Syringe) 40 mg SUBCUT Q24H [facility] Last Admin: 06/02/25 20:42 Dose: 40 mg Documented By: REMI Levothyroxine Sodium (Levothyroxine Sodium 75 Mcg Tablet) 75 mcg PO MoTuThFrSa@0600 [facility] Levothyroxine Sodium (Levothyroxine Sodium 150 Mcg Tablet) 150 mcg PO SuWe@0600 [facility] Last Admin: 06/03/25 12:33 Dose: 150 mcg Documented By: MOE Lisinopril (Lisinopril 10 Mg Tablet) 30 mg PO DAILY [facility]; Protocol Last Admin: 06/03/25 12:29 Dose: 30 mg Documented By: MOE Magnesium Hydroxide (Milk Of Magnesia 30 Ml Oral.Susp) 30 ml PO DAILY PRN PRN Reason: Constipation Melatonin (Melatonin 3 Mg Tablet) 6 mg PO BEDTIME PRN PRN Reason: Insomnia Methylprednisolone Sodium Succinate (Methylprednisolone Sod Succ 125 Mg/2 Ml Vial) 60 mg IVPUSH Q12H [facility] Last Admin: 06/03/25 12:33 Dose: 60 mg Documented By: MOE Ondansetron HCl (Ondansetron Hcl 4 Mg/2 Ml Vial) 4 mg IVPUSH Q8H PRN PRN Reason: Nausea and Vomiting Polyethylene Glycol (Polyethylene Glycol 3350 17 Gm Powd.Pack) 17 gm PO DAILY [facility] Last Admin: 06/03/25 07:46 Dose: 17 gm Documented By: MIGDALIA Polyethylene Glycol (Polyethylene Glycol 3350 17 Gm Powd.Pack) 17 gm PO DAILY [facility] Senna (Sennosides 8.6 Mg Tablet) 17.2 mg PO BEDTIME [facility] Last Admin: 06/02/25 20:43 Dose: 17.2 mg Documented By: REMI Sodium Chloride (0.9 % Sodium Chloride Flush 3 Ml Syringe) 3 ml IVFLUSH QSHIFT [facility] Last Admin: 06/03/25 15:16 Dose: 3 ml Documented By: MOE Labs 06/03/25 06:06 06/03/25 06:06 Labs: Laboratory Results - last 24 hr 06/02/25 06/03/25 06/03/25 19:21 06:06 06:14 MCV 94.0 MCH 32.5 MCHC 34.6 RDW 13.5 Plt Count 224 MPV 10.5 Immature Gran % (Auto) 0.6 H Neut % (Auto) 95.7 H Lymph % (Auto) 3.0 L Mayes % (Auto) 0.6 L Eos % (Auto) 0.0 Baso % (Auto) 0.1 Lymph # (Auto) 0.5 L Mayes # (Auto) 0.1 Eos # (Auto) 0.0 Baso # (Auto) 0.0 Abs Immat Gran (auto) 0.10 H Absolute Neuts (auto) 14.9 H Absolute Nucleated RBC 0.000 Nucleated RBC % (auto) 0.0 Smear Tech's Comments VERIFIED VBG pH 7.42 VBG pCO2 37 VBG pO2 68 VBG HCO3 24 VBG O2 Saturation 95.0 VBG Base Excess 0.6 Anion Gap 14 Estim Creat Clear Calc 40.2 Estimated GFR > 60 Random Glucose 139 H Calcium 8.7 D Urine Color Yellow Urine Appearance Clear Urine pH 7.0 Ur Specific [place] 1.025 Urine Protein Trace Urine Glucose (UA) Negative Urine Ketones 15 Urine Blood Trace H Urine Nitrite Negative Ur Leukocyte Esterase Moderate (2+) H Urine RBC 3-5 H Urine WBC >50 H Ur Squamous Epith Cells 0-2 Urine Bacteria None Seen Hyaline Casts 0-2 Microbiology Microbiology Results: Microbiology 06/02/25 14:49 Blood Culture - Preliminary Blood - Venous No growth after 24 hours. 06/02/25 14:50 Blood Culture - Preliminary Blood - Venous No growth after 24 hours. 06/02/25 21:15 Urine Culture - Preliminary Urine clean catch - Clean Catch Midstream No growth to date. Assessment and Plan (1) Acute hypoxic respiratory failure: Status: Acute Assessment and Plan: 84-year-old female currently independent and living alone with past medical history carotid stenosis, glaucoma, osteoporosis, peripheral neuropathy, cervical stenosis with surgical intervention, COPD not on any inhalers or O2 at home, recent UTI/ nocturnal frequency started on Macrodantin, right hip replacement, hypothyroidism, HTN, chronic constipation was brought in by ambulance earlier this morning after awakening experiencing sudden onset profound weakness and feeling faint but no syncopal episodes or loss of consciousness. Acute Hypoxic Respiratory Failure with underlying COPD (former smoker) CTA negative for PE, consolidation, effusion Shortness of breaths seems improving Taper steroid to 40 mg IV, taper oxygen. Duo nebs p.r.n. Budesonide b.i.d. Patient could benefit from rescue inhaler and possible daily inhaler for discharge and/or follow with Pulmonary referral as an outpatient Incentive spirometer O2 via nasal cannula, wean as tolerated - patient does not use oxygen at home Leukocytosis/ UTI/ possible URI LA WNL, CRP elevated Pt does not meet criteria for sepsis Hydration provided Likely secondary to viral URI versus UTI Viral studies for COVID, RSV and flu negative plan: UA highly suspicious for ongoing UTI, patient will continue IV ceftriaxone Most likely explains patient profound weakness and nocturnal frequency Follow urine culture Weakness Secondary to UTI and acute hypoxic respiratory failure PT eval in the a.m. Hyponatremia (132) Status post IV fluid improved to 135. HTN Continue lisinopril Noted mild R kidney hydronephrosis on CTA Recommend follow up with PCP/ referral to nephrology as needed . Monitor renal fx, currently stable History of carotid stenosis Acute presentation does not appear to be related to her known carotid stenosis Recommend patient continue to follow as an outpatient was specialist and PCP Constipation (chronic) Continue MiraLax Adding senna at HS Regular alcohol use Patient admits to drinking 2 glasses of wine minimum up to 5 days per week Adding thiamine, folic acid and multivitamin Counseling provided patient receptive and may begin to reduce her use to 1 drink per outing as patient continues to drive No indication for CIWA at this time, patient denies history of withdrawal DVT prophylaxis: Lovenox Med rec pending Full code status Quality Stroke Does the patient have a stroke diagnosis?: No Reason for No Anti-thrombotic by Day Two: N/A - Med Ordered VTE Prior VTE?: No VTE Risk Level:: Medical - moderate - high VTE Device Contraindication: N/A - Device Ordered VTE Drug Contraindication: N/A - Med Ordered
[2025-06-04 04:00] VITALS: BP 197/73; PULSE 102; RESP 18; TEMP 36.4; O2SAT 90
--- NOTE | 2025-06-04 04:18 | PC.NURSE ---
Pt's BP-197/73 notified increased norvasc to 5mg and ordered a now dose given at 0415.
[2025-06-04 07:21] VITALS: BP 179/80; PULSE 87; RESP 16; TEMP 36.6; O2SAT 94
[2025-06-04] MEDS: Dorzolamide HCl 2 % Ophth Sol 10 ML DRPBTL 1 DROP EYE-BOTH (08:02)
[2025-06-04] MEDS: 0.9 % Sodium Chloride Flush 3 ML SYRINGE IVFLUSH (08:09)
[2025-06-04 12:35] LABS: Hemoglobin A1C 93.2548 umol/L; Total Hemoglobin (HGBA1C) 3149.9211 umol/L
--- NOTE | 2025-06-04 12:43 | PM.DS ---
DS: Providers Provider Date of Service: 06/04/25 Date of admission: 06/02/25 18:17 Date of discharge: 06/04/25 Primary care physician: Rey Hope MD Attending physician on discharge: Edison Smith Discharging clinician: Edison Smith DS: Diagnosis Discharge Diagnosis (1) Acute hypoxic respiratory failure: Status: Acute DS: Summary Hospital Course Hospital Course: HPI:84-year-old female currently independent and living alone with past medical history carotid stenosis, glaucoma, osteoporosis, peripheral neuropathy, cervical stenosis with surgical intervention, COPD not on any inhalers or O2 at home, recent UTI/ nocturnal frequency started on Macrodantin, right hip replacement, hypothyroidism, HTN, chronic constipation was brought in by ambulance earlier this morning after awakening experiencing sudden onset profound weakness and feeling faint but no syncopal episodes or loss of consciousness. Patient denies any falls. Patient states she was recently started on Macrodantin by her PCP for UTI. Patient did go out last evening for dinner with her friends, had her usual 2 glasses of wine and was able to drive home. Patient denies taking any arru-mbh-xojbgby medications or homeopathic medications for sleep prior to going to bed at night. Patient denies history of diabetes. Patient was evaluated in the emergency department and noted to have no changes in her neurological evaluation. Patient denied any headache, visual changes or chest pain. Patient was noted to be wheezing and was started on methylprednisolone 125 mg IV x1. CTA was done and was negative for PE, pleural effusion or pneumonia. Patient does have a leukocytosis of 16.4, no bandemia. CRP is elevated at 3.30, lactic acid normal. BNP 153. Patient is reporting continued urinary frequency at night. This prompted patient to seek intervention with her primary care physician. Patient does not usually hydrate well with water. Patient does have a mild hyponatremia of 132. Patient was noted to be able to ambulate with walker on room air. Pulse ox currently 91% on room air. Incidentally mild hydronephrosis of the right kidney was found. Creatinine clearance and GFR are baseline for this patient. Patient does not normally follow with a calculation reviewer. Patient does take lisinopril daily. Patient reports that she drinks at least 2 glasses of wine mostly 5 nights per week. Patient uses wine socially and denies any issues with withdrawal. Patient no longer smokes and quit smoking approximately 33 years prior. Patient's last CTA of the head and neck was September 2023 and indicated 65% stenoses of the proximal internal carotid arteries bilaterally and moderate to severe stenoses of the distal common carotid arteries bilaterally. Patient does follow with her PCP for this issue and receives referrals as needed. Hospital course: Acute Hypoxic Respiratory Failure with underlying COPD: Patient was started on nebs, steroids, oxygen patient seems to be improved significantly: Going home with p.o. steroids. As recent UTI, leukocytosis improving, urine culture mixed, UA negative for bacteria. Currently asymptomatic Patient had checked his her urine recently with family doctor and on nitrofurantoin please continue that. Hyponatremia improved with hydration. Patient was strongly advised to abstain from alcohol. mild R kidney hydronephrosis on CTA-Recommend follow up with PCP/ referral to nephrology as needed . History of carotid stenosis-Acute presentation does not appear to be related to her known carotid stenosis-outpatient was specialist and PCP. plan: Amlodipine adjusted to 5 mg p.o. daily. Complete nitrofurantoin for UTI at home. Follow-up with PCP-4 CBC and BMP. Patient was strongly advised to abstain from alcohol. Please see also hospital course section for further information. If any new symptoms please go to nearest emergency room for further evaluation. Above management discussed with the patient in detail length she understand and in agreement with the above plan, time spent 45 minute. All questions answered. Staff was present during conversation. Time Attestation Total time managing care of this patient today: 40 mintues. Discharge Coordination Time (in mins): 40 min Quality: Safe Use of Opioids Does Pt have an Active Cancer Diagnosis on the Problem List?: No Quality: Stroke Does the patient have a stroke diagnosis?: No Physical Exam Vital Signs: Vital Signs: Last Vital Signs Temp 97.8 F 06/04/25 07:21 Pulse 87 06/04/25 07:21 Resp 16 06/04/25 07:21 BP 179/80 H 06/04/25 07:21 Pulse Ox 94 06/04/25 07:21 O2 Del Method Room Air 06/04/25 07:21 O2 Flow Rate 2 06/02/25 15:54 BMI result Body Mass Index 23.4 Appearance: Alert.? Oriented X3. cvs: rrr, [id number] , no murmur res: clear to auscultation ,no rhonchii or wheezing abd: no rebound or guarding ,nt, bs present. ext pulses present , no cyanosis . neuro: axo3 , nonfocal. DS: Data Data Completed and Pending Completed studies during hospitalization [Text1]: Procedures Release Cervical Spinal Cord, Open Approach (05/17/24) Labs on day of discharge: Laboratory Results - last 24 hr 06/04/25 12:08 Estimat Average Glucose 94 Hemoglobin A1c % 4.9 Preliminary micro results at discharge 06/02/25 14:49 Blood Culture - Preliminary Blood - Venous No growth after 24 hours. 06/02/25 14:50 Blood Culture - Preliminary Blood - Venous No growth after 24 hours. Discharge Plan Discharge Anticipated Discharge Date/Time: 06/04/25 07:34 Patient Disposition: Home, Self-Care Discharge Diagnosis: copd excerebation, recent uti Referrals: Rey Hope MD [Primary Care Provider, Internal Medicine] - 1 Week Discharge Medications: New prednisone 20 mg Tablet 40 mg PO DAILY Qty: 8 0RF polyethylene glycol 3350 17 gram Powder In Packet 17 g PO DAILY PRN (Reason: constipation) Qty: 30 0RF amlodipine 5 mg Tablet 5 mg PO DAILY Qty: 90 0RF Protocol: Hold for SBP< HOLD for SBP < : 90 thiamine HCl (vitamin B1) 100 mg capsule 100 mg PO DAILY Qty: 60 0RF folic acid 1 mg tablet 1 mg PO DAILY Qty: 30 0RF albuterol sulfate [Ventolin HFA] 90 mcg/actuation Hfa Aerosol Inhaler 1 puff inhalation RQ4H PRN (Reason: sob) Qty: 1 0RF Continued levothyroxine 75 mcg tablet 150 mcg PO SUWE dorzolamide-timolol 22.3-6.8 mg/mL drops 1 drp ophthalmic (eye) BEDTIME Rx Instructions: BOTH EYES nitrofurantoin monohyd/m-cryst 100 mg capsule 1 cap PO BID polyethylene glycol 3350 [Miralax] 17 gram/dose Powder 17 g PO DAILY celecoxib 100 mg capsule 100 mg PO DAILY dorzolamide 2 % Drops 1 drp OPHTHALMIC (EYE) DAILY Rx Instructions: BOTH EYES lisinopril 30 mg tablet 30 mg PO DAILY levothyroxine 75 mcg tablet 75 mcg PO MOTUTHFRSA Discontinued amlodipine 2.5 mg tablet 2.5 mg PO DAILY Discharge Orders: Discharge Order (Routine); Ordered 06/04/25 Ordered By: Edison Smith Diet: Advance to usual diet Activity on Discharge: As tolerated Stand Alone Forms: Patient Portal Discharge page Print Language: Slovak Other Ambulatory Orders: Basic Metabolic Panel (Routine) Timeframe: 1 Week Facility: [facility] - Location: Laboratory Ordered By: Edison Smith Complete Blood Count no Diff (Routine) Timeframe: 1 Week Facility: [facility] - Location: Laboratory Ordered By: Edison Smith Care Plan Goals: Acute Hypoxic Respiratory Failure with underlying COPD: Patient was started on nebs, steroids, oxygen patient seems to be improved significantly: Going home with p.o. steroids. As recent UTI, leukocytosis improving, urine culture mixed, UA negative for bacteria. Patient had checked his her urine recently with family doctor and on nitrofurantoin please continue that. If any new symptoms please go to nearest emergency room for further evaluation. Hyponatremia improved with hydration. Patient was strongly advised to abstain from alcohol. mild R kidney hydronephrosis on CTA-Recommend follow up with PCP/ referral to nephrology as needed . History of carotid stenosis-Acute presentation does not appear to be related to her known carotid stenosis-outpatient was specialist and PCP. Health Concerns: as above. Plan of Treatment: Amlodipine adjusted to 5 mg p.o. daily. Complete nitrofurantoin for UTI at home. Follow-up with PCP-4 CBC and BMP. Assessment: as above. Discharge Date/Time: 06/04/25 13:50
--- NOTE | 2025-06-04 12:48 | MHC.CM.PN ---
DP: PT HAS BEEN MEDICALLY CLEARED FOR DC HOME,NO SERVICES. PT IS DECLINING HOME SERVICES AT THIS TIME, MD MADE AWARE. PT'S FAMILY WILL TRANSPORT HOME.
== END 2025-06-04 13:50 | disposition home or self-care (01) | DRG 190 ==
LOC: HO.ED 18:18 → HO.EDOVER 18:25 → HO.S3 06-03 08:01
PROVIDERS: Emergency Medicine; Nurse Practitioner Family; Student in an Organized Health Care Education/Training Program; Admitting Provider Internal Medicine; Emergency Provider Emergency Medicine; PCP Internal Medicine; Visit Provider Internal Medicine
DX: J44.1 Chronic obstructive pulmonary disease with (acute) exacerbation (principal); J96.01 Acute respiratory failure with hypoxia; E87.1 Hypo-osmolality and hyponatremia; N13.6 Pyonephrosis; K59.09 Other constipation; E03.9 Hypothyroidism, unspecified; Z20.822 Contact with and (suspected) exposure to COVID-19; Z87.891 Personal history of nicotine dependence; Z79.890 Hormone replacement therapy; Z79.899 Other long term (current) drug therapy
CPT/HCPCS: 36415; 71045; 71275; 80048; 80076; 81001; 82803; 83036; 83605; 83690; 83735; 83880; 84484; 85025; 86140; 87040; 87086; 87637; 93005; 94640; 97162; 99285; J0696; J1650; J2919; Q9967

== ENCOUNTER → 2025-06-02 14:15 | Outpatient (BNV) | payer MEDICARE, SELFPAY | PROVIDERS: Emergency Provider Emergency Medicine; PCP Internal Medicine; Visit Provider Radiology Diagnostic Radiology | DX: R09.02 Hypoxemia (principal); R06.02 Shortness of breath | CPT/HCPCS: 71045; 71275 ==

== ENCOUNTER → 2025-06-02 14:15 | Outpatient (BNV) | payer MEDICARE, SELFPAY | PROVIDERS: Admitting Provider Internal Medicine; Emergency Provider Emergency Medicine; PCP Internal Medicine; Visit Provider Internal Medicine Cardiovascular Disease | DX: R53.1 Weakness (principal) | CPT/HCPCS: 93010 ==

== ENCOUNTER → 2025-06-02 18:17 | Outpatient (BNV) | payer MEDICARE, SELFPAY | PROVIDERS: Admitting Provider Internal Medicine; Emergency Provider Emergency Medicine; PCP Internal Medicine; Visit Provider Nurse Practitioner Family | DX: J96.01 Acute respiratory failure with hypoxia (principal) | CPT/HCPCS: 99223; 99231; 99239 ==

== ENCOUNTER 2025-06-21 14:23 | Outpatient (REF) | payer MEDICARE, SELFPAY ==
--- NOTE | ~2025-06-21 | US_ITS ---
EXAMINATION: US RETROPERITONEUM HISTORY: HYDRO OF KIDNEYS TECHNIQUE: Real-time grayscale ultrasound imaging of the kidneys was performed and images were reviewed. COMPARISON: Correlation is made with the upper abdominal images from a chest CTA dated 06/02/2025. FINDINGS: Right kidney: The right kidney measures 8.6 x 3.9 x 4.3 cm. Renal parenchymal echotexture and thickness are normal. There are no masses. There is mild prominence of the intrarenal collecting system. Left Kidney: The left kidney measures 9.5 x 3.9 x 4.3 cm. Renal parenchymal echotexture and thickness are normal. There are no masses. There is no hydronephrosis or renal calculi. There is a small amount of layering debris in the urinary bladder. Bilateral ureteral jets are identified. Before voiding, the urinary bladder measured 15.1 x 10.2 x 11.4 cm, for an estimated volume of 922 mL. After voiding, the urinary bladder measured 12.8 x 9.5 x 12.8 cm, for an estimated volume of 515 mL. US/US retroperitoneal comp IMPRESSION: 1. Mild fullness of the right intrarenal collecting system. 2. Small amount of debris in the urinary bladder. 3. Post void bladder residual of 515 mL. Electronically signed by: Ernesto Luna MD 06/21/2025 03:44 PM EDT
--- OUTSIDE RECORDS SUMMARY | 2025-06-21 15:08 | XMS_ITS | Patient Health Record ---
Author Organization [facility] Chilo michael Garza Address [address] [facility] [place] [address] Care Team Providers Care Pick Up Operator Name Role Phone Rey Hope MD Primary Care Provider Ameena Colon Unavailable [phone] Lan Cheney Unavailable [phone] Jose Saucedo Unavailable [phone] Allergies No Known Allergies Reason For Referral [...] Problem Status W/U Status Risk Notes Problem Bilateral atherosclerosis of arteries of lower limbs (disorder) ([id number] ) Atherosclerosis of [place] artery of both lower extremities, with unspecified presence of clinical manifestation (I70.203) Active confirmed Q7(A), Q8(2B), Q9(1B,2 C) Vital Signs Blood pressure diastolic 65 mm Hg 05/28/2025 Height 5ft 1in in 05/28/2025 Blood pressure systolic 115 mm Hg 05/28/2025 Weight 133 lbs 05/28/2025 BMI 25.13 kg/m2 05/28/2025 Procedures Procedure Date Ordered Date Performed Result Body Sit e 37543-BILAQDT NAIL, 6 OR MORE 10/16/2024 N/A 51579-KCDY SKIN LESIONS, 2 TO 4 10/16/2024 N/A 79024-EKAMMKU NAIL, 6 OR MORE 02/22/2025 N/A 02718-VRRY SKIN LESIONS, 2 TO 4 02/22/2025 N/A 01353-MHROWXX NAIL, 6 OR MORE 05/28/2025 N/A 14010-TUXB SKIN LESIONS, 2 TO 4 05/28/2025 N/A Encounters Encounter Location Date Provider Diagnosis [facility] [place] [address] [place] [address] 2024 Lan Cheney Unspecified atherosclerosis of [place] arteries of extremities, bilateral legs I70.203 ; Skin disease L98.9 ; Tinea unguium B35.1 ; Xerosis cutis L85.3 ; Hallux valgus (acquired), left foot M20.12 ; Hallux valgus (acquired), right foot M20.11 ; Other hammer toe(s) (acquired), left foot M20.42 ; Other hammer toe(s) (acquired), right foot M20.41 and Neuralgia and neuritis, unspecified M79.[address] [address] 10/16/2024 Ameena Beard Atherosclerosis of [place] artery of both lower extremities, with unspecified presence of clinical manifestation I70.203 ; Tinea unguium B35.1 ; Pain in right toe(s) M79.674 and Pain in left toe(s) M79.[address] [address] 02/22/2025 Ameena Beard Atherosclerosis of [place] artery of both lower extremities, with unspecified presence of clinical manifestation I70.203 ; Tinea unguium B35.1 ; Pain in right toe(s) M79.674 ; Pain in left toe(s) M79.675 and Xerosis of skin L85.[address] [address] 05/28/2025 Ameena Beard Atherosclerosis of [place] artery of both lower extremities, with unspecified presence of clinical manifestation I70.203 ; Tinea unguium B35.1 ; Pain in right toe(s) M79.674 ; Pain in left toe(s) M79.675 and Xerosis of skin L85.3 Assessments Encounter Date Diagnosis (ICD Code) Assessment Notes Treatment Notes Treatment Clinical Notes Section Notes 2024 Unspecified atherosclerosis of [place] arteries of extremities, bilateral legs (ICD-10 - I70.203) 10/16/2024 Atherosclerosis of [place] artery of both lower extremities, with unspecified presence of clinical manifestation (ICD-10 - I70.203) Q7(A), Q8(2B), Q9(1B,2C) 02/22/2025 Atherosclerosis of [place] artery of both lower extremities, with unspecified presence of clinical manifestation (ICD-10 - I70.203) Q7(A), Q8(2B), Q9(1B,2C) 05/28/2025 Tinea unguium (ICD-10 - B35.1) 05/28/2025 Atherosclerosis of [place] artery of both lower extremities, with unspecified presence of clinical manifestation (ICD-10 - I70.203) Q7(A), Q8(2B), Q9(1B,2C) 05/28/2025 Pain in right toe(s) (ICD-10 - M79.674) 02/22/2025 Tinea unguium (ICD-10 - B35.1) 2024 Skin disease (ICD-10 - L98.9) 10/16/2024 Tinea unguium (ICD-10 - B35.1) 2024 Tinea unguium (ICD-10 - B35.1) 10/16/2024 Pain in right toe(s) (ICD-10 - M79.674) 05/28/2025 Pain in left toe(s) (ICD-10 - M79.675) 02/22/2025 Pain in right toe(s) (ICD-10 - M79.674) 05/28/2025 Xerosis of skin (ICD-10 - L85.3) 10/16/2024 Pain in left toe(s) (ICD-10 - M79.675) 02/22/2025 Pain in left toe(s) (ICD-10 - M79.675) 2024 Xerosis cutis (ICD-10 - L85.3) 2024 Hallux valgus (acquired), left foot (ICD-10 - M20.12) 02/22/2025 Xerosis of skin (ICD-10 - L85.3) 2024 Hallux valgus (acquired), right foot (ICD-10 - M20.11) 2024 Other hammer toe(s) (acquired), left foot (ICD-10 - M20.42) 2024 Other hammer toe(s) (acquired), right foot (ICD-10 - M20.41) 2024 Neuralgia and neuritis, unspecified (ICD-10 - M79.2) Plan Of Treatment Pending Test Test Name Order Date 36917-[id number] NAIL, 6 OR MORE 10/16/2024 83114-GUQZWAS NAIL, 6 OR MORE 02/22/2025 03469-VZJJEHP NAIL, 6 OR MORE 05/28/2025 85168-URUY SKIN LESIONS, OVER 4 12/07/19 23 62630-XLVR SKIN LESIONS, OVER 4 03/08/20 23 52505-IDQX SKIN LESIONS, 2 TO 4 02/23/20 25 60568-IGGC SKIN LESIONS, 2 TO 4 10/16/20 24 45333-GPLA SKIN LESIONS, 2 TO 4 05/28/20 25 V3648-BTKHFKDJ DYSTROPHIC NAILS ANY # J9441-FBWEYJYM DYSTROPHIC NAILS ANY # Next Appt Details Provider Name:Ameena Mike peng, 08/27/2025 11:15:00 AM, [address] [place] [address], [phone], Insurance Providers Payer Name Payer Address Payer Phone Subscriber Number Group Number Insured Name Patient Relationship to Insured Coverage Start Date Coverage End Date Medicare National [employer] [address] [place] [address] [id number] Giana Carlos Self - patient is the insured [employer] [address] [place] [address] [id number] Giana Carlos Self - patient is the insured Medical (General) History Medical History History ICD Code Back,Hip,and Knee pain Surgical History Surgery Date(Month/Year) hip surgery 10/06/2022 Spinal Surgery 05/17/24
--- OUTSIDE RECORDS SUMMARY | 2025-06-21 15:08 | XMS_ITS | Clinical Summary ---
Author Organization [facility] Address [address] [address] Phone Care Team Providers Care Entrepreneur Name Role Phone Rey Hope MD Primary Care Provider [phone] Sue Hendrickson MD Unavailable Caitlin Armstrong MD Unavailable Yohannes Finch OD Unavailable [phone] Rey Hope MD Unavailable [phone] Allergies No known active allergies Medications calcium citrate-vitamin D3 (CITRACAL+D) 950 mg (200 mg elemental)-250 units Tab Take 1 tablet by mouth 2 (two) times a day with meals. Active latanoprost (XALATAN) 0.005 % ophthalmic solution Place 1 drop into each eye nightly at bedtime. 06/01/20 23 Active diclofenac sodium (VOLTAREN) 1 % Gel 2 g nightly at bedtime. On feet 06/09/20 23 Active levothyroxine (SYNTHROID, LEVOTHROID) 75 MCG tabletIndicatio ns:Hypothyroidi sm, unspecified type TAKE 1 TABLET 5 DAYS PER WEEK, AND 2 TABLETS ON SUNDAYS AND WEDNESDAYS 108 tablet 3 08/17/20 24 Active dorzolamide-jimmy oloL (COSOPT) 22.3-6.8 mg/mL ophthalmic solution Place 1 drop into each eye 2 (two) times a day. 08/29/20 24 Active lisinopril (PRINIVIL,ZESTR IL) 30 MG tabletIndicatio ns:Benign essential hypertension Take 1 tablet (30 mg total) by mouth daily. 90 tablet 3 01/27/20 25 Active celecoxib (CELEBREX) 100 MG capsule Take 100 mg by mouth daily. Active dorzolamide (TRUSOPT) 2 % ophthalmic solution Place 1 drop into each eye every morning. 12/14/19 Active polyethylene glycol (MIRALAX) 17 gram/dose powder Take 17 g by mouth every morning. Active amLODIPine (NORVASC) 5 MG tablet Take 5 mg by mouth daily. 06/04/20 Active albuterol 90 mcg/actuation inhaler Inhale 2 puffs into the lungs every 6 (six) hours as needed. 06/04/20 Active amLODIPine (NORVASC) 2.5 MG tabletIndicatio ns:Primary hypertension TAKE 1 TABLET BY MOUTH EVERY DAY 90 tablet 3 04/04/20 25 025 Discontinued(N o longer taking) cephalexin (KEFLEX) 500 MG capsuleIndicati ons:Acute cystitis without hematuria Take 1 capsule (500 mg total) by mouth 3 (three) times a day for 7 days. 21 capsule 05/17/20 25 025 Discontinued nitrofurantoin (MACROBID) 100 MG capsule Take 1 capsule (100 mg total) by mouth 2 (two) times a day for 5 days. 10 capsule 06/01/20 25 025 Active Problems Problem Noted Date Diagnosed Date Cervical spondylosis 08/10/2024 Overview (08/10/2024): Fol w [facility] spine mylene ADAMES last OV 07/14 plan PT and r/t in 3m Urinary frequency 05/30/2024 Assessment & Plan (05/30/2024 10:40 AM EDT): Patient ended up having a Nuñez catheter placed when she was seen in the emergency department last week for chief complaint of constipation where they gave her an enema subsequently resulting in several bowel movements. She now has urinary urgency and frequency without pain or burning. She denies any abdominal pain or fevers POCT urinalysis revealed positive nitrates, 3+ leukocyte Estrace, 2+ blood and 1+ protein -Urine culture sent out -Patient started on Macrobid 100 mg p.o. twice daily x 5 days History of laminectomy 05/30/2024 Assessment & Plan (05/30/2024 10:37 AM EDT): Patient status post cervical laminectomy C4-C6. Patient tolerated the procedure well. She did have some pain postop which required oxycodone. She will follow-up with the surgeon as scheduled. Incision is well-healed. 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 Overview (06/16/2019): Referred for Mohs per blane Hendrickson on 06/09/19 Chronic obstructive pulmonary disease 07/05/2018 HTN (hypertension) 07/05/2018 Hyperlipidemia 07/05/2018 Spinal stenosis 07/05/2018 Nocturia 07/05/2018 Numbness and tingling 07/05/2018 Osteopenia 07/05/2018 Polyneuropathy 07/05/2018 Encounters Date Type Department Care Team Description 06/17/2025 Telephone [facility] [address] [place] [address] Rey Hope MD Results 06/11/2025 9:40 AM EDT - 06/11/2025 11:59 PM EDT Hospital Encounter [facility] [address] [place] [address] Rey Hope MD Discharge Disposition: Home or Self Care 06/11/2025 8:30 AM EDT Office Visit [facility] [address] [place] [address] Rey Hope MD Primary hypertension (Primary Dx); Nocturia; Bilateral carotid artery stenosis; COPD with acute exacerbation; Benign essential hypertension; Weakness; Hydronephrosis of right kidney; Leg wound, right, initial encounter 06/11/2025 Telephone [facility] [address] [place] [address] Rey Hope MD Imaging Follow Up (06/11/25 Ultrasounds) 06/11/2025 Orders Only [facility] [address] [place] [address] Raina Gudino MD 06/08/2025 Telephone [facility] [address] [facility] [place] [address] Rey Hope MD Schedule appt 06/04/2025 Orders Only [facility] [address] [facility] [place] [address] Raina Gudino MD 06/01/2025 Telephone [facility] [employer] [facility] [address] [place] [address] Tereza Galicia, WOJCIECH Dysuria 05/31/2025 10:45 AM EDT - 05/31/2025 11:59 PM EDT Hospital Encounter [facility] Laboratory [address] [place] [address] Emy Kevin CNP Discharge Disposition: Home or Self Care 05/31/2025 Telephone [facility] [address] [place] [address] Rey Hope MD Urinary Tract Infection 05/17/2025 Telephone [facility] [address] [place] [address] Rey Hope MD Results 05/14/2025 11:30 AM EDT Office Visit [facility] [address] [place] [address] Rey Hope MD Benign essential hypertension (Primary Dx); Pure hypercholesterolemia ; Chronic kidney disease, unspecified CKD stage; Osteoporosis, unspecified osteoporosis type, unspecified pathological fracture presence 05/14/2025 11:06 AM EDT - 05/14/2025 11:59 PM EDT Hospital Encounter [facility] Laboratory [address] [place] [address] Rey Hope MD Discharge Disposition: Home or Self Care 04/02/2025 Refill [facility] [address] [place] [address] Rey Hope MD Medication Refill from Last 3 Months Immunizations Immunization Administration Dates Next Due COVID-19 (Pre-08/30) Pfizer Vaccine, mRNA, PF 09/08/2022,12/27/2020,12/06/2020 INFLUENZA, SPLIT VIRUS, TRIV ALENT W/ PRESERVATIVE IM 07/29/2015,08/08/2013,07/28/2012,07/21,08/01/2010 Influenza High-Dose Quadriva lent Preservative Free IM 2023,08/05/2022,08/08/2020 Influenza High-Dose Trivalen t Preservative Free IM 2024,08/08/2019,07/26/2018,08/09,08/20/2016,07/29/2015,08/16/2014 Influenza Quadrivalent Adjuv anted Preservative Free IM 07/23/2021 Influenza, Unspecified Formulation 08/08/2020, Pneumococcal conjugate PCV13 05/07/2015 Pneumococcal polysaccharide PPSV23 10/08/2005, Td (adult) 5 Lf Tetanus Toxo id, PF, Adsorbed 03/08/2008 Zoster live 02/06/2010 Zoster recombinant 01/23/2022,10/07/2021 Family History Relation Status Comments Father (Age 72) cva Mother (Age 85) Sister (Age 65) cva Social History Tobacco Use Types Packs/Day Years Used Date Smoking Tobacco: Former Cigarettes 0.5 50 0 07/05/1959 - 07/05/2009 Passive Smoke Exposure: Never Smokeless Tobacco: Never Tobacco Cessation:Counseling Given: Not Answered Alcohol Use Standard Drinks/Week Comments Yes 4 (1 standard drink = 0.6 oz pur e alcohol) Education Answer Date Recorded Are you interested in more education? Not on sam e 03/05/2023 Are you concerned about learning? Not on file 03/05/2023 No 03/05/2023 No 03/05/2023 Digital Access Answer Date Recorded No 04/05/2023 No 04/05/2023 Reliable internet access at home? Not on file 04/05/2023 Device with a working camera? Not on file Intimate Partner Violence Answer Date R ecorded Denied Basic Needs Not on file 01/29/2025 In the past 12 months have y ou been in a relationship with a person who hurts, threatens, or tries to control you? No 01/29/2025 Worried food would run out Not on file 01/29 In the past 12 months have y ou been in a relationship with a person who hurts, threatens, or tries to control you? No 01/29/2025 Comments No Sex and Gender Information Value Date Recorded Sex Assigned at Female 03/19/2022 7:07 PM EDT Legal Sex Female 10:12 PM EDT Gender Identity Female 03/19/2022 7:07 PM EDT Sexual Orientation Straight 03/19/2022 7: 07 PM EDT Last Filed Vital Signs Vital Sign Reading Time Taken Comments Blood Pressure 134/68 06/11/2025 8:26 AM EDT Pulse 79 06/11/2025 8:26 AM EDT Temperature 36.4 C (97.5 F) 06/11/2025 8:26 AM EDT Respiratory Rate 16 06/11/2025 8:26 AM EDT Oxygen Saturation 96% 06/11/2025 8:26 AM EDT Inhaled Oxygen Concentration - - Weight 58.5 kg (129 lb) 05/14/2025 11:50 AM EDT Height 157.5 cm (5' 2.01 ) 06/11/2025 8:26 AM ED T Body Mass Index 23.59 05/14/2025 11:50 AM EDT Plan of Treatment Upcoming Encounters Date Type Department Care Team (Late st Contact Info) Description 01/30/2026 10:00 AM EDT Office Visit [facility] [place] [facility] [address] [place] [address] Rey Hope MD [address] [place] [address] [email or web address] Health Maintenance Due Date Last Done Comments RSV VACCINE (1 - 1-dose 75+ series) 2015 Adult Td,Tdap Booster 03/08/2018 03/08/2008 COVID-19 VACCINE ( season) 2024 2023, 09/08/2022, 09/07/2022, Additional history exists BLOOD PRESSURE 12/12/2025 06/11/2025 DEPRESSION SCREENING 05/14/2026 05/14/2025 CREATININE LEVEL 06/11/2026 06/11/2025, , 05/25/2024, Additional history exists POTASSIUM LEVEL 06/11/2026 06/11/2025, 01/07, 05/25/2024, Additional history exists TSH LEVEL 06/11/2026 06/11/2025, 01/07, 05/04/2024, Additional history exists OSTEOPOROSIS SCREENING INITIAL (ONE-TIME) Completed 10/21/2014 PNEUMOCOCCAL VACCINES (50+ years) Completed 05/07/2015, 10/08/2005, 10/08/2002 ZOSTER VACCINES Completed 01/23/2022, 09/10, 02/06/2010 HEPATITIS A VACCINES Aged Out No long er eligible based on patient's age to complete this topic HIB VACCINES Aged Out No longer eligi ble based on patient's age to complete this topic MENINGOCOCCAL VACCINES (ACWY) Aged Out No longer eligible based on patient's age to complete this topic MENINGOCOCCAL VACCINES (B) Aged Out N o longer eligible based on patient's age to complete this topic Medical Devices Not on file Procedures Procedure Name Priority Date/Time Associated Diagnosis Comments URINALYSIS W/REFLEX URINE CULTURE Routine 06/11/2025 10:09 AM EDT Primary hypertension Nocturia FREE T4 Routine 06/11/2025 10:00 AM EDT COMPREHENSIVE METABOLIC PANEL Routine 06/11/2025 10:00 AM EDT Primary hypertension CBC AND DIFFERENTIAL Routine 06/11/2025 10:00 AM EDT Primary hypertension TSH WITH REFLEX Routine 06/11/2025 10:00 AM EDT Primary hypertension OUTSIDE LAB Routine 06/04/2025 9:50 AM EDT OUTSIDE XR CHEST REPORT ONLY Routine 06/02/2025 7:[address] IMAGING REPORT ONLY Routine 06/02/2025 7:50 AM EDT URINE SEDIMENT Routine 05/31/2025 11:13 AM EDT URINALYSIS W/REFLEX URINE CULTURE Routine 05/31/2025 11:13 AM EDT Dysuria URINE CULTURE Routine 05/31/2025 11:13 AM EDT URINE SEDIMENT Routine 05/14/2025 11:18 AM EDT URINALYSIS W/REFLEX URINE CULTURE Routine 05/14/2025 11:18 AM EDT Primary hypertension URINE CULTURE Routine 05/14/2025 11:18 AM EDT OUTSIDE BONE DENSITY SCREENING Routine 10/21/2014 from Last 3 Months or Most Recently Relevant to Health Maintenance Results * Urinalysis w/reflex Urine Culture (06/11/2025 10:09 AM EDT) Only the most recent of3 resultswithin the time period is included. COLOR Yellow Yellow [facility] CLARITY Clear [facility] GLUCOSE Negative Negative [facility] BILI Negative Negative [facility] KETONES Negative Negative [facility] SPECIFIC GRAVITY 1.010 1.005 - 1.030 [facility] BLOOD Negative Negative [facility] PH 7.0 5.0 - 8.0 [facility] Protein-UA Negative Negative [facility] NITRITE Negative Negative [facility] Leukocyte esterase, ur Negative Negative [facility] Urine (Urine) 06/11/2025 10: 09 AM EDT 06/11/2025 10:10 AM EDT us Rey Hope MD URINE ORDERABLES Final Result [facility] [address] [place] [address] * (ABNORMAL) Comprehensive metabolic panel (06/11/2025 10:00 AM EDT) SODIUM 131(L) 133 - 146 mmol/L [facility] POTASSIUM 4.5 3.3 - 5.1 mmol/L [facility] CHLORIDE 93(L) 96 - 108 mmol/L [facility] CO2 26 21 - 35 mmol/L [facility] BUN 28(H) 6 - 19 mg/dL [facility] CREATININE 0.90 0.5 - 1.5 mg/dL [facility] GLUCOSE 82 70 - 99 mg/dL [facility] ALBUMIN 4.1 3.9 - 4.8 g/dL [facility] TOTAL PROTEIN 7.2 6.5 - 8.0 g/dL [facility] CALCIUM 9.4 8.4 - 10.3 mg/dL [facility] ALKALINE PHOSPHATASE 45 39 - 117 U/L [facility] TOTAL BILIRUBIN 0.6 0.0 - 1.2 mg/dL [facility] AST 25 0 - 37 U/L [facility] ALT 18 0 - 40 U/L [facility] GLOBULIN 3.1 1 - 4.8 g/dL [facility] EGFR 63 >59 mL/min/1.7 3m2 [facility] Comment:Estimated glomerular filtration rate calculated using the CKD-EPI refit equation. ANION GAP 17 10 - 20 mmol/L [facility] Blood 06/11/2025 10:0 0 AM EDT 06/11/2025 10:03 AM EDT us Rey Hope MD LAB BLOOD ORDERABLES Final Re sult [address] [address] * (ABNORMAL) TSH with reflex (06/11/2025 10:00 AM EDT) TSH 4.80(H) 0.27 - 4.20 uIU/mL [facility] Blood 06/11/2025 10:0 0 AM EDT 06/11/2025 10:03 AM EDT us Rey Hope MD LAB BLOOD ORDERABLES Final Re sult [facility] [address] [place] [address] * (ABNORMAL) CBC and differential (06/11/2025 10:00 AM EDT) WBC 13.64(H) 4.00 - 11.00 K/uL [facility] RBC 4.06 4.00 - 5.20 M/uL [facility] HGB 13.1 12.0 - 16.0 g/dL [facility] HCT 40.4 36.0 - 46.0 % [facility] PLT 287 150 - 450 K/uL [facility] MCV 99.5 80.0 - 100.0 fL [facility] MCH 32.3(H) 27.0 - 31.0 pg [facility] MCHC 32.4 32.0 - 36.0 g/dL [facility] RDW 13.5 11.5 - 14.5 % [facility] MPV 10.8 8.4 - 12.0 fL [facility] NRBC 0.00 0.00 /100 WBCs [facility] ABSOLUTE NRBC 0.00 0.00 K/uL [facility] DIFF METHOD Auto [facility] NEUTS 71.8 48.0 - 76.0 % [facility] LYMPHS 13.7(L) 18.0 - 41.0 % [facility] MONOS 8.6 4.0 - 11.0 % [facility] EOS 2.9 0.0 - 5.0 % [facility] BASOS 0.4 0.0 - 1.5 % [facility] Granulocytes, immature (%) 2.6(H) 0.0 - 0.9 % [facility] ABSOLUTE NEUTS 9.79(H) 1.92 - 7.60 K/uL [facility] ABSOLUTE LYMPHS 1.87 0.72 - 4.10 K/uL [facility] ABSOLUTE MONOS 1.17(H) 0.16 - 1.10 K/uL [facility] ABSOLUTE EOS 0.40 0.00 - 0.50 K/uL [facility] ABSOLUTE BASOS 0.05 0.00 - 0.15 K/uL [facility] Granulocytes, immature 0.36(H) 0.00 - 0.09 K/uL [facility] Blood 06/11/2025 10:0 0 AM EDT 06/11/2025 10:03 AM EDT Result [facility] Rey Hope MD LAB BLOOD ORDERABLES Final Re sult Performing Organization Address [facility]/ZIP Co de Phone Number [address] [address] * (ABNORMAL) Free T4 (06/11/2025 10:00 AM EDT) FREE T4 1.9(H) 0.9 - 1.7 ng/dL [facility] 06/11/2025 10:0 0 AM EDT 06/11/2025 10:03 AM EDT Result [facility] Rey Hope MD LAB BLOOD ORDERABLES Final Re sult Performing Organization Address City/[facility] Co de Phone Number [address] [address] * Outside Lab (06/04/2025 9:50 AM EDT) Result [facility] Provider LAB BLOOD ORDERABLES Destinee l Result * Outside XR??Chest Report Only (06/02/2025 7:55 AM EDT) Historical Provider IMG XR CHEST Final Res ult * Outside CT Imaging Report Only (06/02/2025 7:50 AM EDT) Result [facility] Historical Provider IMG CT Final Res ult * (ABNORMAL) Urine Culture (05/31/2025 11:13 AM EDT) Only the most recent of2 resultswithin the time period is included. Special Requests None Reflexed from [id number] 05/31/2025 2:20 PM EDT [facility] Urine Culture >100,000 colony forming units per mL ESCHERICHIA COLI(A) 06/01/2025 11:44 AM EDT [facility] Urine 05/31/2025 11:1 3 AM EDT 05/31/2025 11:16 AM EDT Narrative Organism Antibiotic Method Susceptibility Escherichia coli Ampicillin YANDY METHOD <=2: Susceptible Escherichia coli Amoxicillin + Clavulanate YANDY METHOD <=2: Susceptible Escherichia coli Ampicillin + Sulbactam YANDY METHOD <=2: Susceptible Escherichia coli Cefazolin YANDY METHOD <=4: Susceptible Escherichia coli Cefepime YANDY METHOD <=1: Susceptible Escherichia coli Ceftazidime YANDY METHOD <=1: Susceptible Escherichia coli Ceftriaxone YANDY METHOD <=1: Susceptible Escherichia coli Ciprofloxacin YANDY METHOD 0.5: Susceptible Escherichia coli Extended Spectrum B-lactamase YANDY MET HOD Negative Escherichia coli Gentamicin YANDY METHOD <=1: Susceptible Escherichia coli Levofloxacin YANDY METHOD 1: Susceptible Escherichia coli Nitrofurantoin YANDY METHOD 32: Susceptible Escherichia coli Piperacillin-tazobactam YANDY METHOD <=4: Susceptible Escherichia coli Trimethoprim/sulfamethoxazole YANDY MET HOD <=20: Susceptible Comment: Rey Hope MD MICROBIOLOGY - GENERAL ORDERA BLES Final Result Performing Organization Address City/[facility]/ZIP Co de Phone Number [address] [address] * (ABNORMAL) Urine sediment (05/31/2025 11:13 AM EDT) Only the most recent of2 resultswithin the time period is included. WBC TOO NUMEROUS TO COUNT(A) NONE SEEN /hpf [facility] RBC 0-2(A) NONE SEEN /hpf [facility] URINE EPITHELIAL NONE SEEN NONE SEEN [facility] MUCUS NONE SEEN NONE SEEN /hpf [facility] BACTERIA 2+(A) NONE SEEN /hpf [facility] 05/31/2025 11:1 3 AM EDT 05/31/2025 11:16 AM EDT Rey Hope MD URINE ORDERABLES Final Result Performing Organization Address City/[facility]/ZIP Co de Phone Number [address] [address] * OUTSIDE BONE DENSITY SCREENING (10/21/2014) [facility] Signature BONE DENSITY SCREENING - EXTERNAL osteopenia us Historical Provider HEALTH MAINTENANCE Edited Result - Final from Last 3 Months or Most Recently Relevant to Health Maintenance Insurance [employer] MEDEX SUPPLEMENT MEDICARE PART A & B [employer] MEDEX SUPPLEMENT MEDICARE PART A & B [employer] MEDEX SUPPLEMENT [employer] MEDEX SUPPLEMENT [place] MEDEX SUPPLEMENT MEDICARE PART A & B [place] MEDEX SUPPLEMENT BL[place] MEDEX SUPPLEMENT MEDICARE PART A & B [place] MED[place] SUPPLEMENT MEDICARE PART A & B [place] MEDEX SUPPLEMENT MEDICARE PART A & B Advance Directives For more information, please contact: [phone] (9AM - 5PM [facility], Wednesday-Wednesday) * Full Code (Latest Code Status on File) Date Activated Date Inactivated Comments 01/29/2025 8:49 PM Question Answer Comments Code Status Confirmed With: Patient Code Status Communicated To: PCP Code Discussion Comments: pt wats to be full code but wants limits on hertime on machines. will use health care proxy for this Care Teams Entrepreneur Relationship Specialty Start Date End Date Rey Hope MD [address] [place] [phone] PCP - General 11/11/17 Sue Hendrickson MD [address] [place] [address] Dermatology 08/26/20 Caitlin Armstrong MD [address] [place], [place] [address] [address] Ophthalmology 08/26/20 Yohannes Finch OD [address] [place] [id number] Optometry 08/26/20 Rey Hope MD [address] [place] [address] [email or web address] Insurance Assigned Provider 02/12/24 Additional Source Comments The information contained in this document represents components of the legal health record. It is not the complete legal health record.[facility] With [facility]
--- OUTSIDE RECORDS SUMMARY | 2025-06-21 15:09 | XMS_ITS | Patient Health Record ---
Author Organization [facility] Address [address] [place] [address] Care Team Providers Care Trouble Lineman Name Role Phone Rey Hope MD Primary Care Provider Rigo sigala Rubio Villafana Unavailable [phone] Allergies No Known Allergies Reason For Referral No Information Medications Medication SIG (Take, Route, Frequency, Duration) Notes Start Date End Date Status MiraLax 17 GM/SCOOP take for bowel prep Orally Once a day 06/01/2025 Active Voltaren 1 % as directed Externally 06/01/2025 Active amLODIPine Besylate 2.5 MG 1 tablet Oral ly Once a day for 30 day(s) 06/01/2025 Active Dorzolamide HCl 2 % 1 drop into [...] a day for 30 day(s) 06/01/2025 Active Immunizations Vaccine Route Administration Date Status Comme nts Influenza Unknown 07/25/2024 Administered Social History Tobacco Use: Social History Observation [...] Problem Constipation (K59.00) Active confirmed Problem Anorexia (82086538) Anorexia (R63.0) Active confirmed Vital Signs Temperature 98.6 degrees Fahrenheit 06/01/2025 Blood pressure diastolic 01 mm Hg 06/01/2025 Height 63 in 06/01/2025 Blood pressure systolic 001 mm Hg 06/01/2025 Weight 125.4 lbs 06/01/2025 BMI 22.21 kg/m2 06/01/2025 Encounters Encounter Location Date Provider Diagnosis [facility] [address] [place] [address] 06/01/2025 Rubio Villafana Constipation K59.00 and Anorexia [...] and/or worsening bowel pattern with increased bleeding, she should then call me for follow-up and reevaluation. However, if things remain well I have advised [...] and/or worsening bowel pattern with increased bleeding, she should then call me for follow-up and reevaluation. However, if things remain well I have advised her to simply see me again as needed. Giana was very comfortable with this plan. Thank you again for allowing me to participate in Giana's care. I shall continue to keep you advised of her progress. Plan Of Treatment No Information Insurance Providers Payer Name Payer Address Payer Phone Subscriber Number Group Number Insured Name Patient Relationship to Insured Coverage Start Date Coverage End Date MEDICARE OF [place] [address] [facility] [place] [id number] GIANA KAPLAN Self - patient is the insured MED[employer] ATT[employer] CLAIMS [address] [place] [address] [phone] [id number] GIANA KAPLAN Self - patient is the insured 5 Medical (General) History Medical History History ICD Code HTN Denies DE,DM,CVA,Lung disease,renal dise ase Neuropathy Hypothyroidism Previous colonoscopies with Dr. Yohannes Allen in [place]. The colonoscopy in 2004 was negative and the colonoscopy in 2014 revealed a small polyp that was removed and small internal hemorrhoids. Surgical History Surgery Date(Month/Year) Cataracts Spinal stenosis 2023 Total right hip replacement 2022
--- OUTSIDE RECORDS SUMMARY | 2025-06-21 15:09 | XMS_ITS | Patient Health Record ---
Author Organization [facility] Address [address] [place] [address] Care Team Providers Care Envelope Stamping Machine Operator Name Role Phone Rey Hope MD Primary Care Provider Ramya Calrin Unavailable [phone] Reason For Referral No Information Medications Medication SIG (Take, Route, Frequency, Duration) Notes Start Date End Date Status Calcium 1 tab Oral Active Vitamin D3 1000 IU ORAL daily; Duration: -3 [facility] 2011 Active Lisinopril 20MG 1 ORAL daily; Durati on: - [facility] 10/19/2011 Active Levothyroxine Sodium 75MCG 1 ORAL daily; Duration: -3 [facility] 10/29/2014 Active Fish Oil 1200MG 1 ORAL daily; Durati on: -3 [facility] 10/19/2012 Active Fish Oil 1200MG 1 ORAL daily; Durati on: -3 [facility] 10/19/2012 Active Aspirin EC 81MG 1 ORAL daily; Durati on: -3 [facility] 10/19/2012 Active Aspirin EC 81MG 1 ORAL daily; Durati on: -3 [facility] 10/19/2012 Active Vitamin D3 1000 IU ORAL daily; Duration: -3 [facility] 2011 Active Lisinopril 20MG 1 ORAL daily; Durati on: -3 [facility] 10/19/2011 Active Levothyroxine Sodium 75MCG 1 ORAL daily; Duration: -3 [facility] 10/29/2014 Active Social History Tobacco Use: Social [...] W/U Status Risk Notes Problem Essential hypertension (78391582) Unspecified essential hypertension (401.9) Active confirmed Major Problem Menopausal symptom (57695641) Symptomatic menopausal or female climacteric states (627.2) Active confirmed Major Problem Osteoporosis (43455803) Unspecified osteoporosis (733.00) Active confirmed Major Problem Disorder of bone and articular cartilage (disorder) (321541905) Disorder of bone and cartilage, unspecified (733.90) Active confirmed Diag Problem Gynecological examination normal (378040627232546) Routine gynecological examination (V72.31) Active confirmed Major Problem Screening for malignant neoplasm of colon (707314028) Special screening for malignant neoplasms, colon (V76.51) Active confirmed Major Plan Of Treatment No Information Insurance Providers Payer Name Payer Address Payer Phone Subscriber Number Group Number Insured Name Patient Relationship to Insured Coverage Start Date Coverage End Date MEDICARE [address] BETHANY ZHANG [id number] DIRK KAPLAN Self - patient is the insured BCBS OF [facility] [address] [place] [address] [id number] DIRK KAPLAN Self - patient is the insured Medical (General) History Medical History History ICD Code Disorder of bone density and structure, unspecified M85.9 Essential (primary) hypertension I10 Age-related osteoporosis without current pathological fracture M81.0 Menopausal and female climacteric states N95.1 Surgical History Surgery Date(Month/Year) Colonoscopy
== END 2025-06-21 14:24 | disposition home or self-care (01) ==
LOC: HO.HMGCX 14:23
PROVIDERS: PCP Internal Medicine; Visit Provider Internal Medicine
DX: N13.30 Unspecified hydronephrosis (principal)
CPT/HCPCS: 76770

== ENCOUNTER → 2025-06-21 14:36 | Outpatient (BNV) | payer MEDICARE, SELFPAY | PROVIDERS: PCP Internal Medicine; Visit Provider Radiology Diagnostic Radiology | DX: N13.30 Unspecified hydronephrosis (principal) | CPT/HCPCS: 76770 ==

== ENCOUNTER 2025-07-03 17:45 | Emergency (ER) | payer MEDICARE, SELFPAY ==
--- NOTE | ~2025-07-03 | XR_ITS ---
CLINICAL HISTORY: leg wound with redness. osteomyelitits? Right tibia fibula two views Comparison: None provided Findings: No acute fracture or dislocation identified. No acute focal bony abnormality. No radiopaque foreign body noted. Impression: No acute bony abnormality This document has been electronically signed by: Christian Wolf MD on 07/03/2025 19:35:15
[2025-07-03 18:34] VITALS: BP 188/85; PULSE 81; RESP 16; TEMP 36.6; O2SAT 95; BMI 22.5
--- NOTE | 2025-07-03 18:37 | ED.GENADULT ---
HPI - General Adult General Chief complaint: Wound/Laceration Stated complaint: right leg infection Time Seen by Provider: 07/03/25 22:22 Source: patient Mode of arrival: ambulatory Limitations: no limitations History of Present Illness ED Provider: Dr. Melissa Veloz HPI narrative: 84-year-old female with history of peripheral neuropathy presenting with right lower extremity wound that is becoming progressively more red over the last 24 hours. Admits the injury happened about 2 weeks ago after she ran into a tremor in her garage. Has been keeping the wound clean and covering it with Vaseline but admits that has become progressively more red over the last 24 hours. No reported fever. Redness is tracking towards her knee. No pus drainage though she has some serosanguineous drainage. Has been feeling well otherwise. No other injury. She does not take blood thinners. Related Data Home Medications ?Medication ?Instructions ?Recorded ?Confirmed levothyroxine 75 mcg tablet 75 mcg PO MOTUTHFRSA 04/21/21 06/03/25 levothyroxine 75 mcg tablet 150 mcg PO SUWE 09/30/23 06/03/25 dorzolamide 2 % eye drops 1 drp ophthalmic (eye) DAILY 05/04/24 06/03/25 lisinopril 30 mg tablet 30 mg PO DAILY 05/17/24 06/03/25 celecoxib 100 mg capsule 100 mg PO DAILY 06/03/25 06/03/25 dorzolamide 22.3 mg-timolol 6.8 1 drp ophthalmic (eye) BEDTIME 06/03/25 06/03/25 mg/mL eye drops nitrofurantoin 1 cap PO BID 06/03/25 06/03/25 monohydrate/macrocrystals 100 mg capsule polyethylene glycol 3350 17 17 g PO DAILY 06/03/25 06/03/25 gram/dose oral powder (Miralax) Previous Rx's ?Medication ?Instructions ?Recorded albuterol sulfate 90 mcg/actuation 1 puff inhalation RQ4H PRN sob #1 g 06/04/25 aerosol inhaler (Ventolin HFA) amlodipine 5 mg tablet 5 mg PO DAILY #90 tabs 06/04/25 folic acid 1 mg tablet 1 mg PO DAILY #30 tabs 06/04/25 polyethylene glycol 3350 17 gram 17 g PO DAILY PRN constipation #30 07/28/25 oral powder packet ea prednisone 20 mg tablet 40 mg (2 x 20 mg) PO DAILY #8 tabs 06/04/25 thiamine HCl (vitamin B1) 100 mg 100 mg PO DAILY #60 caps 06/04/25 capsule cephalexin 500 mg capsule 500 mg PO QID 7 days #28 caps 07/03/25 Allergies Allergy/AdvReac Type Severity Reaction Status Date / Time No Known Allergies Allergy Verified 07/03/25 18:38 Review of Systems Review of Systems: as per HPI, full review of systems performed and negative but for the above mentioned pertinent positives and negatives. [facility] Past Medical History Medical History Peripheral neuropathy Urinary frequency Carotid stenosis COPD (chronic obstructive pulmonary disease) Hypothyroidism Spinal stenosis Hypertension Surgical History History of excision of pilonidal cyst Hx of bilateral cataract extraction H/O colonoscopy History of right hip replacement Social History Social History Household Members: None Household Members Other:: lives alone Housing: House Are you a primary home care and home health aides teacher to a significant other at home: No Do you presently have visiting nurse or other home services: No (previous user) Alcohol intake: current Alcohol intake frequency: does not drink Comment: 2 to 3 times a week Patient Tobacco Use Status: Former Tobacco user Tobacco use type: Cigarette Cigarettes Per Day: 10 Years Smoked: 30 Smoked in Last 30 Days: No Use of substances other than those prescribed or required for medical reasons: No Advance Directives: Yes Advance Directives on File: Yes Advance Directives Date on File: 05/19/24 service: No Physical Exam ED Exam Exam: GENERAL: Chronically ill-appearing, conversant, no acute distress. SKIN: Normal skin color for ethnicity, warm, dry, R anterior lower leg wound that is healing, dry, surrounding erythema trackign posteriorly and superiorly. HEENT: Normocephalic, atraumatic, no stridor, posterior oropharynx nonerythematous, EOMI. NECK: Soft, supple, full ROM, midline structures nontender, no step-offs, no deformities, no lymphadenopathy. CHEST: Heart regular rate and rhythm, no murmurs, symmetric chest rise and fall. PULMONARY: Clear to auscultation bilaterally, no labored breathing, no wheezes/rhales/ rhonchi. ABDOMINAL: Soft, nondistended, nontender, positive bowel sounds in all quadrants. : Deferred. MUSCULOSKELETAL: Normal tone, full range of motion, no deformities, no peripheral edema, no deformity, neurovascularly intact distally. NEURO: Alert and oriented to person, CN II through XII intact, no focal neurologic deficits. PSYCHIATRIC: Flat affect, fluid speech, appropriate demeanor. Vital Signs: Vital Signs - 24 hr 07/03/25 18:34 07/03/25 21:34 07/03/25 23:26 Temperature 97.8 F 97.6 F 97.6 F Pulse Rate 81 82 82 Respiratory Rate 16 12 12 Blood Pressure 188/85 H 155/69 H 155/69 H Pulse Oximetry 95 93 93 Oxygen Delivery Method Room Air Room Air Room Air BMI result Body Mass Index 22.5 Course Course Course Narrative: RME: 84-year-old female presents to the ED for right leg wound mom was some mottling redness and slight drainage. Exam positive for right leg redness with open wound with some drainage. Negative for any tenderness on palpation. Labs x-ray ordered Medications Administered Discontinued Medications Generic Name Dose Route Start Last Admin Trade Name Freq PRN Reason Stop Dose Admin Bacitracin 1 appl 07/03/25 22:45 07/03/25 23:10 Bacitracin Oint 0.9 Gm Packet TOPICAL 07/03/25 22:46 1 appl ONCE ONE Administration Protocol Cephalexin HCl 500 mg 07/03/25 22:45 07/03/25 23:10 Cephalexin 500 Mg Capsule PO 07/03/25 22:46 500 mg ONCE ONE Administration Medical Decision Making Medical Decision Making [facility] Narrative: Patient presents today with chief complaint of possible infection. Differential diagnosis includes abscess, cellulitis, deep space infection such as fasciitis, bone infection, vascular abnormality, among many others. Findings are not consistent with fasciitis specifically with no crepitus, blistering of the skin, pain out of proportion, hemodynamic instability, poor historical factors. Based on physical examination, willl treat with antibiotics and have her follow up with PCP as an outpatient. Marked skin with marker along erythema border. Discussed return precautions. Dsicharged in stable contition. Differential Diagnosis Differential Diagnoses: The differential diagnosis associated with the presentation includes (as above) Admission/Observation Consideration of admission/observation: Escalation of care including admission/observation considered Lab Data MDM Lab Attestation statement: I reviewed the patient's lab results. 07/03/25 19:11 07/03/25 19:11 Labs: Lab Results 07/03/25 Range/Units 19:11 WBC 10.1 (4.8-10.8) X10*3/uL RBC 3.99 L (4.20-5.50) X10*6/uL Hgb 13.0 (12.0-16.0) g/dl Hct 38.0 (37.0-47.0) % MCV 95.2 (80.0-98.0) fL MCH 32.6 (27.0-33.0) pg MCHC 34.2 (31.0-35.0) g/dl RDW 13.7 (11.0-16.0) % Plt Count 362 D (160-400) X10*3/uL MPV 10.3 (9.4-12.3) fL Immature Gran % (Auto) 0.2 (0.0-0.4) % Neut % (Auto) 67.1 (45-73) % Lymph % (Auto) 15.0 L (20-40) % [place] % (Auto) 10.8 (2-11) % Eos % (Auto) 6.3 H (0-4) % Baso % (Auto) 0.6 (0-2) % Lymph # (Auto) 1.5 (1.2-4.9) X10*3/uL [place] # (Auto) 1.1 (0.1-1.2) X10*3/uL Eos # (Auto) 0.6 H (0.0-0.4) X10*3/uL Baso # (Auto) 0.1 (0.0-0.2) X10*3/uL Abs Immat Gran (auto) 0.02 (0.00-0.03) X10*3/uL Absolute Neuts (auto) 6.8 (2.0-8.3) x10*3/uL Absolute Nucleated RBC 0.000 (0.0-0.012) X10*3/uL Nucleated RBC % (auto) 0.0 (0.0-0.2) /100WBC ESR 28 H (0-20) MM/HR PT 10.4 L (10.9-12.4) SEC INR 0.9 (0.9-1.1) APTT 29.0 (26.7-34.1) SEC Sodium 137 (135-145) mmol/L Potassium 4.4 (3.3-5.1) mmol/L Chloride 103 (96-108) mmol/L Carbon Dioxide 24 (22-29) mmol/L Anion Gap 14 (12-20) BUN 35 H (9-16) mg/dL Creatinine 1.20 (0.5-1.4) mg/dL Estim Creat Clear Calc 28.8 Estimated GFR 43 Random Glucose 119 H (60-115) mg/dL Calcium 9.5 D (8.4-10.2) mg/dL Total Bilirubin 0.6 (0.0-1.0) mg/dL AST 25 (5-31) U/L ALT 23 (0-31) U/L Alkaline Phosphatase 55 (39-117) U/L C-Reactive Protein 0.12 (< or = 0.50) mg/dL Total Protein 8.0 (6.5-8.0) g/dL Albumin 4.8 (3.5-5.0) g/dL Radiology Impression Discussion of test interpretation with radiology: I have reviewed the radiologist's reading. Radiologist Impression: Right tibia fibula two views Comparison: None provided Findings: No acute fracture or dislocation identified. No acute focal bony abnormality. No radiopaque foreign body noted. Impression: No acute bony abnormality This document has been electronically signed by: Christian Wolf MD on 07/03/2025 19:35:15 Prescription Management I considered prescription management with: Antibiotic Chronic Conditions Patient?s care impacted by: Other (peripheral neuropathy) Discharge Plan Discharge Clinical Impression: Cellulitis of right leg, Healing wound Patient Disposition: Home, Self-Care Instructions: Cellulitis (ED) Additional Instructions: Take your antibiotic as prescribed until the course is completed. Do not stop this medication early if you start to feel better. Keep the wound clean and dry. You may apply triple antibiotic ointment as needed to the wound however it it is not necessary. Do not apply Vaseline. Return to the emergency department immediately with any new or worsening symptoms including: Worsening redness that tracks outside of the markings that we made on your leg today, fevers greater than 100?, any new symptom that concerns you. Call 911 with any medical emergency. Prescriptions: New cephalexin 500 mg capsule 500 mg PO QID 7 Days Qty: 28 0RF No Action levothyroxine 75 mcg tablet 150 mcg PO SUWE dorzolamide-timolol 22.3-6.8 mg/mL drops 1 drp ophthalmic (eye) BEDTIME Rx Instructions: BOTH EYES nitrofurantoin monohyd/m-cryst 100 mg capsule 1 cap PO BID polyethylene glycol 3350 [Miralax] 17 gram/dose Powder 17 g PO DAILY celecoxib 100 mg capsule 100 mg PO DAILY prednisone 20 mg Tablet 40 mg PO DAILY Qty: 8 0RF polyethylene glycol 3350 17 gram Powder In Packet 17 g PO DAILY PRN (Reason: constipation) Qty: 30 0RF amlodipine 5 mg Tablet 5 mg PO DAILY Qty: 90 0RF Protocol: Hold for SBP< HOLD for SBP < : 90 thiamine HCl (vitamin B1) 100 mg capsule 100 mg PO DAILY Qty: 60 0RF folic acid 1 mg tablet 1 mg PO DAILY Qty: 30 0RF albuterol sulfate [Ventolin HFA] 90 mcg/actuation Hfa Aerosol Inhaler 1 puff inhalation RQ4H PRN (Reason: sob) Qty: 1 0RF dorzolamide 2 % Drops 1 drp OPHTHALMIC (EYE) DAILY Rx Instructions: BOTH EYES lisinopril 30 mg tablet 30 mg PO DAILY levothyroxine 75 mcg tablet 75 mcg PO AYANA Interventions: ED Discharge Assessment Last Done: 07/03/25 23:26 Discharge Date/Time: 07/03/25 23:28 Print Language: Comoran
[2025-07-03 19:20] LABS: MANUAL DIFF FLAG NO
[2025-07-03 19:25] LABS: Hematocrit 38.0 % (37.0-47.0); Hemoglobin 13.0 g/dl (12.0-16.0); Imm Gran Abs Auto 0.02 X10*3/uL (0.00-0.03); Imm Gran Pct Auto 0.2 % (0.0-0.4); Lymphocytes Absolute Auto 1.5 X10*3/uL (1.2-4.9); Mean Corpuscular HGB Conc 34.2 g/dl (31.0-35.0); Mean Corpuscular Hemoglobin 32.6 pg (27.0-33.0); Mean Corpuscular Volume 95.2 fL (80.0-98.0); NRBC Abs Auto 0.000 X10*3/uL (0.0-0.012); NRBC Pct Auto 0.0 /100WBC (0.0-0.2); Platelet Count 362 X10*3/uL (160-400); Red Blood Count 3.99 X10*6/uL (4.20-5.50); White Blood Count 10.1 X10*3/uL (4.8-10.8)
[2025-07-03 19:38] LABS: Alanine Aminotransferase 23 U/L (0-31); Albumin Level 4.8 g/dL (3.5-5.0); Alkaline Phosphatase 55 U/L (39-117); Anion Gap 14 (12-20); Aspartate Amino Transferase 25 U/L (5-31); Blood Urea Nitrogen 35 mg/dL (9-16); Calcium 9.5 mg/dL (8.4-10.2); Carbon Dioxide 24 mmol/L (22-29); Chloride 103 mmol/L (96-108); Creatinine Clr Calc Pharmacy 28.8; Estimated Glomerular Filt Rate 43; Potassium 4.4 mmol/L (3.3-5.1); Sodium 137 mmol/L (135-145); Total Protein 8.0 g/dL (6.5-8.0)
[2025-07-03 20:04] LABS: INTERNATIONAL NORM RATIO 0.9 (0.9-1.1); Prothrombin Time 10.4 SEC (10.9-12.4)
[2025-07-03 20:07] LABS: Partial Thromboplastin Time 29.0 SEC (26.7-34.1)
[2025-07-03 21:34] VITALS: BP 155/69; PULSE 82; RESP 12; TEMP 36.4; O2SAT 93
--- OUTSIDE RECORDS SUMMARY | 2025-07-03 21:35 | XMS_ITS | Encounter Summary ---
Author Organization [facility] Address [address] [address] Phone Care Team Providers Care Coal Or Ore Controller Name Role Phone Rey Hope MD Primary Care Provider [phone] Sue Hendrickson MD Unavailable [phone] Caitlin Armstrong MD Unavailable Yohannes Finch OD Unavailable [phone] Rey Hope MD Unavailable [phone] Encounter Details Date Type Department Care Team (Late st Contact Info) Description 06/25/2025 Orders Only [facility] [place] Internal Medicine [address] [place] [address] Provider, MD Raina [address] [place] [address] Social History Tobacco Use Types Packs/Day Years Used Date Smoking Tobacco: Former Cigarettes 0.5 50 0 07/05/1959 - 07/05/2009 Passive Smoke Exposure: Never Smokeless Tobacco: Never Alcohol Use Standard Drinks/Week Comments Yes 4 [...] Orientation Straight 03/19/2022 7: 07 PM EDT documented as of this encounter Plan of Treatment Upcoming Encounters Date Type Department Care Team (Late st Contact Info) Description 01/30/2026 10:00 AM EDT Office Visit [facility] Internal Medicine [address] [place] [address] Rey Hope MD [address] [place] [address] documented as of this encounter Procedures Procedure Name Priority Date/Time Associated Diagnosis Comments OUTSIDE IMAGING Routine 06/21/2025 10:58 AM EDT documented in this encounter Results * Outside Imaging Report Only (06/21/2025 10:58 AM EDT) us Historical Provider MD GASPAR XR CHEST Final Res ult documented in this encounter Visit Diagnoses Not on filedocumented in this encounter Additional Health Concerns Assessment Noted Time PHQ-2 Depression Total Score: 0 05/14/20 25 10:55 AM EDT documented as of this encounter Care Teams [place] Controller Relationship Specialty Start Date End Date Rey Hope MD [address] [place] [address] PCP - General 11/11/17 Sue Hendrickson MD [address] [facility] [address] [place] [address] Dermatology 08/26/20 Caitlin Armstrong MD [address] [facility] 1 [place] [address] Ophthalmology 08/26/20 Yohannes Finch OD [address] [place] [id number] Optometry 08/26/20 Rey Hope MD [address] [place] [address] [email or web address] Insurance Assigned Provider 02/12/24 documented as of this encounter Additional Source Comments The information contained in this document represents components of the legal health record. It is not the complete legal health record.[facility]
--- OUTSIDE RECORDS SUMMARY | 2025-07-03 21:36 | XMS_ITS | Patient Health Record ---
Author Organization [facility] Address [address] [place] [address] Care Team Providers Care Precision Assembler Name Role Phone Rey Hope MD Primary Care Provider Rigo sigala Rubio Villafana Unavailable [phone] Allergies No Known Allergies Reason For Referral [...] Status W/U Status Risk Notes Problem Constipation (28442450) Constipation (K59.00) Active confirmed Problem Anorexia (57051523) Anorexia (R63.0) Active confirmed Vital Signs Temperature 98.6 degrees Fahrenheit 06/01/2025 Blood pressure diastolic 01 mm Hg 06/01/2025 Height 63 in 06/01/2025 Blood pressure systolic 001 mm Hg 06/01/2025 Weight 125.4 lbs 06/01/2025 BMI 22.21 kg/m2 06/01/2025 Encounters Encounter Location Date Provider Diagnosis [facility] [address] [place] [address] 06/01/2025 Rubio Villafana Constipation K59.00 and Anorexia [...] Date MEDICARE OF [place] [address] BETHANY VIEIRA [address] [id number] EUSEBIOGIANA Self - patient is the insured [employer] ATT[employer] CLAIMS [address] [place] [address] [id number] GIANA KAPLAN Self - patient is the insured 5 Medical (General) History Medical History History ICD Code HTN Denies NH,DM,CVA,Lung disease,renal dise ase Neuropathy Hypothyroidism Previous colonoscopies with Dr. Yohannes Allen in [place]. The colonoscopy in 2004 was negative and the colonoscopy in 2014 revealed a small polyp that was removed and small internal hemorrhoids. Surgical History Surgery Date(Month/Year) Cataracts Spinal stenosis 2023 Total right hip replacement 2022
--- OUTSIDE RECORDS SUMMARY | 2025-07-03 21:36 | XMS_ITS | Encounter Summary ---
Author Organization [facility] Address [address] [address] Phone Care Team Providers Care Convention Services Manager Name Role Phone Rey Hope MD Primary Care Provider [phone] Sue Hendrickson MD Unavailable Caitlin Armstrong MD Unavailable Yohannes Finch OD Unavailable [phone] Rey Hope MD Unavailable [phone] Encounter Details Date Type Department Care Team (Late st Contact Info) Description 06/11/2025 Orders Only [facility] [place] [facility] [address] [place] [address] Provider, MD Raina [address] [place] [address] Social History Tobacco Use Types Packs/Day [...] Description 01/30/2026 10:00 AM EDT Office Visit [facility] Internal Medicine [address] [place] [address] Rey Hope MD [address] [place] [address] documented as of this encounter Procedures Procedure Name Priority Date/Time Associated Diagnosis Comments OUTSIDE LAB Routine 06/04/2025 9:50 AM EDT documented in this encounter Results * Outside Lab (06/04/2025 9:50 AM EDT) us Historical Provider LAB BLOOD ORDERABLES Destinee l Result documented in this encounter Visit Diagnoses Not on filedocumented in this encounter Additional Health Concerns Assessment Noted Time PHQ-2 Depression Total Score: 0 05/14/20 25 10:55 AM EDT documented as of this encounter Care Teams Convention Services Manager Relationship Specialty Start Date End Date Rey Hope MD [address] [place] [address] PCP - General 11/11/17 Sue Hendrickson MD [address] [facility] [address] [place] [address] Dermatology 08/26/20 Caitlin Armstrong MD [address] [facility] 1 [place] [address] Ophthalmology 08/26/20 Yohannes Finch OD [address] [place] [address] Optometry 08/26/20 Rey Hope MD [address] [place] [address] [email or web address] Insurance Assigned Provider 02/12/24 documented as of this encounter Additional Source Comments The information contained in this document represents components of the legal health record. It is not the complete legal health record.[facility]
--- OUTSIDE RECORDS SUMMARY | 2025-07-03 21:36 | XMS_ITS | Patient Health Record ---
Author Organization [facility] Chilo michael Garza Address [address] [facility] [place] [address] Care Team Providers Care Head Batcher Name Role Phone Rey Hope MD Primary Care Provider Ameena Colon Unavailable [phone] Lan Cheney Unavailable [phone] Jose Saucedo Unavailable [phone] Allergies No Known Allergies Reason For Referral [...] Vaccine Unknown 09/08/2022 Administered 2020 unsure dates Influenza Unknown 08/08/2024 Administered Social History Tobacco Use: Social History [...] W/U Status Risk Notes Problem Atherosclerosis of [place] artery of both lower extremities, with unspecified presence of clinical manifestation (I70.203) Active confirmed Q7(A), Q8(2B), Q9(1B,2C) Vital Signs Blood pressure diastolic 65 mm Hg 05/28/2025 Height 5ft 1in in 05/28/2025 Blood pressure systolic 115 mm Hg 05/28/2025 Weight 133 lbs 05/28/2025 BMI 25.13 kg/m2 05/28/2025 Procedures Procedure Date Ordered Date Performed Result Body Sit e 98668-UPFTJRF NAIL, 6 OR MORE 10/16/2024 N/A 15469-RDKS SKIN LESIONS, 2 TO 4 10/16/2024 N/A 96863-AKKOLNV NAIL, 6 OR MORE 02/22/2025 N/A 79938-ARFT SKIN LESIONS, 2 TO 4 02/22/2025 N/A 47453-IMDBJAG NAIL, 6 OR MORE 05/28/2025 N/A 99104-ADNP SKIN LESIONS, 2 TO 4 05/28/2025 N/A Encounters Encounter Location Date Provider Diagnosis [facility] [place] [address] [place] [address] 2024 Lan Cheney Unspecified atherosclerosis of [place] arteries of extremities, bilateral legs I70.203 ; Skin disease L98.9 ; Tinea unguium B35.1 ; Xerosis cutis L85.3 ; Hallux valgus (acquired), left foot M20.12 ; Hallux valgus (acquired), right foot M20.11 ; Other hammer toe(s) (acquired), left foot M20.42 ; Other hammer toe(s) (acquired), right foot M20.41 and Neuralgia and neuritis, unspecified M79.[address] [address] 10/16/2024 Ameena Beard Atherosclerosis of [place] artery of both lower extremities, with unspecified presence of clinical manifestation I70.203 ; Tinea unguium B35.1 ; Pain in right toe(s) M79.674 and Pain in left toe(s) M79.[address] [address] 02/22/2025 Ameena Beard Atherosclerosis of [place] artery of both lower extremities, with unspecified presence of clinical manifestation I70.203 ; Tinea unguium B35.1 ; Pain in right toe(s) M79.674 ; Pain in left toe(s) M79.675 and Xerosis of skin L85.[address] [address] 05/28/2025 Ameena Beard Atherosclerosis of [place] artery of both lower extremities, with unspecified presence of clinical manifestation I70.203 ; Tinea unguium B35.1 ; Pain in right toe(s) M79.674 ; Pain in left toe(s) M79.675 and Xerosis of skin L85.3 Assessments Encounter Date Diagnosis (ICD Code) Assessment Notes Treatment Notes Treatment Clinical Notes Section Notes 2024 Unspecified atherosclerosis of [place] arteries of extremities, bilateral legs (ICD-10 - I70.203) 10/16/2024 Atherosclerosis of [place] artery of both lower extremities, with unspecified presence of clinical manifestation (ICD-10 - I70.203) Q7(A), Q8(2B), Q9(1B,2C) 02/22/2025 Atherosclerosis of [place] artery of both lower extremities, with unspecified presence of clinical manifestation (ICD-10 - I70.203) Q7(A), Q8(2B), Q9(1B,2C) 05/28/2025 Tinea unguium (ICD-10 - B35.1) 05/28/2025 Atherosclerosis of [place] artery of both lower extremities, with unspecified [...] Treatment Pending Test Test Name Order Date 70404-AKTMNRR NAIL, 6 OR MORE 10/16/2024 61045-DDZJFBV NAIL, 6 OR MORE 02/22/2025 91067-CRVSLIS NAIL, 6 OR MORE 05/28/2025 26574-SQBL SKIN LESIONS, OVER 4 12/07/19 23 32542-LHBW SKIN LESIONS, OVER 4 03/08/20 23 39193-PJMJ SKIN LESIONS, 2 TO 4 02/23/20 25 94609-GTOU SKIN LESIONS, 2 TO 4 10/16/20 24 53703-OTOA SKIN LESIONS, 2 TO 4 05/28/20 25 P6313-IOELCBNP DYSTROPHIC NAILS ANY # O1112-HJLBIMFB DYSTROPHIC NAILS ANY # Next Appt Details Provider Name:Ameena Mkie peng, 08/27/2025 11:15:00 AM, [address] [place] [address], [phone], Insurance Providers Payer Name Payer Address Payer Phone Subscriber Number Group Number Insured Name Patient Relationship to Insured Coverage Start Date Coverage End Date Medicare National Govt Svcs Inc [address] [place] [address] [id number] Giana Carlos Self - patient is the insured [employer] [address] [place] [address] [id number] Giana Carlos Self - patient is the insured Medical (General) History Medical History History ICD Code Back,Hip,and Knee pain Surgical History Surgery Date(Month/Year) hip surgery 10/06/2022 Spinal Surgery 05/17/24
--- OUTSIDE RECORDS SUMMARY | 2025-07-03 21:36 | XMS_ITS | Encounter Summary ---
Author Organization [facility] Address [address] [address] Phone Care Team Providers Care As400 Programmer Analyst Name Role Phone Rey Hope MD Primary Care Provider [phone] Sue eHndrickson MD Unavailable Caitlin Armstrong MD Unavailable Yohannes Finch OD Unavailable [phone] Rey Hope MD Unavailable [phone] Encounter Details Date Type Department Care Team (Late st Contact Info) Description 06/28/2023 Transcribe Orders [facility] [address] [place], [place] [phone] Rey Hope MD [address] [place], [place] [id number] [email or web address] Social History Tobacco Use Types Packs/Day Years Used Date Smoking Tobacco: Former Cigarettes 0.5 50 0 07/05/1959 - 07/05/2009 Smokeless Tobacco: Never Alcohol Use Standard Drinks/Week Comments Yes 8 (1 standard drink = 0.6 oz pur e alcohol) Education Answer Date Recorded Are you interested in more education? Not on sam e 03/05/2023 Are you concerned about learning? Not on file 03/05/2023 No 03/05/2023 No 03/05/2023 Digital Access Answer Date Recorded No 04/05/2023 No 04/05/2023 Reliable internet access at home? Not on file 04/05/2023 Device with a working camera? Not on file Comments No Sex and Gender Information Value [...] Description 01/30/2026 10:00 AM EDT Office Visit [facility] Internal Medicine [address] [place] [address] Rey Hope MD [address] [place] [address] [email or web address] documented as of this encounter Visit Diagnoses Not on filedocumented in this encounter Additional Health Concerns Assessment Noted Time PHQ-2 Depression Total Score: 0 12/08/19 23 12:42 PM EST documented as of this encounter Care Teams As400 Programmer Analyst Relationship Specialty Start Date End Date Rey Hope MD [address] [place] [address] [email or web address] PCP - General 11/11/17 Sue Hendrickson MD [address] [facility] 5 [place] [address] Dermatology 08/26/20 Caitlin Armstrong MD [address] [address] Ophthalmology 08/26/20 Yohannes Finch OD [address] [place] [address] Optometry 08/26/20 Rey Hope MD [address] [place] [address] [email or web address] Insurance Assigned Provider 02/12/24 documented as of this encounter Additional Source Comments The information contained in this document represents components of the legal health record. It is not the complete legal health record.[facility]
--- OUTSIDE RECORDS SUMMARY | 2025-07-03 21:36 | XMS_ITS | Encounter Summary ---
Author Organization [facility] Address [address] [place] [address] Phone Care Team Providers Care Brass Buffer Name Role Phone Rey Hope MD Primary Care Provider [phone] Sue Hendrickson MD Unavailable [phone] Caitlin Armstrong MD Unavailable Yohannes Finch OD Unavailable [phone] Rey Hope MD Unavailable [phone] Reason for Referral * MRI/CAT Scan - Closed Specialty Diagnoses / Procedures Referred By Contac t Referred To Contact Radiology Procedures Outside CT Imaging Report Only [facility] Internal Medicine [address] [place] [address] Phone: tel: fax: Referral ID Status Reason Start Date Expiration Date Visits Re quested Visits Authorized [id number] Closed 06/04/2025 1 1 Encounter Details Date Type Department Care Team (Late st Contact Info) Description 06/04/2025 Orders Only [facility] Internal Medicine [address] [place] [address] Raina Gudino MD [address] [place] [address] Social History Tobacco Use Types Packs/Day [...] Description 01/30/2026 10:00 AM EDT Office Visit [facility] Medical [facility] Internal Medicine [address] [place] [address] Rey Hope MD [address] [place] [address] [email or web address] documented as of this encounter Procedures Procedure Name Priority Date/Time Associated Diagnosis Comments OUTSIDE XR CHEST REPORT ONLY Routine 06/02/2025 7:[address] IMAGING REPORT ONLY Routine 06/02/2025 7:50 AM EDT documented in this encounter Results * Outside XR??Chest Report Only (06/02/2025 7:55 AM EDT) us Historical Provider MD GASPAR XR CHEST Final Res ult * Outside CT Imaging Report Only (06/02/2025 7:50 AM EDT) us Historical Provider MD GASPAR CT Final Res ult documented in this encounter Visit Diagnoses Not on filedocumented in this encounter Additional Health Concerns Assessment Noted Time PHQ-2 Depression Total Score: 0 05/14/20 25 10:55 AM EDT documented as of this encounter Care Teams Brass Buffer Relationship Specialty Start Date End Date Rey Hope MD [address] [place] [address] PCP - General 11/11/17 Sue Hendrickson MD [address] [facility] [address] [address] [place] [address] Dermatology 08/26/20 Caitlin Armstrong MD 9 [facility] [address] [address] [place] [address] Ophthalmology 08/26/20 Yohannes Finch OD [address] [place] [address] Optometry 08/26/20 Rey Hope MD [address] [place] [address] [email or web address] Insurance Assigned Provider 02/12/24 documented as of this encounter Additional Source Comments The information contained in this document represents components of the legal health record. It is not the complete legal health record.[facility]
--- OUTSIDE RECORDS SUMMARY | 2025-07-03 21:36 | XMS_ITS | Clinical Summary ---
Author Organization [facility] Address [address] [address] Phone Care Team Providers Care Large Sheetfed Press Operator Name Role Phone Rey Hope MD Primary Care Provider [phone] Sue Hendrickson MD Unavailable Caitlin Armstrong MD Unavailable [phone] Yohannes Finch OD Unavailable [phone] Rey Hope MD Unavailable [phone] Allergies No known active allergies Medications [...] Cervical spondylosis 08/10/2024 Overview (08/10/2024): Fol w [facility] mylene ADAMES last OV 07/14 plan [...] Encounters Date Type Department Care Team Description 06/25/2025 Orders Only [facility] Internal Medicine [address] [facility] [place] [place] [address] ProviderRaina MD 06/17/2025 Telephone [facility] Internal Medicine [address] [facility] [place] [address] Rey Hope MD Results 06/11/2025 9:40 AM EDT - 06/11/2025 11:59 PM EDT Hospital Encounter [facility] [address] [facility] [place] [address] Rey Hope MD Discharge Disposition: Home or Self Care 06/11/2025 8:30 AM EDT Office Visit [facility] Internal Medicine [address] [facility] [place] [address] Rey Hope MD Primary hypertension (Primary Dx); Nocturia; Bilateral carotid artery stenosis; COPD with acute exacerbation; Benign essential hypertension; Weakness; Hydronephrosis of right kidney; Leg wound, right, initial encounter 06/11/2025 Telephone [facility] Internal Medicine [address] [facility] [place] [address] Rey Hope MD Imaging Follow Up (8/4/25 Ultrasounds) 06/11/2025 Orders Only [facility] Internal Medicine [address] [facility] [place] [place] [address] ProviderRaina MD 06/08/2025 Telephone [facility] Internal [facility] [address] [facility] [place] [place] [address] Rey Hope MD Schedule appt 06/04/2025 Orders Only [facility] Internal Medicine [address] [place] [address] Raina Gudino MD 06/01/2025 Telephone [facility] [facility] [address] [place] [address] Tereza Galicia CNP Dysuria 05/31/2025 10:45 AM EDT - 05/31/2025 11:59 PM EDT Hospital Encounter [facility] [address] [place] [address] Emy Kevin CNP Discharge Disposition: Home or Self Care 05/31/2025 Telephone [facility] Internal [facility] [address] [place] [address] Rey Hope MD Urinary Tract Infection 05/17/2025 Telephone [facility] Internal Medicine [address] [place] [address] Rey Hope MD Results 05/14/2025 11:30 AM EDT Office Visit [facility] Internal Medicine [address] [place] [address] Rey Hope MD Benign essential hypertension (Primary Dx); Pure hypercholesterolemia ; Chronic kidney disease, unspecified CKD stage; Osteoporosis, unspecified osteoporosis type, unspecified pathological fracture presence 05/14/2025 11:06 AM EDT - 05/14/2025 11:59 PM EDT Hospital Encounter [facility] [address] [place] [address] Rey Hope MD Discharge Disposition: Home or Self Care 04/02/2025 Refill [facility] Medicine [address] [facility] [place], [place] [address] Rey Hope MD Medication Refill from Last [...] Description 01/30/2026 10:00 AM EDT Office Visit [facility] Internal Medicine [address] [place] [address] Rey Hope MD [address] [place] [address] Health Maintenance Due Date Last Done Comments [...] OUTSIDE IMAGING Routine 06/21/2025 10:58 AM EDT URINALYSIS W/REFLEX URINE CULTURE Routine 06/11/2025 10:09 [...] Recently Relevant to Health Maintenance Results * Outside Imaging Report Only (06/21/2025 10:58 AM EDT) us Historical Provider MD GASPAR XR CHEST Final Res ult * Urinalysis w/reflex Urine Culture (06/11/2025 10:09 AM EDT) Only the most recent of3 resultswithin the time period is included. COLOR Yellow Yellow [facility] CLARITY Clear [facility] GLUCOSE Negative Negative [facility] BILI Negative Negative [facility] KETONES Negative Negative [facility] SPECIFIC GRAVITY 1.010 1.005 - 1.030 [facility] BLOOD Negative Negative [facility] PH 7.0 5.0 - 8.0 [facility] Protein-UA Negative Negative [facility] NITRITE Negative Negative [facility] Leukocyte esterase, ur Negative Negative [facility] Urine (Urine) 06/11/2025 10: 09 AM EDT 06/11/2025 10:10 AM EDT us Rey Hope MD URINE ORDERABLES Final Result Performing Organization Address [facility]/ZIP Co de Phone Number [address] [address] * (ABNORMAL) Comprehensive metabolic panel (06/11/2025 10:00 AM EDT) SODIUM 131(L) 133 - 146 mmol/L [facility] POTASSIUM 4.5 3.3 - 5.1 mmol/L [facility] CHLORIDE 93(L) 96 - 108 mmol/L [facility] CO2 26 21 - 35 mmol/L [facility] BUN 28(H) 6 - 19 mg/dL [facility] CREATININE 0.90 0.5 - 1.5 mg/dL [facility] GLUCOSE 82 70 - 99 mg/dL [facility] ALBUMIN 4.1 3.9 - 4.8 g/dL [facility] TOTAL PROTEIN 7.2 6.5 - 8.0 g/dL [facility] CALCIUM 9.4 8.4 - 10.3 mg/dL [facility] ALKALINE PHOSPHATASE 45 39 - 117 U/L [facility] TOTAL BILIRUBIN 0.6 0.0 - 1.2 mg/dL [facility] AST 25 0 - 37 U/L [facility] ALT 18 0 - 40 U/L [facility] GLOBULIN 3.1 1 - 4.8 g/dL [facility] EGFR 63 >59 mL/min/1.7 3m2 [facility] Comment:Estimated glomerular filtration rate calculated using the CKD-EPI refit equation. ANION GAP 17 10 - 20 mmol/L [facility] Blood 06/11/2025 10:0 0 AM EDT 06/11/2025 10:03 AM EDT us Rye Hope MD LAB BLOOD ORDERABLES Final Re sult Performing Organization Address City/[facility]/ZIP Co de Phone Number [address] [address] * (ABNORMAL) TSH with reflex (06/11/2025 10:00 AM EDT) TSH 4.80(H) 0.27 - 4.20 uIU/mL [facility] Blood 06/11/2025 10:0 0 AM EDT 06/11/2025 10:03 AM EDT us Rey Hope MD LAB BLOOD ORDERABLES Final Re sult [facility] [address] [place] [address] * (ABNORMAL) CBC and differential (06/11/2025 10:00 AM EDT) WBC 13.64(H) 4.00 - 11.00 K/uL [facility] RBC 4.06 4.00 - 5.20 M/uL [facility] HGB 13.1 12.0 - 16.0 g/dL [facility] HCT 40.4 36.0 - 46.0 % [facility] PLT 287 150 - 450 K/uL [facility] MCV 99.5 80.0 - 100.0 fL [facility] MCH 32.3(H) 27.0 - 31.0 pg [facility] MCHC 32.4 32.0 - 36.0 g/dL [facility] RDW 13.5 11.5 - 14.5 % [facility] MPV 10.8 8.4 - 12.0 fL [facility] NRBC 0.00 0.00 /100 WBCs [facility] ABSOLUTE NRBC 0.00 0.00 K/uL [facility] DIFF METHOD Auto [facility] NEUTS 71.8 48.0 - 76.0 % [facility] LYMPHS 13.7(L) 18.0 - 41.0 % [facility] MONOS 8.6 4.0 - 11.0 % [facility] EOS 2.9 0.0 - 5.0 % [facility] BASOS 0.4 0.0 - 1.5 % [facility] Granulocytes, immature (%) 2.6(H) 0.0 - 0.9 % [facility] ABSOLUTE NEUTS 9.79(H) 1.92 - 7.60 K/uL [facility] ABSOLUTE LYMPHS 1.87 0.72 - 4.10 K/uL [facility] ABSOLUTE MONOS 1.17(H) 0.16 - 1.10 K/uL [facility] ABSOLUTE EOS 0.40 0.00 - 0.50 K/uL [facility] ABSOLUTE BASOS 0.05 0.00 - 0.15 K/uL [facility] Granulocytes, immature 0.36(H) 0.00 - 0.09 K/uL [facility] Blood 06/11/2025 10:0 0 AM EDT 06/11/2025 10:03 AM EDT Result [facility] Rey Hope MD LAB BLOOD ORDERABLES Final Re sult Performing Organization Address [facility] Co de Phone Number [address] [address] * (ABNORMAL) Free T4 (06/11/2025 10:00 AM EDT) FREE T4 1.9(H) 0.9 - 1.7 ng/dL [facility] 06/11/2025 10:0 0 AM EDT 06/11/2025 10:03 AM EDT Result [facility] Rey Hope MD LAB BLOOD ORDERABLES Final Re sult Performing Organization Address City/[facility]/ZIP Co de Phone Number [address] [address] * Outside Lab (06/04/2025 9:50 AM EDT) Historical Provider LAB BLOOD ORDERABLES Destinee l Result * Outside XR??Chest Report Only (06/02/2025 7:55 AM EDT) Historical Provider IMG XR CHEST Final Res ult * Outside CT Imaging Report Only (06/02/2025 7:50 AM EDT) us Historical Provider MD GASPAR CT Final Res ult * (ABNORMAL) Urine Culture (05/31/2025 11:13 AM EDT) Only the most recent of2 resultswithin the time period is included. Special Requests None Reflexed from [id number] 05/31/2025 2:20 PM EDT [facility] Urine Culture >100,000 colony forming units per mL ESCHERICHIA COLI(A) 06/01/2025 11:44 AM EDT [facility] Urine 05/31/2025 11:1 3 AM EDT 05/31/2025 [...] MICROBIOLOGY - GENERAL ORDERA BLES Final Result [facility] [address] [place], [place] [id number] * (ABNORMAL) Urine sediment (05/31/2025 11:13 AM EDT) Only the most recent of2 resultswithin the time period is included. WBC TOO NUMEROUS TO COUNT(A) NONE SEEN /hpf [facility] RBC 0-2(A) NONE SEEN /hpf [facility] URINE EPITHELIAL NONE SEEN NONE SEEN [facility] MUCUS NONE SEEN NONE SEEN /hpf [facility] BACTERIA 2+(A) NONE SEEN /hpf [facility] 05/31/2025 11:1 3 AM EDT 05/31/2025 11:16 AM EDT us Rey Hope MD URINE ORDERABLES Final Result [facility] [address] [place] [address] * OUTSIDE BONE DENSITY SCREENING (10/21/2014) BONE DENSITY SCREENING - EXTERNAL osteopenia us Historical Provider HEALTH MAINTENANCE Edited Result - Final from Last 3 Months or Most Recently Relevant to Health Maintenance Insurance [employer] MEDEX SUPPLEMENT MEDICARE PART A & B BLUE [employer] MEDEX SUPPLEMENT MEDICARE PART A & B [employer] MEDEX SUPPLEMENT BLUE [employer]OSS MEDEX SUPPLEMENT [employer] MEDEX SUPPLEMENT MEDICARE PART A & B [employer] MEDEX SUPPLEMENT [employer] CROSS MEDEX SUPPLEMENT MEDICARE PART A & B BLUE [employer]OSS MEDEX SUPPLEMENT MEDICARE PART A & B [employer] MEDEX SUPPLEMENT MEDICARE PART A & B Advance Directives For more information, please contact: [phone] (9AM - 5PM [facility], Wednesday-Wednesday) * Full Code (Latest Code Status on File) Date Activated Date Inactivated Comments 01/29/2025 8:49 PM Question Answer Comments Code Status Confirmed With: Patient Code Status Communicated To: PCP Code Discussion Comments: pt wats to be full code but wants limits on hertime on machines. will use health care proxy for this Care Teams Large Sheetfed Press Operator Relationship Specialty Start Date End Date Rey Hope MD [address] [place], [place] [id number] [email or web address] PCP - General 11/11/17 Sue Hendrickson MD [address] [facility] 5 [place] [address] Dermatology 08/26/20 Caitlin Armstrong MD 9 [facility] 1 [place] [address] Ophthalmology 08/26/20 Yohannes Finch OD [address] [place] [address] Optometry 08/26/20 Rey Hope MD [address] [place] [address] [email or web address] Insurance Assigned Provider 02/12/24 Additional Source Comments The information contained in this document represents components of the legal health record. It is not the complete legal health record.[facility]
--- OUTSIDE RECORDS SUMMARY | 2025-07-03 21:36 | XMS_ITS | Patient Health Record ---
Author Organization [facility] Address [address] [place] [address] Care Team Providers Care Microstrategy Architect Developer Name Role Phone Rey Hope MD Primary Care Provider Ramya Carlin Unavailable [phone] Reason For Referral No Information Medications Medication SIG (Take, Route, Frequency, Duration) Notes Start Date End Date Status Calcium 1 tab Oral Active Vitamin D3 1000 IU ORAL daily; Duration: -3 [facility] 2011 Active Lisinopril 20MG 1 ORAL daily; Durati on: - [facility] 10/19/2011 Active Levothyroxine Sodium 75MCG 1 ORAL daily; Duration: -3 [facility] 10/29/2014 Active Fish Oil 1200MG 1 ORAL daily; [place]: [place]3 [facility] Active Fish Oil 1200MG 1 ORAL daily; [place]: [place]3 [facility]2012 Active Aspirin EC 81MG 1 ORAL daily; [place]: [place]3 [facility]19[place]2012 Active Aspirin EC 81MG 1 ORAL daily; Durati on: -3 [facility] 10/19/2012 Active Vitamin D3 1000 IU ORAL daily; Duration: -3 [facility] Active Lisinopril 20MG 1 ORAL daily; Durati on: -3 [facility] 10/19/2011 Active Levothyroxine Sodium 75MCG 1 ORAL daily; Duration: -3 [facility]2014 Active Social History Tobacco Use: Social [...] W/U Status Risk Notes Problem Essential hypertension (38183211) Unspecified essential hypertension (401.9) Active confirmed Major Problem Menopausal symptom (99026994) Symptomatic menopausal or female climacteric states (627.2) Active confirmed Major Problem Osteoporosis (71382578) Unspecified osteoporosis (733.00) Active confirmed Major Problem Disorder of bone and articular cartilage (disorder) (685990233) Disorder of bone and cartilage, unspecified (733.90) Active confirmed Diag Problem Gynecological examination normal (757509902194978) Routine gynecological examination (V72.31) Active confirmed Major Problem Screening for malignant neoplasm of colon (684063257) Special screening for malignant neoplasms, colon (V76.51) Active confirmed Major Plan Of Treatment No Information Insurance Providers Payer Name Payer Address Payer Phone Subscriber Number Group Number Insured Name Patient Relationship to Insured Coverage Start Date Coverage End Date MEDICARE [address] BETHANY ZHANG [id number] [phone] [id number] DIRK KAPLAN Self - patient is the insured BCBS OF [facility] [address] [place] [address] [id number] DIRK KAPLAN Self - patient is the insured Medical (General) History Medical History History ICD Code Disorder of bone density and structure, unspecified M85.9 Essential (primary) hypertension I10 Age-related osteoporosis without current pathological fracture M81.0 Menopausal and female climacteric states N95.1 Surgical History Surgery Date(Month/Year) Colonoscopy
[2025-07-03 23:26] VITALS: BP 155/69; PULSE 82; RESP 12; TEMP 36.4; O2SAT 93
== END 2025-07-03 23:28 | disposition home or self-care (01) ==
PROVIDERS: Physician Assistant; Emergency Provider Emergency Medicine
DX: L03.116 Cellulitis of left lower limb (principal); M79.604 Pain in right leg; Z79.899 Other long term (current) drug therapy
CPT/HCPCS: 36415; 73590; 80053; 85025; 85610; 85652; 85730; 86140; 99283; 99284

== ENCOUNTER → 2025-07-03 18:36 | Outpatient (BNV) | payer MEDICARE, SELFPAY | PROVIDERS: Visit Provider Radiology Diagnostic Radiology | DX: S81.801A Unspecified open wound, right lower leg, initial encounter (principal) | CPT/HCPCS: 73590 ==

== ENCOUNTER 2025-07-23 07:29 | Outpatient (AMB) | payer MEDICARE, SELFPAY ==
--- OUTSIDE RECORDS SUMMARY | 2024-10-03 06:00 | XMS_ITS ---
Author Organization [facility] Address [address] [place] [address] Care Team Providers Care Paper Sales Manager Name Role Phone Jayy BROWN, Rey Primary Care Provider Ameena Colon Unavailable [phone] Jose Saucedo Unavailable [phone] REASON FOR VISIT too soon Encounters Encounter Location Date Provider Diagnosis [address] [address] 10/03/2024 Jose Saucedo Plan Of Treatment Next Appt Details Provider Name:Ameena khoury, 08/27/2025 11:15:00 AM, [address] [place], [address], Progress Notes * Giana KAPLAN ADOB:[birth year] (84 yo F)Acc No.[id number]:10/03/2024 Progress Note Patient: Giana ORDONEZ Provider: Michele Saucedo DPM :1940 A ge:84 Y S ex:Female Date:10/03/2024 Address:[address] [place] [address], [facility] [id number] Pcp:Rey Hope MD Subjective: * Chief Complaints: [...] Date: 12/03/2023 Generated for Vern Krishna on: 0 07/23/2025 07:32 AM EDT
--- NOTE | 2025-07-23 07:31 | A.OFFVIS_ITS ---
Intake Visit Reasons: Urinary retention with mild hydronephrosis Intake Note: New Patient is present for urinary retention Urology Rx:VIT-B1 PVR:568 mls Blood Thinners:none Imaging completed: none Glove Stitcher Required: No Accompanied by: Self / Same As Patient Allergies No Known Allergies Allergy (Verified 07/23/25 07:31) Medication List - Last Reconciled 07/23/25 by Maris Buenrostro MD albuterol sulfate 90 mcg/actuation (Ventolin HFA) 1 puff inhalation RQ4H PRN amlodipine 5 mg See Protocol PO DAILY celecoxib 100 mg PO DAILY cephalexin 500 mg PO QID 7 days dorzolamide 2% 1 drp ophthalmic (eye) DAILY dorzolamide-timolol 22.3-6.8 mg/mL 1 drp ophthalmic (eye) BEDTIME levothyroxine 150 mcg PO SUWE levothyroxine 75 mcg PO MOTUTHFRSA lisinopril 30 mg PO DAILY polyethylene glycol 3350 (Miralax) 17 grams PO DAILY tamsulosin (Flomax) 0.4 mg PO BEDTIME HPI Comments Details: 07/23/25--Giana is an 84-year-old female who is here as a new patient evaluation due to urinary retention and abnormal US findings. History of Present Illness The patient is an 84-year-old female presenting with urinary retention and abnormal ultrasound findings. The urinary retention was first noted approximately five months ago, with the patient experiencing frequent urges to urinate but only producing a small amount of urine each time. The patient reports nocturia, needing to urinate multiple times during the night, which began around the same time. The patient is currently on the last day of an antibiotic course for a urinary tract infection. An ultrasound performed on 06/21/25 revealed a large post-void residual volume and mild right hydronephrosis. Bladder evaluation showed a prevoid urinary volume of 922 mL and a postvoid volume of 515 mL, with a bladder scan today showing 568 mL. The patient has a history of constipation and hemorrhoids, which were identified following an episode of rectal bleeding. She was treated in the emergency room and discharged the same day. Results - Ultrasound (06/21/25): Large post-void residual, mild right hydronephrosis - Bladder scan: Prevoid volume 922 mL, postvoid volume 515 mL, - current scan Bladder scan PVR--568 mL Pelvic examination--narrow vaginal introitus vaginal atrophy catheterized urine negative. Catheterized urine volume 615 mL Plan--Flomax 0.4 mg in the evening patient to discontinue for dizziness. Follow-up office cystoscopy. Follow-up [facility]AP [facility] Medical History Peripheral neuropathy Urinary frequency Carotid stenosis COPD (chronic obstructive pulmonary disease) Hypothyroidism Spinal stenosis Hypertension Surgical History History of excision of pilonidal cyst Hx of bilateral cataract extraction H/O colonoscopy History of right hip replacement Social History Household Members: None Household Members Other:: lives alone Housing: House Are you a primary post acute care nurse practitioner to a significant other at home: No Do you presently have visiting nurse or other home services: No (previous user) Alcohol intake: current Alcohol intake frequency: does not drink Comment: 2 to 3 times a week Patient Tobacco Use Status: Former Tobacco user Tobacco use type: Cigarette Cigarettes Per Day: 10 Years Smoked: 30 Advance Directives Date on File: 05/19/24 service: No Review of Systems Const All systems reviewed & are unremarkable except as noted in HPI and below Reports no additional complaints Eyes Reports no additional complaints ENT Reports no additional complaints Card Reports no additional complaints Resp Reports no additional complaints GI Reports no additional complaints Reports as per HPI Musc Reports no additional complaints Skin/Breast Reports system reviewed and no additional complaints, except as documented Neuro Reports no additional complaints Psych Reports no additional complaints Endo Reports no additional complaints Smooth/Lymph Reports no additional complaints Aller/Immun Reports no additional complaints Physical Exam Const General: cooperative, healthy appearing and no acute distress Orientation/consciousness: patient oriented x3 HEENT Head: Yes normal to inspection, Yes normocephalic and Yes atraumatic Eyes Conjunctivae: conjunctivae normal Neck Neck: Yes normal visual inspection and Yes trachea midline Chest Chest palpation & inspection: normal inspection of the chest Resp Effort & Inspection: normal respiratory effort GI Inspection: Yes normal to inspection General: No no CVA tenderness External Female Exam: normal external appearance Speculum Exam - Vagina: vagina atrophic Back/Spine/Pelvis Back: No no CVA tenderness Neuro General: patient oriented x3 Psych Appearance: grossly normal Office Procedures Bladder/Catheter Procedure Details: Under sterile technique a 14 Belarusian catheter was passed transurethrally, 615 mL urine drained [id number] Bladder Catheter Procedure code (CPT) selection complete Results Reviewed Results Reviewed: Date of Service: 06/21/25 HISTORY: HYDRO OF KIDNEYS TECHNIQUE: Real-time grayscale ultrasound imaging of the kidneys was performed and images were reviewed. COMPARISON: Correlation is made with the upper abdominal images from a chest CTA dated 06/02/2025. FINDINGS: Right kidney: The right kidney measures 8.6 x 3.9 x 4.3 cm. Renal parenchymal echotexture and thickness are normal. There are no masses. There is mild prominence of the intrarenal collecting system. Left Kidney: The left kidney measures 9.5 x 3.9 x 4.3 cm. Renal parenchymal echotexture and thickness are normal. There are no masses. There is no hydronephrosis or renal calculi. There is a small amount of layering debris in the urinary bladder. Bilateral ureteral jets are identified. Before voiding, the urinary bladder measured 15.1 x 10.2 x 11.4 cm, for an estimated volume of 922 mL. After voiding, the urinary bladder measured 12.8 x 9.5 x 12.8 cm, for an estimated volume of 515 mL. IMPRESSION: 1. Mild fullness of the right intrarenal collecting system. 2. Small amount of debris in the urinary bladder. 3. Post void bladder residual of 515 mL. Assessment & Plan Assessment & Plan (1) Urinary frequency: Code(s): R35.0 - Frequency of micturition Category: Medical (2) Urinary retention: Code(s): R33.9 - Retention of urine, unspecified Category: Medical Plan Plan 1. Urinary Retention - Flomax - Follow-up cystoscopy to evaluate bladder 2. Mild Right Hydronephrosis - Further evaluation with CT scan Urogram, BUN/Creat prior 3. Urinary Tract Infection - Complete current antibiotic course - Send urine for culture and cytology Orders: Orders Urine Cytology Today N39.0 - Urinary tract infection, site not specified, R33.9 - Retention of urine, unspecified, R35.0 - Frequency of micturition AMB Bladder/Catheter Procedure Today N39.0 - Urinary tract infection, site not specified Urine Culture Today N39.0 - Urinary tract infection, site not specified, R33.9 - Retention of urine, unspecified, R35.0 - Frequency of micturition Medications: New tamsulosin (Flomax) 0.4 mg PO BEDTIME 30 caps 3RF Patient Instructions: The patient had an opportunity to ask questions regarding treatment plan. The patient expressed understanding and agreement with the above treatment plan. The patient is aware they should contact our office by phone for worsening of their current condition or the appearance of new symptoms. Compliance is encouraged with any medications and followup testing that is ordered. It is a privilege to be allowed the opportunity to participate in the urologic care of your patient. If you have any questions or concerns regarding treatment for the above conditions please do not hesitate to contact me. The office telephone contact is [phone]. This note is constructed in part using voice recognition software. While every effort has been made to ensure accuracy limousine driver errors may have been included. Yours sincerely, Maris Buenrostro MD Scribe Plan - Not visible on output: Patient was informed and verbally consented to the use of an ambient scribe for clinic note documentation during this visit. Coding Level of Care Code New Pt Level 4 (06723) Diagnoses Urinary frequency R35.0 Urinary retention R33.9 CPT Codes Bladder/Catheter Procedure - CPT: 31103-Caidwp Bladder Catheter ([id number])
--- OUTSIDE RECORDS SUMMARY | 2025-07-23 07:32 | XMS_ITS | Encounter Summary ---
Author Organization [facility] Address [address] [address] Phone Care Team Providers Care Car Cooper Name Role Phone Rey Hope MD Primary Care Provider [phone] Sue Hendrickson MD Unavailable Caitlin Armstrong MD Unavailable Yohannes Finhc OD Unavailable [phone] Rey Hope MD Unavailable [phone] Encounter Details Date Type Department Care Team (Late st Contact Info) Description 06/25/2025 Orders Only [facility] [address] [place] [address] Provider, MD Raina [address] [place] [id number] Social History Tobacco Use Types Packs/Day [...] Description 01/30/2026 10:00 AM EDT Office Visit [facility] [address] [place] [address] Rey Hope MD [address] [place] [address] documented as of this encounter Procedures Procedure [...] documented as of this encounter Care Teams Car Cooper Relationship Specialty Start Date End Date Rey Hope MD [address] [place] [address] PCP - General 11/11/17 Sue Hendrickson MD [address] [facility] [address] [place] [address] Dermatology 08/26/20 Caitlin Armstrong MD [address] [facility] [address] [place] [address] Ophthalmology 08/26/20 Yohannes Finch OD [address] [place] [address] Optometry 08/26/20 Rey Hope MD [address] [place] [address] [email or web address] Insurance Assigned Provider 02/12/24 documented as of this encounter Additional Source Comments The information contained in this document represents components of the legal health record. It is not the complete legal health record.[facility]
--- OUTSIDE RECORDS SUMMARY | 2025-07-23 07:32 | XMS_ITS | Clinical Summary ---
Author Organization [facility] Address [address] [place] [address] Phone Care Team Providers Care Boat Dock Operator Name Role Phone Rey Hope MD Primary Care Provider [phone] Sue Hendrickson MD Unavailable Caitlin Armstrong MD Unavailable Yohannes Finch OD Unavailable [phone] Rey Hope MD Unavailable [phone] Allergies No known active allergies Medications calcium citrate-vitamin D3 (CITRACAL+D) 950 mg (200 mg elemental)-250 units Tab Take 1 tablet by mouth 2 (two) times a day with meals. Active latanoprost (XALATAN) 0.005 % ophthalmic solution Place 1 drop into each eye nightly at bedtime. 3 Active diclofenac sodium (VOLTAREN) 1 % Gel 2 g nightly at bedtime. On feet 3 Active levothyroxine (SYNTHROID, LEVOTHROID) 75 MCG tabletIndications :Hypothyroidism, unspecified type TAKE 1 TABLET 5 DAYS PER WEEK, AND 2 TABLETS ON SUNDAYS AND WEDNESDAYS 108 tablet 3 4 Active dorzolamide-timol oL (COSOPT) 22.3-6.8 mg/mL ophthalmic solution Place 1 drop into each eye 2 (two) times a day. 4 Active lisinopril (PRINIVIL,ZESTRIL ) 30 MG tabletIndications :Benign essential hypertension Take 1 tablet (30 mg total) by mouth daily. 90 tablet 3 5 Active celecoxib (CELEBREX) 100 MG capsule Take 100 mg by mouth daily. Active dorzolamide (TRUSOPT) 2 % ophthalmic solution Place 1 drop into each eye every morning. 5 Active polyethylene glycol (MIRALAX) 17 gram/dose powder Take 17 g by mouth every morning. Active amLODIPine (NORVASC) 5 MG tablet Take 5 mg by mouth daily. 5 Active albuterol 90 mcg/actuation inhaler Inhale 2 puffs into the lungs every 6 (six) hours as needed. 5 Active levoFLOXacin (LEVAQUIN) 500 MG tabletIndications :Urinary tract infection without hematuria, site unspecified Take 1 tablet (500 mg total) by mouth daily for 5 days. 5 tablet 5 07/23/20 25 Active Active Problems Problem Noted Date Diagnosed Date Cervical spondylosis 08/10/2024 Overview (08/10/2024): Fol w [facility] spine mylene ADAMES last OV 07/14 plan [...] Encounters Date Type Department Care Team Description 07/18/2025 Telephone [facility] [address] [facility] [place] [address] Rey Hope MD Antibiotic; Results 07/16/2025 8:14 AM EDT - 07/16/2025 11:59 PM EDT Hospital Encounter [facility] Laboratory [address] [facility] [place] [address] Rey Hope MD Discharge Disposition: Home or Self Care 07/11/2025 Telephone [facility] [address] [facility] [place] [address] Rey Hope MD Results 07/10/2025 9:16 AM EDT - 07/10/2025 11:59 PM EDT Hospital Encounter [facility] Laboratory [address] [facility] [place] [address] Rey Hope MD Discharge Disposition: Home or Self Care 07/10/2025 Telephone [facility] [address] [facility] [place] [address] Rey Hope MD ultrasound order 06/25/2025 Orders Only [facility] Medicine [address] [place] [address] Raina Gudino MD 06/17/2025 Telephone [facility] [address] [facility] [place] [address] Rey Hope MD Results 06/11/2025 9:40 AM EDT - 06/11/2025 11:59 PM EDT Hospital Encounter [facility] Laboratory [address] [facility] [place] [address] Rey Hope MD Discharge Disposition: Home or Self Care 06/11/2025 8:30 AM EDT Office Visit [facility] [address] [facility] [place] [address] Rey Hope MD Primary hypertension (Primary Dx); Nocturia; Bilateral carotid artery stenosis; COPD with acute exacerbation; Benign essential hypertension; Weakness; Hydronephrosis of right kidney; Leg wound, right, initial encounter 06/11/2025 Telephone [facility] [address] [facility] [place] [address] Rey Hope MD Imaging Follow Up (06/11/25 Ultrasounds) 06/11/2025 Orders Only [facility] [address] [facility] [place] [address] ProviderRaina MD 06/08/2025 Telephone [facility] [address] [facility] [place] [address] Rey Hope MD Schedule appt 06/04/2025 Orders Only [facility] [address] [facility] [place] [address] ProviderRiana MD 06/01/2025 Telephone [facility] [address] [place] [address] Tereza Galicia CNP Dysuria 05/31/2025 10:45 AM EDT - 05/31/2025 11:59 PM EDT Hospital Encounter [facility] [address] [facility] [place] [address] Emy Kevin CNP Discharge Disposition: Home or Self Care 05/31/2025 Telephone [facility] [address] [facility] [place] [address] Rey Hope MD Urinary Tract Infection 05/17/2025 Telephone [facility] [address] [facility] [place] [address] Rey Hope MD Results 05/14/2025 11:30 AM EDT Office Visit [facility] [address] [place] [address] Rey Hope MD Benign essential hypertension (Primary Dx); Pure hypercholesterolemia ; Chronic kidney disease, unspecified CKD stage; Osteoporosis, unspecified osteoporosis type, unspecified pathological fracture presence 05/14/2025 11:06 AM EDT - 05/14/2025 11:59 PM EDT Hospital Encounter [facility] Laboratory [address] [place] [address] Rey Hope MD Discharge Disposition: Home or Self Care from Last 3 Months Immunizations Immunization Administration [...] Description 01/30/2026 10:00 AM EDT Office Visit [facility] [address] [place] [address] Rey Hope MD [address] [place] [address] [email or web address] Health Maintenance Due Date Last Done Comments RSV VACCINE (1 - 1-dose 75+ series) 2015 Adult Td,Tdap Booster 03/08/2018 03/08/2008 INFLUENZA VACCINE (#1) 2025 , 2023, 08/05/2022, Additional history exists COVID-19 VACCINE ( season) 2025 2023, 09/08/2022, 09/07/2022, Additional history exists BLOOD PRESSURE 12/12/2025 06/11/2025 DEPRESSION SCREENING 05/14/2026 05/14/2025 TSH LEVEL 06/11/2026 06/11/2025, 03/2 02/2025, 05/04/2024, Additional history exists CREATININE LEVEL 07/16/2026 07/16/2025, 12/2024, 06/11/2025, Additional history exists POTASSIUM LEVEL 07/16/2026 07/16/2025, 09/0 12/2024, 06/11/2025, Additional history exists OSTEOPOROSIS SCREENING INITIAL (ONE-TIME) [...] Procedure Name Priority Date/Time Associated Diagnosis Comments URINE SEDIMENT Routine 07/16/2025 2:44 PM EDT URINALYSIS W/REFLEX URINE CULTURE Routine 07/16/2025 2:44 PM EDT Primary hypertension Nocturia URINE CULTURE Routine 07/16/2025 2:44 PM EDT COMPREHENSIVE METABOLIC PANEL Routine 07/16/2025 8:14 AM EDT Venous thrombosis Primary hypertension CBC AND DIFFERENTIAL Routine 07/16/2025 8:14 AM EDT Venous thrombosis Primary hypertension BASIC METABOLIC PANEL Routine 07/10/2025 9:16 AM EDT Primary hypertension Hyponatremia CBC AND DIFFERENTIAL Routine 07/10/2025 9:16 AM EDT Primary hypertension OUTSIDE IMAGING Routine 06/21/2025 10:58 AM EDT [...] Recently Relevant to Health Maintenance Results * (ABNORMAL) Urinalysis w/reflex Urine Culture (07/16/2025 2:44 PM EDT) Only the most recent of4 resultswithin the time period is included. COLOR Yellow Yellow [facility] CLARITY TURBID [facility] GLUCOSE Negative Negative [facility] BILI Negative Negative [facility] KETONES Negative Negative [facility] SPECIFIC GRAVITY 1.020 1.005 - 1.030 [facility] BLOOD 2+(A) Negative [facility] PH 6.5 5.0 - 8.0 [facility] Protein-UA 2+(A) Negative [facility] NITRITE Positive(A) Negative [facility] Leukocyte esterase, ur 2+(A) Negative [facility] Urine (Urine) 07/16/2025 2:4 4 PM EDT 07/16/2025 2:48 PM EDT us Rey Hope MD URINE ORDERABLES Final Result [address] [address] * (ABNORMAL) Urine Culture (07/16/2025 2:44 PM EDT) Only the most recent of3 resultswithin the time period is included. Special Requests None Reflexed from [id number] 07/16/2025 8:28 PM EDT [facility] Urine Culture >100,000 colony forming units per mL PSEUDOMONAS AERUGINOSA(A) 07/18/2025 7:52 AM EDT [facility] Urine 07/16/2025 2:44 PM EDT 07/16/2025 2:48 PM EDT Narrative Organism Antibiotic Method Susceptibility Pseudomonas aeruginosa Cefepime YANDY METHOD 2: Susceptible Pseudomonas aeruginosa Ceftazidime YANDY METHOD 2: Susceptible Pseudomonas aeruginosa Ciprofloxacin YANDY METHOD 0.12: Susceptible Pseudomonas aeruginosa Levofloxacin YANDY METHOD 0.5: Susceptible Pseudomonas aeruginosa Piperacillin-tazobactam YANDY MET HOD 8: Susceptible Pseudomonas aeruginosa Meropenem YANDY METHOD <=0.25: Susceptible Comment: Rey Hope MD MICROBIOLOGY - GENERAL ORDERA BLES Final Result Performing Organization Address [facility] de Phone Number [address] [address] * (ABNORMAL) Urine sediment (07/16/2025 2:44 PM EDT) Only the most recent of3 resultswithin the time period is included. WBC TOO NUMEROUS TO COUNT(A) NONE SEEN /hpf [facility] RBC NONE SEEN NONE SEEN /hpf [facility] URINE EPITHELIAL NONE SEEN NONE SEEN [facility] MUCUS NONE SEEN NONE SEEN /hpf [facility] BACTERIA 3+(A) NONE SEEN /hpf [facility] 07/16/2025 2:44 PM EDT 07/16/2025 2:48 PM EDT Rey Hope MD URINE ORDERABLES Final Result Performing Organization Address [facility] Co de Phone Number [address] [address] * (ABNORMAL) Comprehensive metabolic panel (07/16/2025 8:14 AM EDT) Only the most recent of2 resultswithin the time period is included. SODIUM 137 133 - 146 mmol/L [facility] POTASSIUM 4.6 3.3 - 5.1 mmol/L [facility] CHLORIDE 102 96 - 108 mmol/L [facility] CO2 26 21 - 35 mmol/L [facility] BUN 32(H) 6 - 19 mg/dL [facility] CREATININE 1.10 0.5 - 1.5 mg/dL [facility] GLUCOSE 101(H) 70 - 99 mg/dL [facility] ALBUMIN 4.2 3.9 - 4.8 g/dL [facility] TOTAL PROTEIN 7.3 6.5 - 8.0 g/dL [facility] CALCIUM 9.5 8.4 - 10.3 mg/dL [facility] ALKALINE PHOSPHATASE 64 39 - 117 U/L [facility] TOTAL BILIRUBIN 0.5 0.0 - 1.2 mg/dL [facility] AST 20 0 - 37 U/L [facility] ALT 10 0 - 40 U/L [facility] GLOBULIN 3.1 1 - 4.8 g/dL [facility] EGFR 50(L) >59 mL/min/1.7 3m2 [facility] Comment:Estimated glomerular filtration rate calculated using the CKD-EPI refit equation. ANION GAP 14 10 - 20 mmol/L [facility] Blood 07/16/2025 8:14 AM EDT 07/16/2025 8:18 AM EDT us Rye Hope MD LAB BLOOD ORDERABLES Final Re sult [facility] [address] [place] [address] * (ABNORMAL) CBC and differential (07/16/2025 8:14 AM EDT) Only the most recent of3 resultswithin the time period is included. WBC 9.65 4.00 - 11.00 K/uL [facility] RBC 3.60(L) 4.00 - 5.20 M/uL [facility] HGB 12.0 12.0 - 16.0 g/dL [facility] HCT 36.9 36.0 - 46.0 % [facility] PLT 271 150 - 450 K/uL [facility] MCV 102.5(H) 80.0 - 100.0 fL [facility] MCH 33.3(H) 27.0 - 31.0 pg [facility] MCHC 32.5 32.0 - 36.0 g/dL [facility] RDW 13.8 11.5 - 14.5 % [facility] MPV 11.5 8.4 - 12.0 fL [facility] NRBC 0.00 0.00 /100 WBCs [facility] ABSOLUTE NRBC 0.00 0.00 K/uL [facility] DIFF METHOD Auto [facility] NEUTS 70.6 48.0 - 76.0 % [facility] LYMPHS 9.8(L) 18.0 - 41.0 % [facility] MONOS 16.9(H) 4.0 - 11.0 % [facility] EOS 2.0 0.0 - 5.0 % [facility] BASOS 0.4 0.0 - 1.5 % [facility] Granulocytes, immature (%) 0.3 0.0 - 0.9 % [facility] ABSOLUTE NEUTS 6.81 1.92 - 7.60 K/uL [facility] ABSOLUTE LYMPHS 0.95 0.72 - 4.10 K/uL [facility] ABSOLUTE MONOS 1.63(H) 0.16 - 1.10 K/uL [facility] ABSOLUTE EOS 0.19 0.00 - 0.50 K/uL [facility] ABSOLUTE BASOS 0.04 0.00 - 0.15 K/uL [facility] Granulocytes, immature 0.03 0.00 - 0.09 K/uL [facility] Blood 07/16/2025 8:14 AM EDT 07/16/2025 8:18 AM EDT us Rey Hope MD LAB BLOOD ORDERABLES Final Re sult [facility] [address] [place] [address] * (ABNORMAL) Basic metabolic panel (07/10/2025 9:16 AM EDT) SODIUM 133 133 - 146 mmol/L [facility] CHLORIDE 98 96 - 108 mmol/L [facility] POTASSIUM 4.3 3.3 - 5.1 mmol/L [facility] CO2 27 21 - 35 mmol/L [facility] BUN 27(H) 6 - 19 mg/dL [facility] CREATININE 0.90 0.5 - 1.5 mg/dL [facility] GLUCOSE 88 70 - 99 mg/dL [facility] CALCIUM 9.7 8.4 - 10.3 mg/dL [facility] EGFR 63 >59 mL/min/1.7 3m2 [facility] Comment:Estimated glomerular filtration rate calculated using the CKD-EPI refit equation. ANION GAP 12 10 - 20 mmol/L [facility] Blood 07/10/2025 9:16 AM EDT 07/10/2025 9:19 AM EDT Rey Hope MD LAB BLOOD ORDERABLES Final Re sult Performing Organization Address [facility] Co de Phone Number [address] [address] * Outside Imaging Report Only (06/21/2025 10:58 AM EDT) us Historical Provider IMG XR CHEST Final Res ult * (ABNORMAL) TSH with reflex (06/11/2025 10:00 AM EDT) TSH 4.80(H) 0.27 - 4.20 uIU/mL [facility] Blood 06/11/2025 10:0 0 AM EDT 06/11/2025 10:03 AM EDT us Rey Hope MD LAB BLOOD ORDERABLES Final Re sult Performing Organization Address [facility]/ZIP Co de Phone Number [address] [address] * (ABNORMAL) Free T4 (06/11/2025 10:00 AM EDT) FREE T4 1.9(H) 0.9 - 1.7 ng/dL [facility] 06/11/2025 10:0 0 AM EDT 06/11/2025 10:03 AM EDT Rey Hope MD LAB BLOOD ORDERABLES Final Re sult [facility] [address] [place] [address] * Outside Lab (06/04/2025 9:50 AM EDT) Historical Provider LAB BLOOD ORDERABLES Destinee l Result * Outside XR??Chest Report Only (06/02/2025 7:55 AM EDT) Historical Provider IMG XR CHEST Final Res ult * Outside CT Imaging Report Only (06/02/2025 7:50 AM EDT) Historical Provider IMG CT Final Res ult * OUTSIDE BONE DENSITY SCREENING (10/21/2014) [facility] BONE DENSITY SCREENING - EXTERNAL osteopenia Result [facility] Historical Provider HEALTH MAINTENANCE Edited Result - Final from Last 3 Months or Most Recently Relevant to Health Maintenance Insurance BLUE [employer]OSS MEDEX SUPPLEMENT MEDICARE PART A & B CEPA Safe Drive MEDEX SUPPLEMENT MEDICARE PART A & B CEPA Safe Drive MEDEX SUPPLEMENT CEPA Safe Drive MEDEX SUPPLEMENT CEPA [address] MEDEX SUPPLEMENT MEDICARE PART A & B [employer] SUPPLEMENT [employer] MED[place] SUPP[place] [id number] [employer] MEDEX SUPPLEMENT MEDICARE PART A & B [place] MEDEX SUPPLEMENT MEDICARE PART A & B Advance Directives For more information, please contact: [phone] (9AM - 5PM [facility], Wednesday-Wednesday) * Full Code (Latest Code Status on File) Date Activated Date Inactivated Comments 01/29/2025 8:49 PM Question Answer Comments Code Status Confirmed With: Patient Code Status Communicated To: PCP Code Discussion Comments: pt wats to be full code but wants limits on hertime on machines. will use health care proxy for this Care Teams Boat Dock Operator Relationship Specialty Start Date End Date Rey Hope MD [address] [place] [address] PCP - General 11/11/17 Sue Hendrickson MD [address] [facility] [address] [place] [address] Dermatology 08/26/20 Caitlin Armstrong MD [address] [place] [address] 1 [place] [address] Ophthalmology 08/26/20 Yohannes Finch OD [address] [place] [address] Optometry 08/26/20 Rey Hope MD [address] [place] [address] Insurance Assigned Provider 02/12/24 Additional Source Comments The information contained in this document represents components of the legal health record. It is not the complete legal health record.[facility]
--- OUTSIDE RECORDS SUMMARY | 2025-07-23 07:33 | XMS_ITS | Encounter Summary ---
Author Organization [facility] Address [address] [place] [address] Phone Care Team Providers Care Cafeteria Aide Name Role Phone Rey Hope MD Primary Care Provider [phone] Sue Hendrickson MD Unavailable [phone] Caitlin Armstrong MD Unavailable [phone] Yohannes Finch OD Unavailable [phone] Rey Hope MD Unavailable [phone] Reason for Referral * Consultation (Within 3 days (urgent)) - Authorized Specialty Diagnoses / Procedures Referred By Contac t Referred To Contact Diagnoses Urinary retention Rey Hope MD [address] [place] [address] Phone: tel: fax: [email or web address] Martin Shaikh MD [address] [place] [address] [place] [address] Phone: tel: fax: Referral ID Status Reason Start Date Expiration Date V isits Requested Visits Authorized [id number] Authorized 07/10/2025 07/11/2026 6 6 Reason for Visit * Reason Onset Date Comments ultrasound order 07/10/2025 Encounter Details Date Type Department Care Team (Late st Contact Info) Description 07/10/2025 Telephone [employer] [facility] Internal Medicine [address] [place] [address] Rey Hope MD [address] [place] [address] [email or web address] ultrasound order Social History Tobacco Use Types Packs/Day Years [...] PM EDT documented as of this encounter Progress Notes * Robert Rainey - 07/19/2025 10:43 AM EDT Labs resulted and faxed to Dr. Shaikh's office as requested * Robert Rainey - 07/18/2025 7:15 AM EDT Patient had labs done at [facility]. * Rey Hope MD - 07/16/2025 6:48 PM EDT Obtain labs from [facility] * Robert Rainey - 07/16/2025 10:04 AM EDT Patient is aware she does not need to go for ultrasound. She states she has an appt with Dr. Shaikh's office on 07/23, also she went for blood work today * Rey Hope MD - 07/13/2025 6:54 PM EDT Patient does not need ultrasound of leg. * Robert Rainey - 07/13/2025 10:07 AM EDT Tried faxing [facility] 3x ultrasound order keeps saying it is busy. Called last night states their lines are down to try today. Tried twice today says busy. Called patient and left voicemail that I would keep trying but will mail out order if she wants to bring it there. * Robert Rainey - 07/12/2025 3:04 PM EDT Faxed ultrasound order to [facility] scheduling at [phone]. Called and spoke with Dr. Shaikh's office. They stated that referral is being triaged by nurse and this could take a couple of days. Relayed to provider. * Laura Azul - 07/12/2025 2:55 PM EDT Received call from patient who reports she would like the new order US Lower Extremity Veins Duplexfaxed to be completed though [facility]. Can external order be placed. * Elma León RN - 07/11/2025 10:38 AM EDT Pt is aware urgent referral was sent, and they should call for appt. * Robert Rainey - 07/11/2025 9:29 AM EDT Faxed urgent referral, demographics, renal ultrasound, labs and last office note to [phone] * Rey Hope MD - 07/10/2025 9:13 PM EDT Needs to see urology this week urgently for urinary retention and repeat urinalysis and culture andlabs. Send renal ultrasound and labs. documented in this encounter Plan of Treatment Upcoming Encounters Date Type Department Care Team (Late st Contact Info) Description 01/30/2026 10:00 AM EDT Office Visit [facility] Internal Medicine [address] [facility] [place] [address] Rey Hope MD [address] [place] [address] [email or web address] Scheduled Referrals Name Type Priority Associated Diagnoses Order Schedule Ambulatory referral to External Urology Outpatient Referral Routine Urinary retention Ordered: 07/10/2025 documented as of this encounter Visit Diagnoses Diagnosis Urinary retention- Primary Unspecified retention of urine documented in this encounter Additional Health Concerns Assessment Noted Time PHQ-2 Depression Total Score: 0 05/14/20 25 10:55 AM EDT documented as of this encounter Care Teams Cafeteria Aide Relationship Specialty Start Date End Date Rye Hope MD [address] [place] [address] PCP - General 11/11/17 Sue Hendrickson MD [address] [facility] 5 [place] [address] Dermatology 08/26/20 Caitlin Armstrong MD [address] [facility] 1 [place] [address] Ophthalmology 08/26/20 Yohannes Finch OD [address] [place] [address] Optometry 08/26/20 Rey Hope MD [address] [place] [address] [email or web address] Insurance Assigned Provider 02/12/24 documented as of this encounter Additional Source Comments The information contained in this document represents components of the legal health record. It is not the complete legal health record.[facility]
--- OUTSIDE RECORDS SUMMARY | 2025-07-23 07:33 | XMS_ITS | Patient Health Record ---
Author Organization [facility] Address [address] [place] [address] Care Team Providers Care Snag Grinder Name Role Phone Rey Hope MD Primary Care Provider Ramya Carlin Unavailable [phone] Reason For Referral No Information Medications Medication SIG (Take, Route, Frequency, Duration) Notes Start Date End Date Status Calcium 1 tab Oral Active Vitamin D3 1000 IU ORAL daily; Duration: -3 [facility] 2011 Active Lisinopril 20MG 1 ORAL daily; Durati on: - [facility] 10/19/2011 Active Levothyroxine Sodium 75MCG 1 ORAL daily; Duration: -3 [facility] 10/29/2014 Active Fish Oil 1200MG 1 ORAL daily; Durati on: -3 [facility] 10/19/2012 Active Fish Oil 1200MG 1 ORAL daily; Durati on: -3 [facility] 10/19/2012 Active Aspirin EC 81MG 1 ORAL daily; Durati on: -3 [facility] 10/19/2012 Active Aspirin EC 81MG 1 ORAL daily; Durati on: -3 [facility] 10/19/2012 Active Vitamin D3 1000 IU ORAL daily; Duration: -3 [facility] 2011 Active Lisinopril 20MG 1 ORAL daily; Durati on: -3 [facility] 10/19/2011 Active Levothyroxine Sodium 75MCG 1 ORAL daily; Duration: -3 [facility] 10/29/2014 Active Social History Tobacco Use: Social [...] W/U Status Risk Notes Problem Essential hypertension (58235040) Unspecified essential hypertension (401.9) Active confirmed Major Problem Menopausal symptom (35426880) Symptomatic menopausal or female climacteric states (627.2) Active confirmed Major Problem Osteoporosis (24390666) Unspecified osteoporosis (733.00) Active confirmed Major Problem Disorder of bone and articular cartilage (disorder) (834161328) Disorder of bone and cartilage, unspecified (733.90) Active confirmed Diag Problem Gynecological examination normal (259190826382944) Routine gynecological examination (V72.31) Active confirmed Major Problem Screening for malignant neoplasm of colon (141314294) Special screening for malignant neoplasms, colon (V76.51) Active confirmed Major Plan Of Treatment No Information Insurance Providers Payer Name Payer Address Payer Phone Subscriber Number Group Number Insured Name Patient Relationship to Insured Coverage Start Date Coverage End Date MEDICARE [address] BETHANY ZHANG [id number] [phone] [id number] DIRK KAPLAN Self - patient is the insured BCBS OF [facility] [address] [place] [address] [phone] [id number] DIRK KAPLAN Self - patient is the insured Medical (General) History Medical History History ICD Code Disorder of bone density and structure, unspecified M85.9 Essential (primary) hypertension I10 Age-related osteoporosis without current pathological fracture M81.0 Menopausal and female climacteric states N95.1 Surgical History Surgery Date(Month/Year) Colonoscopy
--- OUTSIDE RECORDS SUMMARY | 2025-07-23 07:33 | XMS_ITS | Encounter Summary ---
Author Organization [facility] Address [address] [place] [address] Phone Care Team Providers Care Psychiatric Lpn Name Role Phone Rey Hope MD Primary Care Provider Sue Hendrickson MD Unavailable Caitlin Armstrong MD Unavailable Yohannes Finch OD Unavailable [phone] Rey Hope MD Unavailable Reason for Visit * Reason Onset Date Comments Antibiotic 07/18/2025 Results 07/18/2025 Encounter Details Date Type Department Care Team (Late st Contact Info) Description 07/18/2025 Telephone [employer] [facility] Internal Medicine [address] [place], [place] [phone] Rey Hope MD [address] [place], [place] [phone] [email or web address] Antibiotic; Results Social History Tobacco Use Types Packs/Day Years [...] as of this encounter Progress Notes * Linette Sweet RN - 07/19/2025 8:25 AM EDT Spoke to Giana and advised. * Linette Sweet RN - 07/19/2025 8:24 AM EDT Images from the original note were not included. Rey Hope MD P g Yogi Giordano Rn UTI treated with Levaquin 500 mg a day for 5 days. Other labs are okay. * Rey Hope MD - 07/18/2025 8:15 PM EDT Levaquin 500 mg 1 tablet a day for five days sent to pharmacy for urinary tract infection. See result notes. documented in this encounter Plan of Treatment Upcoming Encounters Date Type Department Care Team (Late st Contact Info) Description 01/30/2026 10:00 AM EDT Office Visit [facility] Internal Medicine [address] [place] [address] Rey Hope MD [address] [place] [address] [email or web address] documented as of this encounter Visit Diagnoses Diagnosis Urinary tract infection without hematuria, site unspecified- Primary documented in this encounter Additional Health Concerns Assessment Noted Time PHQ-2 Depression Total Score: 0 05/14/20 25 10:55 AM EDT documented as of this encounter Care Teams Psychiatric Lpn Relationship Specialty Start Date End Date Rey Hope MD [address] [place] [address] PCP - General 11/11/17 Sue Hendrickson MD [address] [place] [address] Dermatology 08/26/20 Caitlin Armstrong MD [address] [address] Ophthalmology 08/26/20 Yohannes Finch OD [address] [place] [address] Optometry 08/26/20 Rey Hope MD [address] [place] [address] Insurance Assigned Provider 02/12/24 documented as of this encounter Additional Source Comments The information contained in this document represents components of the legal health record. It is not the complete legal health record.[facility]
--- OUTSIDE RECORDS SUMMARY | 2025-07-23 07:33 | XMS_ITS | Patient Health Record ---
Author Organization [facility] Chilo michael Garza Address [address] [facility] [place] [address] Care Team Providers Care Wash Worker Name Role Phone Rey Hope MD Primary Care Provider Ameena Colon Unavailable [phone] Lan Cheney Unavailable [phone] Jose Saucedo Unavailable [phone] Allergies No Known Allergies Reason For Referral [...] atherosclerosis of arteries of lower limbs (disorder) (93289284383432133 ) Atherosclerosis of [place] artery of both lower extremities, with unspecified presence of clinical manifestation (I70.203) Active confirmed Q7(A), Q8(2B), Q9(1B,2 C) Vital Signs Blood pressure diastolic 65 mm Hg 05/28/2025 Height 5ft 1in in 05/28/2025 Blood pressure systolic 115 mm Hg 05/28/2025 Weight 133 lbs 05/28/2025 BMI 25.13 kg/m2 05/28/2025 Procedures Procedure Date Ordered Date Performed Result Body Sit e 50564-GKTRYXQ NAIL, 6 OR MORE 10/16/2024 N/A 58807-KKQH SKIN LESIONS, 2 TO 4 10/16/2024 N/A 92107-AZWJKKG NAIL, 6 OR MORE 02/22/2025 N/A 09767-LTSJ SKIN LESIONS, 2 TO 4 02/22/2025 N/A 42790-IJSDGJE NAIL, 6 OR MORE 05/28/2025 N/A 06246-WOEX SKIN LESIONS, 2 TO 4 05/28/2025 N/A Encounters Encounter Location Date Provider Diagnosis [facility] [address] [place] [address] 2024 Lan Cheney Unspecified atherosclerosis of [place] arteries of extremities, bilateral legs I70.203 ; Skin disease L98.9 ; Tinea unguium B35.1 ; Xerosis cutis L85.3 ; Hallux valgus (acquired), left foot M20.12 ; Hallux valgus (acquired), right foot M20.11 ; Other hammer toe(s) (acquired), left foot M20.42 ; Other hammer toe(s) (acquired), right foot M20.41 and Neuralgia and neuritis, unspecified M79.[address] [address] 10/16/2024 Ameena Beard Atherosclerosis of [place] artery of both lower extremities, with unspecified presence of clinical manifestation I70.203 ; Tinea unguium B35.1 ; Pain in right toe(s) M79.674 and Pain in left toe(s) M79.[address] [address] 02/22/2025 Ameena Beard Atherosclerosis of [place] artery of both lower extremities, with unspecified presence of clinical manifestation I70.203 ; Tinea unguium B35.1 ; Pain in right toe(s) M79.674 ; Pain in left toe(s) M79.675 and Xerosis of skin L85.[address] [address] 05/28/2025 Ameena Beard Atherosclerosis of [place] artery of both lower extremities, with unspecified presence of clinical manifestation I70.203 ; Tinea unguium B35.1 ; Pain in right toe(s) M79.674 ; Pain in left toe(s) M79.675 and Xerosis of skin L85.3 Assessments Encounter Date Diagnosis (ICD Code) Assessment Notes Treatment Notes Treatment Clinical Notes Section Notes 02/22/2025 Atherosclerosis of [place] artery of both lower extremities, with unspecified presence of clinical manifestation (ICD-10 - I70.203) Q7(A), Q8(2B), Q9(1B,2C) 10/16/2024 Atherosclerosis of [place] artery of both lower extremities, with unspecified presence of clinical manifestation (ICD-10 - I70.203) Q7(A), Q8(2B), Q9(1B,2C) 2024 Unspecified atherosclerosis of [place] arteries of extremities, bilateral legs (ICD-10 - I70.203) 05/28/2025 Tinea unguium (ICD-10 - B35.1) 05/28/2025 Atherosclerosis of [place] artery of both lower extremities, with unspecified presence of clinical manifestation (ICD-10 - I70.203) Q7(A), Q8(2B), Q9(1B,2C) 05/28/2025 Pain in right toe(s) (ICD-10 - M79.674) 2024 Skin disease (ICD-10 - L98.9) 10/16/2024 Tinea unguium (ICD-10 - B35.1) 02/22/2025 Tinea unguium (ICD-10 - B35.1) 02/22/2025 Pain in right toe(s) (ICD-10 - M79.674) 2024 Tinea unguium (ICD-10 - B35.1) 10/16/2024 Pain in right toe(s) (ICD-10 - M79.674) 05/28/2025 Pain in left toe(s) (ICD-10 - M79.675) 05/28/2025 Xerosis of skin (ICD-10 - L85.3) 2024 Xerosis cutis (ICD-10 - L85.3) 10/16/2024 Pain in left toe(s) (ICD-10 - M79.675) 02/22/2025 Pain in left toe(s) (ICD-10 - M79.675) 02/22/2025 Xerosis of skin (ICD-10 - L85.3) 2024 Hallux valgus (acquired), left foot (ICD-10 - M20.12) 2024 Hallux valgus (acquired), right foot (ICD-10 - M20.11) 2024 Other hammer toe(s) (acquired), left foot (ICD-10 - M20.42) 2024 Other hammer toe(s) (acquired), right foot (ICD-10 - M20.41) 2024 Neuralgia and neuritis, unspecified (ICD-10 - M79.2) Plan Of Treatment Pending Test Test Name Order Date 69656-JBUITIX NAIL, 6 OR MORE 10/16/2024 63162-OMUOMNC NAIL, 6 OR MORE 02/22/2025 92663-BOLPYXA NAIL, 6 OR MORE 05/28/2025 69256-OFCP SKIN LESIONS, OVER 4 12/07/19 23 82943-NOVV SKIN LESIONS, OVER 4 03/08/20 23 49291-JLFC SKIN LESIONS, 2 TO 4 02/23/20 25 70118-DAHY SKIN LESIONS, 2 TO 4 10/16/20 24 70617-VBVK SKIN LESIONS, 2 TO 4 05/28/20 25 K5413-UFNICSYK DYSTROPHIC NAILS ANY # B4918-QOFAYMMA DYSTROPHIC NAILS ANY # Next Appt Details Provider Name:Ameena Mike peng, 08/27/2025 11:15:00 AM, [address] [place] [address], [phone], Insurance Providers Payer Name Payer Address Payer Phone Subscriber Number Group Number Insured Name Patient Relationship to Insured Coverage Start Date Coverage End Date Medicare National Govt Svcs Inc [address] [place] [address] [id number] Giana Carlos Self - patient is the insured [employer] [address] [place] [address] [id number] Giana Calros Self - patient is the insured Medical (General) History Medical History History ICD Code Back,Hip,and Knee pain Surgical History Surgery Date(Month/Year) hip surgery 10/06/2022 Spinal Surgery 05/17/24
--- OUTSIDE RECORDS SUMMARY | 2025-07-23 07:33 | XMS_ITS | Encounter Summary ---
Author Organization [facility] Address [address] [address] Phone Care Team Providers Care Ship Captain Name Role Phone Rey Hope MD Primary Care Provider Sue Hendrickson MD Unavailable Caitlin Armstrong MD Unavailable Yohannes Finch OD Unavailable [phone] Rey Hope MD Unavailable [phone] Encounter Details Date Type Department Care Team (Late st Contact Info) Description 06/28/2023 Transcribe Orders [facility] [address] [place], [place] [phone] Rey Hope MD [address] [place], [place] [phone] [email or web address] Social History Tobacco Use Types Packs/Day Years [...] Description 01/30/2026 10:00 AM EDT Office Visit [facility] Internal Medicine [address] [place] [address] Rey Hope MD [address] [place] [address] [email or web address] documented as of this encounter Visit Diagnoses Not on filedocumented in this encounter Additional Health Concerns Assessment Noted Time PHQ-2 Depression Total Score: 0 12/08/19 23 12:42 PM EST documented as of this encounter Care Teams Ship Captain Relationship Specialty Start Date End Date Rey Hope MD [address] [place] [address] [email or web address] PCP - General 11/11/17 Sue Hendrickson MD [address] [facility] [address] [place] [address] Dermatology 08/26/20 Caitlin Armstrong MD [address] [address] Ophthalmology 08/26/20 Yohannes Finch OD [address] [place] [address] Optometry 08/26/20 Rey Hope MD [address] [place] [address] [email or web address] Insurance Assigned Provider 02/12/24 documented as of this encounter Additional Source Comments The information contained in this document represents components of the legal health record. It is not the complete legal health record.[facility]
--- OUTSIDE RECORDS SUMMARY | 2025-07-23 07:33 | XMS_ITS | Patient Health Record ---
Author Organization [facility] Address [address] [place] [address] Care Team Providers Care Educational Audiologist Name Role Phone Rey Hope MD Primary Care Provider Rigo sigala Rubio Villafana Unavailable [phone] Allergies No Known Allergies Reason For Referral [...] Status W/U Status Risk Notes Problem Constipation (85141648) Constipation (K59.00) Active confirmed Problem Anorexia (80822197) Anorexia (R63.0) Active confirmed Vital Signs Temperature 98.6 degrees Fahrenheit 06/01/2025 Blood pressure diastolic 01 mm Hg 06/01/2025 Height 63 in 06/01/2025 Blood pressure systolic 001 mm Hg 06/01/2025 Weight 125.4 lbs 06/01/2025 BMI 22.21 kg/m2 06/01/2025 Encounters Encounter Location Date Provider Diagnosis [facility] [address] [place] [address] 06/01/2025 Rubio Villafana Constipation K59.00 and Anorexia [...] OF [place] [address] BETHANY VIEIRA [address] [id number] EUSEBIOGIANA Self - patient is the insured [employer] ATT[employer] CLAIMS [address] [place] [address] [phone] [id number] GIANA KAPLAN Self - patient is the insured 5 Medical (General) History Medical History History ICD Code HTN Denies CA,DM,CVA,Lung disease,renal dise ase Neuropathy Hypothyroidism Previous colonoscopies with Dr. Yohannes Allen in [place]. The colonoscopy in 2004 was negative and the colonoscopy in 2014 revealed a small polyp that was removed and small internal hemorrhoids. Surgical History Surgery Date(Month/Year) Cataracts Spinal stenosis 2023 Total right hip replacement 2022
== END 2025-07-23 08:40 | disposition home or self-care (01) ==
LOC: HO.HUSH 07:30
PROVIDERS: Visit Provider Urology
DX: R35.0 Frequency of micturition (principal); R33.9 Retention of urine, unspecified
CPT/HCPCS: 51701; 99204

== ENCOUNTER 2025-07-23 07:29 | Outpatient (REF) | payer MEDICARE, SELFPAY | END 2025-07-23 07:30 | disposition home or self-care (01) | LOC: HO.LAB 07:29 | PROVIDERS: Visit Provider Urology | DX: N13.30 Unspecified hydronephrosis (principal); R35.0 Frequency of micturition; R33.9 Retention of urine, unspecified; N39.0 Urinary tract infection, site not specified; Z79.899 Other long term (current) drug therapy | CPT/HCPCS: 51701; 51798; 87086; 88112; 99202 ==

== ENCOUNTER 2025-09-13 07:16 | Outpatient (REF) | payer MEDICARE, SELFPAY ==
--- OUTSIDE RECORDS SUMMARY | 2024-10-03 05:00 | XMS_ITS ---
Author Organization [facility] Address [address] [place] [address] Care Team Providers Care Breaker Machine Operator Name Role Phone Jayy BROWN, Rey Primary Care Provider Ameena Colon Unavailable [phone] Jose Saucedo Unavailable [phone] REASON FOR VISIT too soon Encounters Encounter Location Date Provider Diagnosis [address] [address] 10/03/2024 Jose Saucedo Plan Of Treatment Next Appt Details Provider Name:Ameena khoury, 12/06/2025 09:15:00 AM, [address] [place], [address], Progress Notes * Giana KAPLAN ADOB:[birth year] (85 yo F)Acc No.[id number]:10/03/2024 Progress Note Patient: Giana ORDONEZ Provider: Michele Saucedo DPM :1940 A ge:84 Y S ex:Female Date:10/03/2024 Address:[address] [place] [address], [facility] KANCHAN Garza-[id number] Pcp:Rey Hope MD Subjective: * Chief Complaints: * 1 . Too soon. * Medical History: Objective: * Vitals: Assessment: Plan: * Treatment: * Images: * The named appointment provid er may or may not be the originator of this progress note, and it is not deemed complete until electronically signed by the appointment provider. Sign off status: Pending * Provider: Michele Saucedo DPM Date: 12/03/2023 Generated for Vern Krishna on: 11/13/2024 07:19 AM EST
--- NOTE | ~2025-09-13 | CT_ITS ---
CLINICAL HISTORY: N13.30 - Unspecified hydronephrosis --- Additional Notes or Special Instructions: right hydronephrosis and hematuria CT abdomen and pelvis with and without contrast Comparison: US/SR - US RETROPERITONEUM - 06/21/25 14:[address] - CT ANGIO CHEST PE PROTOCOL - 06/02/25 16:[address]/SR - CT ANGIO CHEST PE PROTOCOL - 06/02/25 16:46 EDT CR/SR - XR ABDOMEN 1 VIEW (KUB) - 05/25/24 07:12 EDT Findings: No consolidation or effusion. Limited evaluation without portal venous phase imaging. Calcifications in the lili hepatis region. Subcentimeter hypodensity in the liver too small to accurately characterize by CT criteria however unchanged from previous exams. Slightly increased now moderate right hydronephrosis. There is abrupt change in caliber at the ureteropelvic junction. No radiopaque obstructing calculus. Questionable abnormal enhancement within the region of abrupt caliber change concerning for a soft tissue lesion /Neoplasm (series 11, image 64) measuring 1.1 x 1.2 cm (best visualized on the sagittal images and incompletely characterized without portal venous phase imaging ). Urology consultation is recommended if not previously performed. Consider CT abdomen with portal venous phase imaging or MRI for further evaluation. Questionable enhancement in the area of soft tissue attenuation in the location of caliber change of the right renal collecting system measuring 30 Hounsfield units on the precontrast images ( series 7, image 189) and 80 Hounsfield units on postcontrast delayed images ( series 8, image 32). Subcentimeter hypodensities in both kidneys too small to accurately characterize by CT criteria. One of the lesions on the lateral posterior left kidney measures 0.7 cm (series 9, image 180) and may demonstrate peripheral enhancement however due to the small size this is very difficult to evaluate. Six-month follow-up imaging is recommended to evaluate for interval change. Large volume of stool throughout the colon greatest in the rectum. No evidence of bowel obstruction. Severe atherosclerotic vascular calcifications. Appendix is not visualized. Urinary bladder is distended which may be due to voluntary or involuntary urinary retention. Limited evaluation in the pelvis due to significant streak artifact from right hip arthroplasty hardware. Grade 2 anterolisthesis of L4 on L5 likely degenerative. Degenerative changes of the spine. IMPRESSION: 1. Limited evaluation without portal venous phase imaging. 2. Slightly increased now moderate right hydronephrosis. There is abrupt change in caliber at the ureteropelvic junction. No radiopaque obstructing calculus. Questionable abnormal enhancement within the region of abrupt caliber change concerning for a soft tissue lesion /Neoplasm (series 11, image 64) measuring 1.1 x 1.2 cm (best visualized on the sagittal images and incompletely characterized without portal venous phase imaging ). Urology consultation is recommended if not previously performed. Consider CT abdomen with portal venous phase imaging or MRI for further evaluation. 3. Subcentimeter hypodensities in both kidneys too small to accurately characterize by CT criteria. One of the lesions on the lateral posterior left kidney measures 0.7 cm (series 9, image 180) and may demonstrate peripheral enhancement however due to the small size this is very difficult to evaluate. Six-month follow-up imaging is recommended to evaluate for interval change. 4. Urinary bladder is distended which may be due to voluntary or involuntary urinary retention. 5. Large volume of stool throughout the colon greatest in the rectum. No evidence of bowel obstruction. 6. Limited evaluation in the pelvis due to significant streak artifact from right hip arthroplasty hardware. This document has been electronically signed by: Sunil Odom DO on 09/14/2025 10:39:05
--- OUTSIDE RECORDS SUMMARY | 2025-09-13 07:19 | XMS_ITS | Clinical Summary ---
Author Organization [facility] Address [address] [place] [address] Phone Care Team Providers Care Dry Talc Racker Name Role Phone Rey Hope MD Primary Care Provider [phone] Sue Hendrickson MD Unavailable Caitlin Armstrong MD Unavailable Yohannes Finch OD Unavailable [phone] Rey Hope MD Unavailable [phone] Allergies No known active allergies Medications [...] 17 g by mouth every morning. Active albuterol 90 mcg/actuation inhaler Inhale 2 puffs into the lungs every 6 (six) hours as needed. 5 Active amLODIPine (NORVASC) 5 MG tabletIndications :Primary hypertension Take 1 tablet (5 mg total) by mouth daily. 90 tablet 3 5 Active Active Problems Problem Noted Date Diagnosed Date Cervical spondylosis 08/10/2024 Overview (08/10/2024): Fol w [facility] [place] mylene ADAMES last OV 07/14 plan [...] Encounters Date Type Department Care Team Description 08/13/2025 Refill [facility] Internal Medicine [address] [place] [address] Rey Hope MD Medication Refill 07/18/2025 Telephone [facility] Internal Medicine [address] [place] [address] Rey Hope MD Antibiotic; Results 07/16/2025 8:14 AM EDT - 07/16/2025 11:59 PM EDT Hospital Encounter [facility] [address] [address] [place] [address] Rey Hope MD Discharge Disposition: Home or Self Care 07/11/2025 Telephone [facility] Internal Medicine [address] [place] [address] Rey Hope MD Results 07/10/2025 9:16 AM EDT - 07/10/2025 11:59 PM EDT Hospital Encounter [facility] [address] [address] [place] [address] Rey Hope MD Discharge Disposition: Home or Self Care 07/10/2025 Telephone [facility] Internal Medicine [address] [place] [address] Rey Hope MD ultrasound order 06/25/2025 Orders Only [facility] Internal [facility] [address] [place] [address] Raina Gudino MD 06/17/2025 Telephone [facility] Internal Medicine [address] [place] [address] Rey Hope MD Results from Last 3 Months Immunizations Immunization Administration [...] Description 01/30/2026 10:00 AM EDT Office Visit [facility] Internal Medicine [address] [place] [address] Rey Hope MD [address] [place] [address] [email or web address] Health Maintenance Due Date Last Done Comments RSV VACCINE (1 - 1-dose 75+ series) 2015 Adult Td,Tdap Booster 03/08/2018 03/08/2008 INFLUENZA VACCINE (#1) 2025 , 2023, 08/05/2022, Additional history exists COVID-19 VACCINE ( season) 2025 2023, 09/08/2022, 09/07/2022, Additional history exists BLOOD PRESSURE 12/12/2025 06/11/2025 DEPRESSION SCREENING 05/14/2026 05/14/2025 TSH LEVEL 06/11/2026 06/11/2025, 01/07, 05/04/2024, Additional history exists CREATININE LEVEL 07/16/2026 07/16/2025, 12/2024, 06/11/2025, Additional history exists POTASSIUM LEVEL 07/16/2026 07/16/2025, 12/2024, 06/11/2025, Additional history exists OSTEOPOROSIS SCREENING [...] SEDIMENT Routine 07/16/2025 2:44 PM EDT URINALYSIS WITH REFLEX TO URINE CULTURE Routine 07/16/2025 2:44 PM EDT Primary hypertension Nocturia URINE CULTURE Routine 07/16/2025 2:44 PM EDT COMPREHENSIVE METABOLIC PANEL (CMP) Routine 07/16/2025 8:14 AM EDT Venous thrombosis Primary hypertension CBC AND DIFFERENTIAL Routine 07/16/2025 8:14 AM EDT Venous thrombosis Primary hypertension BASIC METABOLIC PANEL (BMP) Routine 07/10/2025 9:16 AM EDT Primary hypertension Hyponatremia CBC AND DIFFERENTIAL Routine 07/10/2025 9:16 AM EDT Primary hypertension OUTSIDE IMAGING Routine 06/21/2025 10:58 AM EDT TSH WITH REFLEX Routine 06/11/2025 10:00 AM EDT Primary hypertension OUTSIDE BONE DENSITY SCREENING Routine 10/21/2014 from Last 3 Months or Most Recently Relevant to Health Maintenance Results * (ABNORMAL) Urinalysis w/reflex Urine Culture (07/16/2025 2:44 PM EDT) COLOR Yellow Yellow [facility] CLARITY TURBID [facility] GLUCOSE Negative Negative [facility] BILI Negative Negative [facility] KETONES Negative Negative [facility] SPECIFIC GRAVITY 1.020 1.005 - 1.030 [facility] BLOOD 2+(A) Negative [facility] PH 6.5 5.0 - 8.0 [facility] Protein-UA 2+(A) Negative [facility] NITRITE Positive(A) Negative [facility] Leukocyte esterase, ur 2+(A) Negative [facility] Urine (Urine) 07/16/2025 2:4 4 PM EDT 07/16/2025 2:48 PM EDT us Rey Hope MD LAB URINE ORDERABLES Final Re sult [address] [address] * (ABNORMAL) Urine Culture (07/16/2025 2:44 PM EDT) Special Requests None Reflexed from [id number] 07/16/2025 8:28 PM EDT [facility] Urine Culture >100,000 colony forming units per mL PSEUDOMONAS AERUGINOSA(A) 07/18/2025 7:52 AM EDT [facility] Urine 07/16/2025 2:44 PM EDT 07/16/2025 2:48 PM EDT Narrative Organism Antibiotic Method Susceptibility Pseudomonas aeruginosa Cefepime YANDY METHOD 2: Susceptible Pseudomonas aeruginosa Ceftazidime YANDY METHOD 2: Susceptible Pseudomonas aeruginosa Ciprofloxacin YANDY METHOD 0.12: Susceptible Pseudomonas aeruginosa Levofloxacin YANDY METHOD 0.5: Susceptible Pseudomonas aeruginosa Piperacillin-tazobactam YANDY MET HOD 8: Susceptible Pseudomonas aeruginosa Meropenem YANDY METHOD <=0.25: Susceptible Comment: Rey Hope MD LAB MICROBIOLOGY CULTURE ORDE RABLES Final Result Performing Organization Address [facility] Co de Phone Number [address] [address] * (ABNORMAL) Urine sediment (07/16/2025 2:44 PM EDT) WBC TOO NUMEROUS TO COUNT(A) NONE SEEN /hpf [facility] RBC NONE SEEN NONE SEEN /hpf [facility] URINE EPITHELIAL NONE SEEN NONE SEEN [facility] MUCUS NONE SEEN NONE SEEN /hpf [facility] BACTERIA 3+(A) NONE SEEN /hpf [facility] 07/16/2025 2:44 PM EDT 07/16/2025 2:48 PM EDT Rey Hope MD LAB URINE ORDERABLES Final Re sult Performing Organization Address [facility] Co de Phone Number [address] [address] * (ABNORMAL) Comprehensive metabolic panel (07/16/2025 8:14 AM EDT) SODIUM 137 133 - 146 mmol/L [facility] POTASSIUM 4.6 3.3 - 5.1 mmol/L [facility] CHLORIDE 102 96 - 108 mmol/L [facility] CO2 26 21 - 35 mmol/L [facility] BUN 32(H) 6 - 19 mg/dL [facility] CREATININE 1.10 0.5 - 1.5 mg/dL [facility] GLUCOSE 101(H) 70 - 99 mg/dL [facility] ALBUMIN 4.2 3.9 - 4.8 g/dL [facility] TOTAL PROTEIN 7.3 6.5 - 8.0 g/dL [facility] CALCIUM 9.5 8.4 - 10.3 mg/dL [facility] ALKALINE PHOSPHATASE 64 39 - 117 U/L [facility] TOTAL BILIRUBIN 0.5 0.0 - 1.2 mg/dL [facility] AST 20 0 - 37 U/L [facility] ALT 10 0 - 40 U/L [facility] GLOBULIN 3.1 1 - 4.8 g/dL [facility] EGFR 50(L) >59 mL/min/1.7 3m2 [facility] Comment:Estimated glomerular filtration rate calculated using the CKD-EPI refit equation. ANION GAP 14 10 - 20 mmol/L [facility] Blood 07/16/2025 8:14 AM EDT 07/16/2025 8:18 AM EDT us Rey Hope MD LAB BLOOD BKR ORDERABLES Destinee lópez Result Performing Organization Address City/State/[facility] Co de Phone Number [address] [address] * (ABNORMAL) CBC and differential (07/16/2025 8:14 AM EDT) Only the most recent of2 resultswithin the time period is included. WBC 9.65 4.00 - 11.00 K/uL [facility] RBC 3.60(L) 4.00 - 5.20 M/uL [facility] HGB 12.0 12.0 - 16.0 g/dL [facility] HCT 36.9 36.0 - 46.0 % [facility] PLT 271 150 - 450 K/uL [facility] MCV 102.5(H) 80.0 - 100.0 fL [facility] MCH 33.3(H) 27.0 - 31.0 pg [facility] MCHC 32.5 32.0 - 36.0 g/dL [facility] RDW 13.8 11.5 - 14.5 % [facility] MPV 11.5 8.4 - 12.0 fL [facility] NRBC 0.00 0.00 /100 WBCs [facility] ABSOLUTE NRBC 0.00 0.00 K/uL [facility] DIFF METHOD Auto [facility] NEUTS 70.6 48.0 - 76.0 % [facility] LYMPHS 9.8(L) 18.0 - 41.0 % [facility] MONOS 16.9(H) 4.0 - 11.0 % [facility] EOS 2.0 0.0 - 5.0 % [facility] BASOS 0.4 0.0 - 1.5 % [facility] Granulocytes, immature (%) 0.3 0.0 - 0.9 % [facility] ABSOLUTE NEUTS 6.81 1.92 - 7.60 K/uL [facility] ABSOLUTE LYMPHS 0.95 0.72 - 4.10 K/uL [facility] ABSOLUTE MONOS 1.63(H) 0.16 - 1.10 K/uL [facility] ABSOLUTE EOS 0.19 0.00 - 0.50 K/uL [facility] ABSOLUTE BASOS 0.04 0.00 - 0.15 K/uL [facility] Granulocytes, immature 0.03 0.00 - 0.09 K/uL [facility] Blood 07/16/2025 8:14 AM EDT 07/16/2025 8:18 AM EDT us Rey Hope MD LAB BLOOD BKR ORDERABLES Destinee lópez Result [address] [address] * (ABNORMAL) Basic metabolic panel (07/10/2025 9:16 AM EDT) SODIUM 133 133 - 146 mmol/L [facility] CHLORIDE 98 96 - 108 mmol/L [facility] POTASSIUM 4.3 3.3 - 5.1 mmol/L [facility] CO2 27 21 - 35 mmol/L [facility] BUN 27(H) 6 - 19 mg/dL [facility] CREATININE 0.90 0.5 - 1.5 mg/dL [facility] GLUCOSE 88 70 - 99 mg/dL [facility] CALCIUM 9.7 8.4 - 10.3 mg/dL [facility] EGFR 63 >59 mL/min/1.7 3m2 [facility] Comment:Estimated glomerular filtration rate calculated using the CKD-EPI refit equation. ANION GAP 12 10 - 20 mmol/L [facility] Blood 07/10/2025 9:16 AM EDT 07/10/2025 9:19 AM EDT Rey Hope MD LAB BLOOD BKR ORDERABLES Destinee l Result Performing Organization Address [facility] Co de Phone Number [address] [address] * Outside Imaging Report Only (06/21/2025 10:58 AM EDT) Historical Provider IMG XR CHEST Final Res ult * (ABNORMAL) TSH with reflex (06/11/2025 10:00 AM EDT) TSH 4.80(H) 0.27 - 4.20 uIU/mL [facility] Blood 06/11/2025 10:0 0 AM EDT 06/11/2025 10:03 AM EDT Rey Hope MD LAB BLOOD BKR ORDERABLES Destinee l Result Performing Organization Address [facility] Co de Phone Number [address] [address] * OUTSIDE BONE DENSITY SCREENING (10/21/2014) BONE DENSITY SCREENING - EXTERNAL osteopenia Historical Provider HEALTH MAINTENANCE Edited Result - Final from Last 3 Months or Most Recently Relevant to Health Maintenance Insurance [employer] SUPPLEMENT MEDICARE PART A & B [facility] MEDEX SUPPLEMENT MEDICARE PART A & B [employer] SUPPLEMENT [employer]EX SUPPLEMENT [employer] SUPPLEMENT MEDICARE PART A & B [employer] MEDEX SUPPLEMENT [employer] MEDEX SUPPLEMENT MEDICARE PART A & B [employer] SUPPLEMENT MEDICARE PART A & B [employer] SUPPLEMENT MEDICARE PART A & B Advance Directives For more information, please contact: [phone] (9AM - 5PM [facility], Wednesday-Wednesday) * Full Code (Latest Code Status on File) Date Activated Date Inactivated Comments 01/29/2025 8:49 PM Question Answer Comments Code Status Confirmed With: Patient Code Status Communicated To: PCP Code Discussion Comments: pt wats to be full code but wants limits on hertime on machines. will use health care proxy for this Care Teams Dry Talc Racker Relationship Specialty Start Date End Date Rey Hope MD [address] [place] [address] PCP - General 11/11/17 Sue Hendrickson MD [address] [facility] [address] [place] [address] Dermatology 08/26/20 Caitlin Armstrong MD 9 [facility] [address] [place] [address] Ophthalmology 08/26/20 Yohannes Finch OD [address] [place] [address] Optometry 08/26/20 Rey Hope MD [address] [place] [address] Insurance Assigned Provider 02/12/24 Additional Source Comments The information contained in this document represents components of the legal health record. It is not the complete legal health record.[facility]
--- OUTSIDE RECORDS SUMMARY | 2025-09-13 07:20 | XMS_ITS | Patient Health Record ---
Author Organization [facility] Address [address] [place] [address] Care Team Providers Care Fan Blade Truer Name Role Phone Rey Hope MD Primary Care Provider Rigo sigala Rubio Villafana Unavailable [phone] Allergies No Known Allergies Reason For Referral No Information Medications Medication SIG (Take, Route, Frequency, Duration) Notes Start Date End Date Status MiraLax 17 GM/SCOOP take for bowel prep Orally Once a day 06/01/2025 Active Voltaren 1 % as directed Externally 06/01/2025 Active amLODIPine Besylate 2.5 MG 1 tablet Oral ly Once a day; Duration: 30 day(s) 06/01/2025 Active Dorzolamide HCl 2 % 1 drop into affected eye Ophthalmic Three times a day 06/01/2025 Active Levothyroxine Sodium 75 MCG 1 tablet in the morning on an empty stomach Orally Once a day; Duration: 30 day(s) 06/01/2025 Active Calcium 500 MG 1 tablet with meals Orally Twice a day; Duration: 30 day(s) 06/01/2025 Active Vitamin D-3 25 MCG (1000 UT) 1 capsule O rally Once a day; Duration: 30 day(s) 06/01/2025 Active Lisinopril 30 MG 1 tablet Orally Once a day; Duration: 30 day(s) 06/01/2025 Active Immunizations Vaccine Route [...] Status W/U Status Risk Notes Problem Constipation (96549097) Constipation (K59.00) Active confirmed Problem Anorexia (91416213) Anorexia (R63.0) Active confirmed Vital Signs Temperature 98.6 degrees Fahrenheit 06/01/2025 Blood pressure diastolic 01 mm Hg 06/01/2025 Height 63 in 06/01/2025 Blood pressure systolic 001 mm Hg 06/01/2025 Weight 125.4 lbs 06/01/2025 BMI 22.21 kg/m2 06/01/2025 Encounters Encounter Location Date Provider Diagnosis [facility] [address] [place] [address] 06/01/2025 Rubio Villafana Constipation K59.00 and Anorexia [...] End Date MEDICARE OF [place] [address] [place] [address] [id number] GIANA KAPLAN Self - patient is the insured MED[employer] ATTN CLAIMS [address] [place] [address] [id number] GIANA KAPLAN Self - patient is the insured 5 Medical (General) History Medical History History ICD Code HTN Denies [place],DM,CVA,Lung disease,renal dise ase Neuropathy Hypothyroidism Previous colonoscopies with Dr. Yohannes Allen in [place]. The colonoscopy in 2004 was negative and the colonoscopy in 2014 revealed a small polyp that was removed and small internal hemorrhoids. Surgical History Surgery Date(Month/Year) Cataracts Spinal stenosis 2023 Total right hip replacement 2022
--- OUTSIDE RECORDS SUMMARY | 2025-09-13 07:20 | XMS_ITS | Patient Health Record ---
Author Organization [facility] Address [address] [place] [address] Care Team Providers Care Golf Course Keeper Name Role Phone Rye Hope MD Primary Care Provider Ramya Carlin Unavailable [phone] Reason For Referral No Information Medications Medication SIG (Take, Route, Frequency, Duration) Notes Start Date End Date Status Calcium 1 tab Oral Active Vitamin D3 1000 IU ORAL daily; Duration: -3 [facility] 2011 Active Lisinopril 20MG 1 ORAL daily; Durati on: - [facility] 10/19/2011 Active Levothyroxine Sodium 75MCG 1 ORAL daily; Duration: -3 [facility] 10/29/2014 Active Fish Oil 1200MG 1 ORAL daily; Durati on: -3 [facility] 10/19/2012 Active Fish Oil 1200MG 1 ORAL daily; Durati on: -3 [facility] 10/19/2012 Active Aspirin EC 81MG 1 ORAL daily; Durati on: -3 [facility] 10/19/2012 Active Aspirin EC 81MG 1 ORAL daily; Durati on: -3 [facility] 10/19/2012 Active Vitamin D3 1000 IU ORAL daily; Duration: -3 [facility] 2011 Active Lisinopril 20MG 1 ORAL daily; Durati on: -3 [facility] 10/19/2011 Active Levothyroxine Sodium 75MCG 1 ORAL daily; Duration: -3 [facility] 10/29/2014 Active Social History Tobacco Use: Social [...] W/U Status Risk Notes Problem Essential hypertension (45403164) Unspecified essential hypertension (401.9) Active confirmed Major Problem Menopausal symptom (65724014) Symptomatic menopausal or female climacteric states (627.2) Active confirmed Major Problem Osteoporosis (88745629) Unspecified osteoporosis (733.00) Active confirmed Major Problem Disorder of bone and articular cartilage (disorder) (375844182) Disorder of bone and cartilage, unspecified (733.90) Active confirmed Diag Problem Gynecological examination normal (410466298973559) Routine gynecological examination (V72.31) Active confirmed Major Problem Screening for malignant neoplasm of colon (161337015) Special screening for malignant neoplasms, colon (V76.51) Active confirmed Major Plan Of Treatment No Information Insurance Providers Payer Name Payer Address Payer Phone Subscriber Number Group Number Insured Name Patient Relationship to Insured Coverage Start Date Coverage End Date MEDICARE [address] BETHANY ZHANG [id number] DIRK KAPLAN Self - patient is the insured BCBS OF [facility] [address] [place] [address] [phone] [id number] DIRK KAPLAN Self - patient is the insured Medical (General) History Medical History History ICD Code Disorder of bone density and structure, unspecified M85.9 Essential (primary) hypertension I10 Age-related osteoporosis without current pathological fracture M81.0 Menopausal and female climacteric states N95.1 Surgical History Surgery Date(Month/Year) Colonoscopy
--- OUTSIDE RECORDS SUMMARY | 2025-09-13 07:20 | XMS_ITS | Encounter Summary ---
Author Organization [facility] Address [address] [address] Phone Care Team Providers Care Mdm Developer Name Role Phone Rey Hope MD Primary Care Provider Sue Hendrickson MD Unavailable Caitlin Armstrong MD Unavailable [phone] Yohannes Finch OD Unavailable [phone] Rey Hope MD Unavailable [phone] Encounter Details Date Type Department Care Team (Late st Contact Info) Description 06/28/2023 Transcribe Orders [facility] [address] [place], [place] [address] Rey Hope MD [address] [place], [place] [phone] [email or web address] Social History Tobacco Use Types Packs/Day Years [...] Description 01/30/2026 10:00 AM EDT Office Visit [facility] Internal Medicine [address] [place] [address] Rey Hope MD [address] [place] [address] [email or web address] documented as of this encounter Visit Diagnoses Not on filedocumented in this encounter Additional Health Concerns Assessment Noted Time PHQ-2 Depression Total Score: 0 12/08/19 23 12:42 PM EST documented as of this encounter Care Teams Mdm Developer Relationship Specialty Start Date End Date Rey Hope MD [address] [place] [address] [email or web address] PCP - General 11/11/17 Sue Hendrickson MD [address] [facility] 5 [place] [address] Dermatology 08/26/20 Caitlin Armstrong MD 9 [facility] [address] [place] [address] Ophthalmology 08/26/20 Yohannes Finch OD [address] [place] [address] Optometry 08/26/20 Rey Hope MD [address] [place] [address] [email or web address] Insurance Assigned Provider 02/12/24 documented as of this encounter Additional Source Comments The information contained in this document represents components of the legal health record. It is not the complete legal health record.[facility]
--- OUTSIDE RECORDS SUMMARY | 2025-09-13 07:20 | XMS_ITS | Patient Health Record ---
Author Organization [facility] Kristineosiris aGrza Address [address] [place] [address] Care Team Providers Care Heavy Media Operator Name Role Phone Rey Hope MD Primary Care Provider Ameena Colon Unavailable [phone] Jose Saucedo Unavailable [phone] Allergies No Known Allergies Reason For Referral No Information Medications Medication SIG (Take, Route, Frequency, Duration) Notes Start Date End Date Status amLODIPine Besylate 1.5mg Active Celecoxib 100 MG 1 capsule with food Orally Once a day; Duration: 30 day(s) Not-Taking Lisinopril 20 MG 1 tablet Orally Once a day; Duration: 30 day(s) Not-Taking Lisinopril 20 MG 1 tablet Orally Once a day; Duration: 30 day(s) Active Ammonium Lactate 12 % 1 application Externally to affected areas of dry skin to feet except for between the toes Twice a day; Duration: 30 days Active Levothyroxine Sodium 75 MCG 1 tablet in the morning on an empty stomach Orally Once a day; Duration: 30 day(s) Active Levothroid .75mg 1tab a day 2tabs wed,wed Active Ammonium Lactate 12 % 1 application to affected area Externally Twice a day to dry areas of skin on feet; Duration: 30 days Not-Taking Voltaren 1 % as directed Externally Not-Taking Fosamax 70 MG 1 tablet 30 minutes before the first food, beverage or medicine of the day with plain water Orally Not-Taking Immunizations Vaccine Route Administration Date Status Comme nts Influenza Unknown 08/08/2024 Administered Influenza Unknown 08/10/2025 Administered COVID-19 Pfizer BioNTech Vaccine Unknown 09/08/2022 Administered 2020,2020 2020 unsure dates Social History Tobacco Use: [...] atherosclerosis of arteries of lower limbs (disorder) ([id number] ) Atherosclerosis of [place] artery of both lower extremities, with unspecified presence of clinical manifestation (I70.203) Active confirmed Q7(A), Q8(2B), Q9(1B,2 C) Vital Signs Blood pressure diastolic 65 mm Hg 08/27/2025 Height 5ft 1in in 08/27/2025 Blood pressure systolic 118 mm Hg 08/27/2025 Weight 133 lbs 08/27/2025 BMI 25.13 kg/m2 08/27/2025 Procedures Procedure Date Ordered Date Performed Result Body Sit e 28754-YOUCVQT NAIL, 6 OR MORE 10/16/2024 N/A 80918-NUVD SKIN LESIONS, 2 TO 4 10/16/2024 N/A 08118-QNOHNNI NAIL, 6 OR MORE 02/22/2025 N/A 57514-TDNL SKIN LESIONS, 2 TO 4 02/22/2025 N/A 66103-DOFVNYE NAIL, 6 OR MORE 05/28/2025 N/A 23125-HJCY SKIN LESIONS, 2 TO 4 05/28/2025 N/A Encounters Encounter [facility] Date [facility] [address] [facility]/16/[facility] Ameena Beard Atherosclerosis of [place] artery of both lower extremities, with unspecified presence of clinical manifestation I70.203 ; Tinea unguium B35.1 ; Pain in right toe(s) M79.674 and Pain in left toe(s) M79.675 [facility] [address] 02/22/2025 Ameena Beard Atherosclerosis of [place] artery of both lower extremities, with unspecified presence of clinical manifestation I70.203 ; Tinea unguium B35.1 ; Pain in right toe(s) M79.674 ; Pain in left toe(s) M79.675 and Xerosis of skin L85.[address] [address] 05/28/2025 Ameena Beard Atherosclerosis of [place] artery of both lower extremities, with unspecified presence of clinical manifestation I70.203 ; Tinea unguium B35.1 ; Pain in right toe(s) M79.674 ; Pain in left toe(s) M79.675 and Xerosis of skin L85.[address] [address] 08/27/2025 Ameena Beadr Atherosclerosis of [place] artery of both lower extremities, with unspecified presence of clinical manifestation I70.203 ; Tinea unguium B35.1 ; Pain in right toe(s) M79.674 and Pain in left toe(s) M79.675 Assessments Encounter Date Diagnosis (ICD Code) Assessment Notes Treatment Notes Treatment Clinical Notes Section Notes 10/16/2024 Atherosclerosis of [place] artery of both lower extremities, with unspecified presence of clinical manifestation (ICD-10 - I70.203) Q7(A), Q8(2B), Q9(1B,2C) 02/22/2025 Atherosclerosis of [place] artery of both lower extremities, with unspecified presence of clinical manifestation (ICD-10 - I70.203) Q7(A), Q8(2B), Q9(1B,2C) 05/28/2025 Tinea unguium (ICD-10 - B35.1) 05/28/2025 Atherosclerosis of [place] artery of both lower extremities, with unspecified presence of clinical manifestation (ICD-10 - I70.203) Q7(A), Q8(2B), Q9(1B,2C) 08/27/2025 Tinea unguium (ICD-10 - B35.1) 08/27/2025 Atherosclerosis of [place] artery of both lower extremities, with unspecified presence of clinical manifestation (ICD-10 - I70.203) Q7(A), Q8(2B), Q9(1B,2C) 08/27/2025 Pain in right toe(s) (ICD-10 - M79.674) 05/28/2025 Pain in right toe(s) (ICD-10 - M79.674) 02/22/2025 Tinea unguium (ICD-10 - B35.1) 10/16/2024 Tinea unguium (ICD-10 - B35.1) 08/27/2025 Pain in left toe(s) (ICD-10 - M79.675) 05/28/2025 Pain in left toe(s) (ICD-10 - M79.675) 02/22/2025 Pain in right toe(s) (ICD-10 - M79.674) 10/16/2024 Pain in right toe(s) (ICD-10 - M79.674) 05/28/2025 Xerosis of skin (ICD-10 - L85.3) 10/16/2024 Pain in left toe(s) (ICD-10 - M79.675) 02/22/2025 Pain in left toe(s) (ICD-10 - M79.675) 02/22/2025 Xerosis of skin (ICD-10 - L85.3) Plan Of Treatment Pending Test Test Name Order Date 79929-BXTLANI NAIL, 6 OR MORE 10/16/2024 15539-RTUAAJQ NAIL, 6 OR MORE 02/22/2025 03434-FPFLSZN NAIL, 6 OR MORE 05/28/2025 63358-XDEV SKIN LESIONS, OVER 4 12/07/19 23 58172-JGUU SKIN LESIONS, OVER 4 03/08/20 23 54568-CXUF SKIN LESIONS, 2 TO 4 02/23/20 25 44454-WZIM SKIN LESIONS, 2 TO 4 10/16/20 24 09266-LQVE SKIN LESIONS, 2 TO 4 05/28/20 25 Y9583-HGAHRCPB DYSTROPHIC NAILS ANY # B7353-QYRUEZDG DYSTROPHIC NAILS ANY # Next Appt Details Provider Name:Ameena Cee khoury, 12/06/2025 09:15:00 AM, [address] [place] [address], [place], [address], Insurance Providers Payer Name Payer Address Payer Phone Subscriber Number Group Number Insured Name Patient Relationship to Insured Coverage Start Date Coverage End Date Medicare National [employer] [address] [place] [address] [id number] Giana Carlos Self - patient is the insured [employer] [address] [place] [address] [phone] [id number] Giana Carlos Self - patient is the insured Medical (General) History Medical History History ICD Code Back,Hip,and Knee pain Surgical History Surgery Date(Month/Year) hip surgery 10/06/2022 Spinal Surgery 05/17/24
[2025-09-13 07:40] LABS: Hematocrit 40.1 % (37.0-47.0); Hemoglobin 12.9 g/dl (12.0-16.0); Mean Corpuscular HGB Conc 32.2 g/dl (31.0-35.0); Mean Corpuscular Hemoglobin 31.5 pg (27.0-33.0); Mean Corpuscular Volume 97.8 fL (80.0-98.0); NRBC Abs Auto 0.000 X10*3/uL (0.0-0.012); NRBC Pct Auto 0.0 /100WBC (0.0-0.2); Platelet Count 330 X10*3/uL (160-400); Red Blood Count 4.10 X10*6/uL (4.20-5.50); White Blood Count 11.0 X10*3/uL (4.8-10.8)
[2025-09-13 07:53] LABS: Anion Gap 14 (12-20); Blood Urea Nitrogen 32 mg/dL (9-16); Calcium 10.0 mg/dL (8.4-10.2); Carbon Dioxide 27 mmol/L (22-29); Chloride 105 mmol/L (96-108); Estimated Glomerular Filt Rate 44; Potassium 4.6 mmol/L (3.3-5.1); Sodium 141 mmol/L (135-145)
[2025-09-13] MEDS: iohexoL 350 MG/ML 100 ML INFUS..BTL 85 ML IV (10:36)
== END 2025-09-13 07:17 | disposition home or self-care (01) ==
LOC: HO.CT 07:16
PROVIDERS: Internal Medicine; PCP Internal Medicine; Visit Provider Urology
DX: R33.9 Retention of urine, unspecified (principal); D72.829 Elevated white blood cell count, unspecified; N13.30 Unspecified hydronephrosis; R31.9 Hematuria, unspecified
CPT/HCPCS: 36415; 74178; 80048; 85027; Q9967

== ENCOUNTER → 2025-09-13 07:32 | Outpatient (BNV) | payer MEDICARE, SELFPAY | PROVIDERS: PCP Internal Medicine; Visit Provider Family Medicine | DX: N13.30 Unspecified hydronephrosis (principal); N32.89 Other specified disorders of bladder | CPT/HCPCS: 74178 ==

== ENCOUNTER 2025-09-20 09:14 | Outpatient (AMB) | payer MEDICARE, SELFPAY ==
--- OUTSIDE RECORDS SUMMARY | 2024-10-03 05:00 | XMS_ITS ---
Author Organization [facility] Address [address] [place] [address] Care Team Providers Care Molding Engineer Name Role Phone Jayy BROWN, Rey Primary Care Provider Ameena Colon Unavailable [phone] Jose Saucedo Unavailable [phone] REASON FOR VISIT too soon Encounters Encounter Location Date Provider Diagnosis [address] [address] 10/03/2024 Jose Saucedo Plan Of Treatment Next Appt Details Provider Name:Ameena khoury, 12/06/2025 09:15:00 AM, [address] [place], [address], Progress Notes * Giana KAPLAN ADOB:[birth year] (85 yo F)Acc No.[id number]:10/03/2024 Progress Note Patient: Giana ORDONEZ Provider: Michele Saucedo DPM :1940 A ge:84 Y S ex:Female Date:10/03/2024 Address:[address] [place] [address], [facility] KANCHAN Garza-[id number] Pcp:Rey Hope MD Subjective: * Chief Complaints: [...] Date: 12/03/2023 Generated for Vern Krishna on: 11/20/2024 10:30 AM EST
--- NOTE | 2025-09-20 09:32 | MHC.OFFVIS ---
Intake Visit Reasons: cysto/CT/labs Intake Note: Patient is present for a cystoscopy/CT/Labs 09/13 BUN:32/Creatinine:1.18 09/[address] Urology Meds:None Antibiotic Allergy:None Blood Thinners:none Lot#:[id number] Exp:04/16/28 Industrial Machine System Technician Required: No Accompanied by: Self / Same As Patient Allergies No Known Allergies Allergy (Verified 09/20/25 09:33) Medication List - Last Reconciled 09/20/25 by Maris Buenrostro MD albuterol sulfate 90 mcg/actuation (Ventolin HFA) 1 puff inhalation RQ4H PRN amlodipine 5 mg See Protocol PO DAILY celecoxib 100 mg PO DAILY dorzolamide 2% 1 drp ophthalmic (eye) DAILY dorzolamide-timolol 22.3-6.8 mg/mL 1 drp ophthalmic (eye) BEDTIME levothyroxine 150 mcg PO SUWE levothyroxine 75 mcg PO MOTUTHFRSA lisinopril 30 mg PO DAILY nitrofurantoin monohyd/m-cryst 100 mg (Macrobid) 100 mg PO BID 7 days nitrofurantoin monohyd/m-cryst 100 mg (Macrobid) 100 mg PO DAILY 90 days polyethylene glycol 3350 (Miralax) 17 grams PO DAILY tamsulosin (Flomax) 0.4 mg PO BEDTIME HPI Comments Details: 09/20/25--Giana is an 85-year-old female is being followed due to recurrent UTIs and incomplete bladder emptying. She had a CT while abdomen and pelvis-review results History of Present Illness The patient is an 85-year-old female presenting with recurrent urinary tract infections and incomplete bladder emptying. She has experienced multiple episodes of urinary tract infections, with the current episode being the fifth one. Despite treatment with antibiotics, the infections persist, indicating possible incomplete bladder emptying as a contributing factor. The patient also reports constipation, which was identified during a CT scan as stool retention in the rectum. She has been using laxatives twice a week, but this has not resolved the issue completely. The constipation may be contributing to the recurrent urinary tract infections by preventing complete clearance of bacteria. A CT scan revealed an irregularity in the right ureter, which requires further evaluation. The irregularity is not a definite mass, but it necessitates monitoring and possibly further diagnostic procedures to rule out any significant pathology. Results - CT scan: Revealed stool retention in the rectum and an irregularity in the right ureter. Plan 1. Urinary Tract Infections - Plan to continue antibiotic therapy to manage recurrent infections. - Consideration of further diagnostic evaluation to assess bladder emptying. 2. Constipation - Continue use of laxatives to manage stool retention. - Monitor for improvement in symptoms and potential impact on urinary tract infections. 3. Ureteral Irregularity - Further evaluation planned to assess the irregularity in the right ureter. - Consideration of cystoscopy and possible stent placement if indicated. 07/23/25--Giana is an 84-year-old female who is here as a new patient evaluation due to urinary retention and abnormal US findings. History of Present Illness The patient is an 84-year-old female presenting with urinary retention and abnormal ultrasound findings. The urinary retention was first noted approximately five months ago, with the patient experiencing frequent urges to urinate but only producing a small amount of urine each time. The patient reports nocturia, needing to urinate multiple times during the night, which began around the same time. The patient is currently on the last day of an antibiotic course for a urinary tract infection. An ultrasound performed on 06/21/25 revealed a large post-void residual volume and mild right hydronephrosis. Bladder evaluation showed a prevoid urinary volume of 922 mL and a postvoid volume of 515 mL, with a bladder scan today showing 568 mL. The patient has a history of constipation and hemorrhoids, which were identified following an episode of rectal bleeding. She was treated in the emergency room and discharged the same day. Results - Ultrasound (06/21/25): Large post-void residual, mild right hydronephrosis - Bladder scan: Prevoid volume 922 mL, postvoid volume 515 mL, - current scan Bladder scan PVR--568 mL Pelvic examination--narrow vaginal introitus vaginal atrophy catheterized urine negative. Catheterized urine volume 615 mL Plan--Flomax 0.4 mg in the evening patient to discontinue for dizziness. Follow-up office cystoscopy. Follow-up [facility] Medical History Peripheral neuropathy Urinary frequency Carotid stenosis COPD (chronic obstructive pulmonary disease) Hypothyroidism Spinal stenosis Hypertension Surgical History History of excision of pilonidal cyst Hx of bilateral cataract extraction H/O colonoscopy History of right hip replacement Social History Household Members: None Household Members Other:: lives alone Housing: House Are you a primary dog daycare provider to a significant other at home: No Do you presently have visiting nurse or other home services: No (previous user) Alcohol intake: current Alcohol intake frequency: does not drink Comment: 2 to 3 times a week Patient Tobacco Use Status: Former Tobacco user Tobacco use type: Cigarette Cigarettes Per Day: 10 Years Smoked: 30 Advance Directives Date on File: 05/19/24 service: No Review of Systems Const All systems reviewed & are unremarkable except as noted in HPI and below Reports no additional complaints Eyes Reports no additional complaints ENT Reports no additional complaints Card Reports no additional complaints Resp Reports no additional complaints GI Reports no additional complaints Reports as per HPI Musc Reports no additional complaints Skin/Breast Reports system reviewed and no additional complaints, except as documented Neuro Reports no additional complaints Psych Reports no additional complaints Endo Reports no additional complaints Smooth/Lymph Reports no additional complaints Aller/Immun Reports no additional complaints Results AMB Urinalysis, Automated UA Leukoctes 500 Rachele/uL Last Edit by Nicki Otoole on 09/20/25 15:37 UA Nitrite Positive Last Edit by Nicki Otoole on 09/20/25 15:37 UA Urobilinogen 0.2 mg/dL Last Edit by Nicki Otoole on 09/20/25 15:37 UA Protein 30 mg/dL Last Edit by Nicki Otoole on 09/20/25 15:37 UA pH 7.0 Last Edit by Nicki Otoole on 09/20/25 15:37 UA Blood 25 Leonardo/uL Last Edit by Nicki Otoole on 09/20/25 15:37 UA Specific Hopkins 1.010 Last Edit by Nicki Otoole on 09/20/25 15:37 UA Ketone Negative Last Edit by Nicki Otoole on 09/20/25 15:37 UA Bilirubin 0 mg/dL Last Edit by Nicki Otoole on 09/20/25 15:37 UA Glucose 0 mg/dL Last Edit by Nicki Otoole on 09/20/25 15:37 Results Reviewed Results Reviewed: Date of Service: 09/13/25 Reason for Exam: N13.30 - Unspecified hydronephrosis CLINICAL HISTORY: N13.30 - Unspecified hydronephrosis --- Additional Notes or Special Instructions: right hydronephrosis and hematuria CT abdomen and pelvis with and without contrast Comparison: US/SR - US RETROPERITONEUM - 06/21/25 14:[address] - CT ANGIO CHEST PE PROTOCOL - 06/02/25 16:[address]/SR - CT ANGIO CHEST PE PROTOCOL - 06/02/25 16:46 EDT CR/SR - XR ABDOMEN 1 VIEW (KUB) - 05/25/24 07:12 EDT Findings: No consolidation or effusion. Limited evaluation without portal venous phase imaging. Calcifications in the lili hepatis region. Subcentimeter hypodensity in the liver too small to accurately characterize by CT criteria however unchanged from previous exams. Slightly increased now moderate right hydronephrosis. There is abrupt change in caliber at the ureteropelvic junction. No radiopaque obstructing calculus. Questionable abnormal enhancement within the region of abrupt caliber change concerning for a soft tissue lesion /Neoplasm (series 11, image 64) measuring 1.1 x 1.2 cm (best visualized on the sagittal images and incompletely characterized without portal venous phase imaging ). Urology consultation is recommended if not previously performed. Consider CT abdomen with portal venous phase imaging or MRI for further evaluation. Questionable enhancement in the area of soft tissue attenuation in the location of caliber change of the right renal collecting system measuring 30 Hounsfield units on the precontrast images ( series 7, image 189) and 80 Hounsfield units on postcontrast delayed images ( series 8, image 32). Subcentimeter hypodensities in both kidneys too small to accurately characterize by CT criteria. One of the lesions on the lateral posterior left kidney measures 0.7 cm (series 9, image 180) and may demonstrate peripheral enhancement however due to the small size this is very difficult to evaluate. Six-month follow-up imaging is recommended to evaluate for interval change. Large volume of stool throughout the colon greatest in the rectum. No evidence of bowel obstruction. Severe atherosclerotic vascular calcifications. Appendix is not visualized. Urinary bladder is distended which may be due to voluntary or involuntary urinary retention. Limited evaluation in the pelvis due to significant streak artifact from right hip arthroplasty hardware. Grade 2 anterolisthesis of L4 on L5 likely degenerative. Degenerative changes of the spine. IMPRESSION: 1. Limited evaluation without portal venous phase imaging. 2. Slightly increased now moderate right hydronephrosis. There is abrupt change in caliber at the ureteropelvic junction. No radiopaque obstructing calculus. Questionable abnormal enhancement within the region of abrupt caliber change concerning for a soft tissue lesion /Neoplasm (series 11, image 64) measuring 1.1 x 1.2 cm (best visualized on the sagittal images and incompletely characterized without portal venous phase imaging ). Urology consultation is recommended if not previously performed. Consider CT abdomen with portal venous phase imaging or MRI for further evaluation. 3. Subcentimeter hypodensities in both kidneys too small to accurately characterize by CT criteria. One of the lesions on the lateral posterior left kidney measures 0.7 cm (series 9, image 180) and may demonstrate peripheral enhancement however due to the small size this is very difficult to evaluate. Six-month follow-up imaging is recommended to evaluate for interval change. 4. Urinary bladder is distended which may be due to voluntary or involuntary urinary retention. 5. Large volume of stool throughout the colon greatest in the rectum. No evidence of bowel obstruction. 6. Limited evaluation in the pelvis due to significant streak artifact from right hip arthroplasty hardware. Saw the into it. 5 mg so the low-dose now it is very appropriate pain Date of Service: 06/21/25 HISTORY: HYDRO OF KIDNEYS TECHNIQUE: Real-time grayscale ultrasound imaging of the kidneys was performed and images were reviewed. COMPARISON: Correlation is made with the upper abdominal images from a chest CTA dated 06/02/2025. FINDINGS: Right kidney: The right kidney measures 8.6 x 3.9 x 4.3 cm. Renal parenchymal echotexture and thickness are normal. There are no masses. There is mild prominence of the intrarenal collecting system. Left Kidney: The left kidney measures 9.5 x 3.9 x 4.3 cm. Renal parenchymal echotexture and thickness are normal. There are no masses. There is no hydronephrosis or renal calculi. There is a small amount of layering debris in the urinary bladder. Bilateral ureteral jets are identified. Before voiding, the urinary bladder measured 15.1 x 10.2 x 11.4 cm, for an estimated volume of 922 mL. After voiding, the urinary bladder measured 12.8 x 9.5 x 12.8 cm, for an estimated volume of 515 mL. IMPRESSION: 1. Mild fullness of the right intrarenal collecting system. 2. Small amount of debris in the urinary bladder. 3. Post void bladder residual of 515 mL. Assessment & Plan Assessment & Plan Orders: Orders AMB Urinalysis Automated Today Z13.9 - Encounter for screening, unspecified Medications: New nitrofurantoin monohyd/m-cryst 100 mg (Macrobid) must administer with a meal/food 100 mg PO BID 7 days 14 caps 0RF nitrofurantoin monohyd/m-cryst 100 mg (Macrobid) must administer with a meal/food, after completing Macrobid twice a day for 7 days start Macrobid 100 mg daily 100 mg PO DAILY 90 days 90 caps 1RF Discontinued cephalexin Discontinued Reason: Patient Completed Course 500 mg PO QID 7 days 28 caps 0RF Coding
--- OUTSIDE RECORDS SUMMARY | 2025-09-20 10:30 | XMS_ITS | Patient Health Record ---
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, with unspecified presence of clinical manifestation (I70.203) Active confirmed Q7(A), Q8(2B), Q9(1B,2 C) Vital Signs Blood pressure diastolic 65 mm Hg 08/27/2025 Height 5ft 1in in 08/27/2025 Blood pressure systolic 118 mm Hg 08/27/2025 Weight 133 lbs 08/27/2025 BMI 25.13 kg/m2 08/27/2025 Procedures Procedure Date Ordered Date Performed Result Body Sit e 11791-OVLRUYA NAIL, 6 OR MORE 10/16/2024 N/A 52831-OSQK SKIN LESIONS, 2 TO 4 10/16/2024 N/A 59328-KDYTCFQ NAIL, 6 OR MORE 02/22/2025 N/A 00259-YXMW SKIN LESIONS, 2 TO 4 02/22/2025 N/A 81164-PQHYLWN NAIL, 6 OR MORE 05/28/2025 N/A 36195-FQDM SKIN LESIONS, 2 TO 4 05/28/2025 N/A Encounters Encounter Location Date Provider Diagnosis [facility] [address] 10/16/2024 Ameena Beard 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, with unspecified presence of clinical manifestation I70.203 ; Tinea unguium B35.1 ; Pain in right toe(s) M79.674 and Pain in left toe(s) M79.675 [facility] [address] 02/22/2025 Ameena Beard 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, with unspecified presence of clinical manifestation I70.203 ; Tinea unguium B35.1 ; Pain in right toe(s) M79.674 ; Pain in left toe(s) M79.675 and Xerosis of skin L85.[address] [address] 05/28/2025 Ameena Beard 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, with unspecified presence of clinical manifestation I70.203 ; Tinea unguium B35.1 ; Pain in right toe(s) M79.674 ; Pain in left toe(s) M79.675 and Xerosis of skin L85.[address] [address] 08/27/2025 Ameena Beard 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, with unspecified presence of clinical manifestation I70.203 ; Tinea unguium B35.1 ; Pain in right toe(s) M79.674 and Pain in left toe(s) M79.675 Assessments Encounter Date Diagnosis (ICD Code) Assessment Notes Treatment Notes Treatment Clinical Notes Section Notes 10/16/2024 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, with unspecified presence of clinical manifestation (ICD-10 - I70.203) Q7(A), Q8(2B), Q9(1B,2C) 02/22/2025 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, with unspecified presence of clinical manifestation (ICD-10 - I70.203) Q7(A), Q8(2B), Q9(1B,2C) 05/28/2025 Tinea unguium (ICD-10 - B35.1) 05/28/2025 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, with unspecified presence of clinical manifestation (ICD-10 - I70.203) Q7(A), Q8(2B), Q9(1B,2C) 08/27/2025 Tinea unguium (ICD-10 - B35.1) 08/27/2025 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, with unspecified [...] Treatment Pending Test Test Name Order Date 01694-EVNWTKO NAIL, 6 OR MORE 10/16/2024 01834-TJPLRWS NAIL, 6 OR MORE 02/22/2025 19974-XBLQNXJ NAIL, 6 OR MORE 05/28/2025 62529-QGEI SKIN LESIONS, OVER 4 12/07/19 23 25373-PZLS SKIN LESIONS, OVER 4 03/08/20 23 71404-HLEY SKIN LESIONS, 2 TO 4 02/23/20 25 81153-SIJN SKIN LESIONS, 2 TO 4 10/16/20 24 96953-CSEW SKIN LESIONS, 2 TO 4 05/28/20 25 R1818-RCMHSFOT DYSTROPHIC NAILS ANY # S0171-TCFBIIIW DYSTROPHIC NAILS ANY # Next Appt Details Provider Name:Ameena Cee khoury, 12/06/2025 09:15:00 AM, [address] [place] [address], [place], [address], Insurance Providers Payer Name Payer Address Payer Phone Subscriber Number Group Number Insured Name Patient Relationship to Insured Coverage Start Date Coverage End Date Medicare National Govt Sv[employer] [address] [place] [address] [id number] Giana Carlos Self - patient is the insured [employer] [address] [place] [address] [id number] Giana Carlos Self - patient is the insured Medical (General) History Medical History History ICD Code Back,Hip,and Knee pain Surgical History Surgery Date(Month/Year) hip surgery 10/06/2022 Spinal Surgery 05/17/24
--- OUTSIDE RECORDS SUMMARY | 2025-09-20 10:30 | XMS_ITS | Patient Health Record ---
[facility] Organization [facility] Address [address] [place] [address] Care Team Providers Care Day Care Assistant Name Role Phone Rey Hope MD Primary Care Provider Ramya Carlin Unavailable [phone] Reason For Referral No Information Medications Medication SIG (Take, Route, Frequency, Duration) Notes Start Date End Date Status Calcium 1 tab Oral Active Vitamin D3 1000 IU ORAL daily; Duration: -3 [facility] 2011 Active Lisinopril 20MG 1 ORAL daily; Durati on: - [facility] 10/19/2011 Active Levothyroxine Sodium 75MCG 1 ORAL daily; Duration: -3 [facility] 10/29/2014 Active Fish Oil 1200MG 1 ORAL daily; Durati on: -3 [facility]- 10/19/2012 Active Fish Oil 1200MG 1 ORAL daily; Durati on: -3 [facility] 10/19/2012 Active Aspirin EC 81MG 1 ORAL daily; Durati on: -3 [facility]- 10/19/2012 Active Aspirin EC 81MG 1 ORAL daily; Durati on: -3 [facility] 10/19/2012 Active Vitamin D3 1000 IU ORAL daily; Duration: -3 [facility]- 2011 Active Lisinopril 20MG 1 ORAL daily; Durati on: -3 [facility] 10/19/2011 Active Levothyroxine Sodium 75MCG 1 ORAL daily; Duration: -3 [facility]- 10/29/2014 Active Social History Tobacco Use: Social [...] W/U Status Risk Notes Problem Essential hypertension (50334257) Unspecified essential hypertension (401.9) Active confirmed Major Problem Menopausal symptom (82281887) Symptomatic menopausal or female climacteric states (627.2) Active confirmed Major Problem Osteoporosis (98678991) Unspecified osteoporosis (733.00) Active confirmed Major Problem Disorder of bone and articular cartilage (disorder) (776432801) Disorder of bone and cartilage, unspecified (733.90) Active confirmed Diag Problem Gynecological examination normal (918065733495044) Routine gynecological examination (V72.31) Active confirmed Major Problem Screening for malignant neoplasm of colon (544640448) Special screening for malignant neoplasms, colon (V76.51) Active confirmed Major Plan Of Treatment No Information Insurance Providers Payer Name Payer Address Payer Phone Subscriber Number Group Number Insured Name Patient Relationship to Insured Coverage Start Date Coverage End Date MEDICARE [address] BETHANY ZHANG [id number] DIRK KAPLAN Self - patient is the insured BCBS OF [facility] [address] [place] [address] [id number] DIRK KAPLAN Self - patient is the insured Medical (General) History Medical History History ICD Code Disorder of bone density and structure, unspecified M85.9 Essential (primary) hypertension I10 Age-related osteoporosis without current pathological fracture M81.0 Menopausal and female climacteric states N95.1 Surgical History Surgery Date(Month/Year) Colonoscopy
--- OUTSIDE RECORDS SUMMARY | 2025-09-20 10:30 | XMS_ITS | Patient Health Record ---
Author Organization [facility] Address [address] [place] [address] Care Team Providers Care Composition Stone Applicator Name Role Phone Rey Hope MD Primary Care Provider Rigo sigala Rubio Villafana Unavailable [phone] Allergies No Known Allergies Reason For Referral [...] Status W/U Status Risk Notes Problem Constipation (16155796) Constipation (K59.00) Active confirmed Problem Anorexia (15617213) Anorexia (R63.0) Active confirmed Vital Signs Temperature 98.6 degrees Fahrenheit 06/01/2025 Blood pressure diastolic 01 mm Hg 06/01/2025 Height 63 in 06/01/2025 Blood pressure systolic 001 mm Hg 06/01/2025 Weight 125.4 lbs 06/01/2025 BMI 22.21 kg/m2 06/01/2025 Encounters Encounter Location Date Provider Diagnosis [facility] [address] [place] [address] 06/01/2025 Rubio Villafana Constipation K59.00 and Anorexia [...] End Date MEDICARE OF [place] [address] [place] [address] [id number] GIANA KAPLAN Self - patient is the insured [employer] CLAIMS [address] [place] [address] [id number] GIANA KAPLAN Self - patient is the insured 5 Medical (General) History Medical History History ICD Code HTN Denies DC,DM,CVA,Lung disease,renal dise ase Neuropathy Hypothyroidism Previous colonoscopies with Dr. Yohannes Allen in [place]. The colonoscopy in 2004 was negative and the colonoscopy in 2014 revealed a small polyp that was removed and small internal hemorrhoids. Surgical History Surgery Date(Month/Year) Cataracts Spinal stenosis 2023 Total right hip replacement 2022
== END 2025-09-20 10:23 | disposition home or self-care (01) ==
LOC: HO.HUSH 09:15
PROVIDERS: Visit Provider Urology
DX: Z13.9 Encounter for screening, unspecified (principal)

== ENCOUNTER 2025-09-21 07:13 | Inpatient (IN) | payer MEDICARE, SELFPAY ==
--- OUTSIDE RECORDS SUMMARY | 2024-10-03 05:00 | XMS_ITS ---
Author Organization [facility] Address [address] [place] [address] Care Team Providers Care Business Analysis Professional Name Role Phone Jayy BROWN, Rey Primary Care Provider Ameena Colon Unavailable [phone] Jose Saucedo Unavailable [phone] REASON FOR VISIT too soon Encounters Encounter Location Date Provider Diagnosis [address] [address] 10/03/2024 Jose Saucedo Plan Of Treatment Next Appt Details Provider Name:Ameena khoury, 12/06/2025 09:15:00 AM, [address] [place], [address], Progress Notes * Giana KAPLAN ADOB:[birth year] (85 yo F)Acc No.[id number]:10/03/2024 Progress Note Patient: Giana ORDONEZ Provider: Michele Saucedo DPM :1940 A ge:84 Y S ex:Female Date:10/03/2024 Address:[address] [place] [address], [facility] KANCHAN Garza-[id number] Pcp:Rey Hope MD Subjective: * Chief Complaints: [...] Date: 12/03/2023 Generated for Vern Krishna on: 11/21/2024 07:47 AM EST
[2025-09-21] VITALS (10 sets, daily range): BP systolic 106–137; BP diastolic 38–82; PULSE 85–95; RESP 14–18; TEMP 36.3–37.1; O2SAT 86–97; BMI 21.3; BMI 22.0
--- NOTE | ~2025-09-21 | XR_ITS ---
EXAMINATION: XR CHEST CLINICAL INFORMATION: sob COMPARISON: June 02, 2025 TECHNIQUE: Frontal view of the chest was obtained. FINDINGS: Hyperinflated lungs. Pulmonary reticular pattern. No consolidation, pleural effusion or pneumothorax. Cardiomediastinal silhouette size is normal. Calcified plaque thoracic aorta. Multilevel spondylosis, thoracic spine. Degenerative changes, right acromioclavicular joint. XR/XR chest 1V IMPRESSION: Chronic interstitial lung disease suggesting COPD emphysematous type changes without acute airspace disease. Atherosclerosis, aorta. Degenerative changes, right acromioclavicular joint. Electronically signed by: Blake White MD 09/21/2025 08:16 AM EST
--- NOTE | 2025-09-21 07:31 | ED.FEMALEGU ---
HPI - Female Genitourinary General Chief complaint: Urogenital-Female Stated complaint: Uti x1 week, unable to use bathroom x3 days Time Seen by Provider: 09/21/25 07:14 Source: patient and EMS Mode of arrival: EMS Limitations: no limitations History of Present Illness ED Provider: ROSANGELA Islas HPI Narrative: This is an 85-year-old female history of frequent UTIs, urinary retention, peripheral neuropathy who presents with inability to void and shortness breath ongoing for past few days. Patient reports she has not been able to pee for 3 days she saw her PCP yesterday who drained her urine. Also reports shortness of breath, she does not wear oxygen at home however when EMS arrived she was 86% and was placed on 2 L via nasal cannula with good effect and saturating low 90s. Patient tells me her main concern is her abdomen she reports her abdomen is distended and quite uncomfortable. Related Data Home Medications ?Medication ?Instructions ?Recorded ?Confirmed levothyroxine 75 mcg tablet 75 mcg PO MOTUTHFRSA 04/21/21 09/20/25 levothyroxine 75 mcg tablet 150 mcg PO SUWE 09/30/23 09/20/25 dorzolamide 2 % eye drops 1 drp ophthalmic (eye) DAILY 05/04/24 09/20/25 lisinopril 30 mg tablet 30 mg PO DAILY 05/17/24 09/20/25 celecoxib 100 mg capsule 100 mg PO DAILY 06/03/25 09/20/25 dorzolamide 22.3 mg-timolol 6.8 1 drp ophthalmic (eye) BEDTIME 06/03/25 09/20/25 mg/mL eye drops polyethylene glycol 3350 17 17 g PO DAILY 06/03/25 09/20/25 gram/dose oral powder (Miralax) Previous Rx's ?Medication ?Instructions ?Recorded albuterol sulfate 90 mcg/actuation 1 puff inhalation RQ4H PRN sob #1 g 06/04/25 aerosol inhaler (Ventolin HFA) amlodipine 5 mg tablet 5 mg PO DAILY #90 tabs 06/04/25 tamsulosin 0.4 mg capsule (Flomax) 0.4 mg PO BEDTIME #30 caps 07/23/25 nitrofurantoin 100 mg PO BID 7 days #14 caps 09/20/25 monohydrate/macrocrystals 100 mg capsule (Macrobid) nitrofurantoin 100 mg PO DAILY 90 days #90 caps 09/20/25 monohydrate/macrocrystals 100 mg capsule (Macrobid) Allergies Allergy/AdvReac Type Severity Reaction Status Date / Time No Known Allergies Allergy Verified 09/21/25 07:24 Review of Systems Review of Systems: Yes all other systems are reviewed and are negative [facility] Past Medical History Attestation statement: The following information was validated with the patient. Source: old records reviewed and nursing notes reviewed Medical History Peripheral neuropathy Urinary frequency Carotid stenosis COPD (chronic obstructive pulmonary disease) Hypothyroidism Spinal stenosis Hypertension Surgical History History of excision of pilonidal cyst Hx of bilateral cataract extraction H/O colonoscopy History of right hip replacement Social History Social History Household Members: None Household Members Other:: lives alone Housing: House Are you a primary child care cook to a significant other at home: No Do you presently have visiting nurse or other home services: No (previous user) Alcohol intake: current Alcohol intake frequency: a few times a week Comment: 2 to 3 times a week Patient Tobacco Use Status: Former Tobacco user Tobacco use type: Cigarette Cigarettes Per Day: 10 Years Smoked: 30 Smoked in Last 30 Days: No Use of substances other than those prescribed or required for medical reasons: No Advance Directives: Yes Advance Directives Information Provided: Yes Advance Directives on File: No Advance Directives Date on File: 05/19/24 Nutrition Risks: No Nutritional Risk service: No Physical Exam Exam: Exam: Appearance: Alert.? Oriented X3.? No acute distress.? Head: Normocephalic, atraumatic, no step-offs or deformities Eyes: Pupils equal, round and reactive to light.? ENT: Pharynx normal.? Neck: Normal inspection.? Neck supple.? CVS: Normal heart rate and rhythm.? Pulses normal.? Respiratory: No respiratory distress.? Breath sounds normal.? Abdomen: Soft and nontender.? Skin: Skin warm and dry.? Normal skin color.? Normal skin turgor.? Extremities: No lower extremity edema.? No calf ttp. 5/5 strength to bilateral upper and lower extremities Neuro: Oriented X 3.? No motor deficit.? No sensory deficit. CN 2-12 intact Vital Signs: Vital Signs: Last Vital Signs Temp 97.8 F 09/21/25 09:25 Pulse 87 09/21/25 10:33 Resp 16 09/21/25 10:33 BP 109/50 L 09/21/25 10:33 Pulse Ox 93 09/21/25 10:33 O2 Del Method Room Air 09/21/25 10:33 Oxygen Flow Rate 4 09/21/25 07:20 BMI result Body Mass Index 21.3 vss Course Reevaluation(s) Reevaluation #1: CBC with leukocytosis 20.2 . Chemistry pending. UA with infection Time: 08:08 Reevaluation #2: Chemistry with elevated potassium low, 5 mg given. Normal lactic. Pro BNP normal. Troponin negative. Lipase normal. I did speak to Urology who does not want to repeat scan. A CT urogram was done on 09/14/2025 which showed slightly increased moderate right hydronephrosis. With an abrupt change in caliber at the UPJ. No obstructing calculus. Urology consultation was recommended at that time who is currently following patient. Urology is aware that patient is in the hospital and will be admitted for IV antibiotics. They did state that yesterday in the office they did drain patient's bladder. Plan at this time hospital admission Time: 10:48 Reevaluation #3: Patient's D-dimer 341 age adjusted D-dimer Age-Adjusted D-dimer for Venous Thromboembolism (VTE) from [employer] on 09/21/2025 All calculations should be rechecked by clinician prior to use RESULT SUMMARY: 425 ?g/L Age-adjusted D-dimer cutoff, DDU VTE unlikely Reported D-dimer is less than or equal to cutoff; consider alternative diagnosis INPUTS: Age ?> 85 years D-dimer level reported by lab ?> 341 ?g/L D-dimer unit type ?> 1 = DDU (unadjusted cutoff typically 230-250 or 0.23-0.25) Medications Administered Discontinued Medications Generic Name Dose Route Start Last Admin Trade Name Freq PRN Reason Stop Dose Admin Sodium Chloride 1,635 mls @ 1,635 mls/hr 09/21/25 08:07 09/21/25 09:20 Ns 30 ml/kg infuse over 1 hr (1635 ml) 09/21/25 09:06 Infused IV Infusion .Q1H STA Ceftriaxone Sodium 1 gm/ 50 mls @ 100 mls/hr 09/21/25 08:07 09/21/25 09:17 Sodium Chloride IV 09/21/25 08:36 Infused ONCE ONE Infusion Sodium Zirconium Cyclosilicate 5 gm 09/21/25 08:41 09/21/25 08:51 Sodium Zirconium Cyclosilicate 5 Gm Powd.Pack PO 09/21/25 08:42 5 gm ONCE ONE Administration Medical Decision Making Medical Decision Making [facility] Narrative: 85-year-old female presents with shortness of breath and urinary retention and abdominal discomfort. Ongoing for the past 3 days. Physical exam abdomen distended, tender in the suprapubic region and tense. Normoactive bowel sounds. Diffusely tender. Breath sounds diminished bilaterally. History and physical exam concerning for viral illness versus pneumonia versus dysrhythmia versus bronchitis. Urinary retention likely in the setting of the UTI however will rule out obstructive process. Will rule out metabolic derangements and infection Plan labs, imaging, urine Bladder scan on arrival greater than 350 Nuñez catheterization orders placed Differential Diagnosis Differential Diagnoses: The differential diagnosis associated with the presentation includes (History and physical exam concerning for viral illness versus pneumonia versus dysrhythmia versus bronchitis. Urinary retention likely in the setting of the UTI however will rule out obstructive process. Will rule out metabolic derangements and infection) Admission/Observation Consideration of admission/observation: Escalation of care including admission/observation considered Consult Healthcare Provider Management of the patient was discussed with: Junior Account Executive (Urology has been following this case patient will be admitted in urology will follow in the hospital.) Lab Data [facility] Lab Attestation statement: I reviewed the patient's lab results. 09/21/25 07:55 09/21/25 07:55 Labs: Lab Results 09/21/25 09/21/25 09/21/25 Range/Units 07:54 07:55 08:17 WBC 20.2 H (4.8-10.8) X10*3/uL RBC 3.97 L (4.20-5.50) X10*6/uL Hgb 12.3 (12.0-16.0) g/dl Hct 38.0 (37.0-47.0) % MCV 95.7 (80.0-98.0) fL MCH 31.0 (27.0-33.0) pg MCHC 32.4 (31.0-35.0) g/dl RDW 13.8 (11.0-16.0) % Plt Count 305 (160-400) X10*3/uL MPV 10.0 (9.4-12.3) fL Immature Gran % (Auto) 0.5 H (0.0-0.4) % Neut % (Auto) 91.7 H (45-73) % Lymph % (Auto) 1.7 L (20-40) % Gem % (Auto) 5.3 (2-11) % Eos % (Auto) 0.5 (0-4) % Baso % (Auto) 0.3 (0-2) % Lymph # (Auto) 0.4 L (1.2-4.9) X10*3/uL Gem # (Auto) 1.1 (0.1-1.2) X10*3/uL Eos # (Auto) 0.1 (0.0-0.4) X10*3/uL Baso # (Auto) 0.1 (0.0-0.2) X10*3/uL Abs Immat Gran (auto) 0.11 H (0.00-0.03) X10*3/uL Absolute Neuts (auto) 18.5 H (2.0-8.3) x10*3/uL Absolute Nucleated RBC 0.000 (0.0-0.012) X10*3/uL Nucleated RBC % (auto) 0.0 (0.0-0.2) /100WBC Smear Tech's Comments VERIFIED PT 11.7 (11.2-13.5) SEC INR 1.0 (0.9-1.1) D-Dimer High Sensitivty 341 NG/ML Sodium 137 (135-145) mmol/L Potassium 5.3 H (3.3-5.1) mmol/L Chloride 102 (96-108) mmol/L Carbon Dioxide 27 (22-29) mmol/L Anion Gap 13 (12-20) BUN 36 H (9-16) mg/dL Creatinine 1.26 (0.5-1.4) mg/dL Estim Creat Clear Calc 26.9 Estimated GFR 40 Random Glucose 133 H (60-115) mg/dL Lactic Acid 0.6 (0.5-2.0) mmol/L Calcium 9.5 (8.4-10.2) mg/dL Magnesium 2.3 (1.6-2.6) mg/dL Total Bilirubin 0.6 (0.0-1.0) mg/dL AST 20 (5-31) U/L ALT 12 (0-31) U/L Alkaline Phosphatase 58 (39-117) U/L Troponin I High Sens 3.1 D (<3.5-17.0) ng/L NT-Pro-B Natriuret Pep 129.2 (<300) pg/mL Total Protein 7.3 (6.5-8.0) g/dL Albumin 4.3 (3.5-5.0) g/dL Lipase 44 (8-78) U/L Urine Color Yellow Urine Appearance Cloudy Urine pH 5.5 (5.0-9.0) Ur Specific Vanderbilt 1.010 (1.005-1.025) Urine Protein 100 (2+) H (Neg-Trace) mg/dL Urine Glucose (UA) Negative (Negative) mg/dL Urine Ketones Negative (Negative) mg/dL Urine Blood Moderate (2+) H (Negative) Urine Nitrite Positive H (Negative) Ur Leukocyte Esterase Large (3+) H (Negative) Urine RBC 3-5 H (0-2) /HPF Urine WBC >50 H (0-5) /HPF Ur Squamous Epith Cells 0-2 (0-2) /HPF Urine Bacteria 4+ (None Seen) Hyaline Casts 0-2 (0-2) /LPF COVID-19 (YANA) Negative (Negative) COVID-19 Clin Com See Note Influenza Type A (DIANA) Negative (Negative) Influenza Type B (DIANA) Negative (Negative) Influenza A & B Note See Note Independent Interpretation I performed an independent interpretation of an: EKG and Plain X-Ray Interpretation: On 09/14 IMPRESSION: 1. Limited evaluation without portal venous phase imaging. 2. Slightly increased now moderate right hydronephrosis. There is abrupt change in caliber at the ureteropelvic junction. No radiopaque obstructing calculus. Questionable abnormal enhancement within the region of abrupt caliber change concerning for a soft tissue lesion /Neoplasm (series 11, image 64) measuring 1.1 x 1.2 cm (best visualized on the sagittal images and incompletely characterized without portal venous phase imaging ). Urology consultation is recommended if not previously performed. Consider CT abdomen with portal venous phase imaging or MRI for further evaluation. 3. Subcentimeter hypodensities in both kidneys too small to accurately characterize by CT criteria. One of the lesions on the lateral posterior left kidney measures 0.7 cm (series 9, image 180) and may demonstrate peripheral enhancement however due to the small size this is very difficult to evaluate. Six-month follow-up imaging is recommended to evaluate for interval change. 4. Urinary bladder is distended which may be due to voluntary or involuntary urinary retention. 5. Large volume of stool throughout the colon greatest in the rectum. No evidence of bowel obstruction. 6. Limited evaluation in the pelvis due to significant streak artifact from right hip arthroplasty hardware. Radiology Impression Discussion of test interpretation with radiology: I have reviewed the radiologist's reading. Independent Historian Clinical information obtained from an independent historian. History obtained from or confirmed by: EMS External Record Review External record reviewed: Inpatient record, Office record, Outpatient record, Prior outpatient labs, Prior outpatient radiology and Primary care record Chronic Conditions Patient?s care impacted by: Other (see hpi) Critical Care Time Critical Care Time Critical Care Time: Yes Total Critical Care Time: 40 Attestation: I attest to this time spent taking care of the patient, obtaining history, physical, reviewing labs, imaging, treatment of patients condition +/- specialist/hospitalist consult +/- procedure Discharge Plan Discharge Clinical Impression: Hypoxia, Abdominal pain, Acute on chronic urinary retention, UTI (urinary tract infection) Patient Disposition: Admitted As Inpatient
--- NOTE | 2025-09-21 07:37 | ECG_ITS ---
Test Reason : sob Blood Pressure : */* mmHG Vent. Rate : 82 BPM Atrial Rate : 82 BPM P-R Int : 156 ms QRS Dur : 80 ms QT Int : 350 ms P-R-T Axes : 77 65 51 degrees QTcB Int : 408 ms Normal sinus rhythm with sinus arrhythmia Normal ECG When compared with ECG of 02-Jun-2025 14:27, No significant change was found Referred By: Naeem Islas Electronically Signed By: KERLINE RODRIGUEZ MD
--- OUTSIDE RECORDS SUMMARY | 2025-09-21 07:47 | XMS_ITS | Patient Health Record ---
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, with unspecified presence of clinical manifestation (I70.203) Active confirmed Q7(A), Q8(2B), Q9(1B,2 C) Vital Signs Blood pressure diastolic 65 mm Hg 08/27/2025 Height 5ft 1in in 08/27/2025 Blood pressure systolic 118 mm Hg 08/27/2025 Weight 133 lbs 08/27/2025 BMI 25.13 kg/m2 08/27/2025 Procedures Procedure Date Ordered Date Performed Result Body Sit e 03622-TJZERJI NAIL, 6 OR MORE 10/16/2024 N/A 63139-NUIT SKIN LESIONS, 2 TO 4 10/16/2024 N/A 67435-DDQNYXC NAIL, 6 OR MORE 02/22/2025 N/A 94318-URFV SKIN LESIONS, 2 TO 4 02/22/2025 N/A 28010-HLQGDWI NAIL, 6 OR MORE 05/28/2025 N/A 16689-FNCA SKIN LESIONS, 2 TO 4 05/28/2025 N/A Encounters Encounter Location Date Provider Diagnosis [facility] [address] 10/16/2024 Ameena Beard 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, with unspecified presence of clinical manifestation I70.203 ; Tinea unguium B35.1 ; Pain in right toe(s) M79.674 and Pain in left toe(s) M79.675 [facility] [address] 02/22/2025 Ameena Beard 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, with unspecified presence of clinical manifestation I70.203 ; Tinea unguium B35.1 ; Pain in right toe(s) M79.674 ; Pain in left toe(s) M79.675 and Xerosis of skin L85.[address] [address] 05/28/2025 Ameena Beard 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, with unspecified presence of clinical manifestation I70.203 ; Tinea unguium B35.1 ; Pain in right toe(s) M79.674 ; Pain in left toe(s) M79.675 and Xerosis of skin L85.[address] [address] 08/27/2025 Ameena Beard 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, with unspecified presence of clinical manifestation I70.203 ; Tinea unguium B35.1 ; Pain in right toe(s) M79.674 and Pain in left toe(s) M79.675 Assessments Encounter Date Diagnosis (ICD Code) Assessment Notes Treatment Notes Treatment Clinical Notes Section Notes 10/16/2024 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, with unspecified presence of clinical manifestation (ICD-10 - I70.203) Q7(A), Q8(2B), Q9(1B,2C) 02/22/2025 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, with unspecified presence of clinical manifestation (ICD-10 - I70.203) Q7(A), Q8(2B), Q9(1B,2C) 05/28/2025 Tinea unguium (ICD-10 - B35.1) 05/28/2025 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, with unspecified presence of clinical manifestation (ICD-10 - I70.203) Q7(A), Q8(2B), Q9(1B,2C) 08/27/2025 Tinea unguium (ICD-10 - B35.1) 08/27/2025 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, with unspecified [...] Treatment Pending Test Test Name Order Date 27990-SFQUENW NAIL, 6 OR MORE 10/16/2024 33306-UEMSJLT NAIL, 6 OR MORE 02/22/2025 84978-KZTRVLH NAIL, 6 OR MORE 05/28/2025 99502-CAXG SKIN LESIONS, OVER 4 12/07/19 23 24246-ZGAW SKIN LESIONS, OVER 4 03/08/20 23 34551-FXXO SKIN LESIONS, 2 TO 4 02/23/20 25 07511-ENTU SKIN LESIONS, 2 TO 4 10/16/20 24 66053-OMKQ SKIN LESIONS, 2 TO 4 05/28/20 25 W1855-SCIFGSKB DYSTROPHIC NAILS ANY # M7370-MVTFBUYS DYSTROPHIC NAILS ANY # Next Appt Details Provider Name:Ameena Cee khoury, 12/06/2025 09:15:00 AM, [address] [place] [address], [place], [address], Insurance Providers Payer Name Payer Address Payer Phone Subscriber Number Group Number Insured Name Patient Relationship to Insured Coverage Start Date Coverage End Date Medicare National Govt Svcs Inc [address] [place] [address] [id number] Giana Carlos Self - patient is the insured [employer] [address] [place] [address] [phone] [id number] Giana Carlos Self - patient is the insured Medical (General) History Medical History History ICD Code Back,Hip,and Knee pain Surgical History Surgery Date(Month/Year) hip surgery 10/06/2022 Spinal Surgery 05/17/24
--- OUTSIDE RECORDS SUMMARY | 2025-09-21 07:47 | XMS_ITS | Clinical Summary ---
Author Organization [facility] Address [address] [place] [address] Phone Care Team Providers Care Bolt Sorter Name Role Phone Rey Hope MD Primary Care Provider [phone] Sue Hendrickson MD Unavailable Caitlin Armstrong MD Unavailable Yohannes Finch OD Unavailable [phone] Rey Hope MD Unavailable [phone] Allergies No known active allergies Medications [...] Cervical spondylosis 08/10/2024 Overview (08/10/2024): Fol w [facility] spine mylene ADAMES last OV 07/14 plan [...] Encounters Date Type Department Care Team Description 09/17/2025 Orders Only [facility] Internal Medicine [address] [facility] [place], [facility] [place] [address] ProviderRaina MD 09/14/2025 Orders Only [facility] Internal Medicine [address] [facility] [place], [facility] [place] [address] Raina Gudino MD 08/13/2025 Refill [facility] Internal [facility] [address] [facility] [place] [place] [address] Rey Hope MD Medication Refill 07/18/2025 Telephone [facility] Internal Medicine [address] [facility] [place] [place] [address] Rey Hope MD Antibiotic; Results 07/16/2025 8:14 AM EDT - 07/16/2025 11:59 PM EDT Hospital [facility] [place] [place] [address] Rey Hope MD Discharge Disposition: Home or Self Care 07/11/2025 Telephone [facility] Internal Medicine [address] [facility] [place] [place] [address] Rey Hope MD Results 07/10/2025 9:16 AM EDT - 07/10/2025 11:59 PM EDT Hospital Encounter [facility] [place] [address] [facility] [place], [facility] [place] [address] Rey Hope MD Discharge Disposition: Home or Self Care 07/10/2025 Telephone [facility] Internal Medicine [address] [facility] [place], [facility] [place] [address] Rey Hope MD ultrasound order 06/25/2025 Orders Only [facility] Internal Medicine 40 [place] [address] Provider, MD Raina from Last 3 Months Immunizations Immunization Administration [...] Description 01/30/2026 10:00 AM EDT Office Visit [facility] Internal Medicine [address] [place] [address] Rey Hope MD [address] [place] [address] [email or web address] Health Maintenance Due Date Last Done Comments [...] Additional history exists POTASSIUM LEVEL 07/16/2026 07/16/2025, 0912/2024, 06/11/2025, Additional history exists OSTEOPOROSIS SCREENING INITIAL (ONE-TIME) Completed 10/21/2014 PNEUMOCOCCAL VACCINES (50+ years) Completed 05/07/2015, 10/08/2005, 10/08/2002 ZOSTER VACCINES Completed 01/23/2022, 09/10, 02/06/2010 HEPATITIS A VACCINES Aged Out No long er eligible based on patient's age to complete this topic HIB VACCINES Aged Out No longer eligi ble based on patient's age to complete this topic IPV VACCINES Aged Out No longer eligi ble [...] Date/Time Associated Diagnosis Comments OUTSIDE LAB Routine 09/13/2025 7:[address] IMAGING REPORT ONLY Routine 09/12/2025 10:43 AM EST URINE SEDIMENT Routine 07/16/2025 2:44 PM EDT [...] Relevant to Health Maintenance Results * Outside Lab (Non-MGB) (09/13/2025 7:49 AM EST) Historical Provider LAB BLOOD BKR ORDERABLES Final Result * Outside CT Imaging Report Only (09/12/2025 10:43 AM EST) Historical Provider IMG CT Final Res ult * (ABNORMAL) Urinalysis w/reflex Urine Culture (07/16/2025 2:44 PM EDT) COLOR Yellow Yellow [facility] CLARITY TURBID [facility] GLUCOSE Negative Negative [facility] BILI Negative Negative [facility] KETONES Negative Negative [facility] SPECIFIC GRAVITY 1.020 1.005 - 1.030 [facility] BLOOD 2+(A) Negative [facility] PH 6.5 5.0 - 8.0 [facility] Protein-UA 2+(A) Negative [facility] NITRITE Positive(A) Negative [facility] Leukocyte esterase, ur 2+(A) Negative [facility] Urine (Urine) 07/16/2025 2:4 4 PM EDT 07/16/2025 2:48 PM EDT us Rey Hope MD LAB URINE ORDERABLES Final Re sult Performing Organization Address [facility]/ZIP Co de Phone Number [address] [address] * (ABNORMAL) Urine Culture (07/16/2025 2:44 PM EDT) Special Requests None Reflexed from [id number] 07/16/2025 8:28 PM EDT [facility] Urine Culture >100,000 colony forming units per mL PSEUDOMONAS AERUGINOSA(A) 07/18/2025 7:52 AM EDT [facility] Urine 07/16/2025 2:44 PM EDT 07/16/2025 2:48 [...] ORDE RABLES Final Result Performing Organization Address [facility]/ZIP Co de Phone Number [address] [address] * (ABNORMAL) Urine sediment (07/16/2025 2:44 PM EDT) WBC TOO NUMEROUS TO COUNT(A) NONE SEEN /hpf [facility] RBC NONE SEEN NONE SEEN /hpf [facility] URINE EPITHELIAL NONE SEEN NONE SEEN [facility] MUCUS NONE SEEN NONE SEEN /hpf [facility] BACTERIA 3+(A) NONE SEEN /hpf [facility] 07/16/2025 2:44 PM EDT 07/16/2025 2:48 PM EDT us Rey Hope MD LAB URINE ORDERABLES Final Re sult [address] [address] * (ABNORMAL) Comprehensive metabolic panel (07/16/2025 8:14 AM EDT) SODIUM 137 133 - 146 mmol/L [facility] POTASSIUM 4.6 3.3 - 5.1 mmol/L [facility] CHLORIDE 102 96 - 108 mmol/L [facility] CO2 26 21 - 35 mmol/L [facility] BUN 32(H) 6 - 19 mg/dL [facility] CREATININE 1.10 0.5 - 1.5 mg/dL [facility] GLUCOSE 101(H) 70 - 99 mg/dL [facility] ALBUMIN 4.2 3.9 - 4.8 g/dL [facility] TOTAL PROTEIN 7.3 6.5 - 8.0 g/dL [facility] CALCIUM 9.5 8.4 - 10.3 mg/dL [facility] ALKALINE PHOSPHATASE 64 39 - 117 U/L [facility] TOTAL BILIRUBIN 0.5 0.0 - 1.2 mg/dL [facility] AST 20 0 - 37 U/L [facility] ALT 10 0 - 40 U/L [facility] GLOBULIN 3.1 1 - 4.8 g/dL [facility] EGFR 50(L) >59 mL/min/1.7 3m2 [facility] Comment:Estimated glomerular filtration rate calculated using the CKD-EPI refit equation. ANION GAP 14 10 - 20 mmol/L [facility] Blood 07/16/2025 8:14 AM EDT 07/16/2025 8:18 AM EDT us Rey Hope MD LAB BLOOD BKR ORDERABLES Destinee l Result [address] [address] * (ABNORMAL) CBC and differential (07/16/2025 8:14 AM EDT) Only the most recent of2 resultswithin the time period is included. WBC 9.65 4.00 - 11.00 K/uL [facility] RBC 3.60(L) 4.00 - 5.20 M/uL [facility] HGB 12.0 12.0 - 16.0 g/dL [facility] HCT 36.9 36.0 - 46.0 % [facility] PLT 271 150 - 450 K/uL [facility] MCV 102.5(H) 80.0 - 100.0 fL [facility] MCH 33.3(H) 27.0 - 31.0 pg [facility] MCHC 32.5 32.0 - 36.0 g/dL [facility] RDW 13.8 11.5 - 14.5 % [facility] MPV 11.5 8.4 - 12.0 fL [facility] NRBC 0.00 0.00 /100 WBCs [facility] ABSOLUTE NRBC 0.00 0.00 K/uL [facility] DIFF METHOD Auto [facility] NEUTS 70.6 48.0 - 76.0 % [facility] LYMPHS 9.8(L) 18.0 - 41.0 % [facility] MONOS 16.9(H) 4.0 - 11.0 % [facility] EOS 2.0 0.0 - 5.0 % [facility] BASOS 0.4 0.0 - 1.5 % [facility] Granulocytes, immature (%) 0.3 0.0 - 0.9 % [facility] ABSOLUTE NEUTS 6.81 1.92 - 7.60 K/uL [facility] ABSOLUTE LYMPHS 0.95 0.72 - 4.10 K/uL [facility] ABSOLUTE MONOS 1.63(H) 0.16 - 1.10 K/uL [facility] ABSOLUTE EOS 0.19 0.00 - 0.50 K/uL [facility] ABSOLUTE BASOS 0.04 0.00 - 0.15 K/uL [facility] Granulocytes, immature 0.03 0.00 - 0.09 K/uL [facility] Blood 07/16/2025 8:14 AM EDT 07/16/2025 8:18 AM EDT us Rey Hope MD LAB BLOOD BKR ORDERABLES Destinee l Result Performing Organization Address [facility]/ZIP Co de Phone Number [address] [address] * (ABNORMAL) Basic metabolic panel (07/10/2025 9:16 AM EDT) SODIUM 133 133 - 146 mmol/L [facility] CHLORIDE 98 96 - 108 mmol/L [facility] POTASSIUM 4.3 3.3 - 5.1 mmol/L [facility] CO2 27 21 - 35 mmol/L [facility] BUN 27(H) 6 - 19 mg/dL [facility] CREATININE 0.90 0.5 - 1.5 mg/dL [facility] GLUCOSE 88 70 - 99 mg/dL [facility] CALCIUM 9.7 8.4 - 10.3 mg/dL [facility] EGFR 63 >59 mL/min/1.7 3m2 [facility] Comment:Estimated glomerular filtration rate calculated using the CKD-EPI refit equation. ANION GAP 12 10 - 20 mmol/L [facility] Blood 07/10/2025 9:16 AM EDT 07/10/2025 9:19 AM EDT Rey Hope MD LAB BLOOD BKR ORDERABLES Destinee lópez Result Performing Organization Address [facility] Co de Phone Number [address] [address] * Outside Imaging Report Only (06/21/2025 10:58 AM EDT) us Historical Provider IMG XR CHEST Final Res ult * (ABNORMAL) TSH with reflex (06/11/2025 10:00 AM EDT) TSH 4.80(H) 0.27 - 4.20 uIU/mL [facility] Blood 06/11/2025 10:0 0 AM EDT 06/11/2025 10:03 AM EDT us Rey Hope MD LAB BLOOD BKR ORDERABLES Destinee l Result [facility] [address] [place] [address] * OUTSIDE BONE DENSITY SCREENING (10/21/2014) BONE DENSITY SCREENING - EXTERNAL osteopenia us Historical Provider HEALTH MAINTENANCE Edited Result - Final from Last 3 Months or Most Recently Relevant to Health Maintenance Insurance [employer] MEDEX SUPPLEMENT MEDICARE PART A & B [employer] MEDEX SUPPLEMENT MEDICARE PART A & B Member Subscriber Plan / Payer (Ef fective 2005-Present) Name:EusebioDirk Member ID:[id number] Relation to Subscriber:Self Name:EusebioDirk Subscriber ID:[id number] Payer ID:[id number] Group ID:Not on file Type:Medicare Address: [facility] [employer] [facility] [employer] [facility] [address] [place] [phone] [employer] MEDEX SUPPLEMENT [employer] MEDEX SUPPLEMENT [place] [place] MEDEX SUPPLEMENT MEDICARE PART A & B [place] [place] MEDEX SUPPLEMENT [place], [place] BLUE [place]OSS MEDEX SUPPLEMENT MEDICARE PART A & B [facility] MEDEX SUPPLEMENT MEDICARE PART A & B [place] MEDEX SUPPLEMENT MEDICARE PART A & B Advance Directives For more information, please contact: [phone] (9AM - 5PM [facility], Wednesday-Wednesday) * Full Code (Latest Code Status on File) Date Activated Date Inactivated Comments 01/29/2025 8:49 PM Question Answer Comments Code Status Confirmed With: Patient Code Status Communicated To: PCP Code Discussion Comments: pt wats to be full code but wants limits on hertime on machines. will use health care proxy for this Care Teams Bolt Sorter Relationship Specialty Start Date End Date Rey Hope MD [address] [place], [place] PCP - General 11/11/17 Sue Hendrickson MD [address] [place] [address] Dermatology 08/26/20 Caitlin Armstrong MD [address] [place] [address] [address] [place] [address] Ophthalmology 08/26/20 Yohannes Finch OD [address] [place] [address] Optometry 08/26/20 Rey Hope MD [address] [place] [address] [email or web address] Insurance Assigned Provider 02/12/24 Additional Source Comments The information contained in this document represents components of the legal health record. It is not the complete legal health record.[facility]
--- OUTSIDE RECORDS SUMMARY | 2025-09-21 07:48 | XMS_ITS | Patient Health Record ---
Author Organization [facility] Address [address] [facility] [address] [place] [address] Care Team Providers Care Daycare Worker Name Role Phone Rey Hope MD Primary Care Provider Ramya Carlin Unavailable [phone] Reason For Referral No Information Medications Medication SIG (Take, Route, Frequency, Duration) Notes Start Date End Date Status Calcium 1 tab Oral Active Vitamin D3 1000 IU ORAL daily; Duration: -3 [facility] 2011 Active Lisinopril 20MG 1 ORAL daily; Durati on: - [facility] 10/19/2011 Active Levothyroxine Sodium 75MCG 1 ORAL daily; Duration: -3 [facility] 10/29/2014 Active Fish Oil 1200MG 1 ORAL daily; Durati on: -3 [facility]- 10/19/2012 Active Fish Oil 1200MG 1 ORAL daily; Durati on: -3 [facility]- 10/19/2012 Active Aspirin EC 81MG 1 ORAL daily; Durati on: -3 [facility]- 10/19/2012 Active Aspirin EC 81MG 1 ORAL daily; Durati on: -3 [facility] 10/19/2012 Active Vitamin D3 1000 IU ORAL daily; Duration: -3 [facility] [place] [facility]- 2011 Active Lisinopril 20MG 1 ORAL daily; Durati on: -3 [facility] 10/19/2011 Active Levothyroxine Sodium 75MCG 1 ORAL daily; Duration: -3 [facility] [place] [facility]- 10/29/2014 Active Social History Tobacco Use: Social [...] W/U Status Risk Notes Problem Essential hypertension (94902511) Unspecified essential hypertension (401.9) Active confirmed Major Problem Menopausal symptom (18815187) Symptomatic menopausal or female climacteric states (627.2) Active confirmed Major Problem Osteoporosis (36801577) Unspecified osteoporosis (733.00) Active confirmed Major Problem Disorder of bone and articular cartilage (disorder) (124719205) Disorder of bone and cartilage, unspecified (733.90) Active confirmed Diag Problem Gynecological examination normal (527817775477466) Routine gynecological examination (V72.31) Active confirmed Major Problem Screening for malignant neoplasm of colon (610610591) Special screening for malignant neoplasms, colon (V76.51) Active confirmed Major Plan Of Treatment No Information Insurance Providers Payer Name Payer Address Payer Phone Subscriber Number Group Number Insured Name Patient Relationship to Insured Coverage Start Date Coverage End Date MEDICARE [address] BETHANY ZHANG [id number] DIRK KAPLAN Self - patient is the insured BCBS OF [facility] [address] [place] [address] [id number] DIRK KAPLAN Self - patient is the insured Medical (General) History Medical History History ICD Code Disorder of bone density and structure, unspecified M85.9 Essential (primary) hypertension I10 Age-related osteoporosis without current pathological fracture M81.0 Menopausal and female climacteric states N95.1 Surgical History Surgery Date(Month/Year) Colonoscopy
--- OUTSIDE RECORDS SUMMARY | 2025-09-21 07:48 | XMS_ITS | Encounter Summary ---
Author Organization [facility] Address [address] [place] [address] Phone Care Team Providers Care Marketing Strategy Analyst Name Role Phone Rey Hope MD Primary Care Provider [phone] Sue Hendrickson MD Unavailable [phone] Caitlin Armstrong MD Unavailable Yohannes Finch OD Unavailable [phone] Rey Hope MD Unavailable [phone] Reason for Referral * MRI/CAT Scan - Closed Specialty Diagnoses / Procedures Referred By Contac t Referred To Contact Radiology Procedures Outside CT Imaging Report Only [facility] Internal Medicine [address] [place] [address] Phone: tel: fax: Referral ID Status Reason Start Date Expiration Date Visits Re quested Visits Authorized [id number] Closed 09/14/2025 1 1 Encounter Details Date Type Department Care Team (Late st Contact Info) Description 09/14/2025 Orders Only [facility] Internal Medicine [address] [place] [address] Raina Gudino MD [address] [place] [address] Social History Tobacco Use Types Packs/Day [...] 01/30/2026 10:00 AM EDT Office Visit [facility] Internal Medicine [address] [place] [address] Rey Hope MD [address] [place] [address] [email or web address] documented as of this encounter Procedures Procedure Name Priority Date/Time Associated Diagnosis Comments OUTSIDE CT IMAGING REPORT ONLY Routine 09/12/2025 10:43 AM EST documented in this encounter Results * Outside CT Imaging Report Only (09/12/2025 10:43 AM EST) us Historical Provider MD GASPAR CT Final Res ult documented in this encounter Visit Diagnoses Not on filedocumented in this encounter Additional Health Concerns Assessment Noted Time PHQ-2 Depression Total Score: 0 05/14/20 25 10:55 AM EDT documented as of this encounter Care Teams Marketing Strategy Analyst Relationship Specialty Start Date End Date Rey Hope MD [address] [place] [address] [email or web address] PCP - General 11/11/17 Sue Hendrickson MD [address] [facility] [address] [place] [address] Dermatology 08/26/20 Caitlin Armstrong MD [address] [facility] [address] [place] [address] Ophthalmology 08/26/20 Yohannes Finch OD [address] [place] [address] Optometry 08/26/20 Rey Hope MD [address] [place] [address] [email or web address] Insurance Assigned Provider 02/12/24 documented as of this encounter Additional Source Comments The information contained in this document represents components of the legal health record. It is not the complete legal health record.[facility]
--- OUTSIDE RECORDS SUMMARY | 2025-09-21 07:48 | XMS_ITS | Encounter Summary ---
Author Organization [facility] Address [address] [address] Phone Care Team Providers Care Virtual Classroom Manager Name Role Phone Rey [place] MD Primary Care Provider Sue Hendrickson MD Unavailable Caitlin [place] MD Unavailable Yohannes Finch OD Unavailable [phone] Rey [place] MD Unavailable [phone] Encounter Details Date Type Department Care Team (Late st Contact Info) Description 06/28/2023 Transcribe Orders [facility] [address] [place], [place] [id number] Rey [place] MD [address] [place], [place] [phone] [email or web address] Social History Tobacco Use [...] Description 01/30/2026 10:00 AM EDT Office Visit [facility] Internal [facility] [address] [place] [address] Rey [place] MD [address] [place] [address] [email or web address] documented as of this encounter Visit Diagnoses Not on filedocumented in this encounter Additional Health Concerns Assessment Noted Time PHQ-2 Depression Total Score: 0 12/08/19 23 12:42 PM EST documented as of this encounter Care Teams Virtual Classroom Manager Relationship Specialty Start Date End Date Rey [place] MD [address] [place] [address] [email or web address] PCP - General 11/11/17 Sue Hendrickson MD [address] [facility] [address] [place] [address] Dermatology 08/26/20 Caitlin [place] MD [address] [facility] [address] [place] [address] Ophthalmology 08/26/20 Yohannes Finch OD [address] [place] [id number] Optometry 08/26/20 Rey [place] MD [address] [place] [id number] [email or web address] Insurance Assigned Provider 02/12/24 documented as of this encounter Additional Source Comments The information contained in this document represents components of the legal health record. It is not the complete legal health record.[facility]
--- OUTSIDE RECORDS SUMMARY | 2025-09-21 07:48 | XMS_ITS | Patient Health Record ---
Author Organization [facility] Address [address] [place] [address] Care Team Providers Care Industrial Electrician Journeyman Name Role Phone Rey [place] MD Primary Care Provider Rigo sigala Rubio Villafana Unavailable [phone] Allergies No Known Allergies Reason For Referral [...] Status W/U Status Risk Notes Problem Constipation (40335701) Constipation (K59.00) Active confirmed Problem Anorexia (07027149) Anorexia (R63.0) Active confirmed Vital Signs Temperature 98.6 degrees Fahrenheit 06/01/2025 Blood pressure diastolic 01 mm Hg 06/01/2025 Height 63 in 06/01/2025 Blood pressure systolic 001 mm Hg 06/01/2025 Weight 125.4 lbs 06/01/2025 BMI 22.21 kg/m2 06/01/2025 Encounters Encounter Location Date Provider Diagnosis [facility] [address] [place] [address] 06/01/2025 Rubio Villafana Constipation K59.00 and Anorexia [...] End Date MEDICARE OF [place] [address] [place] [address] [id number] GIANA KAPLAN Self - patient is the insured [employer] ATT[employer] CLAIMS [address] [place] [address] [id number] GIANA KAPLAN Self - patient is the insured 5 Medical (General) History Medical History History ICD Code HTN Denies [place],DM,CVA,Lung disease,renal dise ase Neuropathy Hypothyroidism Previous colonoscopies with Dr. Yohannes Allen in [place]. The colonoscopy in 2004 was negative and the colonoscopy in 2014 revealed a small polyp that was removed and small internal hemorrhoids. Surgical History Surgery Date(Month/Year) Cataracts Spinal stenosis 2023 Total right hip replacement 2022
[2025-09-21 08:02] LABS: Hematocrit 38.0 % (37.0-47.0); Hemoglobin 12.3 g/dl (12.0-16.0); Imm Gran Abs Auto 0.11 X10*3/uL (0.00-0.03); Imm Gran Pct Auto 0.5 % (0.0-0.4); Lymphocytes Absolute Auto 0.4 X10*3/uL (1.2-4.9); MANUAL DIFF FLAG SCAN; Mean Corpuscular HGB Conc 32.4 g/dl (31.0-35.0); Mean Corpuscular Hemoglobin 31.0 pg (27.0-33.0); Mean Corpuscular Volume 95.7 fL (80.0-98.0); NRBC Abs Auto 0.000 X10*3/uL (0.0-0.012); NRBC Pct Auto 0.0 /100WBC (0.0-0.2); Platelet Count 305 X10*3/uL (160-400); Red Blood Count 3.97 X10*6/uL (4.20-5.50); SCAN SMEAR FLAG 1; White Blood Count 20.2 X10*3/uL (4.8-10.8)
[2025-09-21 08:02] LABS: Appearance Urine Cloudy; Glucose Urine UA Negative (Negative); PH 5.5 (5.0-9.0); Specific Gravity - Urine 1.010 (1.005-1.025); UMIC TRIGGER UACC YES
[2025-09-21 08:10] LABS: UACC Culture Trigger YES
[2025-09-21 08:12] LABS: INTERNATIONAL NORM RATIO 1.0 (0.9-1.1); Prothrombin Time 11.7 SEC (11.2-13.5)
[2025-09-21 08:13] LABS: Lipase 44 U/L (8-78)
[2025-09-21 08:14] LABS: Alanine Aminotransferase 12 U/L (0-31); Albumin Level 4.3 g/dL (3.5-5.0); Alkaline Phosphatase 58 U/L (39-117); Anion Gap 13 (12-20); Aspartate Amino Transferase 20 U/L (5-31); Blood Urea Nitrogen 36 mg/dL (9-16); Calcium 9.5 mg/dL (8.4-10.2); Carbon Dioxide 27 mmol/L (22-29); Chloride 102 mmol/L (96-108); Creatinine Clr Calc Pharmacy 26.9; Estimated Glomerular Filt Rate 40; Magnesium 2.3 mg/dL (1.6-2.6); Potassium 5.3 mmol/L (3.3-5.1); Sodium 137 mmol/L (135-145); Total Protein 7.3 g/dL (6.5-8.0)
[2025-09-21 08:19] LABS: COVID-19 Test Negative (Negative); IDNOW Serial# 55D5AD1C; IDNOW Serial# 58CA691E; Influenza B2 Negative (Negative)
[2025-09-21] MEDS: SODIUM CHLORIDE 1635 ML IV (08:19)
[2025-09-21 08:22] LABS: Troponin-I High Sensitivity 3.1 ng/L (<3.5-17.0)
[2025-09-21 08:24] LABS: NT Pro B Type Natriuretic Pept 129.2 pg/mL (<300)
[2025-09-21 11:07] LABS: D Dimer High Sensitivity 341 NG/ML
--- NOTE | 2025-09-21 11:29 | PHA.MEDREC ---
Addendum entered by Diamond Bae [facility] 09/21/25 13:21: MED REC REVIEWED BY [facility] Addendum entered by Luba Lennon 09/21/25 13:00: Patient confirmed she it on both Dorzolamide 1gtt QAM and Dorzolamide -timolol 1 gtt QPM. Original Note: Pharmacy Consult ? Medication Reconciliation Pharmacy has completed the medication reconciliation. Patient had a list of medications with her. Patient is not taking Tamsulosin 0.4 mg. Patient confirmed Levothyroxine 75 mg fany day except on Wednesday and Wednesday she tales Levothyroxine 150 mg (2x 75 mg) twice a week. Patient had all her morning medications today.
--- NOTE | 2025-09-21 11:53 | PM.IMHP ---
History of Present Illness Date of Service: 09/21/25 Attending physician on admission: Akin Mcqueen Chief Complaint: unable to urinate This is an 85-year-old female who presents to the emergency department with weakness and abdominal distention. Patient has a history of recurrent UTI as and urinary retention who follows with Urology. Patient was seen in the urology office yesterday for a follow-up appointment, she was bladder scanned for large volume, plan was to start take Flomax, treat UTI with Macrobid, continue use of laxatives for constipation and she was noted to have ureteral irregularity with plan for further outpatient assessment and possible stent placement if needed. Today in the emergency department she was [place] [id number], a Dee catheter was placed due to urinary retention. Urinalysis was consistent with UTI. Patient was initially noted to be hypoxic with an oxygen saturation in low 80s however she was weaned off oxygen and is now saturating in the low 90s on room air. She denies any shortness of breath or cough. Review of Systems Review of Systems: Yes all other systems are reviewed and are negative Constitutional: Constitutional: Denies chills and Denies fever(s) Cardiovascular: Cardiovascular: Denies chest pain, Denies palpitations and Denies dyspnea Respiratory: Respiratory: Denies cough and Denies dyspnea Endocrine: Endocrine: Denies palpitations [facility] Medical History Peripheral neuropathy Urinary frequency Carotid stenosis COPD (chronic obstructive pulmonary disease) Hypothyroidism Spinal stenosis Hypertension Surgical History History of excision of pilonidal cyst Hx of bilateral cataract extraction H/O colonoscopy History of right hip replacement Social History Household Members: None Household Members Other:: lives alone Housing: House Are you a primary career technical education instructor to a significant other at home: No Do you presently have visiting nurse or other home services: No (previous user) Alcohol intake: current Alcohol intake frequency: a few times a week Comment: 2 to 3 times a week Patient Tobacco Use Status: Former Tobacco user Tobacco use type: Cigarette Cigarettes Per Day: 10 Years Smoked: 30 Smoked in Last 30 Days: No Use of substances other than those prescribed or required for medical reasons: No Advance Directives: Yes Advance Directives Information Provided: Yes Advance Directives on File: No Advance Directives Date on File: 05/19/24 Nutrition Risks: No Nutritional Risk service: No Meds Allergies Allergy/AdvReac Type Severity Reaction Status Date / Time No Known Allergies Allergy Verified 09/21/25 07:24 Home Medications ?Medication ?Instructions ?Recorded ?Confirmed ?Last Taken ?Type levothyroxine 75 mcg tablet 75 mcg PO MOTUTHFRSA 04/21/21 09/21/25 09/21/25 History levothyroxine 75 mcg tablet 150 mcg PO SUWE 09/30/23 09/21/25 09/19/25 History dorzolamide 2 % eye drops 1 drp ophthalmic (eye) DAILY 05/04/24 09/21/25 09/21/25 History lisinopril 30 mg tablet 30 mg PO DAILY 05/17/24 09/21/25 09/21/25 History celecoxib 100 mg capsule 100 mg PO DAILY 06/03/25 09/21/25 09/21/25 History dorzolamide 22.3 mg-timolol 6.8 1 drp ophthalmic (eye) BEDTIME 06/03/25 09/21/25 09/20/25 History mg/mL eye drops polyethylene glycol 3350 17 17 g PO DAILY 06/03/25 09/21/25 09/21/25 History gram/dose oral powder (Miralax) calcium 315 mg (as 2 tab PO DAILY 09/21/25 09/21/25 09/21/25 History citrate)-vitamin D3 5 mcg (200 unit) tablet (Calcium Citrate + D) cyanocobalamin (vitamin B-12) 1,000 mcg PO DAILY 09/21/25 09/21/25 Unknown History 1,000 mcg tablet (Vitamin B-12) diclofenac sodium 1 % topical gel 2 g topical QID PRN Pain 09/21/25 09/21/25 Unknown History Physical Exam Vital Signs and Narrative: Vital Signs: Last Vital Signs Temp 97.8 F 09/21/25 09:25 Pulse 87 09/21/25 10:33 Resp 16 09/21/25 10:33 BP 109/50 L 09/21/25 10:33 Pulse Ox 93 09/21/25 10:33 O2 Del Method Room Air 09/21/25 10:33 Oxygen Flow Rate 4 09/21/25 07:20 BMI result Body Mass Index 21.3 Const: General: cooperative, no acute distress, alert and awake Nutritional Appearance: average body habitus Orientation/consciousness: patient oriented x3 Resp: Effort & Inspection: normal respiratory effort, able to speak in complete sentences, no respiratory distress and no use of accessory muscles Cardio: Rate: regular rate GI: Inspection: No distended Palpation (GI): Soft to palpation : Other: dee in place draining yellow urine Neuro: General: patient oriented x3, No moves all extremities and No CN's II-XI intact bilaterally Results Labs 09/21/25 07:55 09/21/25 07:55 Labs: Laboratory Results - last 24 hr 09/21/25 09/21/25 09/21/25 07:54 07:55 08:17 MCV 95.7 MCH 31.0 MCHC 32.4 RDW 13.8 Plt Count 305 MPV 10.0 Immature Gran % (Auto) 0.5 H Neut % (Auto) 91.7 H Lymph % (Auto) 1.7 L [place] % (Auto) 5.3 Eos % (Auto) 0.5 Baso % (Auto) 0.3 Lymph # (Auto) 0.4 L [place] # (Auto) 1.1 Eos # (Auto) 0.1 Baso # (Auto) 0.1 Abs Immat Gran (auto) 0.11 H Absolute Neuts (auto) 18.5 H Absolute Nucleated RBC 0.000 Nucleated RBC % (auto) 0.0 Smear Tech's Comments VERIFIED PT 11.7 INR 1.0 D-Dimer High Sensitivty 341 Anion Gap 13 Estim Creat Clear Calc 26.9 Estimated GFR 40 Random Glucose 133 H Lactic Acid 0.6 Calcium 9.5 Magnesium 2.3 Total Bilirubin 0.6 AST 20 ALT 12 Alkaline Phosphatase 58 Troponin I High Sens 3.1 D NT-Pro-B Natriuret Pep 129.2 Total Protein 7.3 Albumin 4.3 Lipase 44 Urine Color Yellow Urine Appearance Cloudy Urine pH 5.5 Ur Specific [place] 1.010 Urine Protein 100 (2+) H Urine Glucose (UA) Negative Urine Ketones Negative Urine Blood Moderate (2+) H Urine Nitrite Positive H Ur Leukocyte Esterase Large (3+) H Urine RBC 3-5 H Urine WBC >50 H Ur Squamous Epith Cells 0-2 Urine Bacteria 4+ Hyaline Casts 0-2 COVID-19 (YANA) Negative COVID-19 Clin Com See Note Influenza Type A (DIANA) Negative Influenza Type B (DIANA) Negative Influenza A & B Note See Note Imaging Radiologist's Impressions: Impressions Chest X-Ray 09/21/25 08:08 IMPRESSION: Chronic interstitial lung disease suggesting COPD emphysematous type changes without acute airspace disease. Atherosclerosis, aorta. Degenerative changes, right acromioclavicular joint. Electronically signed by: Blake hWite MD 09/21/2025 08:16 AM [facility] Assessment and Plan (1) UTI (urinary tract infection): Status: Acute (2) Acute on chronic urinary retention: Status: Acute Plan This is an 84-year-old female with history of recurrent UTIs and urinary retention who presented to the emergency department with inability to urinate found to have UTI and persistent urinary retention UTI, recurrent was started on macrobid yesterday; given increasing WBC count and age/urinary retention putting her at high risk for dz progression, patient will be treated with IV antibiotics continue IV ceftriaxone Follow results of urine cultures and blood cultures Urinary retention Dee catheter placed in the ED will need outpatient follow-up with Urology transient hypoxia Likely due to underlying COPD Currently on room air Depending on clinical course may need home O2 evaluation prior to discharge COPD No acute exacerbation Continue baseline therapies HTN bp on lower side, hold norvasc, lisinopril for now,resume as bp allows Hypothyroidism Continue Synthroid constipation continue miralax DVT prophylaxis-heparin Code status-full code Patient will likely require 2 midnight stay in the hospital for management of UTI requiring close monitoring due to high risk for dz progression and IV antibiotics Quality Stroke Does the patient have a stroke diagnosis?: No VTE Prior VTE?: No VTE Risk Level:: Medical - moderate - high VTE Device Contraindication: Treatment Not Indicated VTE Drug Contraindication: N/A - Med Ordered
--- NOTE | 2025-09-21 15:11 | PC.NURSE ---
Food tray provided to patient.
[2025-09-21] MEDS: Dorzolamide/Timolo 2.23%/0.68% 10 ML DRBTL 1 DROP EYE-BOTH (20:03)
[2025-09-21] MEDS: 0.9 % Sodium Chloride Flush 3 ML SYRINGE IVFLUSH (20:04)
[2025-09-21 20:51] LABS: Glucose, Whole Blood 101 mg/dL (60-115)
[2025-09-22 03:34] VITALS: BP 119/57; PULSE 77; RESP 18; TEMP 36.4; O2SAT 93
[2025-09-22] MEDS: Milk of Magnesia 30 ML ORAL.SUSP PO (04:14)
[2025-09-22 06:25] LABS: Hematocrit 32.5 % (37.0-47.0); Hemoglobin 10.5 g/dl (12.0-16.0); Mean Corpuscular HGB Conc 32.3 g/dl (31.0-35.0); Mean Corpuscular Hemoglobin 31.0 pg (27.0-33.0); Mean Corpuscular Volume 95.9 fL (80.0-98.0); NRBC Abs Auto 0.000 X10*3/uL (0.0-0.012); NRBC Pct Auto 0.0 /100WBC (0.0-0.2); Platelet Count 275 X10*3/uL (160-400); Red Blood Count 3.39 X10*6/uL (4.20-5.50); White Blood Count 10.7 X10*3/uL (4.8-10.8)
[2025-09-22 06:40] LABS: Anion Gap 10 (12-20); Blood Urea Nitrogen 29 mg/dL (9-16); Calcium 8.8 mg/dL (8.4-10.2); Carbon Dioxide 25 mmol/L (22-29); Chloride 107 mmol/L (96-108); Creatinine Clr Calc Pharmacy 36.6; Estimated Glomerular Filt Rate 57; Potassium 4.4 mmol/L (3.3-5.1); Sodium 138 mmol/L (135-145)
[2025-09-22 07:27] VITALS: BP 130/60; PULSE 77; RESP 20; TEMP 37.5; O2SAT 93
[2025-09-22] MEDS: 0.9 % Sodium Chloride Flush 3 ML SYRINGE IVFLUSH ×3 (08:59→22:17)
--- NOTE | 2025-09-22 09:27 | P.PNIM_ITS ---
Subjective Subjective Date of Service: 09/22/25 Interval History: f/u on uti and urinary retention wbc was 20 today 10 with Abx urine culture pending has dee from ED Physical Exam 2 Vital Signs: Vital Signs: Last Vital Signs Temp 99.5 F 09/22/25 07:27 Pulse 77 09/22/25 07:27 Resp 20 09/22/25 07:27 BP 130/60 09/22/25 07:27 Pulse Ox 93 09/22/25 07:27 O2 Del Method Room Air 09/22/25 07:27 Oxygen Flow Rate 4 09/21/25 07:20 BMI result Body Mass Index 22.0 Const: Other: General: AO X 3, no acute distress Resp: CTA bilateral CVS: S1,S2,RRR GI: +BS, NT, no distention Skin: No rash Neuro: motor grossly intact Psych: appropriate affect Objective Data Active Medications Acetaminophen (Acetaminophen 325 Mg Tablet) 650 mg PO Q6H PRN PRN Reason: Pain, Mild 1-3,fever,headache Albuterol Sulfate (Albuterol Sulfate 90 Mcg 8 Gm Inhaler) 1 puff INHALE RQ4H PRN PRN Reason: sob Calcium Carbonate (Calcium Carbonate 750 Mg Tab.Chew) 750 mg PO Q4H PRN PRN Reason: Heartburn Dorzolamide HCl (Dorzolamide Hcl 2 % Ophth Kaci 10 Ml Drpbtl) 1 drop EYE-BOTH DAILY [facility] Last Admin: 09/22/25 09:00 Dose: Not Given Documented By: LEILA Non-Admin Reason: Patient Refused Dorzolamide/Timolol (Dorzolamide/Timolo 2.23%/0.68% 10 Ml Drbtl) 1 drop EYE- BOTH BEDTIME [facility] Last Admin: 09/21/25 20:03 Dose: 1 drop Documented By: AMANDO Heparin Sodium (Porcine) (Heparin Sodium,Porcine 5,000 Unit/Ml Vial) 5,000 unit SUBCUT Q12H [facility] Last Admin: 09/21/25 23:41 Dose: 5,000 unit Documented By: AMANDO Ceftriaxone Sodium 1 gm/ (Sodium Chloride) 50 mls @ 100 mls/hr IV Q24H [facility] Last Admin: 09/22/25 08:55 Dose: 100 mls/hr Documented By: LEILA Levothyroxine Sodium (Levothyroxine Sodium 150 Mcg Tablet) 150 mcg PO SuWe@0600 [facility] Levothyroxine Sodium (Levothyroxine Sodium 75 Mcg Tablet) 75 mcg PO MoTuThFrSa@0600 [facility] Last Admin: 09/22/25 05:38 Dose: 75 mcg Documented By: AMANDO Magnesium Hydroxide (Milk Of Magnesia 30 Ml Oral.Susp) 30 ml PO DAILY PRN PRN Reason: Constipation Last Admin: 09/22/25 04:14 Dose: 30 ml Documented By: AMANDO Melatonin (Melatonin 3 Mg Tablet) 6 mg PO BEDTIME PRN PRN Reason: Insomnia Ondansetron HCl (Ondansetron Hcl 4 Mg/2 Ml Vial) 4 mg IVPUSH Q8H PRN PRN Reason: Nausea and Vomiting Polyethylene Glycol (Polyethylene Glycol 3350 17 Gm Powd.Pack) 17 gm PO DAILY [facility] Last Admin: 09/22/25 09:00 Dose: 17 gm Documented By: LEILA Sodium Chloride (0.9 % Sodium Chloride Flush 3 Ml Syringe) 3 ml IVFLUSH QSHIFT [facility] Last Admin: 09/22/25 08:59 Dose: 3 ml Documented By: LEILA Labs 09/22/25 06:13 09/22/25 06:13 Labs: Laboratory Results - last 24 hr 09/21/25 09/21/25 09/22/25 07:55 20:46 06:13 MCV 95.9 MCH 31.0 MCHC 32.3 RDW 14.0 Plt Count 275 MPV 10.2 Absolute Nucleated RBC 0.000 Nucleated RBC % (auto) 0.0 D-Dimer High Sensitivty 341 Anion Gap 10 L Estim Creat Clear Calc 36.6 Estimated GFR 57 POC Glucose 101 Random Glucose 101 Calcium 8.8 D Assessment and Plan (1) Acute UTI: Status: Acute (2) Urinary retention: Status: Acute Plan This is an 84-year-old female with history of recurrent UTIs and urinary retention who presented to the emergency department with inability to urinate found to have UTI and persistent urinary retention UTI, recurrent was started on macrobid LEAD CAREGIVER; given increasing WBC count and age/urinary retention putting her at high risk for dz progression, patient started on IV ceftriaxone, culture pending, wbc has come down from 20 to 10 day, no fever Urinary retention Dee catheter placed in the ED will need outpatient follow-up with Urology transient hypoxia Likely due to underlying COPD Currently on room air Depending on clinical course may need home O2 evaluation prior to discharge COPD No acute exacerbation Continue baseline therapies HTN bp on lower side, hold norvasc, lisinopril for now,resume as bp allows Hypothyroidism Continue Synthroid constipation continue miralax DVT prophylaxis-heparin Code status-full code Patient will likely require 2 midnight stay in the hospital for management of UTI requiring close monitoring due to high risk for dz progression and IV antibiotics Quality Stroke Does the patient have a stroke diagnosis?: No VTE Prior VTE?: No VTE Risk Level:: Medical - moderate - high VTE Device Contraindication: Treatment Not Indicated VTE Drug Contraindication: N/A - Med Ordered
--- NOTE | 2025-09-22 14:31 | MHC.CM.PN ---
Patient lives in a home alone. Independent w/ care. Ambulates w/ cane, walker at times. Has a stair lift to get to 2nd floor. Private pay cleaning services. PCP Rey [place] MD HCP on file lists Otoniel, who patient reports is . States she has a new HCP naming brother in law, Ernesto, as HCA. Copy requested. DP: Home self care. Would not be open to any home services. Ernesto to transport. CM will continue to follow.
[2025-09-22 15:14] VITALS: BP 108/53; PULSE 81; RESP 18; TEMP 37.1; O2SAT 93
[2025-09-22 19:38] VITALS: BP 133/66; PULSE 77; RESP 18; TEMP 36.4; O2SAT 95
[2025-09-22] MEDS: Dorzolamide/Timolo 2.23%/0.68% 10 ML DRBTL 1 DROP EYE-BOTH (22:17)
--- NOTE | 2025-09-23 00:10 | PM.EVENT ---
Event Note Date of Service: 09/23/25 Event Note: Received information from nursing that patient is complaining of constipation and is requesting enema. Vital signs are stable and patient is not having any nausea or vomiting. Ordered 1 enema and then Dulcolax suppository as needed daily for ongoing constipation issues. Nursing advised to notify this provider if enema is unsuccessful. Time Spent With Patient Time: Total time managing care of this patient today ____ minutes.
[2025-09-23 03:20] VITALS: BP 118/57; PULSE 66; RESP 18; TEMP 36.6; O2SAT 93
[2025-09-23] MEDS: 0.9 % Sodium Chloride Flush 3 ML SYRINGE IVFLUSH (07:53)
[2025-09-23 07:58] VITALS: BP 153/70; PULSE 67; RESP 18; TEMP 36.4; O2SAT 93
--- NOTE | 2025-09-23 09:34 | P.DS_ITS ---
DS: Providers Provider Date of Service: 09/23/25 Date of admission: 09/21/25 11:01 Date of discharge: 09/23/25 Primary care physician: Rey [place] MD DS: Diagnosis Discharge Diagnosis (1) Acute UTI: Status: Acute (2) Urinary retention: Status: Acute DS: Summary Hospital Course Hospital Course: 85-year-old female with a history of recurrent UTIs and chronic urinary retention, followed by Urology, presented with weakness and abdominal distention. She was seen in the urology clinic the day prior, where a bladder scan revealed a large post-void residual. The plan was to start tamsulosin (Flomax), treat a suspected UTI with nitrofurantoin, and continue laxatives for constipation. Ureteral irregularity was noted, with plans for further outpatient evaluation. She presented to the ED with inability to urinate. Labs revealed leukocytosis (WBC 20,000/?L), and urinalysis was consistent with UTI. She was hypoxic on arrival (O2 saturation low 80s), but this resolved with supportive ca re. A Nuñez catheter was placed for urinary retention. Hospital Course Urinary Retention:?Managed with Nuñez catheterization. Good urine output post- decompression. Will discharge crow Nuñez and VNA UTI:?Empiric IV ceftriaxone was initiated. Urine culture grew?Klebsiella pneumoniae, susceptible to ceftriaxone. Antibiotics transitioned to oral cefuroxime axetil (Ceftin) for completion of therapy for 7 more days Constipation:?Continued on home laxative regimen, given enema, lactulose in the hospital Hypoxemia:?Resolved; no evidence of pneumonia or heart failure. Ureteral Irregularity:?Outpatient urology follow-up arranged for further evaluation and possible stent placement. In : Elderly female with recurrent UTIs and chronic urinary retention presented with acute urinary retention and UTI due to?Klebsiella pneumoniae. Treated with IV ceftriaxone, transitioned to oral cefuroxime axetil based on culture and susceptibility. Stable for discharge with Nuñez catheter in place and close outpatient follow-up. Time Attestation Discharge Coordination Time (in mins): 45 Quality: Safe Use of Opioids Does Pt have an Active Cancer Diagnosis on the Problem List?: No Quality: Stroke Does the patient have a stroke diagnosis?: No Physical Exam Vital Signs: Vital Signs: Last Vital Signs Temp 97.5 F 09/23/25 07:58 Pulse 67 09/23/25 07:58 Resp 18 09/23/25 07:58 BP 153/70 H 09/23/25 07:58 Pulse Ox 93 09/23/25 07:58 O2 Del Method Room Air 09/23/25 07:58 Oxygen Flow Rate 4 09/21/25 07:20 BMI result Body Mass Index 22.0 Const: Other: General: AO X 3, no acute distress Resp: CTA bilateral CVS: S1,S2,RRR GI: +BS, NT, no distention Skin: No rash Neuro: motor grossly intact Psych: appropriate affect DS: Data Data Completed and Pending Completed studies during hospitalization [Text1]: Procedures Release Cervical Spinal Cord, Open Approach (05/17/24) Labs on day of discharge: Preliminary micro results at discharge 09/21/25 08:27 Blood Culture - Preliminary Blood - Venous No growth after 24 hours. 09/21/25 08:17 Blood Culture - Preliminary Blood - Venous No growth after 24 hours. Discharge Plan Discharge Anticipated Discharge Date/Time: 09/23/25 09:34 Patient Disposition: Home Health Service Discharge Diagnosis: Acute UTI, Urinary retention Referrals: Rey [place] MD [Primary Care Provider, Internal Medicine] - 1 Week Discharge Medications: New cefuroxime axetil 250 mg tablet 250 mg PO BID Qty: 14 0RF Continued levothyroxine 75 mcg tablet 150 mcg PO SUWE dorzolamide-timolol 22.3-6.8 mg/mL drops 1 drp ophthalmic (eye) BEDTIME Rx Instructions: BOTH EYES polyethylene glycol 3350 [Miralax] 17 gram/dose Powder 17 g PO DAILY celecoxib 100 mg capsule 100 mg PO DAILY amlodipine 5 mg Tablet 5 mg PO DAILY Qty: 90 0RF Protocol: Hold for SBP< HOLD for SBP < : 90 albuterol sulfate [Ventolin HFA] 90 mcg/actuation Hfa Aerosol Inhaler 1 puff inhalation RQ4H PRN (Reason: sob) Qty: 1 0RF dorzolamide 2 % Drops 1 drp OPHTHALMIC (EYE) DAILY Rx Instructions: BOTH EYES lisinopril 30 mg tablet 30 mg PO DAILY cyanocobalamin (vitamin B-12) [Vitamin B-12] 1,000 mcg Tablet 1,000 mcg PO DAILY calcium citrate-vitamin D3 [Calcium Citrate + D] 315 mg-5 mcg (200 unit) Tablet 2 tab PO DAILY diclofenac sodium [Voltaren] 1 % Gel 2 g TOPICAL QID PRN (Reason: Pain) Rx Instructions: apply to single elbow, wrist or hand; for hand includes palm/fingers/back of hand levothyroxine 75 mcg tablet 75 mcg PO MOTUTHFRSA nitrofurantoin monohyd/m-cryst [Macrobid] 100 mg capsule 100 mg PO BID 7 Days Qty: 14 0RF Rx Instructions: must administer with a meal/food Discharge Orders: Discharge Order (Routine); Ordered 09/23/25 Ordered By: Chadwick Danielson Diet: Advance to usual diet Activity on Discharge: As tolerated Stand Alone Forms: Patient Portal Discharge page Print Language: Italian Care Plan Goals: recovery from urinary tract infection and urinary retention Health Concerns: urinary tract infection and urinary retention Plan of Treatment: urinary tract infection and urinary retention Assessment: * Nuñez Catheter Care:?Maintain Nuñez catheter as instructed. Monitor for signs of infection or blockage. * Antibiotics:?Complete the full course of cefuroxime axetil as prescribed. * Follow-up: Urology (Dr. Maurice): Outpatient follow-up for assessment of ureteral irregularity and possible stent placement. Primary Care: Within 1 week or sooner if symptoms worsen, call for appointment * Return to ED if:?Fever, chills, worsening abdominal pain, inability to urinate, catheter malfunction, or new respiratory symptoms.
--- NOTE | 2025-09-23 10:02 | P.F2F_ITS ---
Service Date Service Date: 09/23/25 Encounter Date of encounter: 09/23/25 Reasons for Services Signs and symptoms assessed: UTI, urinary retention Reason for detention: medication management and other (Nuñez teaching and management) Homebound: Leaving the home is medically contraindicated at this time without the asist of a device and/or another person due th the listed conditions above and below. Reason homebound: shortness of breath with minimal effort, weakness related to hospital stay and unable to drive Homebound supporting statement: Patient is considered homebound due to recent hospitalization, ongoing weakness, Nuñez catheter in place, and increased risk of infection and falls. Leaving home requires considerable and taxing effort. Certification: Based on the above findings, I certify that this patient is confined to the home and needs intermittent detention care, physical therapy and/or speech therapy, or continues to need occupational therapy. The patient is under my care, and I have initiated the establishment of the plan of care. The patient will be followed by a physician who will periodically review the plan of care. Time Spent With Patient Time: Total time managing care of this patient today ____ minutes.
--- NOTE | 2025-09-23 10:29 | MHC.CM.PN ---
Addendum entered by Carmen Hong RN 09/23/25 14:26: Patient medically cleared for dc home w/ new [facility] for SN/dee teaching. Brother in law will transport at 3:30pm. Original Note: Per MD, likely dc today pending BM. Patient aware. Plan to dc home w/ dee in place. Patient now open to [facility] services w/ preference to [facility]. RN will also provide dee education prior to dc. Family transport.
[2025-09-23 15:32] VITALS: BP 114/56; PULSE 87; RESP 18; TEMP 36.7; O2SAT 97
== END 2025-09-23 16:00 | disposition home health service (06) | DRG 690 ==
LOC: HO.ED 09:35 → HO.EDOVER 11:03 → HO.S3 16:04
PROVIDERS: Physician Assistant; Admitting Provider Physician Assistant Medical; Emergency Provider Emergency Medicine; PCP Internal Medicine; Visit Provider Internal Medicine
DX: N39.0 Urinary tract infection, site not specified (principal); R33.9 Retention of urine, unspecified; R09.02 Hypoxemia; I10 Essential (primary) hypertension; J44.9 Chronic obstructive pulmonary disease, unspecified; B96.1 Klebsiella pneumoniae [K. pneumoniae] as the cause of diseases classified elsewhere; E03.9 Hypothyroidism, unspecified; K59.00 Constipation, unspecified; Z20.822 Contact with and (suspected) exposure to COVID-19; Z87.440 Personal history of urinary (tract) infections; Z87.891 Personal history of nicotine dependence; Z79.890 Hormone replacement therapy; Z79.899 Other long term (current) drug therapy
CPT/HCPCS: 36415; 71045; 80048; 80053; 81001; 81003; 82947; 83605; 83690; 83735; 83880; 84484; 85025; 85027; 85379; 85610; 87040; 87086; 87088; 87186; 87502; 87635; 93005; 99285; J0696; J1644

== ENCOUNTER → 2025-09-21 07:36 | Outpatient (BNV) | payer MEDICARE, SELFPAY | PROVIDERS: Emergency Provider Emergency Medicine; PCP Internal Medicine; Visit Provider Radiology Diagnostic Radiology | DX: R06.02 Shortness of breath (principal) | CPT/HCPCS: 71045 ==

== ENCOUNTER → 2025-09-21 07:37 | Outpatient (BNV) | payer MEDICARE, SELFPAY | PROVIDERS: Admitting Provider Physician Assistant Medical; Emergency Provider Emergency Medicine; PCP Internal Medicine; Visit Provider Internal Medicine Cardiovascular Disease | DX: R06.02 Shortness of breath (principal) | CPT/HCPCS: 93010 ==

== ENCOUNTER → 2025-09-21 11:01 | Outpatient (BNV) | payer MEDICARE, SELFPAY | PROVIDERS: Admitting Provider Physician Assistant Medical; Emergency Provider Emergency Medicine; PCP Internal Medicine; Visit Provider Internal Medicine | DX: N39.0 Urinary tract infection, site not specified (principal); R33.9 Retention of urine, unspecified | CPT/HCPCS: 99232; 99499; G0180 ==

== ENCOUNTER → 2025-10-01 08:01 | Outpatient (BNV) | payer MEDICARE, SELFPAY | PROVIDERS: PCP Internal Medicine; Visit Provider Internal Medicine Cardiovascular Disease | DX: I49.3 Ventricular premature depolarization (principal) | CPT/HCPCS: 93010 ==

== ENCOUNTER 2025-10-02 10:11 | Outpatient (REF) | payer MEDICARE, SELFPAY ==
[2025-10-02 11:13] LABS: Hematocrit 39.5 % (37.0-47.0); Hemoglobin 12.7 g/dl (12.0-16.0); Mean Corpuscular HGB Conc 32.2 g/dl (31.0-35.0); Mean Corpuscular Hemoglobin 31.1 pg (27.0-33.0); Mean Corpuscular Volume 96.6 fL (80.0-98.0); NRBC Abs Auto 0.000 X10*3/uL (0.0-0.012); NRBC Pct Auto 0.0 /100WBC (0.0-0.2); Platelet Count 385 X10*3/uL (160-400); Red Blood Count 4.09 X10*6/uL (4.20-5.50); White Blood Count 16.1 X10*3/uL (4.8-10.8)
[2025-10-02 11:41] LABS: Anion Gap 13 (12-20); Blood Urea Nitrogen 18 mg/dL (9-16); Calcium 9.3 mg/dL (8.4-10.2); Carbon Dioxide 27 mmol/L (22-29); Chloride 100 mmol/L (96-108); Estimated Glomerular Filt Rate > 60; Potassium 4.0 mmol/L (3.3-5.1); Sodium 136 mmol/L (135-145)
== END 2025-10-02 10:12 | disposition home or self-care (01) ==
LOC: HO.LAB 10:11
PROVIDERS: PCP Internal Medicine; Visit Provider Urology
DX: E87.1 Hypo-osmolality and hyponatremia (principal); N39.0 Urinary tract infection, site not specified; R33.9 Retention of urine, unspecified; R35.0 Frequency of micturition
CPT/HCPCS: 36415; 80048; 85027

== ENCOUNTER 2025-10-08 08:16 | Outpatient (AMB) | payer MEDICARE, SELFPAY ==
--- OUTSIDE RECORDS SUMMARY | 2025-10-08 08:31 | XMS_ITS | Encounter Summary ---
Author Organization [facility] Address [address] [address] Phone Care Team Providers Care Optical Design Engineer Name Role Phone Rey oHpe MD Primary Care Provider [phone] Sue Hendrickson MD Unavailable Caitlin Armstrong MD Unavailable Yohannes Finch OD Unavailable [phone] Rey Hope MD Unavailable [phone] Encounter Details Date Type Department Care Team (Late st Contact Info) Description 09/21/2025 Orders Only [facility] [place] Internal Medicine [address] [place] [address] Provider, MD Raina [address] [place] [address] Social History Tobacco Use Types Packs/Day [...] Description 01/30/2026 10:00 AM EDT Office Visit [facility] Internal Medicine [address] [place] [address] Rey Hope MD [address] [place] [address] documented as of this encounter Procedures Procedure [...] documented as of this encounter Care Teams Optical Design Engineer Relationship Specialty Start Date End Date Rey Hope MD [address] [place] [address] PCP - General 11/11/17 Sue Hendrickson MD [address] [facility] 5 [place] [address] Dermatology 08/26/20 Caitlin Armstrong MD [address] [facility] [address] [place] [address] Ophthalmology 08/26/20 Yohannes Finch OD [address] [place] [address] Optometry 08/26/20 Rey Hope MD [address] [place] [address] [email or web address] Insurance Assigned Provider 02/12/24 documented as of this encounter Additional Source Comments The information contained in this document represents components of the legal health record. It is not the complete legal health record.[facility]
--- OUTSIDE RECORDS SUMMARY | 2025-10-08 08:31 | XMS_ITS | Clinical Summary ---
Author Organization [facility] Address [address] [place] [address] Phone Care Team Providers Care Powerhouse Oiler Name Role Phone Rey Hope MD Primary Care Provider [phone] Sue Hendrickson MD Unavailable Caitlin Armstrong MD Unavailable Yohannes Finch OD Unavailable [phone] Rey Hope MD Unavailable [phone] Allergies No known active allergies Medications [...] Cervical spondylosis 08/10/2024 Overview (08/10/2024): Fol w [facility] spine mylene ADAMES last OV 07/14 plan [...] Encounters Date Type Department Care Team Description 10/03/2025 Orders Only [facility] [address] [facility] [place] [address] Raina Gudino MD 09/21/2025 Orders Only [facility] [address] [facility] [place] [address] Raina Gudino MD 09/17/2025 Orders Only [facility] [address] [facility] [place] [address] Raina Gudino MD 09/14/2025 Orders Only [facility] [address] [place] [address] Raina Gudino MD 08/13/2025 Refill [facility] [address] [facility] [place] [address] Rey Hope MD Medication Refill 07/18/2025 Telephone [facility] [address] [facility] [place] [address] Rey Hope MD Antibiotic; Results 07/16/2025 8:14 AM EDT - 07/16/2025 11:59 PM EDT Hospital Encounter [facility] [place] [address] [facility] [place] [address] Rey Hope MD Discharge Disposition: Home or Self Care 07/11/2025 Telephone [facility] [address] [facility] [place] [address] Rey Hope MD Results 07/10/2025 9:16 AM EDT - 07/10/2025 11:59 PM EDT Hospital Encounter [facility] [place] [address] [facility] [place] [address] Rey Hope MD Discharge Disposition: Home or Self Care 07/10/2025 Telephone [facility] [place] [facility] [address] [place] [address] Rey Hope MD ultrasound order from Last [...] Description 01/30/2026 10:00 AM EDT Office Visit [facility] [place] [facility] 40 [place] [address] Rey Hope MD 40 [place] [address] Health Maintenance Due Date Last Done Comments [...] Date/Time Associated Diagnosis Comments OUTSIDE LAB Routine 10/02/2025 11:23 AM EST OUTSIDE XR CHEST REPORT ONLY Routine 09/21/2025 [...] Health Maintenance Results * Outside Lab (Non-[facility]) (10/02/2025 11:23 AM EST) Only the most recent of2 resultswithin the time period is included. Historical Provider LAB BLOOD BKR ORDERABLES Final Result * Outside XR??Chest Report Only (09/21/2025 9:27 AM EST) Historical Provider MD GASPAR XR CHEST Final Res ult * Outside CT Imaging Report Only (09/12/2025 10:43 AM EST) Historical Provider MD GASPAR CT Final Res ult * (ABNORMAL) Urinalysis w/reflex Urine Culture (07/16/2025 2:44 PM EDT) COLOR Yellow Yellow [facility] CLARITY TURBID [facility] GLUCOSE Negative Negative [facility] BILI Negative Negative [facility] KETONES Negative Negative [facility] SPECIFIC GRAVITY 1.020 1.005 - 1.030 [facility] BLOOD 2+(A) Negative [facility] PH 6.5 5.0 - 8.0 [facility] Protein-UA 2+(A) Negative [facility] NITRITE Positive(A) Negative [facility] Leukocyte esterase, ur 2+(A) Negative [facility] Urine (Urine) 07/16/2025 2:4 4 PM EDT 07/16/2025 2:48 PM EDT Rey Hope MD LAB URINE ORDERABLES Final Re sult Performing Organization Address [facility] Co de Phone Number [address] [address] * (ABNORMAL) Urine Culture (07/16/2025 2:44 PM EDT) Special Requests None Reflexed from [id number] 07/16/2025 8:28 PM EDT [facility] Urine Culture >100,000 colony forming units per mL PSEUDOMONAS AERUGINOSA(A) 07/18/2025 7:52 AM EDT [facility] Urine 07/16/2025 2:44 PM EDT 07/16/2025 [...] ORDE RABLES Final Result Performing Organization Address [facility] Co de Phone Number [address] [address] * (ABNORMAL) Urine sediment (07/16/2025 2:44 PM EDT) WBC TOO NUMEROUS TO COUNT(A) NONE SEEN /hpf [facility] RBC NONE SEEN NONE SEEN /hpf [facility] URINE EPITHELIAL NONE SEEN NONE SEEN [facility] MUCUS NONE SEEN NONE SEEN /hpf [facility] BACTERIA 3+(A) NONE SEEN /hpf [facility] 07/16/2025 2:44 PM EDT 07/16/2025 2:48 PM EDT us Rey Hope MD LAB URINE ORDERABLES Final Re sult [facility] [address] [place] [address] * (ABNORMAL) Comprehensive metabolic panel (07/16/2025 8:14 AM EDT) SODIUM 137 133 - 146 mmol/L [facility] POTASSIUM 4.6 3.3 - 5.1 mmol/L [facility] CHLORIDE 102 96 - 108 mmol/L [facility] CO2 26 21 - 35 mmol/L [facility] BUN 32(H) 6 - 19 mg/dL [facility] CREATININE 1.10 0.5 - 1.5 mg/dL [facility] GLUCOSE 101(H) 70 - 99 mg/dL [facility] ALBUMIN 4.2 3.9 - 4.8 g/dL [facility] TOTAL PROTEIN 7.3 6.5 - 8.0 g/dL [facility] CALCIUM 9.5 8.4 - 10.3 mg/dL [facility] ALKALINE PHOSPHATASE 64 39 - 117 U/L [facility] TOTAL BILIRUBIN 0.5 0.0 - 1.2 mg/dL [facility] AST 20 0 - 37 U/L [facility] ALT 10 0 - 40 U/L [facility] GLOBULIN 3.1 1 - 4.8 g/dL [facility] EGFR 50(L) >59 mL/min/1.7 3m2 [facility] Comment:Estimated glomerular filtration rate calculated using the CKD-EPI refit equation. ANION GAP 14 10 - 20 mmol/L [facility] Blood 07/16/2025 8:14 AM EDT 07/16/2025 8:18 AM EDT us Rey Hope MD LAB BLOOD BKR ORDERABLES Destinee lópez Result [facility] [address] [place], [place] [id number] * (ABNORMAL) CBC and differential (07/16/2025 8:14 AM EDT) Only the most recent of2 resultswithin the time period is included. WBC 9.65 4.00 - 11.00 K/uL [facility] RBC 3.60(L) 4.00 - 5.20 M/uL [facility] HGB 12.0 12.0 - 16.0 g/dL [facility] HCT 36.9 36.0 - 46.0 % [facility] PLT 271 150 - 450 K/uL [facility] MCV 102.5(H) 80.0 - 100.0 fL [facility] MCH 33.3(H) 27.0 - 31.0 pg [facility] MCHC 32.5 32.0 - 36.0 g/dL [facility] RDW 13.8 11.5 - 14.5 % [facility] MPV 11.5 8.4 - 12.0 fL [facility] NRBC 0.00 0.00 /100 WBCs [facility] ABSOLUTE NRBC 0.00 0.00 K/uL [facility] DIFF METHOD Auto [facility] NEUTS 70.6 48.0 - 76.0 % [facility] LYMPHS 9.8(L) 18.0 - 41.0 % [facility] MONOS 16.9(H) 4.0 - 11.0 % [facility] EOS 2.0 0.0 - 5.0 % [facility] BASOS 0.4 0.0 - 1.5 % [facility] Granulocytes, immature (%) 0.3 0.0 - 0.9 % [facility] ABSOLUTE NEUTS 6.81 1.92 - 7.60 K/uL [facility] ABSOLUTE LYMPHS 0.95 0.72 - 4.10 K/uL [facility] ABSOLUTE MONOS 1.63(H) 0.16 - 1.10 K/uL [facility] ABSOLUTE EOS 0.19 0.00 - 0.50 K/uL [facility] ABSOLUTE BASOS 0.04 0.00 - 0.15 K/uL [facility] Granulocytes, immature 0.03 0.00 - 0.09 K/uL [facility] Blood 07/16/2025 8:14 AM EDT 07/16/2025 8:18 AM EDT Rey Hope MD LAB BLOOD BKR ORDERABLES Destinee l Result [address] [address] * (ABNORMAL) Basic metabolic panel (07/10/2025 9:16 AM EDT) SODIUM 133 133 - 146 mmol/L [facility] CHLORIDE 98 96 - 108 mmol/L [facility] POTASSIUM 4.3 3.3 - 5.1 mmol/L [facility] CO2 27 21 - 35 mmol/L [facility] BUN 27(H) 6 - 19 mg/dL [facility] CREATININE 0.90 0.5 - 1.5 mg/dL [facility] GLUCOSE 88 70 - 99 mg/dL [facility] CALCIUM 9.7 8.4 - 10.3 mg/dL [facility] EGFR 63 >59 mL/min/1.7 3m2 [facility] Comment:Estimated glomerular filtration rate calculated using the CKD-EPI refit equation. ANION GAP 12 10 - 20 mmol/L [facility] Blood 07/10/2025 9:16 AM EDT 07/10/2025 9:19 AM EDT us Rey Hope MD LAB BLOOD BKR ORDERABLES Destinee l Result [address] [address] * (ABNORMAL) TSH with reflex (06/11/2025 10:00 AM EDT) TSH 4.80(H) 0.27 - 4.20 uIU/mL [facility] Blood 06/11/2025 10:0 0 AM EDT 06/11/2025 10:03 AM EDT Rey Hope MD LAB BLOOD BKR ORDERABLES Destinee l Result [facility] [address] [place] [address] * OUTSIDE BONE DENSITY SCREENING (10/21/2014) BONE DENSITY SCREENING - EXTERNAL osteopenia Historical Provider HEALTH MAINTENANCE Edited Result - Final from Last 3 Months or Most Recently Relevant to Health Maintenance Insurance [employer] MEDEX SUPPLEMENT MEDICARE PART A & B Member Subscriber Plan / Payer ( fective 2005-Present) Name:Dirk Kaplan Member ID:[id number] Relation to Subscriber:Self Name:Dirk Kaplan Subscriber ID:[id number] Payer ID:[id number] Group ID:Not on file Type:Medicare Address: Home D[facility] Plus [facility]. [address] [place] [address] BLUE CROSS MEDEX SUPPLEMENT MEDICARE PART A & B Cardio control CROSS MEDEX SUPPLEMENT BLUE CROSS MEDEX SUPPLEMENT [employer] MEDEX SUPPLEMENT MEDICARE PART A & B [employer] MEDEX SUPPLEMENT Cardio control CROSS MEDEX SUPPLEMENT MEDICARE PART A & B Cardio control CROSS MEDEX SUPPLEMENT MEDICARE PART A & B [facility] MEDEX SUPPLEMENT MEDICARE PART A & B Advance Directives For more information, please contact: [phone] (9AM - 5PM [facility], Wednesday-Wednesday) * Full Code (Latest Code Status on File) Date Activated Date Inactivated Comments 01/29/2025 8:49 PM Question Answer Comments Code Status Confirmed With: Patient Code Status Communicated To: PCP Code Discussion Comments: pt wats to be full code but wants limits on hertime on machines. will use health care proxy for this Care Teams Powerhouse Oiler Relationship Specialty Start Date End Date Rey Hope MD [address] [place] [address] PCP - General 11/11/17 Sue Hendrickson MD [address] [facility] 5 [place] [address] Dermatology 08/26/20 Caitlin Armstrong MD 489 [facility] 101 [place] [address] Ophthalmology 08/26/20 Yohannes Finch OD [address] [place] [address] Optometry 08/26/20 Rey Hope MD 40 [place] [address] [email or web address] Insurance Assigned Provider 02/12/24 Additional Source Comments The information contained in this document represents components of the legal health record. It is not the complete legal health record.[facility]
--- OUTSIDE RECORDS SUMMARY | 2025-10-08 08:31 | XMS_ITS | Encounter Summary ---
Author Organization [facility] Address [address] [place] [address] Phone Care Team Providers Care Boilermaker Ship Name Role Phone Rey Hope MD Primary Care Provider [phone] Sue Hendrickson MD Unavailable [phone] Caitlin Armstrong MD Unavailable Yohannes Finch OD Unavailable [phone] Rey Hope MD Unavailable [phone] Reason for Referral * MRI/CAT Scan - Closed Specialty Diagnoses / Procedures Referred By Contac t Referred To Contact Radiology Procedures Outside CT Imaging Report Only [facility] Internal [facility] [address] [place] [address] Phone: tel: fax: Referral ID Status Reason Start Date Expiration Date Visits Re quested Visits Authorized [id number] Closed 09/14/2025 1 1 Encounter Details Date Type Department Care Team (Late st Contact Info) Description 09/14/2025 Orders Only [facility] Internal Medicine [address] [place] [address] Raina Gudino MD [address] [place] [address] Social History Tobacco Use Types Packs/Day [...] 01/30/2026 10:00 AM EDT Office Visit [facility] Medicine [address] [place] [address] Rey Hope MD 40 [place] [address] [email or web address] documented as of this encounter Procedures Procedure [...] documented as of this encounter Care Teams Boilermaker Ship Relationship Specialty Start Date End Date Rey Hope MD 40 [place] [address] [email or web address] PCP - General 11/11/17 Sue Hendrickson MD 3[address] [facility] 5 [place] [address] Dermatology 08/26/20 Caitlin Armstrong MD 9 [facility] 101 [place] [address] Ophthalmology 08/26/20 Yohannes Finch OD [address] [place] [address] Optometry 08/26/20 Rey Hope MD 40 [place] [address] Insurance Assigned Provider 02/12/24 documented as of this encounter Additional Source Comments The information contained in this document represents components of the legal health record. It is not the complete legal health record.[facility]
--- OUTSIDE RECORDS SUMMARY | 2025-10-08 08:31 | XMS_ITS | Encounter Summary ---
Author Organization [facility] Address [address] [address] Phone Care Team Providers Care Tailer Off Name Role Phone Rey Hope MD Primary Care Provider [phone] Sue Hendrickson MD Unavailable Caitlin Armstrong MD Unavailable [phone] Yohannes Finch OD Unavailable [phone] Rey Hope MD Unavailable [phone] Encounter Details Date Type Department Care Team (Late st Contact Info) Description 09/17/2025 Orders Only [facility] [place] [facility] [address] [place] [address] Provider, MD Raina [address] [place] [address] Social History Tobacco Use Types Packs/Day [...] 01/30/2026 10:00 AM EDT Office Visit [facility] Internal Medicine 40 [place] [address] Rey Hope MD 40 [place] [address] documented as of this encounter Procedures Procedure [...] documented as of this encounter Care Teams Tailer Off Relationship Specialty Start Date End Date Rey Hope MD 40 [place] [address] PCP - General 11/11/17 Sue Hendrickson MD 3455 [facility] 5 [place] [address] Dermatology 08/26/20 Caitlin Armstrong MD 489 [facility] 101 [place] [address] Ophthalmology 08/26/20 Yohannes Finch OD [address] [place] [address] Optometry 08/26/20 Rey Hope MD 40 [place] [address] Insurance Assigned Provider 02/12/24 documented as of this encounter Additional Source Comments The information contained in this document represents components of the legal health record. It is not the complete legal health record.[facility]
--- OUTSIDE RECORDS SUMMARY | 2025-10-08 08:32 | XMS_ITS | Encounter Summary ---
Author Organization [facility] Address [address] [address] Phone Care Team Providers Care Weekend Receptionist Name Role Phone Rey Hope MD Primary Care Provider [phone] Sue Hendrickson MD Unavailable Caitlin Armstrong MD Unavailable Yohannes Finch OD Unavailable [phone] Rey Hope MD Unavailable [phone] Encounter Details Date Type Department Care Team (Late st Contact Info) Description 10/03/2025 Orders Only [facility] [place] Internal Medicine [address] [place] [address] Provider, MD Raina [address] [place] [address] Social History Tobacco Use Types Packs/Day [...] Description 01/30/2026 10:00 AM EDT Office Visit [facility] Internal Medicine 40 [place] [address] Rey Hope MD 40 [place] [address] documented as of this encounter Procedures Procedure Name Priority Date/Time Associated Diagnosis Comments OUTSIDE LAB Routine 10/02/2025 11:23 AM EST documented in this encounter Results * Outside Lab (Non-[facility]) (10/02/2025 11:23 AM EST) us Historical Provider LAB BLOOD BKR ORDERABLES Final Result documented in this encounter Visit Diagnoses Not on filedocumented in this encounter Additional Health Concerns Assessment Noted Time PHQ-2 Depression Total Score: 0 05/14/20 10:55 AM EDT documented as of this encounter Care Teams Weekend Receptionist Relationship Specialty Start Date End Date Rey Hope MD 40 [place] [address] [email or web address] PCP - General 11/11/17 Sue Hendrickson MD [address] [facility] 5 [place] [address] Dermatology 08/26/20 Caitlin Armstrong MD 489 [facility] 101 [place] [address] Ophthalmology 08/26/20 Yohannes Finhc OD [address] [place] [address] Optometry 08/26/20 Rey Hope MD 40 [place] [address] Insurance Assigned Provider 02/12/24 documented as of this encounter Additional Source Comments The information contained in this document represents components of the legal health record. It is not the complete legal health record.[facility]
--- OUTSIDE RECORDS SUMMARY | 2025-10-08 08:32 | XMS_ITS | Encounter Summary ---
Author Organization [facility] Address [address] [address] Phone Care Team Providers Care Last Repairer Helper Name Role Phone Rey Hope MD Primary Care Provider Sue Hendrickson MD Unavailable Caitlin Armstrong MD Unavailable [phone] Yohannes Finch OD Unavailable [phone] Rey Hope MD Unavailable [phone] Encounter Details Date Type Department Care Team (Late st Contact Info) Description 06/28/2023 Transcribe Orders [facility] [address] [place], [place] [phone] Rey Hope MD 40 [place], [place] [phone] [email or web address] Social History Tobacco Use Types Packs/Day Years [...] Description 01/30/2026 10:00 AM EDT Office Visit [facility] Internal Medicine 40 [place] [address] Rey Hope MD [address] [place] [address] [email or web address] documented as of this encounter Visit Diagnoses Not on filedocumented in this encounter Additional Health Concerns Assessment Noted Time PHQ-2 Depression Total Score: 0 12/08/19 23 12:42 PM EST documented as of this encounter Care Teams Last Repairer Helper Relationship Specialty Start Date End Date Rey Hope MD [address] [place] [address] [email or web address] PCP - General 11/11/17 Sue Hendrickson MD 3455 [facility] 5 [place] [address] Dermatology 08/26/20 Caitlin Armstrong MD 9 [facility] [place] 101 [place] [address] Ophthalmology 08/26/20 Yohannes Finch OD [address] [place] [address] Optometry 08/26/20 Rey Hope MD [address] [place] [address] [email or web address] Insurance Assigned Provider 02/12/24 documented as of this encounter Additional Source Comments The information contained in this document represents components of the legal health record. It is not the complete legal health record.[facility]
--- NOTE | 2025-10-08 09:08 | AM.OFFVISNUR ---
Intake Visit Reasons: [place] Allergies No Known Allergies Allergy (Verified 09/21/25 07:24) Office Procedures Bladder/Catheter Procedure Details: Patient presents to office for voiding trial s/p Urinary retention found inpatient. 120mls sterile water instilled through catheter, patient tolerated well. Patient had bladder spasm during the bladder filling and leaked out some water around the catheter. Removed 16 dee catheter, patient tolerated removal well. Patient unable to void. PVR scan was 158ml. Discussed with Dr. Maurice plan for catheter as patient has a bladder procedure tomorrow with Dr. Maurice. Dr. Maurice does advise new catheter should be placed and 1x dose of Cipro to be givin in office. New 16Fr catheter inserted and acttached to leg bag. Night bag provided. Patient to f/u tomorrow for her procedure and will have more plan for how long catheter stays in. 68187-Kblqzrbsvo of Bladder 75226-Efovmv Temporary Bladder Catheter Procedure code (CPT) selection complete Post Void Residual Post Residual Void Post Void Residual (PVR): 158 09120-Oqzn Void Residual by ultrasound Assessment & Plan Assessment & Plan Orders: Orders AMB Post Void Residual by ultrasound Today R33.9 - Retention of urine, unspecified AMB Bladder/Catheter Procedure Today R33.9 - Retention of urine, unspecified Coding CPT Codes Bladder/Catheter Procedure - CPT: 56655-Rqzrfafgke of Bladder ([id number]) Bladder/Catheter Procedure - CPT: 95538-Lkhnpc Temporary Bladder Catheter ([id number]) Post Residual Void - PVR CPT Code: 29020-Rtth Void Residual by ultrasound ([id number])
== END 2025-10-08 09:43 | disposition home or self-care (01) ==
LOC: HO.HUSH 08:16
PROVIDERS: PCP Internal Medicine; Visit Provider Urology
DX: N13.30 Unspecified hydronephrosis (principal)

== ENCOUNTER → 2025-10-08 08:16 | Outpatient (BNVA) | payer MEDICARE, SELFPAY | PROVIDERS: PCP Internal Medicine; Visit Provider Urology | DX: R33.9 Retention of urine, unspecified (principal) | CPT/HCPCS: 51700; 51702; 51798 ==

== ENCOUNTER 2025-10-09 09:58 | Day surgery (SDC) | payer MEDICARE, SELFPAY ==
--- OUTSIDE RECORDS SUMMARY | 2024-10-03 05:00 | XMS_ITS ---
Author Organization [facility] Address [address] [place] [address] Care Team Providers Care Automatic Machine Attendant Name Role Phone Jayy BROWN, Rey Primary Care Provider Ameena Colon Unavailable [phone] Jose Saucedo Unavailable [phone] REASON FOR VISIT too soon Encounters Encounter Location Date Provider Diagnosis [address] [address] 10/03/2024 Jose Saucedo Plan Of Treatment Next Appt Details Provider Name:Ameena khoury, 12/06/2025 09:15:00 AM, [address] [place], [address], Progress Notes * Giana KAPLAN ADOB:[birth year] (85 yo F)Acc No.[id number]:10/03/2024 Progress Note Patient: Giana ORDONEZ Provider: Michele Saucedo DPM :1940 A ge:84 Y S ex:Female Date:10/03/2024 Address:[address] [place] [address], [facility] KANCHAN Garza-[id number] Pcp:Rey Hope MD Subjective: * Chief Complaints: [...] Date: 12/03/2023 Generated for Vern Krishna on: 11/27/2024 04:06 PM EST
--- OUTSIDE RECORDS SUMMARY | 2025-09-27 16:04 | XMS_ITS | Encounter Summary ---
Author Organization [facility] Address [address] [address] Phone Care Team Providers Care Handbag Frames Inspector Name Role Phone Rey Hope MD Primary Care Provider [phone] Sue Hendrickson MD Unavailable Caitlin Armstrong MD Unavailable Yohannes Finch OD Unavailable [phone] Rey Hope MD Unavailable [phone] Encounter Details Date Type Department Care Team (Late st Contact Info) Description 09/21/2025 Orders Only [facility] [place] Internal Medicine [address] [place] [address] Provider, MD Raina [address] [place] [address] Social History Tobacco Use Types Packs/Day [...] Description 01/30/2026 10:00 AM EDT Office Visit [facility] Internal Medicine [address] [place] [address] Rey Hope MD [address] [place] [address] documented as of this encounter Procedures Procedure Name Priority Date/Time Associated Diagnosis Comments OUTSIDE XR CHEST REPORT ONLY Routine 09/21/2025 9:27 AM EST documented in this encounter Results * Outside XR??Chest Report Only (09/21/2025 9:27 AM EST) us Historical Provider MD GASPAR XR CHEST Final Res ult documented in this encounter Visit Diagnoses Not on filedocumented in this encounter Additional Health Concerns Assessment Noted Time PHQ-2 Depression Total Score: 0 05/14/20 25 10:55 AM EDT documented as of this encounter Care Teams Handbag Frames Inspector Relationship Specialty Start Date End Date Rey Hope MD [address] [place] [address] PCP - General 11/11/17 Sue Hendrickson MD [address] [facility] 5 [place] [address] Dermatology 08/26/20 Caitlin Armstrong MD 489 [facility] 101 [place] [address] Ophthalmology 08/26/20 Yohannes Finch OD [address] [place] [address] Optometry 08/26/20 Rey Hope MD [address] [place] [address] [email or web address] Insurance Assigned Provider 02/12/24 documented as of this encounter Additional Source Comments The information contained in this document represents components of the legal health record. It is not the complete legal health record.[facility]
--- OUTSIDE RECORDS SUMMARY | 2025-09-27 16:04 | XMS_ITS | Clinical Summary ---
Author Organization [facility] Address [address] [place] [address] Phone Care Team Providers Care Instrument/Control Technician Name Role Phone Rey Hope MD Primary Care Provider [phone] Sue Hendrickson MD Unavailable Caitlin Armstrong MD Unavailable Yohannes Finch OD Unavailable [phone] Rey Hope MD Unavailable [phone] Allergies No known active allergies Medications [...] Cervical spondylosis 08/10/2024 Overview (08/10/2024): Fol w [facility] spine mylene ADAMES last OV 07/14 plan [...] Encounters Date Type Department Care Team Description 09/21/2025 Orders Only [facility] Internal Medicine [address] [facility] [place] [address] Raina Gudino MD 09/17/2025 Orders Only [facility] Internal Medicine [address] [facility] [place] [address] Raina Gudino MD 09/14/2025 Orders Only [facility] Internal Medicine [address] [facility] [place] [address] Raina Gudino MD 08/13/2025 Refill [facility] Internal Medicine [address] [place] [address] Rey Hope MD Medication Refill 07/18/2025 Telephone [facility] Internal Medicine [address] [place] [address] Rey Hope MD Antibiotic; Results 07/16/2025 8:14 AM EDT - 07/16/2025 11:59 PM EDT Hospital Encounter [facility] [place] [address] [place] [address] Rey Hope MD Discharge Disposition: Home or Self Care 07/11/2025 Telephone [facility] Internal Medicine [address] [place] [address] Rey Hope MD Results 07/10/2025 9:16 AM EDT - 07/10/2025 11:59 PM EDT Hospital En[facility] [address] [place] [address] Rey Hope MD Discharge Disposition: Home or Self Care 07/10/2025 Telephone [facility] Internal Medicine [address] [place] [address] Rey Hope MD ultrasound order from Last 3 Months Immunizations Immunization Administration [...] Description 01/30/2026 10:00 AM EDT Office Visit [facility] [place] Internal Medicine [address] [place] [address] Rey Hope MD 40 [place] [address] [email or web address] Health Maintenance Due Date Last Done Comments [...] REPORT ONLY Routine 09/21/2025 9:27 AM EST OUTSIDE LAB Routine 09/13/2025 7:49 AM EST [...] Routine 07/10/2025 9:16 AM EDT Primary hypertension TSH WITH REFLEX Routine 06/11/2025 10:00 AM EDT Primary hypertension OUTSIDE BONE DENSITY SCREENING Routine 10/21/2014 from Last 3 Months or Most Recently Relevant to Health Maintenance Results * Outside XR??Chest Report Only (09/21/2025 9:27 AM EST) Historical Provider [email or web address] XR CHEST Final Res ult * Outside Lab (Non-MGB) (09/13/2025 7:49 AM EST) Historical Provider LAB BLOOD BKR ORDERABLES Final Result * Outside CT Imaging Report Only (09/12/2025 10:43 AM EST) Historical Provider IMG CT Final Res ult * (ABNORMAL) Urinalysis w/reflex Urine Culture (07/16/2025 2:44 PM EDT) COLOR Yellow Yellow [facility] CLARITY TURBID [facility] GLUCOSE Negative Negative [facility] BILI Negative Negative [facility] KETONES Negative Negative [facility] SPECIFIC GRAVITY 1.020 1.005 - 1.030 [facility] BLOOD 2+(A) Negative [facility] PH 6.5 5.0 - 8.0 [facility] Protein-UA 2+(A) Negative [facility] NITRITE Positive(A) Negative [facility] Leukocyte esterase, ur 2+(A) Negative [facility] Urine (Urine) 07/16/2025 2:4 4 PM EDT 07/16/2025 2:48 PM EDT Rey Hope MD LAB URINE ORDERABLES Final Re sult Performing Organization Address [facility]/ZIP Co de Phone Number [address] [address] * (ABNORMAL) Urine Culture (07/16/2025 2:44 PM EDT) Special Requests None Reflexed from [id number] 07/16/2025 8:28 PM EDT [facility] Urine Culture >100,000 colony forming units per mL PSEUDOMONAS AERUGINOSA(A) 07/18/2025 7:52 AM EDT [facility] Urine 07/16/2025 2:44 PM EDT 07/16/2025 [...] ORDE RABLES Final Result Performing Organization Address [facility]/ZIP Co de Phone Number [address] [address] * (ABNORMAL) Urine sediment (07/16/2025 2:44 PM EDT) WBC TOO NUMEROUS TO COUNT(A) NONE SEEN /hpf [facility] RBC NONE SEEN NONE SEEN /hpf [facility] URINE EPITHELIAL NONE SEEN NONE SEEN [facility] MUCUS NONE SEEN NONE SEEN /hpf [facility] BACTERIA 3+(A) NONE SEEN /hpf [facility] 07/16/2025 2:44 PM EDT 07/16/2025 2:48 PM EDT us Rey Hope MD LAB URINE ORDERABLES Final Re sult Performing Organization Address City/[facility]/ZIP Co de Phone Number [address] [address] * (ABNORMAL) Comprehensive metabolic panel (07/16/2025 8:14 AM EDT) SODIUM 137 133 - 146 mmol/L [facility] POTASSIUM 4.6 3.3 - 5.1 mmol/L [facility] CHLORIDE 102 96 - 108 mmol/L [facility] CO2 26 21 - 35 mmol/L [facility] BUN 32(H) 6 - 19 mg/dL [facility] CREATININE 1.10 0.5 - 1.5 mg/dL [facility] GLUCOSE 101(H) 70 - 99 mg/dL [facility] ALBUMIN 4.2 3.9 - 4.8 g/dL [facility] TOTAL PROTEIN 7.3 6.5 - 8.0 g/dL [facility] CALCIUM 9.5 8.4 - 10.3 mg/dL [facility] ALKALINE PHOSPHATASE 64 39 - 117 U/L [facility] TOTAL BILIRUBIN 0.5 0.0 - 1.2 mg/dL [facility] AST 20 0 - 37 U/L [facility] ALT 10 0 - 40 U/L [facility] GLOBULIN 3.1 1 - 4.8 g/dL [facility] EGFR 50(L) >59 mL/min/1.7 3m2 [facility] Comment:Estimated glomerular filtration rate calculated using the CKD-EPI refit equation. ANION GAP 14 10 - 20 mmol/L [facility] Blood 07/16/2025 8:14 AM EDT 07/16/2025 8:18 AM EDT us Rey Hope MD LAB BLOOD BKR ORDERABLES Destinee l Result Performing Organization Address City/[facility]/ZIP Co de Phone Number [address] [address] * (ABNORMAL) CBC and differential (07/16/2025 8:14 AM EDT) Only the most recent of2 resultswithin the time period is included. WBC 9.65 4.00 - 11.00 K/uL [facility] RBC 3.60(L) 4.00 - 5.20 M/uL [facility] HGB 12.0 12.0 - 16.0 g/dL [facility] HCT 36.9 36.0 - 46.0 % [facility] PLT 271 150 - 450 K/uL [facility] MCV 102.5(H) 80.0 - 100.0 fL [facility] MCH 33.3(H) 27.0 - 31.0 pg [facility] MCHC 32.5 32.0 - 36.0 g/dL [facility] RDW 13.8 11.5 - 14.5 % [facility] MPV 11.5 8.4 - 12.0 fL [facility] NRBC 0.00 0.00 /100 WBCs [facility] ABSOLUTE NRBC 0.00 0.00 K/uL [facility] DIFF METHOD Auto [facility] NEUTS 70.6 48.0 - 76.0 % [facility] LYMPHS 9.8(L) 18.0 - 41.0 % [facility] MONOS 16.9(H) 4.0 - 11.0 % [facility] EOS 2.0 0.0 - 5.0 % [facility] BASOS 0.4 0.0 - 1.5 % [facility] Granulocytes, immature (%) 0.3 0.0 - 0.9 % [facility] ABSOLUTE NEUTS 6.81 1.92 - 7.60 K/uL [facility] ABSOLUTE LYMPHS 0.95 0.72 - 4.10 K/uL [facility] ABSOLUTE MONOS 1.63(H) 0.16 - 1.10 K/uL [facility] ABSOLUTE EOS 0.19 0.00 - 0.50 K/uL [facility] ABSOLUTE BASOS 0.04 0.00 - 0.15 K/uL [facility] Granulocytes, immature 0.03 0.00 - 0.09 K/uL [facility] Blood 07/16/2025 8:14 AM EDT 07/16/2025 8:18 AM EDT us Rey Hope MD LAB BLOOD BKR ORDERABLES Destinee l Result Performing Organization Address City/[facility] Co de Phone Number [address] [address] * (ABNORMAL) Basic metabolic panel (07/10/2025 9:16 AM EDT) SODIUM 133 133 - 146 mmol/L [facility] CHLORIDE 98 96 - 108 mmol/L [facility] POTASSIUM 4.3 3.3 - 5.1 mmol/L [facility] CO2 27 21 - 35 mmol/L [facility] BUN 27(H) 6 - 19 mg/dL [facility] CREATININE 0.90 0.5 - 1.5 mg/dL [facility] GLUCOSE 88 70 - 99 mg/dL [facility] CALCIUM 9.7 8.4 - 10.3 mg/dL [facility] EGFR 63 >59 mL/min/1.7 3m2 [facility] Comment:Estimated glomerular filtration rate calculated using the CKD-EPI refit equation. ANION GAP 12 10 - 20 mmol/L [facility] Blood 07/10/2025 9:16 AM EDT 07/10/2025 9:19 AM EDT us Rey Hope MD LAB BLOOD BKR ORDERABLES Destinee l Result Performing Organization Address [facility] Co de Phone Number [address] [address] * (ABNORMAL) TSH with reflex (06/11/2025 10:00 AM EDT) TSH 4.80(H) 0.27 - 4.20 uIU/mL [facility] Blood 06/11/2025 10:0 0 AM EDT 06/11/2025 10:03 AM EDT Rey Hope MD LAB BLOOD BKR ORDERABLES Destinee l Result [facility] [address] [place] [address] * OUTSIDE BONE DENSITY SCREENING (10/21/2014) [facility] Signature BONE DENSITY SCREENING - EXTERNAL osteopenia us Historical Provider HEALTH MAINTENANCE Edited Result - Final from Last 3 Months or Most Recently Relevant to Health Maintenance Insurance [employer] MEDEX SUPPLEMENT MEDICARE PART A & B [employer] MEDEX SUPPLEMENT MEDICARE PART A & B [employer] MEDEX SUPPLEMENT [employer] MEDEX SUPPLEMENT BLUE CROSS MEDEX SUPPLEMENT MEDICARE PART A & B BLUE [employer] MEDEX SUPPLEMENT BLUE [employer]OSS MEDEX SUPPLEMENT MEDICARE PART A & B [employer] MEDEX SUPPLEMENT MEDICARE PART A & B [employer]UE [employer] MEDEX SUPPLEMENT MEDICARE PART A & B Advance Directives For more information, please contact: [phone] (9AM - 5PM [facility], Wednesday-Wednesday) * Full Code (Latest Code Status on File) Date Activated Date Inactivated Comments 01/29/2025 8:49 PM Question Answer Comments Code Status Confirmed With: Patient Code Status Communicated To: PCP Code Discussion Comments: pt wats to be full code but wants limits on hertime on machines. will use health care proxy for this Care Teams Instrument/Control Technician Relationship Specialty Start Date End Date Rey Hope MD [address] [place] [address] PCP - General 11/11/17 Sue Hendrickson MD [address] [place] [address] Dermatology 08/26/20 Caitlin Armstrong MD 9 [facility] [address] [place] [address] Ophthalmology 08/26/20 Yohannes Finch OD [address] [place] [address] Optometry 08/26/20 Rey Hope MD [address] [place] [address] [email or web address] Insurance Assigned Provider 02/12/24 Additional Source Comments The information contained in this document represents components of the legal health record. It is not the complete legal health record.[facility]
--- OUTSIDE RECORDS SUMMARY | 2025-09-27 16:04 | XMS_ITS | Patient Health Record ---
Author Organization [facility] Address [address] [place] [address] Care Team Providers Care Museum Informatics Specialist Name Role Phone Rey Hope MD Primary Care Provider Rigo sigala Rubio iVllafana Unavailable [phone] Allergies No Known Allergies Reason For Referral No Information Medications Medication SIG (Take, Route, Frequency, Duration) Notes Start Date End Date Status MiraLax 17 GM/SCOOP Powder take for asha l prep Orally Once a day 06/01/2025 Active Voltaren 1 % Gel as directed Externally 06/01/2025 Active amLODIPine Besylate 2.5 MG Tablet 1 tablet Orally Once a day; Duration: 30 day(s) 06/01/2025 Active Dorzolamide HCl 2 % Solution 1 drop into affected eye Ophthalmic Three times a day 06/01/2025 Active Levothyroxine Sodium 75 MCG Tablet 1 tablet in the morning on an empty stomach Orally Once a day; Duration: 30 day(s) 06/01/2025 Active Calcium 500 MG Tablet 1 tablet with meal s Orally Twice a day; Duration: 30 day(s) 06/01/2025 Active Vitamin D-3 25 MCG (1000 UT) Capsule 1 capsule Orally Once a day; Duration: 30 day(s) 06/01/2025 Active Lisinopril 30 MG Tablet 1 tablet Orally Once a day; Duration: 30 day(s) 06/01/2025 Active Immunizations Vaccine Route Administration Date Status Comme nts Influenza Unknown 07/25/2024 Administered Social History Tobacco Use: Social History Observation Description Date Details (start date - stop date) Never Smoker NA - NA Social History Drug/Alcohol: Social Info Question Answer Notes AUDIT-C (Standard) Did you have a drink containing alcohol in the past year? Yes How often did you have a drink containing alcohol in the past year? Daily or almost daily (4 points) How many drinks did you have on a typical day when you were drinking in the past year? 1 or 2 drinks (0 point) How often did you have six or more drinks on one occasion in the past year? Never (0 point) Points 4 Interpretation Positive Tobacco Use: Social Info Question Answer Notes Tobacco Control (Standard) Tobacco use: Nonsmoker Additional Details Category Social Info Options Details Miscellaneous: Marital status: Single Occupation: retired Section Notes: Nonsmoker; 2 glasses of wine 5 times a week Problems Problem Type SNOMED Code ICD Code Onset Dates Problem Status W/U Status Risk Notes Problem Constipation (96748448) Constipation (K59.00) Active confirmed Problem Anorexia (87707070) Anorexia (R63.0) Active confirmed Vital Signs Temperature 98.6 degrees Fahrenheit 06/01/2025 Blood pressure diastolic 01 mm Hg 06/01/2025 Height 63 in 06/01/2025 Blood pressure systolic 001 mm Hg 06/01/2025 Weight 125.4 lbs 06/01/2025 BMI 22.21 kg/m2 06/01/2025 Encounters Encounter Location Date Provider Diagnosis [facility] [address] [place] [address] 06/01/2025 Rubio Villafana Constipation K59.00 and Anorexia [...] Start Date Coverage End Date MEDICARE OF [place] [address] [place] [address] [id number] GIANA KAPLAN Self - patient is the insured MED[employer] ATTN CLAIMS [address] [place] [address] [id number] GIANA KAPLAN Self - patient is the insured 5 Medical (General) History Medical History History ICD Code HTN Denies NH,DM,CVA,Lung disease,renal dise ase Neuropathy Hypothyroidism Previous colonoscopies with Dr. Yohannes Allen in [place]. The colonoscopy in 2004 was negative and the colonoscopy in 2014 revealed a small polyp that was removed and small internal hemorrhoids. Surgical History Surgery Date(Month/Year) Total right hip replacement 2022 Spinal stenosis 2023 Cataracts
--- OUTSIDE RECORDS SUMMARY | 2025-09-27 16:04 | XMS_ITS | Encounter Summary ---
Author Organization [facility] Address [address] [place] [address] Phone Care Team Providers Care Cell Room Operator Name Role Phone Rey Hope MD Primary Care Provider [phone] Sue Hendrickson MD Unavailable [phone] Caitlin Armstrong MD Unavailable Yohannes Finch OD Unavailable [phone] Rey Hope MD Unavailable [phone] Reason for Referral * MRI/CAT Scan - Closed Specialty Diagnoses / Procedures Referred By Contac t Referred To Contact Radiology Procedures Outside CT Imaging Report Only [facility] Internal Medicine [address] [place] [address] Phone: tel: fax: Referral ID Status Reason Start Date Expiration Date Visits Re quested Visits Authorized [id number] Closed 09/14/2025 1 1 Encounter Details Date Type Department Care Team (Late st Contact Info) Description 09/14/2025 Orders Only [facility] Internal Medicine [address] [place] [address] Raina Gudino MD [address] [place] [address] Social History Tobacco Use Types Packs/Day [...] AM EDT Office Visit [facility] Internal Medicine [address] [place] [address] Rey Hope MD [address] [place] [address] [email or web address] documented as of this encounter Procedures [...] documented as of this encounter Care Teams Cell Room Operator Relationship Specialty Start Date End Date Rey Hope MD [address] [place] [address] [email or web address] PCP - General 11/11/17 Sue Hendrickson MD [address] [facility] 5 [place] [address] Dermatology 08/26/20 Caitlin Armstrong MD 9 [facility] [address] [place] [address] Ophthalmology 08/26/20 Yohannes Finch OD [address] [place] [address] Optometry 08/26/20 Rey Hope MD [address] [place] [address] Insurance Assigned Provider 02/12/24 documented as of this encounter Additional Source Comments The information contained in this document represents components of the legal health record. It is not the complete legal health record.[facility]
--- OUTSIDE RECORDS SUMMARY | 2025-09-27 16:04 | XMS_ITS | Patient Health Record ---
Author Organization [facility] Kristineosiris Garza Address [address] [place] [address] Care Team Providers Care Clinical Laboratory Manager Name Role Phone Rey Hope MD Primary Care Provider Ameena Colon Unavailable [phone] Jose Saucedo Unavailable [phone] Allergies No Known Allergies Reason For Referral [...] atherosclerosis of arteries of lower limbs (disorder) ([id number] ) Atherosclerosis of [place] artery of both lower extremities, with unspecified presence of clinical manifestation (I70.203) Active confirmed Q7(A), Q8(2B), Q9(1B,2 C) Vital Signs Blood pressure diastolic 65 mm Hg 08/27/2025 Height 5ft 1in in 08/27/2025 Blood pressure systolic 118 mm Hg 08/27/2025 Weight 133 lbs 08/27/2025 BMI 25.13 kg/m2 08/27/2025 Procedures Procedure Date Ordered Date Performed Result Body Sit e 17164-HCSQUFN NAIL, 6 OR MORE 10/16/2024 N/A 96570-AAWV SKIN LESIONS, 2 TO 4 10/16/2024 N/A 80785-BLRWHHL NAIL, 6 OR MORE 02/22/2025 N/A 76503-LYVQ SKIN LESIONS, 2 TO 4 02/22/2025 N/A 23069-HYFSWSI NAIL, 6 OR MORE 05/28/2025 N/A 00796-WBZW SKIN LESIONS, 2 TO 4 05/28/2025 N/A Encounters Encounter Location Date [facility] [address] 10/16/2024 Ameena Beard Atherosclerosis of [place] artery of both lower extremities, with unspecified presence of clinical manifestation I70.203 ; Tinea unguium B35.1 ; Pain in right toe(s) M79.674 and Pain in left toe(s) M79.675 [facility] [address] 02/22/2025 Ameena Beard Atherosclerosis of [place] artery of both lower extremities, with unspecified presence of clinical manifestation I70.203 ; Tinea unguium B35.1 ; Pain in right toe(s) M79.674 ; Pain in left toe(s) M79.675 and Xerosis of skin L85.[address] [address] 05/28/2025 Ameena Beard Atherosclerosis of [place] artery of both lower extremities, with unspecified presence of clinical manifestation I70.203 ; Tinea unguium B35.1 ; Pain in right toe(s) M79.674 ; Pain in left toe(s) M79.675 and Xerosis of skin L85.[address] [address] 08/27/2025 Ameena Beard Atherosclerosis of [place] artery of both lower extremities, with unspecified presence of clinical manifestation I70.203 ; Tinea unguium B35.1 ; Pain in right toe(s) M79.674 and Pain in left toe(s) M79.675 Assessments Encounter Date Diagnosis (ICD Code) Assessment Notes Treatment Notes Treatment Clinical Notes Section Notes 10/16/2024 Atherosclerosis of [place] artery of both lower extremities, with unspecified presence of clinical manifestation (ICD-10 - I70.203) Q7(A), Q8(2B), Q9(1B,2C) 02/22/2025 Atherosclerosis of [place] artery of both lower extremities, with unspecified presence of clinical manifestation (ICD-10 - I70.203) Q7(A), Q8(2B), Q9(1B,2C) 05/28/2025 Tinea unguium (ICD-10 - B35.1) 05/28/2025 Atherosclerosis of [place] artery of both lower extremities, with unspecified presence of clinical manifestation (ICD-10 - I70.203) Q7(A), Q8(2B), Q9(1B,2C) 08/27/2025 Tinea unguium (ICD-10 - B35.1) 08/27/2025 Atherosclerosis of [place] artery of both lower extremities, with unspecified [...] Treatment Pending Test Test Name Order Date 24306-VFJRORJ NAIL, 6 OR MORE 10/16/2024 34576-DTGIZNC NAIL, 6 OR MORE 02/22/2025 62539-NAONMLM NAIL, 6 OR MORE 05/28/2025 88747-RMKW SKIN LESIONS, OVER 4 12/07/19 23 29031-GPKH SKIN LESIONS, OVER 4 03/08/20 23 54615-CJWG SKIN LESIONS, 2 TO 4 02/23/20 25 70252-JXJW SKIN LESIONS, 2 TO 4 10/16/20 24 65559-NNJB SKIN LESIONS, 2 TO 4 05/28/20 25 S7538-SNQMGTMX DYSTROPHIC NAILS ANY # U4948-KVTWHTDT DYSTROPHIC NAILS ANY # Next Appt Details Provider Name:Ameena Cee khoury, 12/06/2025 09:15:00 AM, [address] [place] [address], [place], [address], Insurance Providers Payer Name Payer Address Payer Phone Subscriber Number Group Number Insured Name Patient Relationship to Insured Coverage Start Date Coverage End Date Medicare National Govt Svcs [employer] [address] [place] [address] [id number] Giana Carlos Self - patient is the insured [employer] [address] [place] [address] [phone] [id number] Giana Carlos Self - patient is the insured Medical (General) History Medical History History ICD Code Back,Hip,and Knee pain Surgical History Surgery Date(Month/Year) hip surgery 10/06/2022 Spinal Surgery 05/17/24
--- OUTSIDE RECORDS SUMMARY | 2025-09-27 16:04 | XMS_ITS | Encounter Summary ---
Author Organization [facility] Address [address] [address] Phone Care Team Providers Care New Vehicle Sales Consultant Name Role Phone Rey Hope MD Primary Care Provider [phone] Sue Hendrickson MD Unavailable [phone] Caitlin Armstrong MD Unavailable Yohannes Finch OD Unavailable [phone] Rey Hope MD Unavailable [phone] Encounter Details Date Type Department Care Team (Late st Contact Info) Description 09/17/2025 Orders Only [facility] [place] Internal Medicine [address] [place] [address] Provider, MD Raina [address] [place] [address] Social History Tobacco Use Types Packs/Day [...] Description 01/30/2026 10:00 AM EDT Office Visit [facility] Internal Medicine [address] [place] [address] Rey Hope MD [address] [place] [address] documented as of this encounter Procedures Procedure Name Priority Date/Time Associated Diagnosis Comments OUTSIDE LAB Routine 09/13/2025 7:49 AM EST documented in this encounter Results * Outside Lab (Non-[facility]) (09/13/2025 7:49 AM EST) us Historical Provider LAB BLOOD BKR ORDERABLES Final Result documented in this encounter Visit Diagnoses Not on filedocumented in this encounter Additional Health Concerns Assessment Noted Time PHQ-2 Depression Total Score: 0 05/14/20 25 10:55 AM EDT documented as of this encounter Care Teams New Vehicle Sales Consultant Relationship Specialty Start Date End Date Rey Hope MD [address] [place] [address] [email or web address] PCP - General 11/11/17 Sue Hendrickson MD [address] [facility] 5 [place] [address] Dermatology 08/26/20 Caitlin Armstrong MD [address] [facility] [address] [place] [address] Ophthalmology 08/26/20 Yohannes Finch OD [address] [place] [address] Optometry 08/26/20 Rey Hope MD [address] [place] [address] Insurance Assigned Provider 02/12/24 documented as of this encounter Additional Source Comments The information contained in this document represents components of the legal health record. It is not the complete legal health record.[facility]
--- OUTSIDE RECORDS SUMMARY | 2025-09-27 16:06 | XMS_ITS | Patient Health Record ---
Author Organization [email or web address] Address [address] [place] [address] Care Team Providers Care Salvager Helper Name Role Phone Rey Hope MD Primary Care Provider Ramya Carlin Unavailable [phone] Reason For Referral No Information Medications Medication SIG (Take, Route, Frequency, Duration) Notes Start Date End Date Status Calcium 1 tab Oral Active Vitamin D3 1000 IU ORAL daily; Duration: -3 [facility] 2011 Active Lisinopril 20MG 1 ORAL daily; Durati on: - [facility] 10/19/2011 Active Levothyroxine Sodium 75MCG 1 ORAL daily; Duration: -3 [facility] 10/29/2014 Active Fish Oil 1200MG 1 ORAL daily; Durati on: -3 [facility]- 10/19/2012 Active Fish Oil 1200MG 1 ORAL daily; Durati on: -3 [facility] 10/19/2012 Active Aspirin EC 81MG 1 ORAL daily; Durati on: -3 [facility]- 10/19/2012 Active Aspirin EC 81MG 1 ORAL daily; Durati on: -3 [facility] 10/19/2012 Active Vitamin D3 1000 IU ORAL daily; Duration: -3 [facility]- 2011 Active Lisinopril 20MG 1 ORAL daily; Durati on: -3 [facility] 10/19/2011 Active Levothyroxine Sodium 75MCG 1 ORAL daily; Duration: -3 [facility]- 10/29/2014 Active Social History Tobacco Use: Social [...] W/U Status Risk Notes Problem Essential hypertension (58874310) Unspecified essential hypertension (401.9) Active confirmed Major Problem Menopausal symptom (76034123) Symptomatic menopausal or female climacteric states (627.2) Active confirmed Major Problem Osteoporosis (56663506) Unspecified osteoporosis (733.00) Active confirmed Major Problem Disorder of bone and articular cartilage (disorder) (492628180) Disorder of bone and cartilage, unspecified (733.90) Active confirmed Diag Problem Gynecological examination normal (399926271917626) Routine gynecological examination (V72.31) Active confirmed Major Problem Screening for malignant neoplasm of colon (080311827) Special screening for malignant neoplasms, colon (V76.51) Active confirmed Major Plan Of Treatment No Information Insurance Providers Payer Name Payer Address Payer Phone Subscriber Number Group Number Insured Name Patient Relationship to Insured Coverage Start Date Coverage End Date MEDICARE [address] BETHANY ZHANG [id number] DIRK KAPLAN Self - patient is the insured BCBS OF [facility] [address] [place] [address] [id number] DIRK KAPLAN Self - patient is the insured Medical (General) History Medical History History ICD Code Disorder of bone density and structure, unspecified M85.9 Essential (primary) hypertension I10 Age-related osteoporosis without current pathological fracture M81.0 Menopausal and female climacteric states N95.1 Surgical History Surgery Date(Month/Year) Colonoscopy
--- OUTSIDE RECORDS SUMMARY | 2025-09-27 16:06 | XMS_ITS | Encounter Summary ---
Author Organization [facility] Address [address] [address] Phone Care Team Providers Care Human Resource Management Instructor Name Role Phone Rey Hope MD Primary Care Provider Sue Hendrickson MD Unavailable Caitlin Armstrong MD Unavailable Yohannes Finch OD Unavailable [phone] Rey Hope MD Unavailable [phone] Encounter Details Date Type Department Care Team (Late st Contact Info) Description 06/28/2023 Transcribe Orders [facility] [address] [place], [place] [id number] Rey Hope MD [address] [place], [place] [id number] [email or web address] Social History Tobacco Use Types Packs/Day Years [...] Description 01/30/2026 10:00 AM EDT Office Visit [facility] Internal Medicine [address] [place] [address] Rey Hope MD [address] [place] [address] [email or web address] documented as of this encounter Visit Diagnoses Not on filedocumented in this encounter Additional Health Concerns Assessment Noted Time PHQ-2 Depression Total Score: 0 12/08/19 23 12:42 PM EST documented as of this encounter Care Teams Human Resource Management Instructor Relationship Specialty Start Date End Date Rey Hope MD [address] [place] [address] [email or web address] PCP - General 11/11/17 Sue Hendrickson MD [address] [facility] 5 [place] [address] Dermatology 08/26/20 Caitlin Armstrong MD 9 [facility] [address] [place] [address] Ophthalmology 08/26/20 Yohannes Finch OD [address] [place] [address] Optometry 08/26/20 Rey Hope MD [address] [place] [address] [email or web address] Insurance Assigned Provider 02/12/24 documented as of this encounter Additional Source Comments The information contained in this document represents components of the legal health record. It is not the complete legal health record.[facility]
--- NOTE | 2025-10-01 08:01 | ECG_ITS ---
Test Reason : preop Blood Pressure : */* mmHG Vent. Rate : 74 BPM Atrial Rate : 74 BPM P-R Int : 146 ms QRS Dur : 74 ms QT Int : 362 ms P-R-T Axes : 78 70 58 degrees QTcB Int : 401 ms Sinus rhythm with Premature supraventricular complexes Otherwise normal ECG When compared with ECG of 21-Sep-2025 07:59, Premature supraventricular complexes are now Present Referred By: Maris Buenrostro Electronically Signed By: Joey Luna
--- NOTE | 2025-10-03 10:46 | HO.ANESPROP2 ---
Documented by User: Shirin Rivers NP 10/08/25 11:26 HPI - Anesthesia Eval Consult details Narrative: 85 yr old female for right Cystoscopy Bladder Biopsy and Stent Placement [facility] admission 09/21-09/23/25 for UTI; hypoxic on arrival but resolved by discharge. s/p lumbar laminectomy decompression 05/2024 with GA, ETT 7 COPD: exacerbation summer 2024 requiring nebulizer & steroids. H/O Carotid stenosis in PCP note 06/2025: 60% blockage noted ; repeat US was ordered, but not done (follows at [facility]) PMFSH Active Problems Active Problems: All Active Problems UTI (urinary tract infection) (Acute) Acute on chronic urinary retention (Acute) Urinary retention (Acute) Hyponatremia (Acute) Hypothyroidism (Acute) Peripheral neuropathy (Acute) Carotid stenosis (Acute) Urinary frequency (Acute) Acute hypoxic respiratory failure (Acute) Hypoxia (Acute) Weakness (Acute) Elevated WBC count (Acute) S/P spinal surgery (Acute) Cervical spondylosis with myelopathy (Acute) Cyst (Acute) Past Medical History Medical History Indwelling Nuñez catheter present Frequent UTI (09/21/25) Peripheral neuropathy Urinary frequency Carotid stenosis COPD (chronic obstructive pulmonary disease) Hypothyroidism Spinal stenosis Hypertension Family History Family history of problems with anesthesia: No Surgical History Surgical History Hx of cervical spine surgery (05/17/24) History of excision of pilonidal cyst Hx of bilateral cataract extraction H/O colonoscopy History of right hip replacement History of Problems with Anesthesia: No Social History Social History Household Members: None Household Members Other:: lives alone Housing: House Are you a primary animal care assistant to a significant other at home: No Do you presently have visiting nurse or other home services: Yes ([facility] 2x week) Alcohol intake: current Alcohol intake frequency: a few times a week Comment: 2 to 3 times a week Patient Tobacco Use Status: Former Tobacco user Tobacco use type: Cigarette Cigarettes Per Day: 10 Years Smoked: 30 Use of substances other than those prescribed or required for medical reasons: No Have you been hit, kicked, punched, or otherwise hurt by someone within the past year? If so, by whom?: No Are you DNR?: No Advance Directives: No Advance Directives Information Provided: Yes Advance Directives on File: No Advance Directives Date on File: 05/19/24 service: No Meds Allergies Allergy/AdvReac Type Severity Reaction Status Date / Time No Known Allergies Allergy Verified 09/21/25 07:24 Home Medications ?Medication ?Instructions ?Recorded ?Confirmed ?Last Taken ?Type levothyroxine 75 mcg tablet 75 mcg PO MOTUTHFRSA 04/21/21 10/03/25 09/21/25 History levothyroxine 75 mcg tablet 150 mcg PO SUWE 09/30/23 10/03/25 09/19/25 History dorzolamide 2 % eye drops 1 drp ophthalmic (eye) DAILY 05/04/24 10/03/25 09/21/25 History lisinopril 30 mg tablet 30 mg PO DAILY 05/17/24 10/03/25 09/21/25 History dorzolamide 22.3 mg-timolol 6.8 1 drp ophthalmic (eye) BEDTIME 06/03/25 10/03/25 09/20/25 History mg/mL eye drops calcium 315 mg (as 2 tab PO DAILY 09/21/25 10/03/25 09/21/25 History citrate)-vitamin D3 5 mcg (200 unit) tablet (Calcium Citrate + D) cyanocobalamin (vitamin B-12) 1,000 mcg PO DAILY 09/21/25 10/03/25 Unknown History 1,000 mcg tablet (Vitamin B-12) diclofenac sodium 1 % topical gel 2 g topical QID PRN Pain 09/21/25 10/03/25 Unknown History amlodipine 5 mg tablet 5 mg PO .QAFTERNOON 10/03/25 10/03/25 Unknown History Exam Pertinent Lab Results Pertinent Lab Results: Laboratory Tests 10/02/25 10:29 WBC 16.1 H RBC 4.09 L D Hgb 12.7 D Hct 39.5 D Plt Count 385 D Sodium 136 Potassium 4.0 Chloride 100 Carbon Dioxide 27 BUN 18 H Creatinine 0.88 Narrative Narrative: EKG 10/01/25 Vent. Rate : 74 BPM Atrial Rate : 74 BPM P-R Int : 146 ms QRS Dur : 74 ms QT Int : 362 ms P-R-T Axes : 78 70 58 degrees QTcB Int : 401 ms Sinus rhythm with Premature supraventricular complexes Otherwise normal ECG When compared with ECG of 21-Sep-2025 07:59, Premature supraventricular complexes are now Present Assessment and Plan Final Anesthetic Review Family History of Problems with Anesthesia: No History of Problems with Anesthesia: No Documented by User: Parveen Bird MD 10/09/25 10:48 PMF Past Medical History Medical History Indwelling Nuñez catheter present Frequent UTI (09/21/25) Peripheral neuropathy Urinary frequency Carotid stenosis COPD (chronic obstructive pulmonary disease) Hypothyroidism Spinal stenosis Hypertension Functional capacity: independent ambulation Surgical History Surgical History Hx of cervical spine surgery (05/17/24) History of excision of pilonidal cyst Hx of bilateral cataract extraction H/O colonoscopy History of right hip replacement Social History Social History Household Members: None Household Members Other:: lives alone Housing: House Are you a primary animal care assistant to a significant other at home: No Do you presently have visiting nurse or other home services: Yes ([facility] 2x week) Alcohol intake: current Alcohol intake frequency: a few times a week Comment: 2 to 3 times a week Patient Tobacco Use Status: Former Tobacco user Tobacco use type: Cigarette Cigarettes Per Day: 10 Years Smoked: 30 Use of substances other than those prescribed or required for medical reasons: No Have you been hit, kicked, punched, or otherwise hurt by someone within the past year? If so, by whom?: No Are you DNR?: No Advance Directives: No Advance Directives Information Provided: Yes Advance Directives on File: No Advance Directives Date on File: 05/19/24 service: No Meds Allergies Allergy/AdvReac Type Severity Reaction Status Date / Time No Known Allergies Allergy Verified 09/21/25 07:24 Home Medications ?Medication ?Instructions ?Recorded ?Confirmed ?Last Taken ?Type levothyroxine 75 mcg tablet 75 mcg PO MOTUTHFRSA 04/21/21 10/03/25 09/21/25 History levothyroxine 75 mcg tablet 150 mcg PO SUWE 09/30/23 10/03/25 09/19/25 History dorzolamide 2 % eye drops 1 drp ophthalmic (eye) DAILY 05/04/24 10/03/25 09/21/25 History lisinopril 30 mg tablet 30 mg PO DAILY 05/17/24 10/03/25 09/21/25 History dorzolamide 22.3 mg-timolol 6.8 1 drp ophthalmic (eye) BEDTIME 06/03/25 10/03/25 09/20/25 History mg/mL eye drops calcium 315 mg (as 2 tab PO DAILY 09/21/25 10/03/25 09/21/25 History citrate)-vitamin D3 5 mcg (200 unit) tablet (Calcium Citrate + D) cyanocobalamin (vitamin B-12) 1,000 mcg PO DAILY 09/21/25 10/03/25 Unknown History 1,000 mcg tablet (Vitamin B-12) diclofenac sodium 1 % topical gel 2 g topical QID PRN Pain 09/21/25 10/03/25 Unknown History amlodipine 5 mg tablet 5 mg PO .QAFTERNOON 10/03/25 10/03/25 Unknown History Exam Exam Date and Time: 10/09/2025 Airway TM Dist: >3cm Neck ROM: Full Loose/Missing/Broken Teeth: No Heart: normal Lungs: normal Other: normal Assessment and Plan Assessment Anesthesia Assessment: Anesthesia Plan Discussed and Chart Reviewed Final Anesthetic Review NPO: Yes ASA Class: II Final Preanesthetic Review: No Changes in Pt Med Stat, Meds/Allgs Chart Reviewed and Consent Obtained/Reviewed Patient Risk: Low Anesthetic Plan Anesthetic Plan: GA Disposition: Standard PACU
[2025-10-03 13:04] VITALS: BMI 21.8
[2025-10-09] VITALS (7 sets, daily range): BP systolic 123–172; BP diastolic 55–89; PULSE 69–90; RESP 14–16; TEMP 36.4–36.6; O2SAT 95–97; BMI 21.1
--- NOTE | ~2025-10-09 | FL_ITS ---
EXAMINATION: FLUOROSCOPY GUIDANCE FOR NEEDLE PLACEMENT CLINICAL INFORMATION: Cysto bladder biopsy and right stent placement COMPARISON: CT of the abdomen and pelvis September 2025 TECHNIQUE: Fluoroscopy guidance provided for right retrograde examination stent placement. FINDINGS: 6 submitted fluoroscopic images. There is moderate right sided hydronephrosis. The right ureter does not appear dilated suggestive of right UPJ obstruction. Later images demonstrate placement of a double-J right internal ureteral stent with proximal pigtail projecting over the central right renal collecting system and distal pigtail projecting over the bladder. FLUOROSCOPY TIME: 51 seconds DOSE AREA PRODUCT: [id number] mGy-cm2 FL/FL guidance in OR IMPRESSION: Fluoroscopy guidance for right retrograde exam and stent placement. Electronically signed by: Melania Barber MD 10/09/2025 01:29 PM D[facility]ISIO
[2025-10-09] MEDS: Lactated Ringers 1,000 ML 100 ML IVCONT (10:35)
--- NOTE | 2025-10-09 10:50 | MHC.SHP ---
Pre-Procedural Eval Section A - 24 Hr Update-Section A only Date of Service: 10/09/25 The patient is an INPATIENT: No The patient has been examined within 24 hours of the surgical procedure. The History & Physical has been completed within 30 days and I have reviewed it.: Yes Section B - Complete if H&P > 30 days Chief Complaint: Retention of urine,hydronephrosis Allergies: Allergies Allergy/AdvReac Type Severity Reaction Status Date / Time No Known Allergies Allergy Verified 09/21/25 07:24 Plan Diagnosis/Plan: Unchanged I have reviewed the history and physical and performed a pertinent physical examination on my patient. No changes have occurred unless specified. Cystoscopy, right retrograde, ureteroscopy, possible right ureteral stent, bladder biopsies. Discussed risks to include but not limited to, blood in the urine, burning with urination, urgency. Time Spent With Patient Time: Total time managing care of this patient today ____ minutes.
--- NOTE | 2025-10-09 10:52 | P.OP_ITS ---
Operative Note Operative Note Date of Service: 10/09/25 Narrative: PreOperative Diagnosis:?? Right hydronephrosis Post Operative Diagnosis:?? Right UPJ narrowing with hydronephrosis Procedure: - Cystoscopy, right retrograde, right ureteroscopy laser lithotripsy stent insertion, 7 Lithuanian by 24 cm Surgeon:?Dr Maris Buenrostro Anesthesia:? General Indications for procedure: CT Urogram--Slightly increased now moderate right hydronephrosis. There is abrupt change in caliber at the ureteropelvic junction. No radiopaque obstructing calculus. Questionable abnormal enhancement within the region of abrupt caliber change concerning for a soft tissue lesion/neoplasm measuring 1.1 x 1.2 cm Procedure: After informed consent was verified the patient was brought to the operating placed on the OR table in supine position.? General Anesthesia was administered per protocol.? The patient was placed in lithotomy position, prepped and draped in the usual sterile fashion.? Safety pause time-out and side of surgery confirmed.? Antibiotics confirmed. 2% lidocaine jelly 10 mL was passed transurethrally. A 22 Lithuanian cystoscope was inserted transurethrally, the bladder was visualized.? Both ureteric orifices were in normal position. An open-ended ureteral catheter was passed into the right ureteral orifice and a retrograde examination was performed. There was narrowing at the UPJ and dilatation of the pelvis. A guidewire was passed through the ureteral catheter into the kidney. The balloon dilator size 12 fr x 4 cm was passed over the guide-wire the balloon was inflated to 10 mmHg and the intramural ureter was dilated for 45 seconds. The balloon was deflated and removed. After removing the balloon dilator a 2nd guidewire was then passed into the kidney to use as a safety. The cystoscope was removed, leaving both guidewires in place. One guidewire was used as the safety and was attached to the draping. The semi rigid ureteroscope was passed over one of the guidewires to the level UPJ. The were no abnormal lesions noted. The ureteroscope was removed. The cystoscope was passed over the safety guidewire. A? 7 Lithuanian by 24 cm stent was placed into the ureter and renal pelvis under a combination of fluoroscopy and direct visualization. The bladder was emptied.? The rigid cystoscope was removed. ? The patient tolerated the procedure well and was brought to the recovery room in stable condition. Complications: None Drains: Ureteral stent as dictated above
== END 2025-10-09 13:53 | disposition home or self-care (01) ==
PROVIDERS: PCP Internal Medicine; Visit Provider Urology
PROC: (CPT 52356; principal; 2025-10-09 11:20)
DX: N13.30 Unspecified hydronephrosis (principal); Z87.440 Personal history of urinary (tract) infections; R33.9 Retention of urine, unspecified; N28.89 Other specified disorders of kidney and ureter; I10 Essential (primary) hypertension; G62.9 Polyneuropathy, unspecified; J44.9 Chronic obstructive pulmonary disease, unspecified; K59.00 Constipation, unspecified; Z79.899 Other long term (current) drug therapy; Z98.890 Other specified postprocedural states; Z87.891 Personal history of nicotine dependence
CPT/HCPCS: 52356; 87086; 88305; 88341; 88342; 93005; C1726; C1758; C1769; C2617; J0690; J1171; J2003; J2704; J3010; Q9967

== ENCOUNTER → 2025-10-09 09:58 | Outpatient (BNV) | payer MEDICARE, SELFPAY | PROVIDERS: PCP Internal Medicine; Visit Provider Urology | DX: N13.0 Hydronephrosis with ureteropelvic junction obstruction (principal) | CPT/HCPCS: 52356; 74420 ==

== ENCOUNTER → 2025-10-22 09:06 | Outpatient (BNVA) | payer MEDICARE, SELFPAY | PROVIDERS: PCP Internal Medicine; Visit Provider Urology | DX: R33.9 Retention of urine, unspecified (principal) | CPT/HCPCS: 51700; 51798 ==

== ENCOUNTER → 2025-10-23 10:19 | Outpatient (BNVA) | payer MEDICARE, SELFPAY | PROVIDERS: PCP Internal Medicine; Visit Provider Urology | DX: Z46.6 Encounter for fitting and adjustment of urinary device (principal); R33.9 Retention of urine, unspecified | CPT/HCPCS: 51702; 51798 ==

== ENCOUNTER → 2025-11-07 12:42 | Outpatient (BNVA) | payer MEDICARE, SELFPAY | PROVIDERS: PCP Internal Medicine; Visit Provider Urology | DX: R33.9 Retention of urine, unspecified (principal); Z46.6 Encounter for fitting and adjustment of urinary device | CPT/HCPCS: 51702 ==